=== PATIENT | female | born 1955 | race Caucasian/White ===

== ENCOUNTER 2022-08-22 05:28 | Inpatient (IN) ==
--- NOTE | 2022-08-22 06:35 | Emergency Department Note ---
Impression & Plan Respiratory failure with hypoxia, Fluid overload ED Provider Note CHIEF COMPLAINT: Shortness of breath HISTORY OF PRESENT ILLNESS: This 67-year-old patient with past medical history of bipolar disorder, hypertension, stress incontinence, chronic back pain, morbid obesity with fluid overload presents to the emergency department with complaints of shortness of breath. Patient has been staying in a camper with her . He did have a 3-day period where she was off of her Lasix, which w as just initiated at the beginning of July. Patient did take her Lasix yesterday and her states she had difficulty making it to the bathroom, she was incontinent several times. He also mentions that she has a diagnosis of dementia and multiple medications exacerbate her confusion. Patient is noted to improve tremendously on nasal cannula oxygen. She does not wear oxygen at home. They deny fevers, chills, chest pain, abdominal pain, vomiting. REVIEW OF SYSTEMS: A review of systems was performed with positives and pertinent negatives listed in the history of present illness. 10 systems were reviewed and are otherwise negative. ALLERGIES: see below MEDICATIONS: see below PMH: see below SOCIAL HISTORY: see below DDx: Reactive airway disease, pneumonia, pneumothorax, COPD, CHF, cardiac ischemia, pulmonary embolism, as well as other pathologies. PHYSICAL EXAM: Vital signs reviewed. Noted to be hypertensive General: Chronically ill-appearing 67-year-old female, in no significant distress. HEENT: No scleral icterus, PERRLA, neck supple. Atraumatic. Cardiovascular: Regular rate and rhythm, no extra sounds. Pulmonary: Clear to auscultation bilaterally, normal work of breathing on n/c 02 Abdomen: Soft, obese, nontender, nondistended, positive bowel sounds. Musculoskeletal: Atraumatic, significant peripheral edema. Neurologic: Patient somnolent but arousable, answers questions appropriately, speech is slower but clear Skin: Warm, dry in general, but significant yeast dermatitis under breasts bilaterally. Foul smelling. EMERGENCY DEPARTMENT COURSE/MDM: -This pt was evaluated and appeared to be in no distress, on n/c O2 -CXR ? mild congestion, no focal consolidation or severe CHF -VSS on n/c O2 -IV access obtained and labs drawn. EKG reveals NSR without acute ischemia. -medicated with IV lasix [address] chest ordered to r/o PE. -pt began to diurese and chest CT negative for PE. Lab work is reassuring, biofire resp panel is negative. Trop WNL. -Nystatin and wound care ordered for intertrigo. -Given hypoxia and need for diuresis, further evaluation, pt was d/w the hospitalist service for further management. Pt and aware and agree. MONITORING: An order for cardiac monitoring was placed and the patient is noted to be in a normal sinus rhythm at 80 beats per minute. RADIOLOGY: Chest x-ray to my interpretation reveals poor inspiratory effort, possible mild congestive change without focal lung consolidation. Otherwise defer to radiology. CT angiogram of the chest reveals no evidence of pulmonary embolus, no focal lung consolidation. Otherwise defer to radiology EKG: To my interpretation reveals a normal sinus rhythm at [address] abnormalities. No PVC, no PAC. QTc is 439 DISPOSITION:Admit I have personally spent 32 minutes of critical care time in the direct management of this patient. This was a life/limb threatening event. This 32 minutes is in excess of all separately billable procedures. 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 Beliefs That Will Affect Care: None Current Living Situation: Spouse Feels Safe at Home: Yes Assistive Devices: Cane and Walker Allergies Allergies Allergy/AdvReac Type Severity Reaction Status Date / Time amitriptyline [From Elavil] AdvReac Gastrointestinal Unverified 08/22/22 09:35 Upset amoxicillin [From Augmentin] AdvReac Gastrointestinal Unverified 08/22/22 09:35 Upset clavulanic acid AdvReac Gastrointestinal Unverified 08/22/22 09:35 [From Augmentin] Upset oxycodone AdvReac Gastrointestinal Unverified 08/22/22 09:35 Upset Home Meds Home Medications Medication Instructions Recorded Confirmed albuterol sulfate 90 mcg/actuation 2 puff inhalation QID PRN Wheezing 08/22/22 08/22/22 aerosol inhaler atorvastatin 10 mg tablet 10 mg PO DAILY 08/22/22 08/22/22 celecoxib 200 mg capsule See Rx Instructions .Route .COMPLEX 08/22/22 08/22/22 cephalexin 500 mg capsule 500 mg PO BID 08/22/22 08/22/22 duloxetine 60 mg capsule,delayed 60 mg PO QAM 08/22/22 08/22/22 release hydroxyzine HCl 25 mg tablet 50 mg PO QID PRN Anxiety 08/22/22 08/22/22 nystatin 100,000 unit/gram topical 1 applic topical TID 08/22/22 08/22/22 powder (Nyamyc) olanzapine 20 mg tablet 20 mg PO DAILY 08/22/22 08/22/22 oxybutynin chloride 10 mg 10 mg PO QAM 08/22/22 08/22/22 tablet,extended release 24 hr risperidone 1 mg tablet 0.5 mg PO BID 08/22/22 08/22/22 Previous Rx's Medication Instructions Recorded amlodipine 5 mg tablet (Norvasc) 2.5 mg PO QAM 30 days #15 tabs 08/25/22 furosemide 20 mg tablet 20 mg PO QAM 30 days #30 tabs 08/25/22 gabapentin 400 mg capsule 400 mg PO BID #1 cap 08/25/22 hydrocodone 2.5 mg-acetaminophen 1 tab PO Q6H PRN pain #20 tabs 08/25/22 325 mg tablet lidocaine 5 % topical patch 1 patch transdermal QAM 30 days 08/25/22 #30 ea metoprolol succinate 100 mg 100 mg PO BID #60 tabs 08/25/22 tablet,extended release 24 hr (Toprol XL) Results & Data (ED) Vital Signs Vital Signs - 24 hr 08/22/22 05:34 08/22/22 06:01 08/22/22 06:12 Temperature 36.6 C Temperature Source Temporal Artery Scan Pulse Rate 80 80 Pulse Rate from SpO2 Sensor Respiratory Rate 18 Respiratory Effort / Characteristics Non-Labored Spontaneous Respiratory Depth Normal Respiratory Pattern Regular Blood Pressure 139/80 Blood Pressure Mean 99 Blood Pressure Position Sitting Pulse Oximetry 65 L 60 L Oxygen Delivery Method Room Air Room Air Oxygen Flow Rate Sepsis Recent Fever Within 48 Hours No Sepsis New/Unexplained Change in Mental Status N/A Sepsis Action Taken by Nursing No Action Required 08/22/22 06:02 08/22/22 06:30 08/22/22 06:41 Temperature Temperature Source Pulse Rate 79 78 Pulse Rate from SpO2 Sensor 79 78 Respiratory Rate 26 H 20 Respiratory Effort / Characteristics Respiratory Depth Respiratory Pattern Blood Pressure 167/88 H 154/81 H Blood Pressure Mean 114 105 Blood Pressure Position Pulse Oximetry 94 93 Oxygen Delivery Method Nasal Cannula Nasal Cannula Oxygen Flow Rate 4 4 Sepsis Recent Fever Within 48 Hours Sepsis New/Unexplained Change in Mental Status Sepsis Action Taken by Nursing 08/22/22 06:41 08/22/22 07:00 08/22/22 07:00 Temperature Temperature Source Pulse Rate 77 80 Pulse Rate from SpO2 Sensor 77 80 Respiratory Rate 26 H 22 Respiratory Effort / Characteristics Respiratory Depth Respiratory Pattern Blood Pressure 163/97 H Blood Pressure Mean 119 Blood Pressure Position Pulse Oximetry 95 92 Oxygen Delivery Method Nasal Cannula Nasal Cannula Oxygen Flow Rate 4 4 Sepsis Recent Fever Within 48 Hours Sepsis New/Unexplained Change in Mental Status Sepsis Action Taken by Alf Medications Current Medication List: was personally reviewed by me Laboratory Data Attestation: I reviewed the patient's lab results. 08/22/22 06:05 08/22/22 06:05 Lab Results 08/22/22 08/22/22 08/22/22 Range/Units 06:05 06:05 06:10 WBC 8.48 (4.8-10.8) K/ul RBC 5.31 (4.20-5.40) M/uL Hgb 13.3 (12.0-16.0) g/dl Hct 43.6 (37.0-47.0) % MCV 82.1 (80.0-100.0) fL MCH 25.0 (25.0-34.0) pg MCHC 30.5 L (32.0-36.0) g/dL RDW Std Deviation 45.8 (36.4-46.3) fL RDW Coeff of Zandra 15.3 H (11.5-14.5) % Plt Count 210 (130-400) K/uL MPV 9.9 (9.4-12.4) fL Immature Gran % (Auto) 0.8 % Neut % (Auto) 82.9 % Lymph % (Auto) 9.0 % [place]ferro % (Auto) 4.8 % Eos % (Auto) 2.1 % Baso % (Auto) 0.4 % Neut # (Auto) 7.03 H (1.40-6.50) K/uL Lymph # (Auto) 0.76 L (1.2-3.4) K/uL [place]ferro # (Auto) 0.41 (0.11-0.59) K/uL Eos # (Auto) 0.18 (0-0.50) K/uL Baso # (Auto) 0.03 (0-0.2) K/uL Immature Gran # (Auto) 0.07 (0.01-0.20) K/uL ABG pH (7.35-7.45) ABG pCO2 (35-46) mmHg ABG pO2 (80-95) mmHg ABG HCO3 (19-24) mmol/L ABG O2 Saturation (90-95) % ABG Base Excess (-9-1.8) mEq/L Parvez Test (Pos) Oxygen Given Sodium 132 L (136-145) mmol/L Potassium TNP Chloride 92 L (98-107) mmol/L Carbon Dioxide 35 H (21-32) mmol/L Anion Gap 5 (3-11) BUN 7 (6-23) mg/dl Creatinine 0.78 (0.6-1.2) mg/dl Est Cr Clr Drug Dosing Not Reportable Est GFR ( Amer) 91.8 ml/min Est GFR (Non-Af Amer) 79.2 ml/min BUN/Creatinine Ratio 9.0 L (10-20) Glucose 114 H (70-99(Fasting)) mg/dl Calcium 9.0 (8.6-10.3) mg/dl Magnesium 1.6 L (1.7-2.4) mg/dl Total Bilirubin 0.7 (0.2-1.0) mg/dl AST TNP ALT 5 L (7-52) U/L Alkaline Phosphatase 81 (34-104) U/L Troponin I High Sens 10.5 (0-14) pg/ml Total Protein 6.8 (6.0-8.3) gm/dl Albumin 3.6 (3.4-5.0) gm/dl Globulin 3.2 (2.5-4.0) gm/dl Albumin/Globulin Ratio 1.1 (0.9-2) Urine Color Urine Appearance (Clear) Urine pH (4.5-7.5) Ur Specific [place] (1.000-1.030) Urine Protein (Negative) Urine Glucose (UA) (Negative) Urine Ketones (Negative) Urine Blood (Negative) Urine Nitrite (Negative) Urine Bilirubin (Negative) Urine Urobilinogen (Negative) Ur Leukocyte Esterase (Negative) Adenovirus (PCR) Not Detected (NotDetected) B. pertussis DNA (PCR) Not Detected (NotDetected) B.parapertussis DNA PCR Not Detected (NotDetected) C. pneumoniae DNA (PCR) Not Detected (NotDetected) Coronavirus OC43 (PCR) Not Detected (NotDetected) Coronavirus HKU1 (PCR) Not Detected (NotDetected) Coronavirus 229E (PCR) Not Detected (NotDetected) SARS-CoV-2 (PCR) Not Detected (NotDetected) Coronavirus NL63 (PCR) Not Detected (NotDetected) Human Metapneumovir PCR Not Detected (NotDetected) Influenza Type A (PCR) Not Detected (NotDetected) Influenza Type B (PCR) Not Detected (NotDetected) M. pneumoniae (PCR) Not Detected (NotDetected) Parainfluenza 1 (PCR) Not Detected (NotDetected) Parainfluenza 2 (PCR) Not Detected (NotDetected) Parainfluenza 3 (PCR) Not Detected (NotDetected) Parainfluenza 4 (PCR) Not Detected (NotDetected) RSV (PCR) Not Detected (NotDetected) Entero/Rhino (PCR) Not Detected (NotDetected) 08/22/22 08/22/22 08/22/22 Range/Units 07:03 07:03 07:36 WBC (4.8-10.8) K/ul RBC (4.20-5.40) M/uL Hgb (12.0-16.0) g/dl Hct (37.0-47.0) % MCV (80.0-100.0) fL MCH (25.0-34.0) pg MCHC (32.0-36.0) g/dL RDW Std Deviation (36.4-46.3) fL RDW Coeff of Zandra (11.5-14.5) % Plt Count (130-400) K/uL MPV (9.4-12.4) fL Immature Gran % (Auto) % Neut % (Auto) % Lymph % (Auto) % [place] % (Auto) % Eos % (Auto) % Baso % (Auto) % Neut # (Auto) (1.40-6.50) K/uL Lymph # (Auto) (1.2-3.4) K/uL [place] # (Auto) (0.11-0.59) K/uL Eos # (Auto) (0-0.50) K/uL Baso # (Auto) (0-0.2) K/uL Immature Gran # (Auto) (0.01-0.20) K/uL ABG pH 7.38 (7.35-7.45) ABG pCO2 67 H (35-46) mmHg ABG pO2 80 (80-95) mmHg ABG HCO3 40 H (19-24) mmol/L ABG O2 Saturation 95.6 H (90-95) % ABG Base Excess 11.5 H (-9-1.8) mEq/L Parvez Test Pos (Pos) Oxygen Given 5L Sodium (136-145) mmol/L Potassium 3.9 Chloride (98-107) mmol/L Carbon Dioxide (21-32) mmol/L Anion Gap (3-11) BUN (6-23) mg/dl Creatinine (0.6-1.2) mg/dl Est Cr Clr Drug Dosing Est GFR ( Amer) ml/min Est GFR (Non-Af Amer) ml/min BUN/Creatinine Ratio (10-20) Glucose (70-99(Fasting)) mg/dl Calcium (8.6-10.3) mg/dl Magnesium (1.7-2.4) mg/dl Total Bilirubin (0.2-1.0) mg/dl AST 10 L ALT (7-52) U/L Alkaline Phosphatase (34-104) U/L Troponin I High Sens (0-14) pg/ml Total Protein (6.0-8.3) gm/dl Albumin (3.4-5.0) gm/dl Globulin (2.5-4.0) gm/dl Albumin/Globulin Ratio (0.9-2) Urine Color Yellow Urine Appearance Clear (Clear) Urine pH 7.0 (4.5-7.5) Ur Specific [place] 1.006 (1.000-1.030) Urine Protein Negative (Negative) Urine Glucose (UA) Negative (Negative) Urine Ketones Negative (Negative) Urine Blood Negative (Negative) Urine Nitrite Negative (Negative) Urine Bilirubin Negative (Negative) Urine Urobilinogen Negative (Negative) Ur Leukocyte Esterase Negative (Negative) Adenovirus (PCR) (NotDetected) B. pertussis DNA (PCR) (NotDetected) B.parapertussis DNA PCR (NotDetected) C. pneumoniae DNA (PCR) (NotDetected) Coronavirus OC43 (PCR) (NotDetected) Coronavirus HKU1 (PCR) (NotDetected) Coronavirus 229E (PCR) (NotDetected) SARS-CoV-2 (PCR) (NotDetected) Coronavirus NL63 (PCR) (NotDetected) Human Metapneumovir PCR (NotDetected) Influenza Type A (PCR) (NotDetected) Influenza Type B (PCR) (NotDetected) M. pneumoniae (PCR) (NotDetected) Parainfluenza 1 (PCR) (NotDetected) Parainfluenza 2 (PCR) (NotDetected) Parainfluenza 3 (PCR) (NotDetected) Parainfluenza 4 (PCR) (NotDetected) RSV (PCR) (NotDetected) Entero/Rhino (PCR) (NotDetected) Administered Medications Discontinued Medications Acetaminophen (Acetaminophen 325 Mg Tab) 650 mg PO Q12H PRN PRN Reason: Headache Stop: 09/21/22 19:36 Last Admin: 08/22/22 20:09 Dose: 650 mg Documented By: JASMYN Hydrocodone Bitart/Acetaminophen (Hydrocodone/Acetamophen 5/325mg Tab) 0.5 tab PO Q6H PRN PRN Reason: moderate to severe Stop: 09/05/22 10:02 Last Admin: 08/25/22 09:26 Dose: 0.5 tab Documented By: Admin: 08/24/22 12:23 Dose: 0.5 tab Documented By: Admin: 08/23/22 15:43 Dose: 0.5 tab Documented By: Admin: 08/23/22 08:19 Dose: 0.5 tab Documented By: Admin: 08/22/22 16:03 Dose: 0.5 tab Documented By: EBENEZER Amlodipine Besylate (Amlodipine Besylate 5 Mg Tab) [facility] [place] Stop: 09/22/22 08:59 Last Admin: 08/25/22 07:59 Dose: 2.5 mg Documented By: Admin: 08/24/22 08:55 Dose: 2.5 mg Documented By: Admin: 08/23/22 08:22 Dose: 2.5 mg Documented By: SAMSON Cephalexin HCl (Cephalexin 500 Mg Cap) 500 mg PO Q6 [facility]; Protocol Stop: 08/29/22 13:29 Last Admin: 08/25/22 13:01 Dose: 500 mg Documented By: Admin: 08/25/22 05:41 Dose: 500 mg Documented By: Admin: 08/25/22 00:07 Dose: 500 mg Documented By: Admin: 08/24/22 17:41 Dose: 500 mg Documented By: Admin: 08/24/22 12:22 Dose: 500 mg Documented By: Admin: 08/24/22 05:50 Dose: 500 mg Documented By: Admin: 08/23/22 23:22 Dose: 500 mg Documented By: Admin: 08/23/22 18:12 Dose: 500 mg Documented By: Admin: 08/23/22 12:39 Dose: 500 mg Documented By: Admin: 08/23/22 05:21 Dose: 500 mg Documented By: Admin: 08/22/22 22:39 Dose: 500 mg Documented By: Admin: 08/22/22 19:15 Dose: 500 mg Documented By: Admin: 08/22/22 13:57 Dose: 500 mg Documented By: EBENEZER Duloxetine HCl (Duloxetine Hcl 20 Mg Cap) 40 mg PO DAILY [facility] Stop: 09/22/22 08:59 Last Admin: 08/25/22 08:00 Dose: 40 mg Documented By: Admin: 08/24/22 08:56 Dose: 40 mg Documented By: Admin: 08/23/22 08:23 Dose: 40 mg Documented By: SMASON Furosemide (Furosemide 40 Mg/4 Ml Vial) 40 mg IV ONE ONE Stop: 08/22/22 08:00 Last Admin: 08/22/22 09:02 Dose: 40 mg Documented By: MARY JO Furosemide (Furosemide 20 Mg Tab) 20 mg PO QAM PRISCILLA Stop: 09/22/22 11:14 Last Admin: 08/25/22 08:00 Dose: 20 mg Documented By: Admin: 08/24/22 08:56 Dose: 20 mg Documented By: Admin: 08/23/22 11:25 Dose: 20 mg Documented By: SAMSON Gabapentin (Gabapentin 400 Mg Cap) 400 mg PO BID PRISCILLA Stop: 09/21/22 20:59 Last Admin: 08/25/22 08:02 Dose: 400 mg Documented By: Admin: 08/24/22 22:44 Dose: 400 mg Documented By: Admin: 08/24/22 08:55 Dose: 400 mg Documented By: Admin: 08/23/22 20:19 Dose: 400 mg Documented By: Admin: 08/23/22 08:23 Dose: 400 mg Documented By: Admin: 08/22/22 20:12 Dose: 400 mg Documented By: JASMYN Heparin Sodium (Porcine) (Heparin Sod 5,000 Unit/0.5 Ml Vial) 5,000 units SQ Q8 PRISCILLA Stop: 09/21/22 13:59 Last Admin: 08/25/22 05:42 Dose: 5,000 units Documented By: Admin: 08/24/22 22:44 Dose: 5,000 units Documented By: Admin: 08/24/22 14:10 Dose: 5,000 units Documented By: Admin: 08/24/22 05:50 Dose: 5,000 units Documented By: Admin: 08/23/22 23:22 Dose: 5,000 units Documented By: Admin: 08/23/22 15:38 Dose: 5,000 units Documented By: Admin: 08/23/22 05:22 Dose: 5,000 units Documented By: Admin: 08/22/22 22:37 Dose: 5,000 units Documented By: Admin: 08/22/22 13:58 Dose: 5,000 units Documented By: EBENEZER Hydroxyzine HCl (Hydroxyzine Hcl 25 Mg Tab) 25 mg PO Q8H PRN PRN Reason: Anxiety Stop: 09/21/22 14:07 Last Admin: 08/24/22 08:54 Dose: 25 mg Documented By: Admin: 08/23/22 10:40 Dose: 25 mg Documented By: Admin: 08/22/22 14:21 Dose: 25 mg Documented By: EBENEZER Magnesium Sulfate/Dextrose (Magnesium Sulfate / D5w) 1 gm in 100 mls @ 200 mls/hr IV Q30M [facility] Stop: 08/22/22 08:24 Last Infusion: 08/22/22 09:35 Dose: 0 mls/hr Documented By: MARY JO Admin: 08/22/22 09:03 Dose: 200 mls/hr Documented By: MARY JO Infusion: 08/22/22 09:03 Dose: 200 mls/hr Documented By: MARY JO Admin: 08/22/22 08:37 Dose: 200 mls/hr Documented By: MARY JO Promethazine HCl 12.5 mg/ (Sodium Chloride) 50.5 mls @ 202 mls/hr IV Q6H PRN PRN Reason: Nausea And Vomiting Stop: 09/23/22 20:25 Last Infusion: 08/24/22 22:46 Dose: 0 mls/hr Documented By: Admin: 08/24/22 21:25 Dose: 202 mls/hr Documented By: ASAF Ioversol (Optiray 320 500ml) 120 ml IV ONCE ONE Stop: 08/22/22 07:51 Last Admin: 08/22/22 07:51 Dose: 120 ml Documented By: ERICH Lactobacillus Acidophilus (Advanced Probiotic 1250 Mg Capsule) 2 cap PO DAILY [facility] Stop: 09/21/22 13:29 Last Admin: 08/25/22 08:01 Dose: 2 cap Documented By: Admin: 08/24/22 08:56 Dose: 2 cap Documented By: Admin: 08/23/22 08:22 Dose: 2 cap Documented By: Admin: 08/22/22 13:58 Dose: 2 cap Documented By: EBENEZER Lidocaine (Lidocaine 5% 1 Patch) 1 patch TD QAM [facility] Stop: 09/21/22 10:29 Last Admin: 08/25/22 08:02 Dose: 1 patch Documented By: Admin: 08/24/22 08:56 Dose: 1 patch Documented By: Admin: 08/23/22 08:23 Dose: 1 patch Documented By: Admin: 08/22/22 13:57 Dose: 1 patch Documented By: EBENEZER Metoprolol Succinate (Metoprolol Succ 50mg Ext Rel Tab) 100 mg PO DAILY [facility] Stop: 09/22/22 08:59 Last Admin: 08/24/22 08:56 Dose: 100 mg Documented By: Admin: 08/23/22 08:23 Dose: 100 mg Documented By: SAMSON Metoprolol Succinate (Metoprolol Succ 50mg Ext Rel Tab) 50 mg PO HS [facility] Stop: 09/21/22 20:59 Last Admin: 08/23/22 20:20 Dose: 50 mg Documented By: Admin: 08/22/22 20:12 Dose: 50 mg Documented By: JASMYN Metoprolol Succinate (Metoprolol Succ 50mg Ext Rel Tab) 100 mg PO BID [facility] Stop: 09/23/22 20:59 Last Admin: 08/25/22 08:01 Dose: 100 mg Documented By: Admin: 08/24/22 22:44 Dose: 100 mg Documented By: ASAF Miscellaneous (Remove Lidoderm Patch) 1 each N/A DAILY@2100 [facility] Stop: 09/21/22 20:59 Last Admin: 08/24/22 22:45 Dose: 1 each Documented By: Admin: 08/23/22 20:21 Dose: 1 each Documented By: Admin: 08/22/22 20:12 Dose: 1 each Documented By: JASMYN Nystatin (Nystatin Powder 15gm Btl) 1 appln EXT NOW STA Stop: 08/22/22 07:37 Last Admin: 08/22/22 08:37 Dose: 1 appln Documented By: MARY JO Nystatin (Nystatin Powder 15gm Btl) 1 appln EXT TID [facility] Stop: 09/21/22 13:59 Last Admin: 08/25/22 08:02 Dose: 1 appln Documented By: Admin: 08/24/22 22:45 Dose: 1 appln Documented By: Admin: 08/24/22 14:11 Dose: 1 appln Documented By: Admin: 08/24/22 08:55 Dose: 1 appln Documented By: Admin: 08/23/22 20:21 Dose: 1 appln Documented By: Admin: 08/23/22 15:34 Dose: 1 appln Documented By: Admin: 08/23/22 08:24 Dose: 1 appln Documented By: Admin: 08/22/22 20:12 Dose: 1 appln Documented By: Admin: 08/22/22 13:58 Dose: 1 appln Documented By: EBENEZER Ondansetron HCl (Ondansetron Inj 2 Mg/Ml 2 Ml Vial) 4 mg IV NOW STA Stop: 08/22/22 18:51 Last Admin: 08/22/22 19:15 Dose: 4 mg Documented By: EBENEZER Oxybutynin Chloride (Oxybutynin Chloride Xl 5 Mg Tabcr) 10 mg PO DAILY PRISCILLA Stop: 09/22/22 08:59 Last Admin: 08/25/22 08:00 Dose: 10 mg Documented By: Admin: 08/24/22 08:54 Dose: 10 mg Documented By: Admin: 08/23/22 08:24 Dose: 10 mg Documented By: SAMSON Pneumococcal Polyvalent Vaccine (Pneumococcal Polysaccharides 25 Mcg/0.5 Ml Vial/Syr) 25 mcg IM .ONCE ONE Stop: 08/22/22 10:22 Last Admin: 08/25/22 13:03 Dose: 25 mcg Documented By: HERNESTO Risperidone (Risperidone 0.5 Mg Tablet) 0.5 mg PO BID PRISCILLA Stop: 09/21/22 20:59 Last Admin: 08/25/22 08:00 Dose: 0.5 mg Documented By: Admin: 08/24/22 22:44 Dose: 0.5 mg Documented By: Admin: 08/24/22 09:02 Dose: 0.5 mg Documented By: Admin: 08/23/22 20:20 Dose: 0.5 mg Documented By: Admin: 08/23/22 08:24 Dose: 0.5 mg Documented By: Admin: 08/22/22 20:12 Dose: 0.5 mg Documented By: JASMYN Imaging Data Radiologist's Impression: Chest X-Ray 08/22/22 05:46 XR chest 1V portable CLINICAL HISTORY: Dyspnea TECHNIQUE: Single frontal radiograph of the chest was obtained. Comparison: Comparison is made to chest radiograph 11/09/2010 FINDINGS: Exam is limited by underpenetration. The cardiomediastinal silhouette is normal. Lungs are underinflated but clear. No evidence of pleural effusion or pneumothorax. IMPRESSION: No acute abnormalities and in particular no radiographic evidence of pneumonia. ACT 112: Negative or not required by law. Electronically signed by: Jensen Villalba M.D. 08/22/2022 7:32 AM Chest CTA 08/22/22 06:41 CT angio chest PE protocol CLINICAL HISTORY: PE, O2 sat 60% TECHNIQUE: Multidetector row helical CT of the chest was performed with angiographic protocol. Coronal and sagittal reformations were obtained. Coronal and sagittal MIPS were obtained from the axial data set and were submitted for review. Automated dose lowering techniques and/or adjustment according to patient size were utilized for this exam. CT DOSE: 782.74 mGy.cm Comparison: Comparison is made to chest radiograph 08/22/2022 FINDINGS: Lungs and pleura: Atelectasis versus scarring is seen in the dependent portions of the lungs. Heart and pericardium: Heart size is normal. No pericardial effusion. Vessels: No evidence of pulmonary embolism. Pulmonary trunk measures 37 mm in diameter. Mediastinum and tamiko: Unremarkable. Chest wall and lower neck: Unremarkable. Abdomen: Unremarkable. Bones: Degenerative changes in the thoracic spine. IMPRESSION: 1. No pulmonary embolus is seen. 2. Pulmonary hypertension and atelectasis are seen. ACT 112: Negative or not required by law. Electronically signed by: Jensen Villalba M.D. 08/22/2022 8:10 AM Discharge Plan Visit Data Chief Complaint: Weakness Stated Complaint: CAN'T WALK,SWELLING IN LEGS,RED PATCHES ED Provider: Kathrine Fonseca Discharge Problem: Respiratory failure with hypoxia, Fluid overload Patient Disposition: Admitted As Inpatient Condition: Fair Discharge Instructions Interventions: ED Discharge Assessment Last Done: 08/22/22 09:32
[2022-08-22 06:42] LABS: Basophils # (auto) 0.03 K/uL (0-0.2); Basophils % (auto) 0.4 %; Eosinophils # (auto) 0.18 K/uL (0-0.50); Eosinophils % (auto) 2.1 %; Hematocrit (blood only) 43.6 % (37.0-47.0); Hemoglobin 13.3 g/dl (12.0-16.0); Immature Granulocytes # (auto) 0.07 K/uL (0.01-0.20); Immature Granulocytes % (auto) 0.8 %; Lymphocytes # (auto) 0.76 K/uL (1.2-3.4); Mean Corpuscular Hgb Conc 30.5 g/dL (32.0-36.0); Mean Corpuscular Volume 82.1 fL (80.0-100.0); Mean Platelet Volume 9.9 fL (9.4-12.4); Monocytes # (auto) 0.41 K/uL (0.11-0.59); Monocytes % (auto) 4.8 %; Neutrophils # (auto) 7.03 K/uL (1.40-6.50); Neutrophils % (auto) 82.9 %; Platelet Count 210 K/uL (130-400); RDW Coefficient of Variation 15.3 % (11.5-14.5); RDW Standard Deviation 45.8 fL (36.4-46.3); Red Blood Count 5.31 M/uL (4.20-5.40); White Blood Count 8.48 K/ul (4.8-10.8)
[2022-08-22 07:12] LABS: Base Excess ABG 11.5 mEq/L (-9-1.8); HCO3 ABG 40 mmol/L (19-24); Oxygen Saturation ABG 95.6 % (90-95); PCO2 ABG 67 mmHg (35-46); PO2 ABG 80 mmHg (80-95); pH ABG 7.38 (7.35-7.45)
[2022-08-22 07:13] LABS: Allen Test Pos (Pos)
[2022-08-22 07:13] LABS: Alanine Aminotransferase 5 U/L (7-52); Albumin Globulin Ratio 1.1 (0.9-2); Albumin Level 3.6 gm/dl (3.4-5.0); Alkaline Phosphatase 81 U/L (34-104); Anion Gap 5 (3-11); Bilirubin,Total 0.7 mg/dl (0.2-1.0); Blood Urea Nitrogen 7 mg/dl (6-23); Carbon Dioxide 35 mmol/L (21-32); Chloride 92 mmol/L (98-107); Est GFR (African American) 91.8 ml/min; Est GFR (Non-African American) 79.2 ml/min; Globulin 3.2 gm/dl (2.5-4.0); Glucose 114 mg/dl (70-99(Fasting)); Magnesium 1.6 mg/dl (1.7-2.4); Sodium 132 mmol/L (136-145); Total Protein 6.8 gm/dl (6.0-8.3); Troponin I High Sensitivity 10.5 pg/ml (0-14)
[2022-08-22 07:32] LABS: Potassium 3.9 mmol/L (3.5-5.1)
--- NOTE | 2022-08-22 07:33 | XRay Report ---
XR chest 1V portable CLINICAL HISTORY: Dyspnea TECHNIQUE: Single frontal radiograph of the chest was obtained. Comparison: Comparison is made to chest radiograph 11/09/2010 FINDINGS: Exam is limited by underpenetration. The cardiomediastinal silhouette is normal. Lungs are underinfla marni but clear. No evidence of pleural effusion or pneumothorax. IMPRESSION: No acute abnormalities and in particular no radiographic evidence of pneumonia. ACT 112: Negative or not required by law. Electronically signed by: Jensen Villalba M.D. 08/22/2022 7:32 AM
[2022-08-22] MEDS ORDERED: NYSTATIN POWDER 15GM BTL EXT STA (07:36)
[2022-08-22 07:38] LABS: Adenovirus PCR Not Detected (NotDetected); Bordetella parapertussis PCR Not Detected (NotDetected); Bordetella pertussis PCR Not Detected (NotDetected); Chlamydia pneumoniae PCR Not Detected (NotDetected); Coronavirus 229E PCR Not Detected (NotDetected); Coronavirus CoV-2 (COVID19)PCR Not Detected (NotDetected); Coronavirus HKU1 PCR Not Detected (NotDetected); Coronavirus NL63 PCR Not Detected (NotDetected); Coronavirus OC43PCR Not Detected (NotDetected); Human Metapneumovirus PCR Not Detected (NotDetected); Influenza A PCR Not Detected (NotDetected); Influenza B PCR Not Detected (NotDetected); Mycoplasma pneumoniae PCR Not Detected (NotDetected); Parainfluenza Virus 1 PCR Not Detected (NotDetected); Parainfluenza Virus 2 PCR Not Detected (NotDetected); Parainfluenza Virus 3 PCR Not Detected (NotDetected); Parainfluenza Virus 4 PCR Not Detected (NotDetected); Respiratory Syncytial VirusPCR Not Detected (NotDetected); Rhinovirus/Enterovirus PCR Not Detected (NotDetected)
[2022-08-22 07:49] LABS: Appearance Urine Clear (Clear); Bilirubin Urine Negative (Negative); Blood Urine Negative (Negative); Color Urine Yellow; Glucose Urine UA Negative (Negative); Ketones Urine Negative (Negative); Leukocyte Esterase Urine Negative (Negative); Nitrite Urine Negative (Negative); Protein Urine Negative (Negative); Specific Gravity Urine 1.006 (1.000-1.030); Urobilinogen Urine Negative (Negative)
[2022-08-22] MEDS ORDERED: OPTIRAY 320 500ml IV ONE (07:50)
[2022-08-22] MEDS ORDERED: FUROSEMIDE 40 MG/4 ML VIAL IV ONE (07:59)
--- NOTE | 2022-08-22 08:12 | CT Scan Report ---
CT angio chest PE protocol CLINICAL HISTORY: PE, O2 sat 60% TECHNIQUE: Multidetector row helical CT of the chest was performed with angiographic protocol. Schulz l and sagittal reformations were obtained. Coronal and sagittal MIPS were obtained from the axial liam a set and were submitted for review. Automated dose lowering techniques and/or adjustment according to patient size were utilized for this exam. CT DOSE: 782.74 mGy.cm Comparison: Comparison is made to chest radiograph 08/22/2022 FINDINGS: Lungs and pleura: Atelectasis versus scarring is seen in the dependent portions of the lungs. Heart and pericardium: Heart size is normal. No pericardial effusion. Vessels: No evidence of pulmonary embolism. Pulmonary trunk measures 37 mm in diameter. Mediastinum and tamiko: Unremarkable. Chest wall and lower neck: Unremarkable. Abdomen: Unremarkable. Bones: Degenerative changes in the thoracic spine. IMPRESSION: 1. No pulmonary embolus is seen. 2. Pulmonary hypertension and atelectasis are seen. ACT 112: Negative or not required by law. Electronically signed by: Jensen Villalba M.D. 08/22/2022 8:10 AM
[2022-08-22] MEDS: MAGNESIUM SULFATE / D5W 1 GM/100 ML BAG IV SCH ×2 (08:37→09:03)
--- NOTE | 2022-08-22 09:16 | History & Physical Report ---
Date of Service August 22, 2022 Assessment & Plan (1) Acute respiratory failure with hypoxia and hypercapnia: Plan: Present on admission with worsening SOB Possible related to hypoventilation due to chronic opioid use in the setting of possible fluid overload CXR showed no acute abnormalities and in particular no radiographic evidence of pneumonia. CTA chest showed no pulmonary embolus is seen. Pulmonary hypertension and atelectasis are seen. Biofire negative for Covid 19, parainfluenza and influenza Received IV lasix 40mg in the ER, will continue for now Will check BNP Recent Echo done on 08/11/22 showed normal left ventricular diastolic functtion and EF 55-59% Continue oxygen supplement and incentive spirometry Consider 2 step exercise and nocturnal oximetry prior discharge Chronic B/L LE edema Gabapentin and amlodipine can increase the risk for edema Diuresis well with the 40mg Lasix received in the ER. Continue lasix 40mg IV daily for now Will consider cardiology eval to help with diuretic management Continue monitor electrolytes and renal function while on IV lasix Continue monitor I/O LE cellulitis Continue Keflex that was started on 08/19 outpatient Pharmacy called and mentioned the dose should be QID base on his clearance if treated for celluliti Clinically improved Chronic Low back pain Follow up with pain management As per , pt became very drowsy and lethargy even after cutting the Hydrocodone 10mg to half tab Will reduce the hydrocodone to 2.5 mg q6h prn and will add lidocaine patch Continue Cymbalta and gabapentin Continue monitor closely Stress incontinence Continue Oxybutynin daily Electrolytes imbalance Mg 1.6 and na 132 on admission Mg replaced in the ER Continue monitor electrolytes Diarrhea Possible related to antibiotic Keflex Diarrhea seems to improve today Will add probiotic If diarrhea persists, will need to check stool for Cdiff Weakness Ambulatory dysfunction No focal neuro deficit on exam Will consult PT/OT Involuntary Jerking movement Mostly related to medication such as Opioid, Cymbalta... Hydrocodone reduced to 2.5 mg. Will consider to decrease Cymbalta to 40mg DVT px heparin subq Code status full code History of Present Illness Chief Complaint: SOB and weakness Primary Care Provider: Orlando Nazario MD 67-year-old female with past medical history of bipolar disorder, hypertension, stress incontinence, chronic back pain, morbid obesity presents to the emergency department with complaints of worsening shortness of breath. Pt said that she was starting on Lasix las month for b/l LE edema. She said that she has been staying in a camper with her . She missed 3 doses of her Lasix. She said that she resumed the Lasix yesterday. said that she has been very week in the last few months where she ran out of energy with minimal exertion. Pt said that she got SOB with minimal activity. She followed with pain management and chiropractor for her chronic low back pain. said that she was taking hydrocodone 10mg; but after she takes 1 tab she is became very lethargy and confused. said he cut the tablet to half and she has been taking it every 3 hrs due to the pain. She continues to be drowsy and lethargy with the half of the 10mg hydrocodone. She said the pain management doctor last Monday and she was started on Celebrex that she stopped taking it after 1 dose because it gave her stomach upset. She was started on Keflex on 08/19 for b/l le cellulitis. noted the redness improves. Yesterday she had few episodes of diarrhea; but none today. said that she has been having involuntary jerking movement for a while. Currently she said that her breathing improves. Denies any fever, palpitation, chest pain, dizziness. Allergies Allergy/AdvReac Type Severity Reaction Status Date / Time amitriptyline [From Elavil] AdvReac Gastrointestinal Unverified 08/22/22 09:35 Upset amoxicillin [From Augmentin] AdvReac Gastrointestinal Unverified 08/22/22 09:35 Upset clavulanic acid AdvReac Gastrointestinal Unverified 08/22/22 09:35 [From Augmentin] Upset oxycodone AdvReac Gastrointestinal Unverified 08/22/22 09:35 Upset Home Medications Medication Instructions Recorded Confirmed Type albuterol sulfate 90 mcg/actuation 2 puff inhalation QID PRN Wheezing 08/22/22 08/22/22 History aerosol inhaler amlodipine 5 mg tablet 5 mg PO DAILY 08/22/22 08/22/22 History atorvastatin 10 mg tablet 10 mg PO DAILY 08/22/22 08/22/22 History celecoxib 200 mg capsule See Rx Instructions .Route .COMPLEX 08/22/22 08/22/22 History cephalexin 500 mg capsule 500 mg PO BID 08/22/22 08/22/22 History duloxetine 60 mg capsule,delayed 60 mg PO QAM 08/22/22 08/22/22 History release furosemide 40 mg tablet 40 mg PO QAM 08/22/22 08/22/22 History gabapentin 400 mg capsule 800 mg PO BID 08/22/22 08/22/22 History hydrocodone 10 mg-acetaminophen See Rx Instructions .Route .COMPLEX 08/22/22 08/22/22 History 325 mg tablet hydroxyzine HCl 25 mg tablet 50 mg PO QID PRN Anxiety 08/22/22 08/22/22 History metoprolol succinate 100 mg 50 mg PO HS 08/22/22 08/22/22 History tablet,extended release 24 hr metoprolol succinate 100 mg 100 mg PO DAILY 08/22/22 08/22/22 History tablet,extended release 24 hr nystatin 100,000 unit/gram topical 1 applic topical TID 08/22/22 08/22/22 History powder ([facility]) olanzapine 20 mg tablet 20 mg PO DAILY 08/22/22 08/22/22 History oxybutynin chloride 10 mg 10 mg PO QAM 08/22/22 08/22/22 History tablet,extended release 24 hr risperidone 1 mg tablet 0.5 mg PO BID 08/22/22 08/22/22 History Past Med/Surg History Medical History (Updated 08/22/22 @ 14:09 by LEWIS Guo) Fluid overload Social History Smoking Status: Never smoker Second Hand Exposure: No; Do You Dip or Chew Tobacco: No; Tobacco Cessation Education Requested by Patient: No Hx Alcohol Use: No Hx Substance Use: No Preferred Language: [employer] Required: No Beliefs That Will Affect Care: None Current Living Situation: Spouse Other Information That Helps Us Care for You: No Feels Safe at Home: Yes Safety Concerns: Feels Safe At This Time Assistive Devices: Glasses Review of Systems Review of Systems: All systems reviewed & are unremarkable except as noted in HPI & below Physical Exam Physical Exam: General- No acute distress, obesity Head- atraumatic Eyes- PERRL, EOMI, no nystagmus ENT- oropharynx clear Neck- supple, no JVD Lungs- No wheezing, no crackles Heart- regular rhythm; no murmur Abdomen- normal bowel sounds, soft, nontender Extremities- +edema, mild erythema in LLE Neuro- alert, oriented, PERRL, EOMI; no facial palsy; no dysarthria, mild tremor, no nystagmus Skin- warm & dry Results & Data Results & Data Vital Signs (Past 12 Hours) Vital Signs Temp Pulse Resp BP Pulse Ox O2 Del Method O2 Flow Rate 08/22/22 07:00 80 22 92 Nasal Cannula 4 08/22/22 07:00 163/97 H 08/22/22 06:41 77 26 H 95 Nasal Cannula 4 08/22/22 06:41 154/81 H 08/22/22 06:30 78 20 93 Nasal Cannula 4 08/22/22 06:02 79 26 H 167/88 H 94 Nasal Cannula 4 08/22/22 06:12 60 L Room Air 08/22/22 06:01 80 08/22/22 05:34 36.6 C 80 18 139/80 65 L Room Air Diagnostic Findings Laboratory Results WBC 8.48 K/ul (4.8-10.8) 08/22/22 06:05 RBC 5.31 M/uL (4.20-5.40) 08/22/22 06:05 Hgb 13.3 g/dl (12.0-16.0) 08/22/22 06:05 Hct 43.6 % (37.0-47.0) 08/22/22 06:05 MCV 82.1 fL (80.0-100.0) 08/22/22 06:05 MCH 25.0 pg (25.0-34.0) 08/22/22 06:05 MCHC 30.5 g/dL (32.0-36.0) L 08/22/22 06:05 RDW Std Deviation 45.8 fL (36.4-46.3) 08/22/22 06:05 RDW Coeff of Zandra 15.3 % (11.5-14.5) H 08/22/22 06:05 Plt Count 210 K/uL (130-400) 08/22/22 06:05 MPV 9.9 fL (9.4-12.4) 08/22/22 06:05 Immature Gran % (Auto) 0.8 % 08/22/22 06:05 Neut % (Auto) 82.9 % 06/05/23 06:05 Lymph % (Auto) 9.0 % 08/22/22 06:05 [place] % (Auto) 4.8 % 08/22/22 06:05 Eos % (Auto) 2.1 % 08/22/22 06:05 Baso % (Auto) 0.4 % 08/22/22 06:05 Neut # (Auto) 7.03 K/uL (1.40-6.50) H 08/22/22 06:05 Lymph # (Auto) 0.76 K/uL (1.2-3.4) L 08/22/22 06:05 [place] # (Auto) 0.41 K/uL (0.11-0.59) 08/22/22 06:05 Eos # (Auto) 0.18 K/uL (0-0.50) 08/22/22 06:05 Baso # (Auto) 0.03 K/uL (0-0.2) 08/22/22 06:05 Immature Gran # (Auto) 0.07 K/uL (0.01-0.20) 08/22/22 06:05 ABG pH 7.38 (7.35-7.45) 08/22/22 07:03 ABG pCO2 67 mmHg (35-46) H 08/22/22 07:03 ABG pO2 80 mmHg (80-95) 08/22/22 07:03 ABG HCO3 40 mmol/L (19-24) H 08/22/22 07:03 ABG O2 Saturation 95.6 % (90-95) H 08/22/22 07:03 ABG Base Excess 11.5 mEq/L (-9-1.8) H 08/22/22 07:03 Parvez Test Pos (Pos) 08/22/22 07:03 Oxygen Given 5L 08/22/22 07:03 Sodium 132 mmol/L (136-145) L 08/22/22 06:05 Potassium 3.9 mmol/L (3.5-5.1) 08/22/22 07:03 Chloride 92 mmol/L (98-107) L 08/22/22 06:05 Carbon Dioxide 35 mmol/L (21-32) H 08/22/22 06:05 Anion Gap 5 (3-11) 08/22/22 06:05 BUN 7 mg/dl (6-23) 08/22/22 06:05 Creatinine 0.78 mg/dl (0.6-1.2) 08/22/22 06:05 Est Cr Clr Drug Dosing Not Reportable 08/22/22 06:05 Est GFR ( Amer) 91.8 ml/min 08/22/22 06:05 Est GFR (Non-Af Amer) 79.2 ml/min 08/22/22 06:05 BUN/Creatinine Ratio 9.0 (10-20) L 08/22/22 06:05 Glucose 114 mg/dl (70-99(Fasting)) H 08/22/22 06:05 Calcium 9.0 mg/dl (8.6-10.3) 08/22/22 06:05 Magnesium 1.6 mg/dl (1.7-2.4) L 08/22/22 06:05 Total Bilirubin 0.7 mg/dl (0.2-1.0) 08/22/22 06:05 AST 10 U/L (13-39) L 08/22/22 07:03 ALT 5 U/L (7-52) L 08/22/22 06:05 Alkaline Phosphatase 81 U/L (34-104) 08/22/22 06:05 Troponin I High Sens 10.5 pg/ml (0-14) 08/22/22 06:05 Total Protein 6.8 gm/dl (6.0-8.3) 08/22/22 06:05 Albumin 3.6 gm/dl (3.4-5.0) 08/22/22 06:05 Globulin 3.2 gm/dl (2.5-4.0) 08/22/22 06:05 Albumin/Globulin Ratio 1.1 (0.9-2) 08/22/22 06:05 Urine Color Yellow 08/22/22 07:36 Urine Appearance Clear (Clear) 08/22/22 07:36 Urine pH 7.0 (4.5-7.5) 08/22/22 07:36 Ur Specific [place] 1.006 (1.000-1.030) 08/22/22 07:36 Urine Protein Negative (Negative) 08/22/22 07:36 Urine Glucose (UA) Negative (Negative) 08/22/22 07:36 Urine Ketones Negative (Negative) 08/22/22 07:36 Urine Blood Negative (Negative) 08/22/22 07:36 Urine Nitrite Negative (Negative) 08/22/22 07:36 Urine Bilirubin Negative (Negative) 08/22/22 07:36 Urine Urobilinogen Negative (Negative) 08/22/22 07:36 Ur Leukocyte Esterase Negative (Negative) 08/22/22 07:36 Adenovirus (PCR) Not Detected (NotDetected) 08/22/22 06:10 B. pertussis DNA (PCR) Not Detected (NotDetected) 08/22/22 06:10 B.parapertussis DNA PCR Not Detected (NotDetected) 08/22/22 06:10 C. pneumoniae DNA (PCR) Not Detected (NotDetected) 08/22/22 06:10 Coronavirus OC43 (PCR) Not Detected (NotDetected) 08/22/22 06:10 Coronavirus HKU1 (PCR) Not Detected (NotDetected) 08/22/22 06:10 Coronavirus 229E (PCR) Not Detected (NotDetected) 08/22/22 06:10 SARS-CoV-2 (PCR) Not Detected (NotDetected) 08/22/22 06:10 Coronavirus NL63 (PCR) Not Detected (NotDetected) 08/22/22 06:10 Human Metapneumovir PCR Not Detected (NotDetected) 08/22/22 06:10 Influenza Type A (PCR) Not Detected (NotDetected) 08/22/22 06:10 Influenza Type B (PCR) Not Detected (NotDetected) 08/22/22 06:10 M. pneumoniae (PCR) Not Detected (NotDetected) 08/22/22 06:10 Parainfluenza 1 (PCR) Not Detected (NotDetected) 08/22/22 06:10 Parainfluenza 2 (PCR) Not Detected (NotDetected) 08/22/22 06:10 Parainfluenza 3 (PCR) Not Detected (NotDetected) 08/22/22 06:10 Parainfluenza 4 (PCR) Not Detected (NotDetected) 08/22/22 06:10 RSV (PCR) Not Detected (NotDetected) 08/22/22 06:10 Entero/Rhino (PCR) Not Detected (NotDetected) 08/22/22 06:10 Impressions Chest X-Ray 08/22/22 05:46 XR chest 1V portable CLINICAL HISTORY: Dyspnea TECHNIQUE: Single frontal radiograph of the chest was obtained. Comparison: Comparison is made to chest radiograph 11/09/2010 FINDINGS: Exam is limited by underpenetration. The cardiomediastinal silhouette is normal. Lungs are underinflated but clear. No evidence of pleural effusion or pneumothorax. IMPRESSION: No acute abnormalities and in particular no radiographic evidence of pneumonia. ACT 112: Negative or not required by law. Electronically signed by: Jensen Villalba M.D. 08/22/2022 7:32 AM Chest CTA 08/22/22 06:41 CT angio chest PE protocol CLINICAL HISTORY: PE, O2 sat 60% TECHNIQUE: Multidetector row helical CT of the chest was performed with angiographic protocol. Coronal and sagittal reformations were obtained. Coronal and sagittal MIPS were obtained from the axial data set and were submitted for review. Automated dose lowering techniques and/or adjustment according to patient size were utilized for this exam. CT DOSE: 782.74 mGy.cm Comparison: Comparison is made to chest radiograph 08/22/2022 FINDINGS: Lungs and pleura: Atelectasis versus scarring is seen in the dependent portions of the lungs. Heart and pericardium: Heart size is normal. No pericardial effusion. Vessels: No evidence of pulmonary embolism. Pulmonary trunk measures 37 mm in diameter. Mediastinum and tamiok: Unremarkable. Chest wall and lower neck: Unremarkable. Abdomen: Unremarkable. Bones: Degenerative changes in the thoracic spine. IMPRESSION: 1. No pulmonary embolus is seen. 2. Pulmonary hypertension and atelectasis are seen. ACT 112: Negative or not required by law. Electronically signed by: Jensen Villalba M.D. 08/22/2022 8:10 AM
[2022-08-22] MEDS ORDERED: ALBUTEROL HFA 8 GM INHALER INH PRN (10:07)
[2022-08-22] MEDS ORDERED: PNEUMOCOCCAL POLYSACCHARIDES 25 MCG/0.5 ML VIAL/SYR IM ONE (10:21)
--- NOTE | 2022-08-22 13:14 | Cardiology Consultation ---
Date of Consultation August 22, 2022 Assessment & Plan (1) Acute respiratory failure with hypoxia and hypercapnia: (2) Obesity hypoventilation syndrome: (3) Pulmonary hypertension: (4) Lower extremity edema: (5) Hyponatremia: (6) Hypertension: Plan IMPRESSION: 67 year old female with progressive shortness of breath and lower extremity swelling. Symptoms cause likely multifactorial given hypoventilation syndrome related to obesity and chronic opioid use. Mildly hypervolemic as with lower extremity edema. She is on a number of medications which could be contributing to her symptoms- likely a degree of polypharmacy involved. PLAN: -For now continue Lasix 40 mg IV daily- repeat BMP tomorrow. Monitor renal function and electrolytes, especially sodium level, closely. -Will reduce Norvasc , to see if this helps reduce lower extremity swelling. Gabapentin could also be contributing to her lower extremity edema. -Chronic hyponatremia- gabapentin and duloxetine possibly contributing, will defer to primary team. Consider 50 oz fluid restriction. -Treat underlying pulmonary/asthmatic lung disease. Recommend screening for SILVER/nocturnal o2 therapy prior to discharge. Case discussed with Dr. Salazar. Supervising Physician Co-Signing Physician Notes Patient was seen and examined, chart, medications, telemetry reviewed. Assessment as above observed. Patient presenting with hypercarbic hypoxic respiratory failure with mild volume overload Patient has responded briskly to IV diuretics today. Suspect patient will require oxygen supplementation and notes was recommended to consider prior to hospitalization Multiple medications may be contributing to increased edema Hyponatremia does limit education somewhat especially in the setting of hypertension As above we will reduce amlodipine consider adding EMILY or ARB though this may contribute to hyponatremia and hyperkalemia an issue We will check electrolytes, aldosterone level in a.m. History of Present Illness Reason for Consultation: Shortness of breath Requesting Physician: Raisa Hospitalist Attending Physician: Gera Cedeño MD History of Present Illness 67-year-old female presenting to the [facility] emergency department due to progressive shortness of breath. Was initially seen by her PCP approximately 1 month ago due to worsening lower extremity edema and shortness of breath. Furosemide was started. Outpatient echocardiogram obtained on 08/11 was technically limited. LVEF was normal at 55 to 59% with normal diastolic function. Valvular structures were not well visualized. In the emergency department lab work revealed a stable hemoglobin. Sodium was mildly low at 132 (carries a history of hyponatremia). Mag low and supplemented. BNP was normal. High-sensitivity troponin negative. Chest x-ray: Unremarkable, no evidence of pleural effusion, pneumothorax, or pneumonia CTA of the chest: No pulmonary embolism, pulmonary hypertension and atelectasis noted. Heart normal in size, no pericardial effusion EKG: Normal sinus rhythm, 81 bpm. No evidence of acute ST-segment changes. Patient was given 40 mg of IV Lasix in the emergency department. Antibiotics were given for lower extremity cellulitis. I&O: +187 mL Weight: 113.3 kg TELE: SR 90s Upon entrance patient resting in bed. Sister at bedside. Patient somewhat of a poor historian. Notes progressive shortness of breath over the last month- currently utilizing o2 via oxymask. No chest pain or palpitations. Lower extremity edema noted to the knees- tender to touch. Warm and reddened. Chronic severe back pain limits her functional capacity. Able to ambulate short distances with a walker/cane. Lives a sedentary lifestyle. Takes opioids for the pain. Does have a history of snoring- never formally tested for SILVER, does not normally wear supplemental o2. Denies any history of coronary disease or stroke. Was previously evaluated by nephrology in August 2021 due to chronic hyponatremia and urinary incontinence. Hyponatremia was felt to be multifactorial, she is on 2 medicines that can lower sodium levels including gabapentin and duloxetine. At that time recommendations for a fluid restriction and avoidance of Lasix as it would likely exacerbate her urinary incontinence. Past medical history: Hypertension History of nonsustained VT, ~2015 Dyslipidemia Bipolar disorder Chronic back pain with opioid use Obesity Stress incontinence Asthmatic lung disease Chronic hyponatremia, on gabapentin, duloxetine- eval by nephrology 08/2021 Essential tremor/Involuntary jerking movement, follows with neurology outpatient Allergies Allergy/AdvReac Type Severity Reaction Status Date / Time amitriptyline [From Elavil] AdvReac Gastrointestinal Unverified 08/22/22 09:35 Upset amoxicillin [From Augmentin] AdvReac Gastrointestinal Unverified 08/22/22 09:35 Upset clavulanic acid AdvReac Gastrointestinal Unverified 08/22/22 09:35 [From Augmentin] Upset oxycodone AdvReac Gastrointestinal Unverified 08/22/22 09:35 Upset Home Medications Medication Instructions Recorded Confirmed Type albuterol sulfate 90 mcg/actuation 2 puff inhalation QID PRN Wheezing 08/22/22 08/22/22 History aerosol inhaler amlodipine 5 mg tablet 5 mg PO DAILY 08/22/22 08/22/22 History atorvastatin 10 mg tablet 10 mg PO DAILY 08/22/22 08/22/22 History celecoxib 200 mg capsule See Rx Instructions .Route .COMPLEX 08/22/22 08/22/22 History cephalexin 500 mg capsule 500 mg PO BID 08/22/22 08/22/22 History duloxetine 60 mg capsule,delayed 60 mg PO QAM 08/22/22 08/22/22 History release furosemide 40 mg tablet 40 mg PO QAM 08/22/22 08/22/22 History gabapentin 400 mg capsule 800 mg PO BID 08/22/22 08/22/22 History hydrocodone 10 mg-acetaminophen See Rx Instructions .Route .COMPLEX 08/22/22 History 325 mg tablet hydroxyzine HCl 25 mg tablet 50 mg PO QID PRN Anxiety 08/22/22 08/22/22 History metoprolol succinate 100 mg 50 mg PO HS 08/22/22 08/22/22 History tablet,extended release 24 hr metoprolol succinate 100 mg 100 mg PO DAILY 08/22/22 08/22/22 History tablet,extended release 24 hr nystatin 100,000 unit/gram topical 1 applic topical TID 08/22/22 08/22/22 History powder ([facility]) olanzapine 20 mg tablet 20 mg PO DAILY 08/22/22 08/22/22 History oxybutynin chloride 10 mg 10 mg PO QAM 08/22/22 08/22/22 History tablet,extended release 24 hr risperidone 1 mg tablet 0.5 mg PO BID 08/22/22 08/22/22 History Patient History Medical History (Updated 08/22/22 @ 14:09 by LEWIS Guo) Fluid overload Social History Smoking Status: Never smoker Second Hand Exposure: No; Do You Dip or Chew Tobacco: No; Tobacco Cessation Education Requested by Patient: No Hx Alcohol Use: No Hx Substance Use: No Preferred Language: Sri [place]ankan [employer] D[employer] Machine Operator Required: No Beliefs That Will Affect Care: None Current Living Situation: Spouse Other Information That Helps Us Care for You: No Feels Safe at Home: Yes Safety Concerns: Feels Safe At This Time Assistive Devices: Glasses Review of Systems Review of Systems: All systems reviewed & are unremarkable except as noted in HPI & below Physical Exam Constitutional: WD/WN, vitals as above no acute distress Eyes: PERRL, conjunctivae normal, anicteric sclerae Neck: normal visual inspection Respiratory: normal respiratory effort; no cough Auscultation: + wheezes and + bronchovesicular breath sounds; no rales and no rhonchi Cardiovascular: Rate/Rhythm: regular rate and regular rhythm Heart Sounds: normal S1 and normal S2; no murmur Vessels: no JVD Extremities: + edema (+2 BLLE pitting edema, legs reddened.) Gastrointestinal (Abdomen): normal bowel sounds, soft, nontender, no hepatosplenomegaly Skin: + erythema (BL lower extremities.) Psychiatric: A+Ox3, euthymic affect Results & Data Vital Signs (Past 12 Hours) Vital Signs Temp Pulse Pulse Resp BP BP Pulse Ox 08/22/22 10:44 78 08/22/22 10:36 08/22/22 10:08 36.8 C 78 20 149/87 H 97 08/22/22 09:32 08/22/22 09:00 80 23 95 08/22/22 09:00 152/83 H 08/22/22 08:30 83 17 95 08/22/22 08:30 132/77 08/22/22 08:00 82 22 94 08/22/22 08:00 150/78 H 08/22/22 07:32 71 L 08/22/22 07:00 80 22 92 08/22/22 07:00 163/97 H 08/22/22 06:41 77 26 H 95 08/22/22 06:41 154/81 H 08/22/22 06:30 78 20 93 08/22/22 06:02 79 26 H 167/88 H 94 08/22/22 06:12 60 L 08/22/22 06:01 80 08/22/22 05:34 36.6 C 80 18 139/80 65 L O2 Del Method O2 Flow Rate 08/22/22 10:44 08/22/22 10:36 Oxymask 4 08/22/22 10:08 Oxymask 4 08/22/22 09:32 Oxymask 4 08/22/22 09:00 Oxymask 4 08/22/22 09:00 08/22/22 08:30 Oxymask 4 08/22/22 08:30 08/22/22 08:00 Oxymask 4 08/22/22 08:00 08/22/22 07:32 Room Air 08/22/22 07:00 Nasal Cannula 4 08/22/22 07:00 08/22/22 06:41 Nasal Cannula 4 08/22/22 06:41 08/22/22 06:30 Nasal Cannula 4 08/22/22 06:02 Nasal Cannula 4 08/22/22 06:12 Room Air 08/22/22 06:01 08/22/22 05:34 Room Air Laboratory Results Cardiac Enzymes 08/22/22 08/22/22 08/22/22 Range/Units 06:05 07:03 10:46 AST TNP 10 L Troponin I High Sens 10.5 (0-14) pg/ml B-Natriuretic Peptide 81 (0-100) pg/ml Coagulation 08/22/22 Range/Units 10:46 B-Natriuretic Peptide 81 (0-100) pg/ml CBC 08/22/22 Range/Units 06:05 WBC 8.48 (4.8-10.8) K/ul RBC 5.31 (4.20-5.40) M/uL Hgb 13.3 (12.0-16.0) g/dl Hct 43.6 (37.0-47.0) % Plt Count 210 (130-400) K/uL Neut # (Auto) 7.03 H (1.40-6.50) K/uL Lymph # (Auto) 0.76 L (1.2-3.4) K/uL [place] # (Auto) 0.41 (0.11-0.59) K/uL Eos # (Auto) 0.18 (0-0.50) K/uL Baso # (Auto) 0.03 (0-0.2) K/uL Comprehensive Metabolic Panel 08/22/22 08/22/22 Range/Units 06:05 07:03 Sodium 132 L (136-145) mmol/L Potassium TNP 3.9 Chloride 92 L (98-107) mmol/L Carbon Dioxide 35 H (21-32) mmol/L BUN 7 (6-23) mg/dl Creatinine 0.78 (0.6-1.2) mg/dl Glucose 114 H (70-99(Fasting)) mg/dl Calcium 9.0 (8.6-10.3) mg/dl AST TNP 10 L ALT 5 L (7-52) U/L Alkaline Phosphatase 81 (34-104) U/L Total Protein 6.8 (6.0-8.3) gm/dl Albumin 3.6 (3.4-5.0) gm/dl Intake and Output 08/21/22 08/22/22 08/22/22 22:59 06:59 14:59 Intake Total 186.667 / 186.667 Balance 186.667 / 186.667 Intake: IV 186.667 / 186.667 Magnesium Sulfate / D5w 1 gm In 186.667 / 186.667 100 ml @ 200 mls/hr IV Q30M [facility] Rx#:[id number] Other: # Unmeasured Voids 1 Weight 111.1 kg Weight Measurement Method Built in [facility] Patient Weight 08/23/22 06:59 Weight 111.1 kg
[2022-08-22] MEDS: cephALEXin 500 MG CAP PO SCH ×3 (13:57→22:39)
[2022-08-22] MEDS: LIDOCAINE 5% 1 PATCH TD SCH (13:57)
[2022-08-22] MEDS: NYSTATIN POWDER 15GM BTL EXT SCH ×2 (13:58→20:12)
[2022-08-22] MEDS: ADVANCED PROBIOTIC 1250 MG CAPSULE PO SCH (13:58)
[2022-08-22] MEDS: HEPARIN SOD 5,000 UNIT/0.5 ML VIAL SQ SCH ×2 (13:58→22:37)
[2022-08-22] MEDS: hydrOXYzine HCl 25 MG TAB PO PRN (14:21)
[2022-08-22] MEDS: HYDROCODONE/ACETAMOPHEN 5/325MG TAB PO PRN (16:03)
[2022-08-22] MEDS ORDERED: ONDANSETRON INJ 2 MG/ML 2 ML VIAL IV STA (18:50)
[2022-08-22] MEDS ORDERED: ACETAMINOPHEN 325 MG TAB PO PRN (19:37)
[2022-08-22] MEDS: risperiDONE 0.5 MG TABLET PO SCH (20:12)
[2022-08-22] MEDS: METOPROLOL SUCC 50MG EXT REL TAB PO SCH (20:12)
[2022-08-22] MEDS: GABAPENTIN 400 MG CAP PO SCH (20:12)
[2022-08-23] MEDS: cephALEXin 500 MG CAP PO SCH ×4 (05:21→23:22)
[2022-08-23] MEDS: HEPARIN SOD 5,000 UNIT/0.5 ML VIAL SQ SCH ×3 (05:22→23:22)
[2022-08-23 06:00] LABS: HCO3 ABG 45 mmol/L (19-24); Oxygen Saturation ABG 97.3 % (90-95); PCO2 ABG 72 mmHg (35-46); PO2 ABG 79 mmHg (80-95)
[2022-08-23 06:01] LABS: Allen Test Pos (Pos)
[2022-08-23 06:21] LABS: BUN Creatinine Ratio 7.1 (10-20); Calcium 9.1 mg/dl (8.6-10.3); Est GFR (African American) 104.6 ml/min; Est GFR (Non-African American) 90.3 ml/min; Magnesium 1.9 mg/dl (1.7-2.4); Potassium 3.7 mmol/L (3.5-5.1)
--- NOTE | 2022-08-23 07:44 | Cardiology Progress Note ---
Date of Service August 23, 2022 Assessment & Plan (1) Acute respiratory failure with hypoxia and hypercapnia: (2) Obesity hypoventilation syndrome: (3) Pulmonary hypertension: (4) Lower extremity edema: (5) Hyponatremia: (6) Hypertension: Plan IMPRESSION: 67 year old female with progressive shortness of breath and lower extremity swelling. Symptoms cause likely multifactorial given hypoventilation syndrome related to obesity and chronic opioid use. Mildly hypervolemic as with lower extremity edema. She is on a number of medications which could be contributing to her symptoms- likely a degree of polypharmacy involved. PLAN: -For now continue Lasix 40 mg IV daily- repeat BMP tomorrow. Monitor renal function and electrolytes, especially sodium level, closely. -Will reduce Norvasc , to see if this helps reduce lower extremity swelling. Gabapentin could also be contributing to her lower extremity edema. -Chronic hyponatremia- gabapentin and duloxetine possibly contributing, will defer to primary team. Consider 50 oz fluid restriction. -Treat underlying pulmonary/asthmatic lung disease. Recommend screening for SILVER/nocturnal o2 therapy prior to discharge. Case discussed with Dr. Salazar. Admission and Anticipated Discharge Date Admission Date: August 22, 2022 Subjective 67-year-old female who initially presented to [facility] to progressive shortness of breath. Patient was found to have hypercarbic hypoxic respiratory failure with mild volume overload. Patient responded well to IV diuretics. Lower extremity edema felt to be multifactorial with multiple drugs likely contributing. Norvasc reduced to 2.5 mg daily. Tele: I&O: -1.3L Weight: 113.3 kg >> 110.9 kg Physical Exam Constitutional: WD/WN, vitals as above no acute distress Eyes: PERRL, conjunctivae normal, anicteric sclerae Neck: normal visual inspection Respiratory: normal respiratory effort; no cough Auscultation: + wheezes and + bronchovesicular breath sounds; no rales and no rhonchi Cardiovascular: Rate/Rhythm: regular rate and regular rhythm Heart Sounds: normal S1 and normal S2; no murmur Vessels: no JVD Extremities: + edema (+2 BLLE pitting edema, legs reddened.) Gastrointestinal (Abdomen): normal bowel sounds, soft, nontender, no hepatosplenomegaly Skin: + erythema (BL lower extremities.) Psychiatric: A+Ox3, euthymic affect Results & Data Vital Signs (Past 12 Hours) Vital Signs Temp Pulse Resp BP Pulse Ox O2 Del Method O2 Flow Rate 08/23/22 02:59 36.6 C 84 18 143/90 H 94 Nasal Cannula 3 08/22/22 23:44 36.6 C 79 18 136/80 94 Nasal Cannula 3 08/22/22 20:00 Nasal Cannula 3
[2022-08-23] MEDS: HYDROCODONE/ACETAMOPHEN 5/325MG TAB PO PRN ×2 (08:19→15:43)
[2022-08-23] MEDS: amLODIPine BESYLATE 5 MG TAB PO SCH (08:22)
[2022-08-23] MEDS: ADVANCED PROBIOTIC 1250 MG CAPSULE PO SCH (08:22)
[2022-08-23] MEDS: DULoxetine HCL 20 MG CAP PO SCH (08:23)
[2022-08-23] MEDS: METOPROLOL SUCC 50MG EXT REL TAB PO SCH ×2 (08:23→20:20)
[2022-08-23] MEDS: LIDOCAINE 5% 1 PATCH TD SCH (08:23)
[2022-08-23] MEDS: GABAPENTIN 400 MG CAP PO SCH ×2 (08:23→20:19)
[2022-08-23] MEDS: NYSTATIN POWDER 15GM BTL EXT SCH ×3 (08:24→20:21)
[2022-08-23] MEDS: risperiDONE 0.5 MG TABLET PO SCH ×2 (08:24→20:20)
[2022-08-23] MEDS: OXYBUTYNIN CHLORIDE XL 5 MG TABCR PO SCH (08:24)
[2022-08-23] MEDS ORDERED: amLODIPine BESYLATE 5 MG TAB PO SCH (09:00)
[2022-08-23] MEDS ORDERED: lisinopril 5 MG TAB PO SCH (09:00)
[2022-08-23] MEDS ORDERED: FUROSEMIDE 40 MG/4 ML VIAL IV SCH (09:00)
[2022-08-23] MEDS ORDERED: DULoxetine HCL 60 MG CAP PO SCH (09:00)
--- NOTE | 2022-08-23 09:14 | Pulmonary Consultation ---
Date of Consultation August 23, 2022 Assessment & Plan (1) Chronic hypercapnic respiratory failure: Patient with chronic hypercapnic respiratory failure likely due to morbid obesity and polypharmacy. Her hypercapnia is compensated with metabolic alkalosis. She is on high doses of gabapentin, hydrocodone, hydroxyzine, olanzapine and risperidone which could all lead to respiratory sedation. Strongly recommend reduction of these doses and perhaps elimination of some of these medications. I suspect these are making her susceptible to becoming hypercapnic and predisposing her to acute respiratory failure. Recommend incentive spirometry. Recommend outpatient polysomnography and sleep medicine referral due to the high risk of sleep disordered breathing. Avoid hyperoxia. Maintain sats 88 to 92%. Recommend weight loss. PFTs as an outpatient can be considered. Otherwise, she appears stable. No further recommendations at this time. Please call with questions. Thank you for the consult. (2) Morbid obesity due to excess calories: (3) Chronic dyspnea: History of Present Illness Reason for Consultation: Hypercapnic respiratory failure Attending Physician: Norris Zurita MD History of Present Illness 67-year-old female with a past medical history of morbid obesity, chronic severe pain and hypertension who presented due to increasing shortness of breath and chest tightness. Patient reportedly missed 3 doses of her Lasix and was not taking extra doses of her pain medication due to back pain. She is currently oxygenating in the 90s on 2 L of oxygen. She denies any shortness of breath at rest. She does have shortness of breath with exertion. She denies any recent fevers or chills. Cough is minimal. She denies any history of SILVER. She notes that she was tested "years ago", but does not know the results. Chest CT reviewed from 08/22/2022. Mild lower lobe atelectasis noted. No acute infiltrate. No emphysema. Patient is a lifelong non-smoker. Allergies Allergy/AdvReac Type Severity Reaction Status Date / Time amitriptyline [From Elavil] AdvReac Gastrointestinal Unverified 08/22/22 09:35 Upset amoxicillin [From Augmentin] AdvReac Gastrointestinal Unverified 08/22/22 09:35 Upset clavulanic acid AdvReac Gastrointestinal Unverified 08/22/22 09:35 [From Augmentin] Upset oxycodone AdvReac Gastrointestinal Unverified 08/22/22 09:35 Upset Home Medications Medication Instructions Recorded Confirmed Type albuterol sulfate 90 mcg/actuation 2 puff inhalation QID PRN Wheezing 08/22/22 08/22/22 History aerosol inhaler amlodipine 5 mg tablet 5 mg PO DAILY 08/22/22 08/22/22 History atorvastatin 10 mg tablet 10 mg PO DAILY 08/22/22 08/22/22 History celecoxib 200 mg capsule See Rx Instructions .Route .COMPLEX 08/22/22 08/22/22 History cephalexin 500 mg capsule 500 mg PO BID 08/22/22 08/22/22 History duloxetine 60 mg capsule,delayed 60 mg PO QAM 08/22/22 08/22/22 History release furosemide 40 mg tablet 40 mg PO QAM 08/22/22 08/22/22 History gabapentin 400 mg capsule 800 mg PO BID 08/22/22 08/22/22 History hydrocodone 10 mg-acetaminophen See Rx Instructions .Route .COMPLEX 08/22/22 08/22/22 History 325 mg tablet hydroxyzine HCl 25 mg tablet 50 mg PO QID PRN Anxiety 08/22/22 08/22/22 History metoprolol succinate 100 mg 50 mg PO HS 08/22/22 08/22/22 History tablet,extended release 24 hr metoprolol succinate 100 mg 100 mg PO DAILY 08/22/22 08/22/22 History tablet,extended release 24 hr nystatin 100,000 unit/gram topical 1 applic topical TID 08/22/22 08/22/22 History powder ([facility]) olanzapine 20 mg tablet 20 mg PO DAILY 08/22/22 08/22/22 History oxybutynin chloride 10 mg 10 mg PO QAM 08/22/22 08/22/22 History tablet,extended release 24 hr risperidone 1 mg tablet 0.5 mg PO BID 08/22/22 08/22/22 History Patient History Medical History (Updated 08/23/22 @ 11:35 by Agus Calloway MD) Chronic dyspnea Chronic hypercapnic respiratory failure Fluid overload Morbid obesity due to excess calories Social History Smoking Status: Never smoker Second Hand Exposure: No; Do You Dip or Chew Tobacco: No; Tobacco Cessation Education Requested by Patient: No Hx Alcohol Use: No Hx Substance Use: No Preferred Language: Portuguese Director Compliance Required: No Beliefs That Will Affect Care: None Current Living Situation: Spouse Other Information That Helps Us Care for You: No Feels Safe at Home: Yes Safety Concerns: Feels Safe At This Time Assistive Devices: Glasses Review of Systems Review of Systems: All systems reviewed & are unremarkable except as noted in HPI & below Physical Exam Physical Exam: Constitutional: Patient appears to be of their stated age. Patient is in no apparent distress. Obese appearing. Eyes: Pupils are equal round and reactive to light. Conjunctivae are normal. Anicteric sclera. Ears nose, mouth and throat: Mallampati class 3. Normal posterior oropharynx. Uvula is midline. Neck: Trachea is midline. Visual inspection is normal. Respiratory: Clear to auscultation bilaterally. No use of accessory muscles. No significant clubbing noted. Cardiovascular: Regular rate and rhythm. No murmurs. No edema. Gastrointestinal: Normal bowel sounds, soft, nontender and nondistended. No hepatosplenomegaly noted. Musculoskeletal: No cyanosis. Patient is able to move all extremities. Strength is 5 out of 5 in the upper and lower extremities. Skin: No rashes, warm dry and intact. Neurologic: No obvious focal neurological deficits seen. Psychiatric: Alert and oriented x3 with a euthymic affect. Results & Data Results & Data Vital Signs (Past 12 Hours) Vital Signs Temp Pulse Pulse Resp BP Pulse Ox O2 Del Method 08/23/22 08:00 36.8 C 77 18 138/79 97 Room Air 08/23/22 07:51 80 08/23/22 02:59 36.6 C 84 18 143/90 H 94 Nasal Cannula 08/22/22 23:44 36.6 C 79 18 136/80 94 Nasal Cannula O2 Flow Rate 08/23/22 08:00 08/23/22 07:51 08/23/22 02:59 3 08/22/22 23:44 3 PG Care Time/CCT Total # of Minutes Spent Total Time Spent with Patient: Total time spent is greater than 50% in coordination of care (as documented) at patient's floor/unit and/or counseling patient: Coding Level of Care Code 08817 IN/OBS CONSULT LVL 4,60M Diagnoses Chronic hypercapnic respiratory failure J96.12 Morbid obesity due to excess calories E66.01 Chronic dyspnea R06.09
[2022-08-23] MEDS: hydrOXYzine HCl 25 MG TAB PO PRN (10:40)
--- NOTE | 2022-08-23 10:51 | Cardiology Progress Note ---
Date of Service August 23, 2022 Assessment & Plan (1) Acute respiratory failure with hypoxia and hypercapnia: (2) Obesity hypoventilation syndrome: (3) Pulmonary hypertension: (4) Lower extremity edema: (5) Hyponatremia: (6) Hypertension: Plan Impression: Hypoxic and hypercapnic respiratory failure multifactorial. Hypoventilation contributing. Preserved LV systolic function with diastolic heart failure, peripheral edema Laboratory studies reflect preserved renal function though with mild contraction alkalosis We will restart oral diuretic with furosemide 20 mg daily and consider addition of spironolactone/Jardiance depending on electrolytes and potassium response. Sodium appears to be stable with possibly increasing with diuresis. Admission and Anticipated Discharge Date Admission Date: August 22, 2022 Subjective Patient seen and examined, chart, medications, telemetry reviewed Currently comfortable and saturating on room air Hypercapnic blood gas still present this morning Brisk diuresis yesterday Review of Systems Review of Systems: All systems reviewed & are unremarkable except as noted in Subjective Physical Exam Constitutional: + obese; no acute distress Eyes: PERRL, conjunctivae normal, anicteric sclerae ENMT: external ear and nose normal, oropharynx normal Neck: + thick neck Respiratory: no labored breathing Auscultation: + diminished lung sounds Cardiovascular: Rate/Rhythm: regular rate and regular rhythm Vessels: no JVD Extremities: + edema (1+ distal lower extremity) Gastrointestinal (Abdomen): normal bowel sounds, soft, nontender, no hepatosplenomegaly Skin: Rubor excoriation of the left swift Psychiatric: A+Ox3, euthymic affect Results & Data Vital Signs (Past 12 Hours) Vital Signs Temp Pulse Pulse Resp BP Pulse Ox O2 Del Method 08/23/22 08:00 36.8 C 77 18 138/79 97 Room Air 08/23/22 07:51 80 08/23/22 02:59 36.6 C 84 18 143/90 H 94 Nasal Cannula 08/22/22 23:44 36.6 C 79 18 136/80 94 Nasal Cannula O2 Flow Rate 08/23/22 08:00 08/23/22 07:51 08/23/22 02:59 3 08/22/22 23:44 3 Laboratory Results Laboratory Results - last 24 hr 08/22/22 08/23/22 08/23/22 10:46 05:40 05:40 ABG pH ABG pCO2 ABG pO2 ABG HCO3 ABG O2 Saturation ABG Base Excess Parvez Test Oxygen Given Sodium 133 L Potassium 3.7 Chloride 89 L Carbon Dioxide 39 H Anion Gap 5 BUN 5 L Creatinine 0.70 Est Cr Clr Drug Dosing 98.0 Est GFR ( Amer) 104.6 Est GFR (Non-Af Amer) 90.3 BUN/Creatinine Ratio 7.1 L Glucose 112 H Calcium 9.1 Magnesium 1.9 B-Natriuretic Peptide 81 Aldosterone Pending 08/23/22 05:54 ABG pH 7.40 ABG pCO2 72 H ABG pO2 79 L ABG HCO3 45 H ABG O2 Saturation 97.3 H ABG Base Excess 16.0 H Parvez Test Pos Oxygen Given 3 L Sodium Potassium Chloride Carbon Dioxide Anion Gap BUN Creatinine Est Cr Clr Drug Dosing Est GFR ( Amer) Est GFR (Non-Af Amer) BUN/Creatinine Ratio Glucose Calcium Magnesium B-Natriuretic Peptide Aldosterone
[2022-08-23] MEDS: FUROSEMIDE 20 MG TAB PO SCH (11:25)
--- NOTE | 2022-08-23 15:25 | Hospitalist Progress Note ---
Date of Service August 23, 2022 Assessment & Plan (1) Acute respiratory failure with hypoxia and hypercapnia: Plan: Acute on chronic respiratory failure with hypoxia, hypercapnia Likely multifactorial secondary to obesity hypoventilation syndrome, polypharmacy. Also to rule out sleep apnea --CTA:No pulmonary embolus is seen. Pulmonary hypertension and atelectasis are seen. --[employer] negative for Covid 19, parainfluenza and influenza --Recent Echo done on 08/11/22 showed normal left ventricular diastolic function and EF 55-59% -- Minimize narcotics and adjust medications as needed --Needs outpatient sleep study, pulmonary function test Continue supplemental oxygen as needed Appreciate pulmonology input We will need to step prior to discharge Check nocturnal oximetry study today Will benefit from pulmonology follow-up as outpatient Keep oxygen saturations 88 to 92% as recommended by pulmonology Acute diastolic heart failure Chronic B/L LE edema likely multifactorial Gabapentin, amlodipine likely contributing as well Normal systolic and diastolic function on recent echo Continue diuretics as per cardiology Appreciate cardiology input Monitor I's and O's, volume status LE cellulitis Continue Keflex that was started on 08/19 outpatient Improving Chronic Low back pain Follows with pain management Continue Cymbalta and gabapentin at reduced dose Narcotics adjusted as well Monitor Stress incontinence Continue Oxybutynin Electrolytes imbalance Mg 1.6 and na 132 on admission Replete electrolytes as needed Diarrhea Possible related to antibiotic Keflex added probiotic Check stool studies if recurrence of diarrhea Weakness Ambulatory dysfunction PT/OT Involuntary Jerking movement Likely due to hypoxia, hypercarbia, polypharmacy Improved Monitor DVT Px: Heparin SQ Code status Full code Admission and Anticipated Discharge Date Admission Date: August 22, 2022 Subjective Patient is seen and examined at bedside States having chronic back pain Also reports leg pain associated with some erythema Denies any chest pain, dyspnea at rest, dizziness, nausea, abdominal pain Discussed with patient's family at bedside No other complaints Review of Systems Review of Systems: All systems reviewed & are unremarkable except as noted in Subjective Physical Exam Physical Exam: Physical Exam: Vitals signs as noted above General Appearance:Morbidly Obese, no apparent distress Head: normocephalic, Atraumatic Eyes: normal inspection, EOMI Neck: supple, Trachea midline Respiratory/Chest: Decreased breath sounds, Basal Crackles, No accessory muscle use Cardiovascular: S1, S2, No murmur Abdomen/GI:Soft, Non tender, Bowel sounds present Extremities/Musculoskeletal:normal inspection, 1+ LE edema, +Rash Neurologic/Psych:AAOX3, grossly no focal neurological deficits Skin: normal color, warm Results & Data Results & Data Vital Signs (Past 12 Hours) Vital Signs Temp Pulse Pulse Resp BP Pulse Ox O2 Del Method 08/23/22 08:00 Nasal Cannula 08/23/22 12:00 37.0 C 87 18 148/60 H 97 Room Air 08/23/22 12:57 93 08/23/22 08:00 36.8 C 77 18 138/79 97 Room Air 08/23/22 07:51 80 O2 Flow Rate 08/23/22 08:00 3 08/23/22 12:00 08/23/22 12:57 08/23/22 08:00 08/23/22 07:51 Laboratory Results [facility] 08/23/22 05:40 Sodium 133 L Potassium 3.7 Chloride 89 L Carbon Dioxide 39 H BUN 5 L Creatinine 0.70 Glucose 112 H Calcium 9.1
--- NOTE | 2022-08-24 05:16 | Electrocardiogram Report ---
Test Reason : Blood Pressure : / mmHG Vent. Rate : 081 BPM Atrial Rate : 081 BPM P-R Int : 168 ms QRS Dur : 080 ms QT Int : 378 ms P-R-T Axes : 030 -18 049 degrees QTc Int : 439 ms Normal sinus rhythm Cannot rule out Anterior infarct , age undetermined Abnormal ECG When compared with ECG of 09-NOV-2010 12:37, No significant change was found Confirmed by Cuong Shah ([id number] on 08/24/2022 5:15:40 AM Referred By: REFERRED SELF Confirmed By:Cuong Shah
[2022-08-24] MEDS: cephALEXin 500 MG CAP PO SCH ×3 (05:50→17:41)
[2022-08-24] MEDS: HEPARIN SOD 5,000 UNIT/0.5 ML VIAL SQ SCH ×3 (05:50→22:44)
[2022-08-24 05:56] LABS: HCO3 VBG 46 mmol/L; Oxygen Saturation VBG 85.9 %; PCO2 VBG 74 mmHg (38-50); PO2 VBG 55 mmHg
[2022-08-24 06:00] LABS: Hematocrit (blood only) 45.1 % (37.0-47.0); Hemoglobin 13.7 g/dl (12.0-16.0); Mean Corpuscular Hemoglobin 25.3 pg (25.0-34.0); Mean Corpuscular Hgb Conc 30.4 g/dL (32.0-36.0); Mean Corpuscular Volume 83.4 fL (80.0-100.0); Mean Platelet Volume 9.6 fL (9.4-12.4); Platelet Count 217 K/uL (130-400); RDW Coefficient of Variation 15.4 % (11.5-14.5); RDW Standard Deviation 46.5 fL (36.4-46.3); Red Blood Count 5.41 M/uL (4.20-5.40)
[2022-08-24 06:16] LABS: BUN Creatinine Ratio 9.4 (10-20); Calcium 9.2 mg/dl (8.6-10.3); Creatinine Clr Calc Pharmacy 107.2 ml/min; Est GFR (African American) 107.8 ml/min; Magnesium 1.9 mg/dl (1.7-2.4); Potassium 4.1 mmol/L (3.5-5.1)
[2022-08-24] MEDS: hydrOXYzine HCl 25 MG TAB PO PRN (08:54)
[2022-08-24] MEDS: OXYBUTYNIN CHLORIDE XL 5 MG TABCR PO SCH (08:54)
[2022-08-24] MEDS: amLODIPine BESYLATE 5 MG TAB PO SCH (08:55)
[2022-08-24] MEDS: GABAPENTIN 400 MG CAP PO SCH ×2 (08:55→22:44)
[2022-08-24] MEDS: NYSTATIN POWDER 15GM BTL EXT SCH ×3 (08:55→22:45)
[2022-08-24] MEDS: ADVANCED PROBIOTIC 1250 MG CAPSULE PO SCH (08:56)
[2022-08-24] MEDS: METOPROLOL SUCC 50MG EXT REL TAB PO SCH ×2 (08:56→22:44)
[2022-08-24] MEDS: LIDOCAINE 5% 1 PATCH TD SCH (08:56)
[2022-08-24] MEDS: DULoxetine HCL 20 MG CAP PO SCH (08:56)
[2022-08-24] MEDS: FUROSEMIDE 20 MG TAB PO SCH (08:56)
[2022-08-24] MEDS: risperiDONE 0.5 MG TABLET PO SCH ×2 (09:02→22:44)
--- NOTE | 2022-08-24 11:49 | Cardiology Progress Note ---
Date of Service August 24, 2022 Assessment & Plan (1) Acute respiratory failure with hypoxia and hypercapnia: (2) Obesity hypoventilation syndrome: (3) Pulmonary hypertension: (4) Lower extremity edema: (5) Hyponatremia: (6) Hypertension: Plan Impression: Hypoxic and hypercapnic respiratory failure multifactorial. Hypoventilation contributing. Preserved LV systolic function with diastolic heart failure, peripheral edema Recommendations: Continue furosemide 20 mg daily. Prior hyponatremia and hyperkalemia limits spironolactone use. Patient will need oxygen supplementation versus CPAP by data with chronic hypoxia continuing to edema, diastolic dysfunction. CHF instructions ordered Tremor appears to be increased with reduction in gabapentin dosing. We will trial increase metoprolol succinate to 100 mg twice per day. Heart rate and blood pressure allow Admission and Anticipated Discharge Date Admission Date: August 22, 2022 Subjective Patient was seen and examined, chart, medications, telemetry reviewed. No acute complaints other than irritated by oxygen. Oximetry report demonstrated significant desaturation last evening, hypoxia in room with mild exertion Review of Systems Review of Systems: All systems reviewed & are unremarkable except as noted in Subjective Physical Exam Constitutional: + obese; no acute distress Eyes: PERRL, conjunctivae normal, anicteric sclerae ENMT: external ear and nose normal, oropharynx normal Respiratory: Auscultation: + diminished lung sounds Cardiovascular: Rate/Rhythm: regular rate and regular rhythm Heart Sounds: normal S1 and normal S2 Vessels: no JVD Extremities: + edema (Trace mild erythema over left swift) Musculoskeletal: no cyanosis or clubbing, extremities motor strength 5/5 Results & Data Vital Signs (Past 12 Hours) Vital Signs Temp Pulse Pulse Resp BP Pulse Ox Pulse Ox 08/24/22 08:00 36.6 C 79 18 148/74 H 97 08/24/22 03:39 36.7 C 78 18 135/83 93 08/24/22 01:56 76 90 O2 Del Method O2 Del Method O2 Flow Rate O2 Flow Rate 08/24/22 08:00 Room Air 08/24/22 03:39 Nasal Cannula 3 08/24/22 01:56 Nasal Cannula 3 Laboratory Results Laboratory Results - last 24 hr 08/24/22 08/24/22 08/24/22 05:34 05:34 05:34 WBC 7.70 RBC 5.41 H Hgb 13.7 Hct 45.1 MCV 83.4 MCH 25.3 MCHC 30.4 L RDW Std Deviation 46.5 H RDW Coeff of Zandra 15.4 H Plt Count 217 MPV 9.6 VBG pH 7.40 VBG pCO2 74 H VBG pO2 55 VBG HCO3 46 VBG O2 Saturation 85.9 VBG Base Excess 17.0 Sodium 134 L Potassium 4.1 Chloride 90 L Carbon Dioxide 40 H Anion Gap 4 BUN 6 Creatinine 0.64 Est Cr Clr Drug Dosing 107.2 Est GFR ( Amer) 107.8 Est GFR (Non-Af Amer) 93.0 BUN/Creatinine Ratio 9.4 L Glucose 105 H Calcium 9.2 Magnesium 1.9
[2022-08-24] MEDS: HYDROCODONE/ACETAMOPHEN 5/325MG TAB PO PRN (12:23)
--- NOTE | 2022-08-24 15:23 | Hospitalist Progress Note ---
Date of Service August 24, 2022 Assessment & Plan (1) Acute respiratory failure with hypoxia and hypercapnia: Plan: Acute on chronic respiratory failure with hypoxia, hypercapnia Likely multifactorial secondary to obesity hypoventilation syndrome, polypharmacy. Also to rule out sleep apnea --CTA:No pulmonary embolus is seen. Pulmonary hypertension and atelectasis are seen. --[employer] negative for Covid 19, parainfluenza and influenza --Recent Echo done on 08/11/22 showed normal left ventricular diastolic function and EF 55-59% -- Minimize narcotics and adjust medications as needed --Needs outpatient sleep study, pulmonary function test Continue supplemental oxygen as needed Appreciate pulmonology input and recommendation We will need to step prior to discharge Check nocturnal oximetry study today-overnight pulse oximetry required 3 L of oxygen to maintain saturation Will benefit from pulmonology follow-up as outpatient Keep oxygen saturations 88 to 92% as recommended by pulmonology Remains saturating on room air at rest We will get to a stable O2 saturation prior to discharge likely tomorrow Acute diastolic heart failure Chronic B/L LE edema likely multifactorial Gabapentin, amlodipine likely contributing as well Normal systolic and diastolic function on recent echo Continue diuretics as per cardiology Appreciate cardiology input and recommendation-she has been getting Lasix 20 mg a day and diuresing enough Monitor I's and O's, volume status-does not seems to be volume overloaded We will continue with the current Lasix dose of 20 mg as CO2 level is elevated will not increase the dose Likely discharge tomorrow LE cellulitis Continue Keflex that was started on 08/19 outpatient Improving Chronic Low back pain Follows with pain management Continue Cymbalta and gabapentin at reduced dose Narcotics adjusted as well Monitor Stress incontinence Continue Oxybutynin Electrolytes imbalance Mg 1.6 and na 132 on admission Replete electrolytes as needed Diarrhea Possible related to antibiotic Keflex added probiotic Check stool studies if recurrence of diarrhea Weakness Ambulatory dysfunction PT/OT Involuntary Jerking movement Likely due to hypoxia, hypercarbia, polypharmacy Improved Seems to have benign essential tremor-reassured, no medications now DVT Px: Heparin SQ Code status Full code Admission and Anticipated Discharge Date Admission Date: August 22, 2022 Subjective 08/24/2022 The patient was seen and examined in telemetry unit in presence of the She has been stable and feeling a little better Gets easily short of breath with minimal exertion and desaturation with exertion Saturating normally on room air Review of Systems Review of Systems: All systems reviewed and are unremarkable except as noted below Respiratory: Shortness of breath with minimal exertion Physical Exam Physical Exam: Sitting on a chair without any acute distress Constitutional: well developed, well nourished and + obese; not ill appearing Eyes: PERRL, conjunctivae normal, anicteric sclerae ENMT: external ear and nose normal, oropharynx normal Neck: trachea midline, no thyromegaly Respiratory: no respiratory distress Auscultation: + diminished lung sounds and + crackles (Crackles at the bases) Cardiovascular: Rate/Rhythm: regular rate and regular rhythm; not tachycardic Heart Sounds: normal S1 and normal S2; no murmur Extremities: + edema (Trace to 1+ edema bilaterally) Gastrointestinal (Abdomen): Inspection/Auscultation: normal bowel sounds; abdomen not distended Percussion/Palpation: abdomen soft; abdomen nontender Musculoskeletal: No acute arthritis involving any of the joint Neurologic: normal touch/pain/proprioception and moves all extremities; no focal motor deficits Psychiatric: A+Ox3, euthymic affect Lymphatic: no cervical or axillary lymphadenopathy Results & Data Results & Data Vital Signs (Past 12 Hours) Vital Signs Temp Pulse Resp BP Pulse Ox O2 Del Method O2 Flow Rate 08/24/22 11:00 36.8 C 87 18 133/71 98 Room Air 08/24/22 08:00 36.6 C 79 18 148/74 H 97 Room Air 08/24/22 03:39 36.7 C 78 18 135/83 93 Nasal Cannula 3 Laboratory Results Short CBC 08/24/22 Range/Units 05:34 WBC 7.70 (4.8-10.8) K/ul Hgb 13.7 (12.0-16.0) g/dl Hct 45.1 (37.0-47.0) % Plt Count 217 (130-400) K/uL BMP 08/24/22 05:34 Sodium 134 L Potassium 4.1 Chloride 90 L Carbon Dioxide 40 H BUN 6 Creatinine 0.64 Glucose 105 H Calcium 9.2 Medications Administered Current Inpatient Medications Acetaminophen (Acetaminophen 325 Mg Tab) 650 mg PO Q12H PRN PRN Reason: Headache Stop: 09/21/22 19:36 Last Admin: 08/22/22 20:09 Dose: 650 mg Hydrocodone Bitart/Acetaminophen (Hydrocodone/Acetamophen 5/325mg Tab) 0.5 tab PO Q6H PRN PRN Reason: moderate to severe Stop: 09/05/22 10:02 Last Admin: 08/24/22 12:23 Dose: 0.5 tab Albuterol (Albuterol Hfa 8 Gm Inhaler) 2 puffs INH Q6H PRN PRN Reason: Wheezing Stop: 09/21/22 10:06 Amlodipine Besylate (Amlodipine Besylate 5 Mg Tab) 2.5 mg PO QAM [facility] Stop: 09/22/22 08:59 Last Admin: 08/24/22 08:55 Dose: 2.5 mg Cephalexin HCl (Cephalexin 500 Mg Cap) 500 mg PO Q6 [facility]; Protocol Stop: 08/29/22 13:29 Last Admin: 08/24/22 12:22 Dose: 500 mg Duloxetine HCl (Duloxetine Hcl 20 Mg Cap) 40 mg PO DAILY [facility] Stop: 09/22/22 08:59 Last Admin: 08/24/22 08:56 Dose: 40 mg Furosemide (Furosemide 20 Mg Tab) 20 mg PO QAM [facility] Stop: 09/22/22 11:14 Last Admin: 08/24/22 08:56 Dose: 20 mg Gabapentin (Gabapentin 400 Mg Cap) 400 mg PO BID [facility] Stop: 09/21/22 20:59 Last Admin: 08/24/22 08:55 Dose: 400 mg Heparin Sodium (Porcine) (Heparin Sod 5,000 Unit/0.5 Ml Vial) 5,000 units SQ Q8 [facility] Stop: 09/21/22 13:59 Last Admin: 08/24/22 14:10 Dose: 5,000 units Hydroxyzine HCl (Hydroxyzine Hcl 25 Mg Tab) 25 mg PO Q8H PRN PRN Reason: Anxiety Stop: 09/21/22 14:07 Last Admin: 08/24/22 08:54 Dose: 25 mg Lactobacillus Acidophilus (Advanced Probiotic 1250 Mg Capsule) 2 cap PO DAILY [facility] Stop: 09/21/22 13:29 Last Admin: 08/24/22 08:56 Dose: 2 cap Lidocaine (Lidocaine 5% 1 Patch) 1 patch TD QAM [facility] Stop: 09/21/22 10:29 Last Admin: 08/24/22 08:56 Dose: 1 patch Metoprolol Succinate (Metoprolol Succ 50mg Ext Rel Tab) 100 mg PO BID [facility] Stop: 09/23/22 20:59 Miscellaneous (Remove Lidoderm Patch) 1 each N/A DAILY@2100 [facility] Stop: 09/21/22 20:59 Last Admin: 08/23/22 20:21 Dose: 1 each Nystatin (Nystatin Powder 15gm Btl) 1 appln EXT TID [facility] Stop: 09/21/22 13:59 Last Admin: 08/24/22 14:11 Dose: 1 appln Oxybutynin Chloride (Oxybutynin Chloride Xl 5 Mg Tabcr) 10 mg PO DAILY [facility] Stop: 09/22/22 08:59 Last Admin: 08/24/22 08:54 Dose: 10 mg Risperidone (Risperidone 0.5 Mg Tablet) 0.5 mg PO BID [facility] Stop: 09/21/22 20:59 Last Admin: 08/24/22 09:02 Dose: 0.5 mg
[2022-08-24] MEDS ORDERED: PROMETHAZINE HCL 12.5 MG in SODIUM CHLORIDE 0.9% 50 ML IV PRN (20:26)
[2022-08-24] MEDS ORDERED: NITROGLYCERIN SL 0.4 MG/TAB TAB SL PRN (20:26)
[2022-08-25] MEDS: cephALEXin 500 MG CAP PO SCH ×3 (00:07→13:01)
[2022-08-25] MEDS: HEPARIN SOD 5,000 UNIT/0.5 ML VIAL SQ SCH (05:42)
[2022-08-25 07:34] LABS: Basophils # (auto) 0.04 K/uL (0-0.2); Basophils % (auto) 0.5 %; Eosinophils # (auto) 0.23 K/uL (0-0.50); Eosinophils % (auto) 2.9 %; Hematocrit (blood only) 44.2 % (37.0-47.0); Hemoglobin 13.2 g/dl (12.0-16.0); Immature Granulocytes # (auto) 0.03 K/uL (0.01-0.20); Immature Granulocytes % (auto) 0.4 %; Lymphocytes # (auto) 0.87 K/uL (1.2-3.4); Lymphocytes % (auto) 10.8 %; Mean Corpuscular Hemoglobin 25.1 pg (25.0-34.0); Mean Corpuscular Hgb Conc 29.9 g/dL (32.0-36.0); Mean Corpuscular Volume 84.2 fL (80.0-100.0); Mean Platelet Volume 9.1 fL (9.4-12.4); Monocytes # (auto) 0.55 K/uL (0.11-0.59); Monocytes % (auto) 6.8 %; Neutrophils # (auto) 6.33 K/uL (1.40-6.50); Neutrophils % (auto) 78.6 %; Platelet Count 221 K/uL (130-400); RDW Coefficient of Variation 15.3 % (11.5-14.5); RDW Standard Deviation 46.6 fL (36.4-46.3); Red Blood Count 5.25 M/uL (4.20-5.40); White Blood Count 8.05 K/ul (4.8-10.8)
[2022-08-25] MEDS: amLODIPine BESYLATE 5 MG TAB PO SCH (07:59)
[2022-08-25] MEDS: risperiDONE 0.5 MG TABLET PO SCH (08:00)
[2022-08-25] MEDS: DULoxetine HCL 20 MG CAP PO SCH (08:00)
[2022-08-25] MEDS: OXYBUTYNIN CHLORIDE XL 5 MG TABCR PO SCH (08:00)
[2022-08-25] MEDS: FUROSEMIDE 20 MG TAB PO SCH (08:00)
[2022-08-25] MEDS: METOPROLOL SUCC 50MG EXT REL TAB PO SCH (08:01)
[2022-08-25] MEDS: ADVANCED PROBIOTIC 1250 MG CAPSULE PO SCH (08:01)
[2022-08-25] MEDS: NYSTATIN POWDER 15GM BTL EXT SCH (08:02)
[2022-08-25] MEDS: GABAPENTIN 400 MG CAP PO SCH (08:02)
[2022-08-25] MEDS: LIDOCAINE 5% 1 PATCH TD SCH (08:02)
[2022-08-25 08:42] LABS: Troponin I High Sensitivity 5.5 pg/ml (0-14)
[2022-08-25 08:50] LABS: Calcium 9.2 mg/dl (8.6-10.3); Potassium 4.1 mmol/L (3.5-5.1)
[2022-08-25 08:56] LABS: BUN Creatinine Ratio 12.3 (10-20); Creatinine Clr Calc Pharmacy 104.3 ml/min; Est GFR (African American) 107.2 ml/min; Est GFR (Non-African American) 92.5 ml/min
[2022-08-25] MEDS: HYDROCODONE/ACETAMOPHEN 5/325MG TAB PO PRN (09:26)
--- NOTE | 2022-08-25 12:26 | Hospitalist Progress Note ---
Date of Service August 25, 2022 Assessment & Plan (1) Acute respiratory failure with hypoxia and hypercapnia: Plan: Acute on chronic respiratory failure with hypoxia, hypercapnia Likely multifactorial secondary to obesity hypoventilation syndrome, polypharmacy. Also to rule out sleep apnea --CTA:No pulmonary embolus is seen. Pulmonary hypertension and atelectasis are seen. --[employer] negative for Covid 19, parainfluenza and influenza --Recent Echo done on 08/11/22 showed normal left ventricular diastolic function and EF 55-59% -- Minimize narcotics and adjust medications as needed --Needs outpatient sleep study, pulmonary function test Continue supplemental oxygen as needed Appreciate pulmonology input and recommendation We will need to step prior to discharge Check nocturnal oximetry study today-overnight pulse oximetry required 3 L of oxygen to maintain saturation Will benefit from pulmonology follow-up as outpatient Keep oxygen saturations 88 to 92% as recommended by pulmonology Remains saturating on room air at rest Status post 2 step saturation test and the patient will require 3 L with ambulation Remains stable to be discharged Acute diastolic heart failure Chronic B/L LE edema likely multifactorial Gabapentin, amlodipine likely contributing as well Normal systolic and diastolic function on recent echo Continue diuretics as per cardiology Appreciate cardiology input and recommendation-she has been getting Lasix 20 mg a day and diuresing enough Monitor I's and O's, volume status-does not seems to be volume overloaded We will continue with the current Lasix dose of 20 mg as CO2 level is elevated w ill not increase the dose Has had enough diuresis and will continue Lasix 20 mg on discharge. CO2 level remains stable at 36 LE cellulitis Continue Keflex that was started on 08/19 outpatient Improving -we will continue Keflex to finish the course Chronic Low back pain Follows with pain management Continue Cymbalta and gabapentin at reduced dose Narcotics adjusted as well Narcotics doses have been decreased Stress incontinence Continue Oxybutynin Electrolytes imbalance Mg 1.6 and na 132 on admission Replete electrolytes as needed Diarrhea Possible related to antibiotic Keflex added probiotic Check stool studies if recurrence of diarrhea Weakness Ambulatory dysfunction PT/OT Involuntary Jerking movement Likely due to hypoxia, hypercarbia, polypharmacy Improved Seems to have benign essential tremor-reassured, no medications now DVT Px: Heparin SQ Code status Full code Will be discharged home this afternoon Admission and Anticipated Discharge Date Admission Date: August 22, 2022 Subjective 08/24/2022 The patient was seen and examined in telemetry unit in presence of the She has been stable and feeling a little better Gets easily short of breath with minimal exertion and desaturation with exertion Saturating normally on room air 08/25/2022 The patient was seen and examined in telemetry unit in presence of the She has been feeling much better and wants to go home She has had to a step test and she will require 3 L with ambulation Denies any other significant symptoms Review of Systems Review of Systems: All systems reviewed and are unremarkable except as noted below Respiratory: Shortness of breath with minimal exertion Physical Exam Physical Exam: Sitting on a chair without any acute distress Constitutional: well developed, well nourished and + obese; not ill appearing Eyes: PERRL, conjunctivae normal, anicteric sclerae ENMT: external ear and nose normal, oropharynx normal Neck: trachea midline, no thyromegaly Respiratory: no respiratory distress Auscultation: + diminished lung sounds and + crackles (Crackles at the bases) Cardiovascular: Rate/Rhythm: regular rate and regular rhythm; not tachycardic Heart Sounds: normal S1 and normal S2; no murmur Extremities: + edema (Trace to 1+ edema bilaterally) Gastrointestinal (Abdomen): Inspection/Auscultation: normal bowel sounds; abdomen not distended Percussion/Palpation: abdomen soft; abdomen nontender Neurologic: normal touch/pain/proprioception and moves all extremities; no focal motor deficits Psychiatric: A+Ox3, euthymic affect Lymphatic: no cervical or axillary lymphadenopathy Results & Data Results & Data Vital Signs (Past 12 Hours) Vital Signs Temp Pulse Pulse Pulse Pulse Pulse Pulse 08/25/22 11:41 36.3 C L 74 08/25/22 11:28 95 H 95 H 80 79 08/25/22 08:30 08/25/22 07:45 36.7 C 71 08/25/22 07:00 64 08/25/22 03:00 36.5 C 71 Pulse Resp Resp Resp Resp Resp Resp 08/25/22 11:41 20 08/25/22 11:28 64 22 22 20 20 18 08/25/22 08:30 08/25/22 07:45 19 08/25/22 07:00 08/25/22 03:00 19 BP BP Pulse Ox Pulse Ox Pulse Ox Pulse Ox Pulse Ox 08/25/22 11:41 160/74 H 92 08/25/22 11:28 88 L 92 86 L 90 08/25/22 08:30 08/25/22 07:45 131/85 92 08/25/22 07:00 08/25/22 03:00 141/71 H 95 Pulse Ox O2 Del Method O2 Flow Rate O2 Flow Rate O2 Flow Rate 08/25/22 11:41 Room Air 08/25/22 11:28 91 2 3 08/25/22 08:30 Nasal Cannula 2 08/25/22 07:45 Nasal Cannula 3 08/25/22 07:00 08/25/22 03:00 Nasal Cannula 2 Laboratory Results Short CBC 08/25/22 Range/Units 07:08 WBC 8.05 (4.8-10.8) K/ul Hgb 13.2 (12.0-16.0) g/dl Hct 44.2 (37.0-47.0) % Plt Count 221 (130-400) K/uL BMP 08/25/22 07:08 Sodium 135 L Potassium 4.1 Chloride 93 L Carbon Dioxide 36 H BUN 8 Creatinine 0.65 Glucose 102 H Calcium 9.2 Medications Administered Current Inpatient Medications Acetaminophen (Acetaminophen 325 Mg Tab) 650 mg PO Q12H PRN PRN Reason: Headache Stop: 09/21/22 19:36 Last Admin: 08/22/22 20:09 Dose: 650 mg Hydrocodone Bitart/Acetaminophen (Hydrocodone/Acetamophen 5/325mg Tab) 0.5 tab PO Q6H PRN PRN Reason: moderate to severe Stop: 09/05/22 10:02 Last Admin: 08/25/22 09:26 Dose: 0.5 tab Albuterol (Albuterol Hfa 8 Gm Inhaler) 2 puffs INH Q6H PRN PRN Reason: Wheezing Stop: 09/21/22 10:06 Amlodipine Besylate (Amlodipine Besylate 5 Mg Tab) 2.5 mg PO QAM [facility] Stop: 09/22/22 08:59 Last Admin: 08/25/22 07:59 Dose: 2.5 mg Cephalexin HCl (Cephalexin 500 Mg Cap) 500 mg PO Q6 [facility]; Protocol Stop: 08/29/22 13:29 Last Admin: 08/25/22 05:41 Dose: 500 mg Duloxetine HCl (Duloxetine Hcl 20 Mg Cap) 40 mg PO DAILY [facility] Stop: 09/22/22 08:59 Last Admin: 08/25/22 08:00 Dose: 40 mg Furosemide (Furosemide 20 Mg Tab) 20 mg PO QAM [facility] Stop: 09/22/22 11:14 Last Admin: 08/25/22 08:00 Dose: 20 mg Gabapentin (Gabapentin 400 Mg Cap) 400 mg PO BID [facility] Stop: 09/21/22 20:59 Last Admin: 08/25/22 08:02 Dose: 400 mg Heparin Sodium (Porcine) (Heparin Sod 5,000 Unit/0.5 Ml Vial) 5,000 units SQ Q8 [facility] Stop: 09/21/22 13:59 Last Admin: 08/25/22 05:42 Dose: 5,000 units Hydroxyzine HCl (Hydroxyzine Hcl 25 Mg Tab) 25 mg PO Q8H PRN PRN Reason: Anxiety Stop: 09/21/22 14:07 Last Admin: 08/24/22 08:54 Dose: 25 mg Promethazine HCl 12.5 mg/ (Sodium Chloride) 50.5 mls @ 202 mls/hr IV Q6H PRN PRN Reason: Nausea And Vomiting Stop: 09/23/22 20:25 Last Infusion: 08/24/22 22:46 Dose: Infused Lactobacillus Acidophilus (Advanced Probiotic 1250 Mg Capsule) 2 cap PO DAILY [facility] Stop: 09/21/22 13:29 Last Admin: 08/25/22 08:01 Dose: 2 cap Lidocaine (Lidocaine 5% 1 Patch) 1 patch TD QAM [facility] Stop: 09/21/22 10:29 Last Admin: 08/25/22 08:02 Dose: 1 patch Metoprolol Succinate (Metoprolol Succ 50mg Ext Rel Tab) 100 mg PO BID [facility] Stop: 09/23/22 20:59 Last Admin: 08/25/22 08:01 Dose: 100 mg Miscellaneous (Remove Lidoderm Patch) 1 each N/A DAILY@2100 [facility] Stop: 09/21/22 20:59 Last Admin: 08/24/22 22:45 Dose: 1 each Nitroglycerin (Nitroglycerin Sl 0.4 Mg/Tab Tab) 0.4 mg SL Q5M PRN PRN Reason: Chest Pain Stop: 09/23/22 20:25 Nystatin (Nystatin Powder 15gm Btl) 1 appln EXT TID [facility] Stop: 09/21/22 13:59 Last Admin: 08/25/22 08:02 Dose: 1 appln Oxybutynin Chloride (Oxybutynin Chloride Xl 5 Mg Tabcr) 10 mg PO DAILY [facility] Stop: 09/22/22 08:59 Last Admin: 08/25/22 08:00 Dose: 10 mg Risperidone (Risperidone 0.5 Mg Tablet) 0.5 mg PO BID [facility] Stop: 09/21/22 20:59 Last Admin: 08/25/22 08:00 Dose: 0.5 mg
--- NOTE | 2022-08-25 16:36 | Discharge Summary ---
Date of Service August 25, 2022 Admission HPI Per Admitting Provider 67-year-old female with past medical history of bipolar disorder, hypertension, stress incontinence, chronic back pain, morbid obesity presents to the emergency department with complaints of worsening shortness of breath. Pt said that she was starting on Lasix las month for b/l LE edema. She said that she has been staying in a camper with her . She missed 3 doses of her Lasix. She said that she resumed the Lasix yesterday. said that she has been very week in the last few months where she ran out of energy with minimal exertion. Pt said that she got SOB with minimal activity. She followed with pain management and chiropractor for her chronic low back pain. said that she was taking hydrocodone 10mg; but after she takes 1 tab she is became very lethargy and confused. said he cut the tablet to half and she has been taking it every 3 hrs due to the pain. She continues to be drowsy and lethargy with the half of the 10mg hydrocodone. She said the pain management doctor last Monday and she was started on Celebrex that she stopped taking it after 1 dose because it gave her stomach upset. She was started on Keflex on 08/19 for b/l le cellulitis. noted the redness improves. Yesterday she had few episodes of diarrhea; but none today. said that she has been having involuntary jerking movement for a while. Currently she said that her breathing improves. Denies any fever, palpitation, chest pain, dizziness. Admission Exam Per Admitting Provider Physical Exam: General- No acute distress, obesity Head- atraumatic Eyes- PERRL, EOMI, no nystagmus ENT- oropharynx clear Neck- supple, no JVD Lungs- No wheezing, no crackles Heart- regular rhythm; no murmur Abdomen- normal bowel sounds, soft, nontender Extremities- +edema, mild erythema in LLE Neuro- alert, oriented, PERRL, EOMI; no facial palsy; no dysarthria, mild tremor, no nystagmus Skin- warm & dry Principal Diagnosis Acute respiratory failure with hypoxia and hypercapnia, acute diastolic failure, chronic back pain Discharge Exam Sitting on a chair without any acute distress Constitutional well developed, well nourished and + obese; not ill appearing Eyes PERRL, conjunctivae normal, anicteric sclerae ENMT external ear and nose normal, oropharynx normal Neck trachea midline, no thyromegaly Respiratory no respiratory distress Auscultation: + diminished lung sounds and + crackles (Crackles at the bases) Cardiovascular Rate/Rhythm: regular rate and regular rhythm; not tachycardic Heart Sounds: normal S1 and normal S2; no murmur Extremities: + edema (Trace to 1+ edema bilaterally) Gastrointestinal (Abdomen) Inspection/Auscultation: normal bowel sounds; abdomen not distended Percussion/Palpation: abdomen soft; abdomen nontender Neurologic normal touch/pain/proprioception and moves all extremities; no focal motor deficits Psychiatric A+Ox3, euthymic affect Lymphatic no cervical or axillary lymphadenopathy Discharge Data Allergies Allergy/AdvReac Type Severity Reaction Status Date / Time amitriptyline [From Elavil] AdvReac Gastrointestinal Unverified 08/22/22 09:35 Upset amoxicillin [From Augmentin] AdvReac Gastrointestinal Unverified 08/22/22 09:35 Upset clavulanic acid AdvReac Gastrointestinal Unverified 08/22/22 09:35 [From Augmentin] Upset oxycodone AdvReac Gastrointestinal Unverified 08/22/22 09:35 Upset Consultations 08/22/22 07:45 ED Decision to Admit Stat 08/22/22 12:53 Consult Cardiology Routine 08/23/22 08:28 Consult Pulmonology Routine Ordered Studies 08/22/22 06:41 CT angio chest PE protocol Stat Hospital Course (1) Acute respiratory failure with hypoxia and hypercapnia: Acute on chronic respiratory failure with hypoxia, hypercapnia Likely multifactorial secondary to obesity hypoventilation syndrome, polypharmacy. Also to rule out sleep apnea --CTA:No pulmonary embolus is seen. Pulmonary hypertension and atelectasis are seen. --Biofire negative for Covid 19, parainfluenza and influenza --Recent Echo done on 08/11/22 showed normal left ventricular diastolic function and EF 55-59% -- Minimize narcotics and adjust medications as needed --Needs outpatient sleep study, pulmonary function test Continue supplemental oxygen as needed Appreciate pulmonology input and recommendation We will need to step prior to discharge Check nocturnal oximetry study today-overnight pulse oximetry required 3 L of oxygen to maintain saturation Will benefit from pulmonology follow-up as outpatient Keep oxygen saturations 88 to 92% as recommended by pulmonology Remains saturating on room air at rest Status post 2 step saturation test and the patient will require 3 L with ambulation Remains stable to be discharged Acute diastolic heart failure Chronic B/L LE edema likely multifactorial Gabapentin, amlodipine likely contributing as well Normal systolic and diastolic function on recent echo Continue diuretics as per cardiology Appreciate cardiology input and recommendation-she has been getting Lasix 20 mg a day and diuresing enough Monitor I's and O's, volume status-does not seems to be volume overloaded We will continue with the current Lasix dose of 20 mg as CO2 level is elevated will not increase the dose Has had enough diuresis and will continue Lasix 20 mg on discharge. CO2 level remains stable at 36 LE cellulitis Continue Keflex that was started on 08/19 outpatient Improving -we will continue Keflex to finish the course Chronic Low back pain Follows with pain management Continue Cymbalta and gabapentin at reduced dose Narcotics adjusted as well Narcotics doses have been decreased Stress incontinence Continue Oxybutynin Electrolytes imbalance Mg 1.6 and na 132 on admission Replete electrolytes as needed Diarrhea Possible related to antibiotic Keflex added probiotic Check stool studies if recurrence of diarrhea Weakness Ambulatory dysfunction PT/OT Involuntary Jerking movement Likely due to hypoxia, hypercarbia, polypharmacy Improved Seems to have benign essential tremor-reassured, no medications now DVT Px: Heparin SQ Code status Full code Will be discharged home this afternoon Total Time Total Time Spent Total Time Spent (In Minutes): 40 minutes Discharge Plan Discharge Items Patient Disposition: Home - Self-Care Reason For Visit: SOB Discharge Diagnosis: Acute respiratory failure with hypoxia and hypercapnia, acute diastolic failure, chronic back pain Condition on Discharge: Fair Activity: Resume your previous activity Non-emergency contact: Primary Care Provider Call non-emergency contact if: you have any medication questions and your symptoms worsen Follow-up/Referrals: Orlando Nazario MD [Primary Care Provider] - (Date & Time 08/30/2022 11:00 AM Provider Orlando Nazario MD Department Family Medicine [facility] ) Diet: Heart Healthy Fluids: 1800ml (7 cups) Addtl Attending Provider Instructions: Please take precautions to avoid fall Take your medications as advised Try to limit your fluid intake as advised Please have your nocturnal sleep study done as an outpatient through your PCP to rule out sleep apnea Take oxygen as prescribed with 3 L at night and with ambulation Please keep appointments with your healthcare providers Try to use less of narcotic pain medication to avoid side effects and complication Pending Studies at Discharge: No Stand-Alone Forms: [facility], Smoking Cessation Medications and DC Order Prescriptions: New metoprolol succinate [Toprol XL] 100 mg tablet extended release 24 hr 100 mg PO BID Qty: 60 0RF amlodipine [Norvasc] 5 mg Tablet 2.5 mg PO QAM 30 Days Qty: 15 0RF lidocaine 5 % Adhesive Patch,Medicated 1 patch transdermal QAM 30 Days Qty: 30 0RF furosemide 20 mg Tablet 20 mg PO QAM 30 Days Qty: 30 0RF hydrocodone-acetaminophen 2.5-325 mg tablet 1 tab PO Q6H PRN (Reason: pain) Qty: 20 0RF Continued cephalexin 500 mg capsule 500 mg PO BID nystatin [Nyamyc] 100,000 unit/gram powder 1 applic TOPICAL TID albuterol sulfate 90 mcg/actuation HFA aerosol inhaler 2 puff INHALATION QID PRN (Reason: Wheezing) celecoxib 200 mg capsule See Rx Instructions .ROUTE .COMPLEX Rx Instructions: TAKE 1 CAPSULE BY MOUTH TWICE DAILY NEEDED atorvastatin 10 mg tablet 10 mg PO DAILY oxybutynin chloride 10 mg tablet extended release 24hr 10 mg PO QAM hydroxyzine HCl 25 mg tablet 50 mg PO QID PRN (Reason: Anxiety) risperidone 1 mg tablet 0.5 mg PO BID olanzapine 20 mg Tablet 20 mg PO DAILY duloxetine 60 mg capsule,delayed release(DR/EC) 60 mg PO QAM Changed gabapentin 400 mg capsule 400 mg PO BID Qty: 1 0RF Discontinued metoprolol succinate 100 mg tablet extended release 24 hr 100 mg PO DAILY metoprolol succinate 100 mg tablet extended release 24 hr 50 mg PO HS furosemide 40 mg tablet 40 mg PO QAM amlodipine 5 mg tablet 5 mg PO DAILY hydrocodone-acetaminophen 10-325 mg tablet See Rx Instructions .ROUTE .COMPLEX Rx Instructions: Take 1/2 tablet by mouth four times a day as needed for pain Discharge Orders: Discharge Order (Routine); Ordered 08/25/22 Ordered By: Amol Jha Admission Data Admit Date/Time: 08/22/22 08:54 Attending Provider: Amol Jha Admit Provider: Gera Cedeño Primary Care Provider: Orlando Nazario Other Providers: Norris Zurita ; Rusty Salazar ; Jian Gibbs ; Jose Cruz Mcfadden ; Agus Calloway ; Suresh Hendricks ; Brandi Dubose ; Bhavani Ribera Other Interventions: Discharge Summary Assessment (RN) Last Done: 08/25/22 12:53
--- NOTE | 2022-08-27 06:23 | Electrocardiogram Report ---
Test Reason : Blood Pressure : / mmHG Vent. Rate : 072 BPM Atrial Rate : 072 BPM P-R Int : 166 ms QRS Dur : 080 ms QT Int : 392 ms P-R-T Axes : 032 -28 038 degrees QTc Int : 429 ms Poor data quality, interpretation may be adversely affected Normal sinus rhythm Possible Anterior infarct (cited on or before 22-AUG-2022) Nonspecific T wave abnormality Abnormal ECG When compared with ECG of 22-AUG-2022 05:53, Nonspecific T wave abnormality now evident in Anterior leads Confirmed by Cuong Shah ([id number]) on 08/27/2022 6:23:34 AM Referred By: REFERRED SELF Confirmed By:Cuong Shah
== END 2022-08-25 13:51 | disposition home or self-care (01) | DRG 205 ==
LOC: ED 05:28 → 2S 08:54 → SUATTDRO 08:54 → 2S 09:32

== ENCOUNTER 2023-06-07 13:36 | Inpatient (IN) ==
--- NOTE | 2023-06-07 13:50 | ED Triage Note ---
Date of Service June 07, 2023 Provider in Triage Author: Cristela Guaman History of Present Illness This patient was briefly evaluated while in triage. An abbreviated physical exam was performed. This patient is a 68-year-old Female who presents to the ED for evaluation of hyponatremia. Reportedly had outpatient labs performed yesterday and had Na+ of 126. H/o CHF. On baseline 3L O2. Denies n/v, headache, confusion, chest pain, SOB, abd pain. Physical Exam Constitutional: alert and oriented x3. no acute distress. HEENT: normocephalic, atraumatic. normal conjunctiva.PERRLA. EOM's grossly intact. Respiratory: equal chest rise. normal respiratory effort, no accessory muscle use. 3L NC Cardiovascular: regular rate and rhythm. MSK: moves all 4 extremities spontaneously Psych:appropriate mood and affect. Initial orders for labs and / or imaging were placed and patient was placed in the waiting area until a bed is available. Please see further documentation for the full ED course.
--- NOTE | 2023-06-07 14:28 | Emergency Department Note ---
Impression & Plan Shortness of breath, CHF (congestive heart failure), Fluid overload, Hyponatremia ED Provider Note NAME: YULISA LOZADA AGE: 68 SEX: F : 1955 ARRIVES VIA: Walk-In INFORMANT: Patient ED PROVIDER(S): Robb Cote DO CHIEF COMPLAINT: shortness of breath and increased swelling in the legs HPI: Patient is a 68-year-old female with a past medical history pulmonary hypertension, hyponatremia, morbid obesity, volume overload who presents to the ER for increased shortness of breath, swelling and edema in the bilateral legs tracking up to her hips. Patient admits to chronic headaches. No change or loss of vision. No belly pain, nausea, vomiting or diarrhea. No dysuria, urgency, or frequency. Additional history is obtained by significant other who is present at bedside who notes that the patient is chronically on 3 L nasal cannula. She admits she does take Lasix 60 mg Monday, Monday, and Monday. ADDITIONAL HISTORY OBTAINED: Per HPI Chronic Medical/Social Conditions Affecting Care: Per HPI PAST MEDICAL HISTORY:See Below PAST SURGICAL HISTORY:See Below FAMILY HISTORY:See Below SOCIAL HISTORY:See Below HOME MEDICATIONS:See Below ALLERGIES:See Below VITALS:See Below PHYSICAL EXAMINATION: GENERAL: Sitting up in bed, alert, well appearing, well nourished, no distress, non-toxic EYE EXAM: normal conjunctiva. OROPHARYNX: mucous membranes are moist NECK: supple, no nuchal rigidity, no adenopathy, non-tender LUNGS: Clear to auscultation. Normal chest wall mechanics HEART: no murmurs, S1 normal and S2 normal ABDOMEN: abdomen soft, non-tender, normo-active bowel sounds, no masses, no rebound or guarding. UPPER EXTREMITIES: upper extremities are grossly normal. LOWER EXTREMITIES: No pitting edema. NEURO EXAM: Normal sensorium, cranial nerves II-XII grossly intact, normal speech, no gross weakness of arms, no gross weakness of legs. MEDICAL DECISION MAKING: Patient is a 68-year-old female who presents to the ER for shortness of breath, swelling of the legs up into the hips associated with weight gain and hyponatremia. IV was established blood work was obtained. Labs show no significant leukocytosis. Mild anemia at 10. INR unremarkable. BMP with a sodium of 131. LFTs bilirubin was unremarkable. Troponin was negative. UA was clean. Chest x-ray was fairly unremarkable. Patient extensive pitting edema in the bilateral lower extremities tracking up to the hips. She had a 10 kg weight gain. Clearly has signs of CHF. She was given Lasix discussed with the hospitalist admitted for further workup. Consults/Care Managements Discussions: Per [facility] Triage Nursing notes reviewed. Limited review of prior medical records performed Vital Signs: reviewed and remarkable for chronically on 3 L nasal cannula Differential diagnosis: Differential diagnoses includes but is not limited to pneumonia, bronchitis, COPD/Asthma exacerbation, pneumothorax, pulmonary embolism, congestive heart failure, acute coronary syndrome ER treatment provided: See below Diagnostics interpreted by me include EKG and cardiac monitoring as listed below: -Cardiac Monitoring: An order was placed for continuous cardiac monitoring. The monitor shows a rate of 80 with sinus rhythm. -ECG: Sinus rhythm rate 75 Normal axis No PVCs QTc 451 -Laboratory studies:Interpreted by me as stated above in MDM and shown below. Imaging studies: Xrays: As interpreted by me: Portable AP upright 1 view of the chest shows no focal infiltrate CTs show: none Procedures:none Critical Care: None Past Med/Surg History Medical History (Updated 06/07/23 @ 17:12 by Robb Cote DO) Chronic dyspnea Morbid obesity due to excess calories Chronic hypercapnic respiratory failure Fluid overload Surgical History (Updated 06/07/23 @ 16:37 by Priscilla Mas PA-C) History of right hip replacement Hx of cholecystectomy Family History (Updated 06/07/23 @ 16:38 by Priscilla Mas PA-C) Other Coronary heart disease Social History Smoking Status: Never smoker Second Hand Exposure: No; Do You Dip or Chew Tobacco: No; Hx Alcohol Use: No Hx Substance Use: No Preferred Language: Gibraltarian Communication Ability: Effective 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 Beliefs That Will Affect Care: None Current Living Situation: Spouse Feels Safe at Home: Yes Assistive Devices: Cane and Walker Allergies Allergies Allergy/AdvReac Type Severity Reaction Status Date / Time amitriptyline [From Elavil] AdvReac Intermediate Gastrointestinal Verified 06/07/23 15:49 Upset amoxicillin [From Augmentin] AdvReac Intermediate Gastrointestinal Verified 06/07/23 15:49 Upset clavulanic acid AdvReac Intermediate Gastrointestinal Verified 06/07/23 15:49 [From Augmentin] Upset oxycodone AdvReac Intermediate Gastrointestinal Verified 06/07/23 15:49 Upset Home Meds Home Medications Medication Instructions Recorded Confirmed albuterol sulfate 90 mcg/actuation 2 puff inhalation QID PRN Wheezing 08/22/22 06/07/23 aerosol inhaler atorvastatin 10 mg tablet 10 mg PO QAM 08/22/22 06/07/23 duloxetine 60 mg capsule,delayed 60 mg PO QAM 08/22/22 06/07/23 release hydroxyzine HCl 25 mg tablet 50 mg PO QID PRN Anxiety 08/22/22 06/07/23 nystatin 100,000 unit/gram topical 1 applic topical TID PRN SKIN 08/22/22 06/07/23 powder (Nyamyc) FOLDS NEEDED oxybutynin chloride 10 mg 10 mg PO QAM 08/22/22 06/07/23 tablet,extended release 24 hr risperidone 1 mg tablet See Rx Instructions .Route .COMPLEX 08/22/22 06/07/23 acetaminophen 500 mg tablet 1,000 mg PO TID PRN Pain 06/07/23 06/07/23 (Tylenol Extra Strength) amlodipine 2.5 mg tablet 2.5 mg PO QAM 06/07/23 06/07/23 buspirone 7.5 mg tablet 7.5 mg PO BID 06/07/23 06/07/23 fluticasone 250 mcg-salmeterol 50 1 inh inhalation BID 06/07/23 06/07/23 mcg/dose blistr powdr for inhalation furosemide 40 mg tablet 40 mg PO QAM 06/07/23 06/07/23 hydrocodone 7.5 mg-acetaminophen 1 tab PO QID PRN Pain 06/07/23 06/07/23 325 mg tablet ibuprofen 200 mg tablet 600 mg PO BID 06/07/23 06/07/23 lidocaine 4 % topical patch 1 patch topical DAILY PRN APPLY TO 06/07/23 06/07/23 LOWER BACK melatonin 3 mg tablet 3 mg PO HS 06/07/23 06/07/23 polyethylene glycol 3350 17 17 g PO DAILY PRN Constipation 06/07/23 06/07/23 gram/dose oral powder (Miralax) Previous Rx's Medication Instructions Recorded metoprolol succinate 100 mg 100 mg PO BID #60 tabs 08/25/22 tablet,extended release 24 hr (Toprol XL) Results & Data (ED) Vital Signs Vital Signs - 24 hr 06/07/23 13:49 06/07/23 14:00 06/07/23 14:20 Temperature 36.6 C Temperature Source Temporal Artery Scan Pulse Rate 76 78 Pulse Rate [Apical] 77 Respiratory Rate 20 20 Respiratory Effort / Characteristics Non-Labored SOB on Exertion Respiratory Depth Normal Normal Respiratory Pattern Blood Pressure 107/68 Blood Pressure [Right Arm] 120/66 Blood Pressure Mean 81 Blood Pressure Mean [Right Arm] 84 Blood Pressure Position [Right Arm] Lying Pulse Oximetry 97 99 Oxygen Delivery Method Nasal Cannula Nasal Cannula Oxygen Flow Rate 3 4 Sepsis Recent Fever Within 48 Hours No Sepsis New/Unexplained Change in Mental Status No Sepsis Action Taken by Nursing No Action Required 06/07/23 15:18 Temperature Temperature Source Pulse Rate Pulse Rate [Apical] 75 Respiratory Rate 18 Respiratory Effort / Characteristics Non-Labored Spontaneous Respiratory Depth Normal Respiratory Pattern Regular Blood Pressure Blood Pressure [Right Arm] 121/64 Blood Pressure Mean Blood Pressure Mean [Right Arm] 83 Blood Pressure Position [Right Arm] Lying Pulse Oximetry 99 Oxygen Delivery Method Nasal Cannula Oxygen Flow Rate 4 Sepsis Recent Fever Within 48 Hours Sepsis New/Unexplained Change in Mental Status Sepsis Action Taken by Nursing Laboratory Data 06/07/23 14:04 06/07/23 14:04 Lab Results 06/07/23 Range/Units 14:04 WBC 8.75 (4.8-10.8) K/ul RBC 3.76 L (4.20-5.40) M/uL Hgb 10.1 L (12.0-16.0) g/dl Hct 31.3 L (37.0-47.0) % MCV 83.2 (80.0-100.0) fL MCH 26.9 (25.0-34.0) pg MCHC 32.3 (32.0-36.0) g/dL RDW Std Deviation 37.4 (36.4-46.3) fL RDW Coeff of Zandra 12.3 (11.5-14.5) % Plt Count 305 (130-400) K/uL MPV 9.5 (9.4-12.4) fL Immature Gran % (Auto) 0.7 % Neut % (Auto) 76.2 % Lymph % (Auto) 14.5 % Cameron % (Auto) 4.3 % Eos % (Auto) 4.0 % Baso % (Auto) 0.3 % Neut # (Auto) 6.66 H (1.40-6.50) K/uL Lymph # (Auto) 1.27 (1.20-3.40) K/uL Cameron # (Auto) 0.38 (0.11-0.59) K/uL Eos # (Auto) 0.35 (0.00-0.50) K/uL Baso # (Auto) 0.03 (0.00-0.20) K/uL Immature Gran # (Auto) 0.06 (0.01-0.20) K/uL PT 10.7 (9.0-12.0) Seconds INR 1.0 (0.9-1.1) APTT 27 (21-31) Seconds PTT Ratio 1.0 Sodium 131 L (136-145) mmol/L Potassium 3.5 (3.5-5.1) mmol/L Chloride 89 L (98-107) mmol/L Carbon Dioxide 36 H (21-32) mmol/L Anion Gap 6 (3-11) BUN 10 (6-23) mg/dl Creatinine 1.15 (0.6-1.2) mg/dl Est Cr Clr Drug Dosing 62.1 ml/min Est GFR ( Amer) 57.0 ml/min Est GFR (Non-Af Amer) 49.2 ml/min BUN/Creatinine Ratio 8.7 L (10-20) Glucose 83 (70-99(Fasting)) mg/dl Osmolality 272 L (280-300) mOsm/kg Calcium 9.0 (8.6-10.3) mg/dl Total Bilirubin 0.3 (0.2-1.0) mg/dl AST 14 (13-39) U/L ALT 8 (7-52) U/L Alkaline Phosphatase 83 (34-104) U/L Troponin I High Sens 5.0 (0-14) pg/ml Total Protein 6.9 (6.0-8.3) gm/dl Albumin 3.9 (3.4-5.0) gm/dl Globulin 3.0 (2.5-4.0) gm/dl Albumin/Globulin Ratio 1.3 (0.9-2) Administered Medications Discontinued Medications Furosemide (Furosemide 40 Mg/4 Ml Vial) 40 mg IV NOW STA Stop: 06/07/23 15:14 Last Admin: 06/07/23 15:20 Dose: 40 mg Documented By: TNK Imaging Data Radiologist's Impression: Chest X-Ray 06/07/23 13:52 XR chest 1V portable HISTORY: Hypoxia. COMPARISON: Chest 08/22/2022. FINDINGS: There are low lung volumes. No pneumothorax. No pleural effusions. The heart remains mildly enlarged. A few bibasilar linear densities favor subsegmental atelectasis are scarring. This is similar to the prior studies. No new focal lung consolidations to suggest a pneumonia. Mild interstitial thickening is likely technical. No acute fractures. IMPRESSION: No significant change compared to the prior study. No acute process. ACT 112: Negative or not required by law. Electronically signed by: Rod Bazan M.D. 06/07/2023 2:28 PM Discharge Plan Visit Data Chief Complaint: Referred by Doctor Stated Complaint: LOW SODIUM ED Provider: Robb Cote Discharge Problem: Shortness of breath, CHF (congestive heart failure), Fluid overload, Hyponatremia Patient Disposition: Admitted As Inpatient Discharge Instructions Interventions: ED Discharge Assessment Last Done: 06/07/23 16:30 Discharge Problem: CHF (congestive heart failure) Qualifiers: Heart failure type: unspecified Heart failure chronicity: unspecified Qualified Code(s): I50.9 - Heart failure, unspecified Fluid overload Qualifiers: Hypervolemia type: unspecified Qualified Code(s): E87.70 - Fluid overload, unspecified
[2023-06-07 14:30] LABS: Basophils # (auto) 0.03 K/uL (0.00-0.20); Basophils % (auto) 0.3 %; Eosinophils # (auto) 0.35 K/uL (0.00-0.50); Hematocrit (blood only) 31.3 % (37.0-47.0); Hemoglobin 10.1 g/dl (12.0-16.0); Immature Granulocytes # (auto) 0.06 K/uL (0.01-0.20); Immature Granulocytes % (auto) 0.7 %; Lymphocytes # (auto) 1.27 K/uL (1.20-3.40); Lymphocytes % (auto) 14.5 %; Mean Corpuscular Hemoglobin 26.9 pg (25.0-34.0); Mean Corpuscular Hgb Conc 32.3 g/dL (32.0-36.0); Mean Corpuscular Volume 83.2 fL (80.0-100.0); Mean Platelet Volume 9.5 fL (9.4-12.4); Monocytes # (auto) 0.38 K/uL (0.11-0.59); Monocytes % (auto) 4.3 %; Neutrophils # (auto) 6.66 K/uL (1.40-6.50); Neutrophils % (auto) 76.2 %; Platelet Count 305 K/uL (130-400); RDW Coefficient of Variation 12.3 % (11.5-14.5); RDW Standard Deviation 37.4 fL (36.4-46.3); Red Blood Count 3.76 M/uL (4.20-5.40); White Blood Count 8.75 K/ul (4.8-10.8)
[2023-06-07 14:52] LABS: Albumin Globulin Ratio 1.3 (0.9-2); Albumin Level 3.9 gm/dl (3.4-5.0); BUN Creatinine Ratio 8.7 (10-20); Bilirubin,Total 0.3 mg/dl (0.2-1.0); Creatinine Clr Calc Pharmacy 62.1 ml/min; Est GFR (Non-African American) 49.2 ml/min; Potassium 3.5 mmol/L (3.5-5.1); Total Protein 6.9 gm/dl (6.0-8.3)
[2023-06-07 14:58] LABS: Partial Thromboplastin Time 27 Seconds (21-31); Prothrombin Time 10.7 Seconds (9.0-12.0)
[2023-06-07] MEDS: FUROSEMIDE 40 MG/4 ML VIAL IV STA (15:20)
--- NOTE | 2023-06-07 15:54 | History & Physical Report ---
Date of Service June 07, 2023 Assessment & Plan (1) Acute on chronic respiratory failure with hypercapnia: (2) Acute on chronic heart failure with preserved ejection fraction (HFpEF): (3) Obesity hypoventilation syndrome: (4) Hyponatremia: (5) Hypertension: (6) Morbid obesity due to excess calories: Plan This is a 68-year-old female who has a significant past medical history of chronic HFpEF, hypertensive heart disease, chronic hyponatremia, pulmonary hypertension/right heart failure secondary to obesity hypoventilation syndrome, morbid obesity, chronic hypoxic respiratory failure on 3 L via nasal cannula, bipolar and generalized anxiety disorder who presents to ED secondary to shortness of breath and weight gain. Acute on chronic respiratory failure with hypercapnia Acute on chronic heart failure with preserved EF admit to tele continue with diuresis, IV lasix 60mg BID strict I and O, daily weight FR 1800ml/day pt declined giron cath, willl use purwic for now, hx of previous UTI last echo 10/2022 EF 60 to 64%, grade 1 diastolic dysfunction, no significant valvular disease, no pulm hypertension consult cardiology for assistance with diuresis Chronic Hyponatremia in setting of hypervolemia obtain urine na, serum na, serum osm FR, IV lasix follow bmps HTN chronic, stable continue amlodipine, metoprolol, lasix HLD chronic, stable continue statin Anemia hgb 10.1; previous hgb 13 no s/sx of bleeding, possibly dilutional component will obtain anemia studies in a.m Bipolar, Anxiety chronic, stable continue buspar, duloxetine, risperdal, hydroxyzine Morbid Obesity, BMI 44.6 encourage diet/lifestyle modifications DVT ppx: SQ lovenox Dispo: med tele PCP: Dr. Nazario FULL CODE Pt was seen and examined in collaboration with Dr. Pham, please see addendum A total of 62 minutes was spent coordinating, documenting, and providing care fo r this patient excluding time spent in the performance of separately billed services. This included personally viewing all current laboratories and imaging studies, medication reconciliation, outpatient chart review, and discussion with specialists. History of Present Illness Chief Complaint: Worsened SOB, weight gain. Primary Care Provider: Orlando Nazario MD This is a 68-year-old female who has a significant past medical history of chronic HFpEF, hypertensive heart disease, chronic hyponatremia, pulmonary hypertension/right heart failure secondary to obesity hypoventilation syndrome, morbid obesity, chronic hypoxic respiratory failure on 3 L via nasal cannula, bipolar and generalized anxiety disorder who presents to ED secondary to shortness of breath and weight gain. She follows with [facility] cardiology she recently establish care on May 04 secondary to edema and excessive fluid intake. She takes lasix every daily 40mg, except MWF she takes 60mg. She continues to have increased lower extremity swelling and her PCP told her that her sodium is really low and she was referred to the ED. She states that is is on a fluid restriction, 60oz per day. She may drink 1 bottle over that. She used to drink 4 cans of soda a day and several bottles of water. She has really been trying to reduce her intake. She has been following her weights. When she was discharged during her last hospital stay she was 248lb. She has gone up to 255- 258lbs. is at bedside who helps elicit history. In the outpatient setting she has been referred for a sleep study, but has not gotten this done yet. She denies any recent illness, f/c/s, chest pain, cough, hemoptysis,n/v/d, abd pain, change in bowel or urinary habits. Allergies Allergy/AdvReac Type Severity Reaction Status Date / Time amitriptyline [From Elavil] AdvReac Intermediate Gastrointestinal Verified 06/07/23 15:49 Upset amoxicillin [From Augmentin] AdvReac Intermediate Gastrointestinal Verified 06/07/23 15:49 Upset clavulanic acid AdvReac Intermediate Gastrointestinal Verified 06/07/23 15:49 [From Augmentin] Upset oxycodone AdvReac Intermediate Gastrointestinal Verified 06/07/23 15:49 Upset Home Medications Medication Instructions Recorded Confirmed Type albuterol sulfate 90 mcg/actuation 2 puff inhalation QID PRN Wheezing 08/22/22 06/07/23 History aerosol inhaler atorvastatin 10 mg tablet 10 mg PO QAM 08/22/22 06/07/23 History duloxetine 60 mg capsule,delayed 60 mg PO QAM 08/22/22 06/07/23 History release hydroxyzine HCl 25 mg tablet 50 mg PO QID PRN Anxiety 08/22/22 06/07/23 History nystatin 100,000 unit/gram topical 1 applic topical BID UNDER 08/22/22 06/07/23 History powder (Nyamyc) BREASTS/GROIN oxybutynin chloride 10 mg 10 mg PO QAM 08/22/22 06/07/23 History tablet,extended release 24 hr risperidone 1 mg tablet See Rx Instructions .Route .COMPLEX 08/22/22 06/07/23 History metoprolol succinate 100 mg 100 mg PO BID #60 tabs 08/25/22 06/07/23 Rx tablet,extended release 24 hr (Toprol XL) acetaminophen 500 mg tablet 1,000 mg PO TID PRN Pain 06/07/23 06/07/23 History (Tylenol Extra Strength) amlodipine 2.5 mg tablet 2.5 mg PO QAM 06/07/23 06/07/23 History buspirone 15 mg tablet 7.5 mg PO BID 06/07/23 06/07/23 History furosemide 40 mg tablet 40 mg PO SUTUTHSA 06/07/23 06/07/23 History furosemide 40 mg tablet 60 mg PO MOWEFR 06/07/23 06/07/23 History hydrocodone 7.5 mg-acetaminophen 1 tab PO QID Pain 06/07/23 06/07/23 History 325 mg tablet ibuprofen 200 mg tablet 600 mg PO BID 06/07/23 06/07/23 History lidocaine 4 % topical patch 1 patch topical DAILY PRN APPLY TO 06/07/23 06/07/23 History LOWER BACK melatonin 3 mg tablet 3 mg PO HS 06/07/23 06/07/23 History polyethylene glycol 3350 17 17 g PO DAILY Constipation 06/07/23 06/07/23 History gram/dose oral powder (Miralax) Past Med/Surg History Medical History (Updated 06/07/23 @ 17:12 by Robb Cote DO) Chronic dyspnea Morbid obesity due to excess calories Chronic hypercapnic respiratory failure Fluid overload Surgical History (Updated 06/07/23 @ 16:37 by Priscilla Mas PA-C) History of right hip replacement Hx of cholecystectomy Family History (Updated 06/07/23 @ 16:38 by Priscilla Mas PA-C) Other Coronary heart disease Social History Smoking Status: Never smoker Second Hand Exposure: No; Do You Dip or Chew Tobacco: No; Hx Alcohol Use: No Hx Substance Use: No Preferred Language: Yoruba Communication Ability: Effective Lead Security Officer Required: No Beliefs That Will Affect Care: None Current Living Situation: Spouse Feels Safe at Home: Yes Assistive Devices: Cane and Walker Review of Systems Review of Systems: All systems reviewed & are unremarkable except as noted in HPI & below Physical Exam Physical Exam: please refer to Dr. Pham addendum for physical exam findings. Results & Data Results & Data Vital Signs (Past 12 Hours) Vital Signs Temp Pulse Pulse Resp BP BP Pulse Ox 06/07/23 15:18 75 18 121/64 99 06/07/23 14:20 78 06/07/23 14:00 77 20 120/66 99 06/07/23 13:49 36.6 C 76 20 107/68 97 O2 Del Method O2 Flow Rate 06/07/23 15:18 Nasal Cannula 4 06/07/23 14:20 06/07/23 14:00 Nasal Cannula 4 06/07/23 13:49 Nasal Cannula 3 Laboratory Results I have independently reviewed and interpreted patient's admitting labs including CBC, CMP, PTT, PT/INR,troponin. Diagnostic Findings Chest X-Ray 06/07/23 13:52 XR chest 1V portable HISTORY: Hypoxia. COMPARISON: Chest 08/22/2022. FINDINGS: There are low lung volumes. No pneumothorax. No pleural effusions. The heart remains mildly enlarged. A few bibasilar linear densities favor subsegmental atelectasis are scarring. This is similar to the prior studies. No new focal lung consolidations to suggest a pneumonia. Mild interstitial thickening is likely technical. No acute fractures. IMPRESSION: No significant change compared to the prior study. No acute process. ACT 112: Negative or not required by law. Electronically signed by: Rod Bazan M.D. 06/07/2023 2:28 PM Medications Administered Medication List Discontinued Medications Furosemide (Furosemide 40 Mg/4 Ml Vial) 40 mg IV NOW STA Stop: 06/07/23 15:14 Last Admin: 06/07/23 15:20 Dose: 40 mg Documented By: TNK ECG Additional Comments: I have independently reviewed and interpreted patient's admitting EKG which revealed: 75bpm, NSR, PAC, QTC 451ms COVID-19 Results Results COVID-19 Adm Lab Results: RBC 3.76 M/uL (4.20-5.40) L 06/07/23 WBC 8.75 K/ul (4.8-10.8) 06/07/23 Hgb 10.1 g/dl (12.0-16.0) L 06/07/23 Hct 31.3 % (37.0-47.0) L 06/07/23 Plt Count 305 K/uL (130-400) 06/07/23 Neutrophils (%) (Auto) 76.2 % 06/07/23 Lymphocytes (%) (Auto) 14.5 % 06/07/23 Monocytes # (Auto) 0.38 K/uL (0.11-0.59) 06/07/23 Eosinophils # (Auto) 0.35 K/uL (0.00-0.50) 06/07/23 Immature Granulocyte % (Auto) 0.7 % 06/07/23 Neutrophils # (Auto) 6.66 K/uL (1.40-6.50) H 06/07/23 Lymphocytes # (Auto) 1.27 K/uL (1.20-3.40) 06/07/23 Monocytes # (Auto) 0.38 K/uL (0.11-0.59) 06/07/23 Eosinophils # (Auto) 0.35 K/uL (0.00-0.50) 06/07/23 Basophils # (Auto) 0.03 K/uL (0.00-0.20) 06/07/23 Immature Granulocyte # (Auto) 0.06 K/uL (0.01-0.20) 4 Na 131 mmol/L (136-145) L 06/07/23 K 3.5 mmol/L (3.5-5.1) 06/07/23 Cl 89 mmol/L (98-107) L 06/07/23 CO2 36 mmol/L (21-32) H 06/07/23 Anion Gap 6 (3-11) 06/07/23 BUN 10 mg/dl (6-23) 06/07/23 Creatinine 1.15 mg/dl (0.6-1.2) 06/07/23 BUN/Creatinine Ratio 8.7 (10-20) L 06/07/23 Glucose Level 83 mg/dl (70-99(Fasting)) 06/07/23 Ca 9.0 mg/dl (8.6-10.3) 06/07/23 Total Bilirubin 0.3 mg/dl (0.2-1.0) 06/07/23 AST/SGOT 14 U/L (13-39) 06/07/23 ALT/SGPT 8 U/L (7-52) 06/07/23 Alkaline Phosphatase 83 U/L (34-104) 06/07/23 Total Protein 6.9 gm/dl (6.0-8.3) 06/07/23 Albumin 3.9 gm/dl (3.4-5.0) 06/07/23 Globulin 3.0 gm/dl (2.5-4.0) 06/07/23 Albumin/Globulin Ratio 1.3 (0.9-2) 06/07/23 PTT 27 Seconds (21-31) 06/07/23 INR 1.0 (0.9-1.1) 06/07/23 Chest X-Ray 06/07/23 Code Status & VTE Plan Code Status FULL CODE VTE Prophylaxis Plan VTE Prophylaxis will be ordered: Yes Supervising Physician Co-Signing Physician Notes I have seen and discussed the case with the collaborating advanced practitioner. I agree with the above H&P. I have reviewed and confirmed the patients medical history, the findings on physical examination, and the patients diagnosis and treatment plan with Chace GONSALEZ and agree with the information documented. In short, Ms. Wallace is a 68 year old woman who has a significant past medical history of chronic HFpEF, hypertensive heart disease, chronic hyponatremia, pulmonary hypertension/right heart failure secondary to obesity hypoventilation syndrome, morbid obesity, chronic hypoxic respiratory failure on 3 L via nasal cannula, bipolar and generalized anxiety disorder who is being admitted for management of acute on chronic heart failure with preserved EF iso OHS/morbid obesity. Patient is still on chronic O2 of 3L continuous and saturating well, but reports slow increase of edema in BLE despite recent increase of lasix from 40mg daily, to 60mg MWF and 40 all other days. She reports trying to be consistent with FR and diet, but has noted decrease in UOP despite recent increase in lasix. GENERAL APPEARANCE: AxOx4 obese woman no acute distress. HEENT: NC, AT. MMM. EOMI, clear conjunctiva, oropharynx clear. NECK: JVD difficult to appreciate 2/2 habitus HEART: Normal rate and regular rhythm, normal S1/S1, no m/r/g LUNGS: difficult to appreciate 2/2 habitus ABDOMEN: Soft, nontender, nondistended with good bowel sounds heard. BACK: No CVAT, no obvious deformity. EXTREMITIES: firm edema of bilateral extremities, pitting around ankles 2+, NEUROLOGICAL: Grossly nonfocal. Alert and oriented, moving all 4 extremities. CN not formally tested but appear grossly intact Skin: Warm and dry without any rash. : Acute on chronic respiratory failure with hypercapnia Acute on chronic heart failure with preserved EF Reports chronic worsening of baseline edema/resp failure over course of weeks /months did not complete sleep study and states she will not wear mask Chronic 3L O2 s/p IV lasix -Start 60mg IV lasix BID -Cards consult Declined giron Rest of plan as above spent a total of 35 minutes coordinating, documenting, and providing care for this patient excluding time spent in the performance of separately billed services. All of the aforementioned completed outside of collaborating with the assigned advanced practitioner for a full treatment plan. I have reviewed the advanced practitioner's documentation, and I agree with, and take responsibility for the plan of care
[2023-06-07] MEDS ORDERED: ONDANSETRON INJ 2 MG/ML 2 ML VIAL IV PRN (16:30)
[2023-06-07] MEDS ORDERED: POLYETHYLENE (MIRALAX) 17 GM PACK PO PRN (16:30)
[2023-06-07] MEDS: HYDROCODONE/ACETAMINOPHEN 7.5/325MG TAB PO STA (16:34)
[2023-06-07 16:39] LABS: Thyroid Stimulating Hormone 1.926 uIu/ml (0.300-4.500)
--- NOTE | 2023-06-07 16:50 | Electrocardiogram Report ---
Test Reason : Blood Pressure : / mmHG Vent. Rate : 075 BPM Atrial Rate : 075 BPM P-R Int : 160 ms QRS Dur : 084 ms QT Int : 404 ms P-R-T Axes : 017 -10 050 degrees QTc Int : 451 ms Sinus rhythm with Premature atrial complexes Otherwise normal ECG When compared with ECG of 24-AUG-2022 20:13, Premature atrial complexes are now Present Borderline criteria for Anterior infarct are no longer Present Nonspecific T wave abnormality no longer evident in Anterior leads QT has lengthened Confirmed by Jun Fritz ([id number]) on 06/07/2023 4:50:11 PM Referred By: Confirmed By:Jensen Fritz
[2023-06-07 16:59] LABS: Appearance Urine Clear (Clear); Bilirubin Urine Negative (Negative); Blood Urine Negative (Negative); Color Urine Yellow; Glucose Urine UA Negative (Negative); Ketones Urine Negative (Negative); Leukocyte Esterase Urine Negative (Negative); Nitrite Urine Negative (Negative); Protein Urine Negative (Negative); Specific Gravity Urine 1.007 (1.000-1.030); Urobilinogen Urine Negative (Negative); pH Urine 6.5 (4.5-7.5)
[2023-06-07] MEDS: HYDROCODONE/ACETAMINOPHEN 7.5/325MG TAB PO SCH (18:00)
[2023-06-07] MEDS: risperiDONE 1 MG TABLET PO SCH (21:13)
[2023-06-07] MEDS: MELATONIN 3 MG TAB PO SCH (21:13)
[2023-06-07] MEDS: busPIRone 7.5 MG TAB PO SCH (21:14)
[2023-06-07] MEDS: ENOXAPARIN INJ 40 MG/0.4 ML SYR SQ SCH (21:14)
[2023-06-07] MEDS: METOPROLOL SUCC 50MG EXT REL TAB PO SCH (21:14)
[2023-06-07] MEDS: FUROSEMIDE 40 MG/4 ML VIAL IV SCH (21:16)
[2023-06-07] MEDS: MICONAZOLE NITRATE POWDER 85 GM EXT SCH (21:20)
[2023-06-08 02:40] LABS: Basophils # (auto) 0.02 K/uL (0.00-0.20); Basophils % (auto) 0.3 %; Eosinophils # (auto) 0.23 K/uL (0.00-0.50); Eosinophils % (auto) 3.4 %; Hematocrit (blood only) 32.2 % (37.0-47.0); Hemoglobin 10.2 g/dl (12.0-16.0); Immature Granulocytes # (auto) 0.04 K/uL (0.01-0.20); Immature Granulocytes % (auto) 0.6 %; Lymphocytes # (auto) 1.39 K/uL (1.20-3.40); Lymphocytes % (auto) 20.3 %; Mean Corpuscular Hemoglobin 26.8 pg (25.0-34.0); Mean Corpuscular Hgb Conc 31.7 g/dL (32.0-36.0); Mean Corpuscular Volume 84.7 fL (80.0-100.0); Mean Platelet Volume 9.4 fL (9.4-12.4); Monocytes # (auto) 0.46 K/uL (0.11-0.59); Monocytes % (auto) 6.7 %; Neutrophils % (auto) 68.7 %; Platelet Count 247 K/uL (130-400); RDW Coefficient of Variation 12.3 % (11.5-14.5); RDW Standard Deviation 37.5 fL (36.4-46.3); White Blood Count 6.84 K/ul (4.8-10.8)
[2023-06-08 02:55] LABS: BUN Creatinine Ratio 9.5 (10-20); Calcium 9.2 mg/dl (8.6-10.3); Est GFR (African American) 63.6 ml/min; Est GFR (Non-African American) 54.9 ml/min; Magnesium 1.6 mg/dl (1.7-2.4); Potassium 3.6 mmol/L (3.5-5.1)
[2023-06-08 03:15] LABS: Ferritin 100.9 ng/ml (8-388)
[2023-06-08] MEDS: ACETAMINOPHEN 325 MG TAB PO PRN (03:57)
--- OUTSIDE RECORDS SUMMARY | 2023-06-08 06:05 | External Medical Summary | Summary of Care ---
Author Name Unknown Organization [facility] Address [address] [facility] [place] [address] Phone [phone] Care Team Providers Care Parts Room Clerk Name Role Phone Orlando Nazario MD Primary Care Provide r Reason for Visit * Reason Onset Date Comments Advice 03/06/2023 Encounter Details Date Type Department Care Team (Late st Contact Info) Description 03/06/2023 Telephone Family Medicine [address] [place] [address] Orlando Nazario MD [address] [place], [place] [address] [address] Advice Allergies Active Allergy Reactions Criticality Noted Date Comments Amoxicillin-Pot Clavulanate Nausea/vomiting 07/2012 Amitriptyline Hcl Nausea/vomiting 12/10/2013 Oxycodone 06/02/2014 nausea documented as of this encounter (statuses as of 06/05/2023) Medications Medication Sig Dispensed Refills Start Date End Date Status risperiDONE (RISPERDAL) 1 MG Tablet Take 0.5 Tablets by mouth in the morning and 0.5 Tablets before bedtime. 30 Tab 5 05/26/2015 Active DULoxetine HCl 60 MG Oral Capsule Delayed Release Particles (CYMBALTA) Take 1 Capsule by mouth in the morning. Every morning.. 0 01/20/2020 Active hydrOXYzine HCl 25 MG Oral Tablet Take 2 Tablets by mouth 4 times a day as needed for Anxiety. 0 05/28/2021 Active Oxybutynin Chloride ER 10 MG Oral Tablet Extended Release 24 Hour (Ditropan XL)Indications:Mixed stress and urge urinary incontinence Take 1 Tablet by mouth in the morning. 90 Tablet 3 07/19/2022 Active Nystatin PowderIndications:In tertrigo Apply to affected area three times daily x 14 day 1 Each 5 07/19/2022 Active Lidocaine 5 % External Patch Place 1 Patch topically on the skin daily. 0 08/25/2022 Active Acetaminophen 500 MG Oral Tablet Take 2 Tablets by mouth 3 times a day as needed for Pain, Moderate. 0 Active Polyethylene Glycol 3350 17 GM/SCOOP Oral Powder Take 17 g by mouth daily as needed for Constipation. 0 Active amLODIPine Besylate 2.5 MG Oral Tablet (Norvasc)Indications :HTN, goal below 140/90 Take 1 Tablet by mouth in the morning. 90 Tablet 1 08/30/2022 Active Atorvastatin Calcium 10 MG Oral Tablet (Lipitor)Indications :Dyslipidemia, goal LDL below 130 TAKE ONE TABLET BY MOUTH IN THE MORNING 90 Tablet 3 09/23/2022 Active Albuterol Sulfate HFA 108 (90 Base) MCG/ACT Inhalation Aerosol SolutionIndications: Mild intermittent asthma without complication INHALE 2 PUFFS BY MOUTH 4 TIMES A DAY. as needed for wheezing 18 g 5 12/29/2022 Active busPIRone HCl 5 MG Oral Tablet (Buspar) Take 3 Tablets by mouth in the morning and 3 Tablets before bedtime. 0 Active Melatonin 3 MG Oral Tablet Take 1 Tablet by mouth at bedtime. 0 01/13/2023 Active Fluticasone-Salmeter ol 250-50 MCG/ACT Inhalation Aerosol Powder Breath Activated (Advair Diskus)Indications:M ild intermittent asthma without complication Inhale 1 Puff by mouth in the morning and 1 Puff before bedtime. 60 Each 5 01/20/2023 Active Additional Information Patient not taking.Reported on 04/26/2023 HYDROcodone-Acetamin ophen 7.5-325 MG Oral Tablet Take 1 Tablet by mouth every 6 hours as needed for Pain, Moderate or Pain, Severe. 0 Active Hospital, Clinic, or Other Facility Administered Medication Ordered Dose Route Frequency Start Date End Date Status Albuterol Sulfate (Proventil) (2.5 MG/3ML) 0.083% inhalation solution 2.5 mgIndications:Chronic cough 2.5 mg NEBULIZER ONCE PRN 01/20/2023 01/20/2024 Active documented as of this encounter (statuses as of 06/05/2023) Active Problems Problem Noted Date Diagnosed Date Supplemental oxygen dependent 06/01/2023 Hypoxia 06/01/2023 Body mass index (BMI) of 45.0 to 49.9 in adult 0 03/27/2023 Overview: Per Obesity protocol - Per Obesity protocol - Per Obesity protocol - - Hypertensive heart disease w ith chronic diastolic congestive heart failure 10/05/2022 Chronic diastolic CHF (congestive heart failure) 08/30/2022 Pulmonary hypertension 08/30/2022 Generalized anxiety disorder 07/19/2022 Morbid obesity due to excess calories 07/19/2022 Chronic bilateral low back pain without sciatica 09/02/2021 Status post right hip replacement 02/11/2020 Mixed stress and urge urinary incontinence 10/15 Non-sustained ventricular tachycardia 04/30/2018 Controlled substance agreement signed 04/30/2018 DDD (degenerative disc disease), lumbar 12/12/19 15 HTN, goal below 140/90 09/05/2012 Vitamin D deficiency 11/03/2011 Dyslipidemia, goal LDL below 130 02/24/2009 Overview: Per Lipid Taxonomy. Tension headache 05/20/2008 ADVANCE DIRECTIVE INFORMATION 06/16/2005 Overview: Yes, Patient instructed to provide copy of advance directive for provider to review and to be scanned into Electronic Medical Record OTHER FORMS OF MIGRAINE WITH OUT MENTION OF INTRACTABLE MIGRAINE BIPOLAR AFF, DEPR-UNSPEC Mild intermittent asthma without complication Hyponatremia documented as of this encounter (statuses as of 06/05/2023) Resolved Problems Problem Noted Date Diagnosed Date Resolved Date Body mass index (BMI) of 40. 0 to 44.9 in adult 10/31/2022 03/30/2023 Overview: Per Obesity protocol - Per Obesity protocol - - Acute diastolic heart failure 08/30/2022 08/30/2022 Body mass index (BMI) of 45. 0 to 49.9 in adult 09/27/2021 11/03/2022 Overview: Per Obesity protocol - - Prediabetes 03/01/2021 07/01/2021 Body mass index (BMI) of 40. 0 to 44.9 in adult 10/31/2017 09/30/2021 Overview: Per Obesity protocol #1 - Aortic sclerosis 11/21/2014 11/28/2016 Mitral valve annular calcification 11/21/2014 11/28/2016 Obesity, Class II, BMI 35-39 .9, isolated (see actual BMI) 08/31/2009 06/05/2017 Overview: Per Obesity Protocol, #19 Mixed dyslipidemia 11/13/2007 9 Overview: Per Lipid Taxonomy. Mitral valve disorder 2014 documented as of this encounter (statuses as of 06/05/2023) Immunizations Name Administration Dates Next Due COVID-19 mRNA, LNP-s, No Pre serve, 2-Dose Series (Moderna) 02/22/2021,08/04/2020,07/03/2020 COVID-19, MRNA-LNP, 23-24, P F, 30 MCG/0.3 mL, 12 YRS AND ABOVE, IM (PFIZER-Comirnaty) 01/20/2023 Covid-19, Mrna, Lnp-s, Pf, B ivalent, 50 Mcg, IM, 12 yrs and above (Moderna) 01/11/2022 Pneumococcal Polysaccharide PPV23 (Pneumovax) 05/20/2008 Seasonal Influenza, PF, 6 M & above, IM , (FluLaval or Fluzone) 12/09/2019,12/26/2018,01/15/2018,12/19 Seasonal Influenza, Quadriva lent Hd (Fluzone Hd) 01/20/2023 Seasonal Influenza, Quadriva lent, No Preserve, IM 01/16/2016,12/11/2014 01/15/2017 Seasonal Influenza, Split, I IV3, With Preserve, Inj 12/10/2013,12/20/2012,03/05/2012,11/19,02/08/2010,12/18/2008 Seasonal Influenza, Trivalen t, Adjuvanted, 65+ yrs 01/11/2022,02/22/2021 TDAP (age 10 and older)(Boostrix) 10/15/2018 TDAP (age 11 and older)(Adacel) 11/13/2007 Zoster Vaccine Recombinant (Shingrix) 12/09/2019 ,05/13/2019 documented as of this encounter Social History Tobacco Use Types Packs/Day Years Used Date Smoking Tobacco: Never Smokeless Tobacco: Never Alcohol Use Standard Drinks/Week Comments No 0 (1 standard drink = 0.6 oz pur e alcohol) PHQ-2 Answer Date Recorded PHQ-2 Score 0 01/28/2020 Hunger Vital Sign Answer Date Recorded Within the past 12 months, y ou worried that your food would run out before you got the money to buy more. Never true 08/27/19 23 Within the past 12 months, t he food you bought just didn't last and you didn't have money to get more. Never true 08/26/2022 Sex and Gender Information Value Date Recorded Sex Assigned at Not on file Gender Identity Not on file Sexual Orientation Not on file Job Start Date Occupation Industry Not on file Not on file Not on file documented as of this encounter Miscellaneous Notes * Telephone Encounter - Liliya Ferrari LPN - 03/06/2023 11:33 AM EST calling to make an appt. For a week and a half pt has had earache and cough. No fever She has not taken a covid test. She take mucinex but no improvement. I offered appt at and , they declined not wanting to travel, they requested an appt for Monday. Scheduled appt with Emma on Thursday 03/08 at 9:20 am. documented in this encounter Plan of Treatment Upcoming Encounters Date Type Department Care Team (Latest Contact Info) Description 06/07/2023 10:00 AM EDT [facility] [address] [facility]ley Jensen [facility] [address] [facility] [place] [address] 07/05/2023 8:25 AM EDT Hospital Encounter [facility], Operating Room [facility] [address] [place] [phone] Seth Cuellar, DO [address] [place] [phone] 07/05/2023 8:25 AM EDT - 07/05/2023 8:50 AM EDT Surgery OR [facility], Operating Room [facility] [address] [place] [phone] Seth Cuellar, DO [address] [place] [phone] L-/S-SPINE PARAVERTEBRAL FACET INJ, 1 LEVEL 07/21/2023 8:40 AM EDT Office Visit [address] [place] [phone] Orlando Nazario MD [address] [place] [address] [place] [address] 08/01/2023 9:30 AM EDT Office Visit Cardiology, [facility] [address] [place] [address] Jelly Tejada PA-C [address] [place] [address] Scheduled Procedures Name Priority Associated Diagnoses Date/Ti me L-/S-SPINE PARAVERTEBRAL FACET INJ, 1 LEVEL Spondylosis of lumbosacral region without myelopathy or radiculopathy 07/05/2023 8:25 AM EDT L-/S-SPINE PARAVERTEBRAL FACET INJ, 2 LEVELS Spondylosis of lumbosacral region without myelopathy or radiculopathy 07/05/2023 8:25 AM EDT Health Maintenance Due Date Last Done Comments DXA Scan 1956 Cologuard 01/02/2001 Colonoscopy 01/02/2001 Colorectal Cancer Screening 01/02/2001 Fecal Occult Blood Test 01/02/2001 Sigmoidoscopy 01/02/2001 Mammogram 11/22/2013 11/22/2012, 09/05/2012 Depression Screening 01/27/2021 01/28/2020 *SPIROMETRY ONCE FOR ASTHMA-ADULT 02/10/2022 Pneumococcal Vaccine: 65+ Years (2 of 2 - PCV) 08/26/2023 08/25/2022, 05/20/2008 GFR 05/08/2024 05/08/2023, 04/20, 01/20/2023, Additional history exists Albumin/Creatinine Ratio 09/02/2024 09/02/2021 Diabetes Screening 05/08/2026 05/08/2023, 0 05/03/2023, 01/20/2023, Additional history exists Lipid Panel 01/21/2028 01/20/2023, 05/0 04/2022, 06/18/2021, Additional history exists DTaP,Tdap,and Td Vaccines (3 - Td or Tdap) 10/15/2028 10/15/2018, 11/13/2007 Pap Smear Discontinued 06/17/2008, 05/10/2000 COVID-19 Vaccine Completed 01/20/2023, , 02/22/2021, Additional history exists Influenza Vaccine (FLU shot) Completed 01/20/2023, 01/11/2022, 02/22/2021, Additional history exists GARDASIL-HPV IMMUNIZATION SERIES Aged Out No longer eligible based on patient's age to complete this topic Hepatitis B Aged Out No longer eligi ble based on patient's age to complete this topic MENINGOCOCCAL (MENACTRA/MENVEO) Aged Out No longer eligible based on patient's age to complete this topic documented as of this encounter Medical Devices Not on filedocumented as of this encounter Advance Directives Healthcare Agents on File Name Relationship Healthcare Agent Relationshi p Communication Allan Verbeck Spouse Health Care Repr esentative (appointed verbally by patient or by statute hierarchy) Care Teams Parts Room Clerk Relationship Specialty Start Date End Date Orlando Nazario MD [address] [place] [address] [place] [address] PCP - General Family Medicine 10/22/21 documented as of this encounter
--- OUTSIDE RECORDS SUMMARY | 2023-06-08 06:05 | External Medical Summary | Summary of Care ---
Author Name Unknown Organization [facility] Address [address] [facility] [place] [address] Phone [phone] Care Team Providers Care Ticket Taker Name Role Phone Orlando Nazario MD Primary Care Provide r Reason for Visit * Reason Onset Date Comments Order Request 06/01/2023 Encounter Details Date Type Department Care Team (Late st Contact Info) Description 06/01/2023 Telephone Family Medicine [address] [phone] Orlando Nazario MD [address] [place], [place] [address] [address] Order Request Allergies Active Allergy Reactions Criticality Noted Date Comments Amoxicillin-Pot Clavulanate Nausea/vomiting 07/2012 Amitriptyline Hcl Nausea/vomiting 12/10/2013 Oxycodone 06/02/2014 nausea documented as of this encounter (statuses as of 06/02/2023) Medications Medication Sig Dispensed Refills Start Date [...] Oral Tablet Extended Release 24 Hour (Ditropan XL)Indications:Mixe d stress and urge urinary incontinence Take 1 Tablet by mouth in the morning. 90 Tablet 3 07/19/2022 Active Nystatin PowderIndications:I ntertrigo Apply to affected area three times daily [...] Active amLODIPine Besylate 2.5 MG Oral Tablet (Norvasc)Indication s:HTN, goal below 140/90 Take 1 Tablet by mouth in the morning. 90 Tablet 1 08/30/2022 Active Atorvastatin Calcium 10 MG Oral Tablet (Lipitor)Indication s:Dyslipidemia, goal LDL below 130 TAKE ONE TABLET BY MOUTH IN THE MORNING 90 Tablet 3 09/23/2022 Active Albuterol Sulfate HFA 108 (90 Base) MCG/ACT Inhalation Aerosol SolutionIndications :Mild intermittent asthma without complication INHALE 2 PUFFS BY MOUTH 4 TIMES A DAY. as needed for wheezing 18 g 5 12/29/2022 Active busPIRone HCl 5 MG Oral Tablet (Buspar) Take 3 Tablets by mouth in the morning and 3 Tablets before bedtime. 0 Active Melatonin 3 MG Oral Tablet Take 1 Tablet by mouth at bedtime. 0 01/13/2023 Active Fluticasone-Salmete rol 250-50 MCG/ACT Inhalation Aerosol Powder Breath Activated (Advair Diskus)Indications: Mild intermittent asthma without complication Inhale 1 Puff by mouth in the morning and 1 Puff before bedtime. 60 Each 5 01/20/2023 Active Additional Information Patient not taking.Reported on 04/26/2023 HYDROcodone-Acetami nophen 7.5-325 MG Oral Tablet Take 1 Tablet by mouth every 6 hours as needed for Pain, Moderate or Pain, Severe. 0 Active Ibuprofen 200 MG Oral Tablet (Motrin) Take 3 Tablets by mouth in the morning and 3 Tablets before bedtime. 0 Active Furosemide 40 MG Oral Tablet (Lasix)Indications: Bilateral lower extremity edema Take 1 Tablet by mouth in the morning. Take an additional 1/2 tab (20 mg) on Monday, Monday, Monday afternoon. May also take an additional 1/2 tablet on other days if needed for weight gain or increased swelling.. 150 Tablet 3 05/10/2023 Active Metoprolol Succinate ER 100 MG Oral Tablet Extended Release 24 Hour (toPROL XL)Indications:Mitr al valve annular calcification,Atypi araceli chest pain,Non-sustained ventricular tachycardia (HCC),Essential hypertension with goal blood pressure less than 140/90 Take 1 Tablet by mouth in the morning and 1 Tablet before bedtime. 180 Tablet 1 05/27/2023 Active Hospital, Clinic, or Other Facility Administered Medication Ordered Dose Route Frequency Start Date End Date Status Albuterol Sulfate (Proventil) (2.5 MG/3ML) 0.083% inhalation solution 2.5 mgIndications:Chronic cough 2.5 mg NEBULIZER ONCE PRN 01/20/2023 01/20/2024 Active documented as of this encounter (statuses as of 06/02/2023) Active Problems Problem Noted Date Diagnosed Date [...] as of this encounter (statuses as of 06/02/2023) Resolved Problems Problem Noted Date Diagnosed Date [...] as of this encounter (statuses as of 06/02/2023) Immunizations Name Administration Dates Next Due COVID-19 [...] encounter Miscellaneous Notes * Telephone Encounter - Caleb Quinn LPN - 06/02/2023 9:47 AM EDT PT Ref signed on 04/03/23 faxed to [facility] and Insurance Info * Telephone Encounter - Ailyn Jc OSA - 06/01/2023 3:45 PM EDT An order was requested for this patient. Name of Requesting Provider: [facility] [employer] [facility] Order Requested: physical therapy orders Diagnosis/Reason for Request: gate transfer,balance,home safety,pain management, lower extremity strengthening, activity tolerance If order request is for Mammogram: Is the patient having any breast symptoms? No Is there a chance of ? No Has the patient had any breast problems in the past? No What location AND department does the patient wish to have their order completed at? [facility] Fax Number, if applicable: [phone] If the caller is not a current patient, please advise the patient to call their current PCP to havethe order's prior to being seen in our office. The patient was informed that our providers would not order anything (medication, labs, etc.) prior to being seen. documented in this encounter Plan of Treatment Upcoming Encounters Date Type Department Care Team (Latest Contact Info) Description 06/07/2023 10:00 AM EDT Telemedicine Care Coordination and Integration [address] [place] [address] Sherley Jensen RN [address] [place] [address] 07/05/2023 8:25 AM EDT Hospital Encounter OR [facility], Operating Room [facility] [address] [place] [phone] Seth Cuellar, [address] [place] [phone] 07/05/2023 8:25 AM EDT - 07/05/2023 8:50 AM EDT Surgery OR [facility], Operating Room [facility] [address] [place] [phone] Seth Cuellar, DO [address] [place] [phone] L-/S-SPINE PARAVERTEBRAL FACET INJ, 1 LEVEL 07/21/2023 8:40 AM EDT Office Visit Family Medicine [address] [place] [phone] Orlando Nazario MD [address] [place] [address] [place] [address] 08/01/2023 9:30 AM EDT Office Visit Cardiology, [facility] [address] [place] [address] Jelly Tejada PA-C [address] [place] [phone] Scheduled Procedures Name Priority Associated Diagnoses Date/Ti [...] Name Relationship Healthcare Agent Relationshi p Communication [facility] Spouse Health Care Repr esentative (appointed verbally by patient or by statute hierarchy) Care Teams Ticket Taker Relationship Specialty Start Date End Date Orlando Nazario MD [address] [place] [address] [place] [address] PCP - General Family Medicine 10/22/21 documented as of this encounter
--- OUTSIDE RECORDS SUMMARY | 2023-06-08 06:05 | External Medical Summary | Summary of Care ---
Author Name Unknown Organization [facility] Address [address] [facility] [place] [address] Phone [phone] Care Team Providers Care Rotary Planer Set Up Operator Name Role Phone Orlando Nazario MD Primary Care Provide r Reason for Visit * Reason Comments Outpatient Testing Encounter Details Date Type Department Care Team (Late st Contact Info) Description 06/06/2023 11:00 AM EDT Laboratory Laboratory [address] [place] [phone] [facility] [address] [place] [address] Bilateral lower extremity edema Allergies Active Allergy Reactions Criticality Noted Date Comments Amoxicillin-Pot Clavulanate Nausea/vomiting 07/2012 Amitriptyline Hcl Nausea/vomiting 12/10/2013 Oxycodone 06/02/2014 nausea documented as of this encounter (statuses as of 06/06/2023) Medications Medication Sig Dispensed Refills Start Date [...] as of this encounter (statuses as of 06/06/2023) Active Problems Problem Noted Date Diagnosed Date [...] as of this encounter (statuses as of 06/06/2023) Resolved Problems Problem Noted Date Diagnosed Date [...] as of this encounter (statuses as of 06/06/2023) Immunizations Name Administration Dates Next Due COVID-19 [...] on file documented as of this encounter Plan of Treatment Upcoming Encounters Date Type Department Care Team (Latest Contact Info) Description 06/07/2023 10:00 AM EDT Telemedicine Care Coordination and Integration [address] [place] [address] Sherley Jensen RN [address] [place] [address] 07/05/2023 8:25 AM EDT Hospital Encounter OR [facility], Operating Room [facility] [address] [place] [phone] Seth Cuellar, DO [address] [place] [phone] 07/05/2023 8:25 AM EDT - 07/05/2023 8:50 AM EDT Surgery OR [facility], Operating Room [facility] [address] [place] [phone] Seth Cuellar, DO [address] [place] [phone] L-/S-SPINE PARAVERTEBRAL FACET INJ, 1 LEVEL 07/21/2023 8:40 AM EDT Office Visit Family Medicine [address] [place] [phone] Orlando Nazario MD [address] [place] [address] [place] [address] 08/01/2023 9:30 AM EDT Office Visit Cardiology, [facility] [address] [place] [address] Jelly Tejada PA-C [address] [place] [address] Pending Results Name Type Priority Associated Diagnoses Date /Time BASIC METABOLIC PANEL Lab Routine Bilateral lower extremity edema 06/06/2023 10:58 AM EDT Scheduled Procedures Name Priority Associated Diagnoses Date/Ti [...] Not on filedocumented as of this encounter Visit Diagnoses Diagnosis Bilateral lower extremity edema Edema Spondylosis of lumbosacral region without myelopathy or radiculopathy Lumbosacral spondylosis without myelopathy documented in this encounter Advance Directives Healthcare Agents on File Name Relationship Healthcare Agent Relationshi p Communication Allan Verbeck Spouse Health Care Repr esentative (appointed verbally by patient or by statute hierarchy) Care Teams Rotary Planer Set Up Operator Relationship Specialty Start Date End Date Orlando Nazario MD [address] [place] [address] [place] [address] PCP - General Family Medicine 10/22/21 documented as of this encounter
--- OUTSIDE RECORDS SUMMARY | 2023-06-08 06:05 | External Medical Summary ---
Author Name Unknown Address Unknown Organization K01:[facility] [place] [address] [facility] [address] [facility] [address] Laboratory Report Ordering Provider Test Date Status EFRANI COTTO 06/06/2023 10:58:13 Final Observation Date Value Abnormality Reference (Units ) Status BUN 06/06/2023 10:58:13 9 6-20 (mg/dL) Final Creatinine 06/06/2023 10:58:13 1.1 Above high normal 0.5-1.0 (mg/dL) Final Glomerular filtration rate/1.73 sq M.predicted [Volume Rate/Area] in Serum, Plasma or Blood by Creatinine-based formula (CKD-EPI) 06/06/2023 10:58:13 58 Below low normal >=60 (mL/min) Final eGFR is calculated based on the CKD-EPI 2020 equation SODIUM 06/06/2023 10:58:13 126 Below low normal 135 -146 (mmol/L) Final Potassium 06/06/2023 10:58:13 4.4 3.5-5.1 (m mol/L) Final Cl 06/06/2023 10:58:13 83 Below low normal 98- 107 (mmol/L) Final CO2 06/06/2023 10:58:13 32 22-32 (mmo l/L) Final Anion gap 06/06/2023 10:58:13 11 7-15 (mmol /L) Final Glucose 06/06/2023 10:58:13 97 70-120 (mg /dL) Final Calcium 06/06/2023 10:58:13 9.0 8.4-10.2 ( mg/dL) Final Performing Location [facility] [place] [address] [place] [address]
--- OUTSIDE RECORDS SUMMARY | 2023-06-08 06:06 | External Medical Summary | Summary of Care ---
Author Name Unknown Organization [facility] Address [address] [facility] [place] [address] Phone [phone] Care Team Providers Care Solution Consultant Name Role Phone [place] Nazario MD Primary Care Provide r Reason for Visit * Reason Onset Date Comments Medical Records Request 05/16/2023 [facility] Encounter Details Date Type Department Care Team (Late st Contact Info) Description 05/16/2023 Telephone Family Medicine [address] [place] [phone] [place] Nazario MD [address] [place] [address] [place] [address] Medical Records Request ([facility]... Allergies Active Allergy Reactions Criticality Noted Date Comments Amoxicillin-Pot Clavulanate Nausea/vomiting 07/2012 Amitriptyline Hcl Nausea/vomiting 12/10/2013 Oxycodone 06/02/2014 nausea documented as of this encounter (statuses as of 05/16/2023) Medications Medication Sig Dispensed Refills Start Date [...] THE MORNING 90 Tablet 3 09/23/2022 Active Metoprolol Succinate ER 100 MG Oral Tablet Extended Release 24 Hour (toPROL XL)Indications:Mitr al valve annular calcification,Atypi araceli chest pain,Non-sustained ventricular tachycardia (HCC),Essential hypertension with goal blood pressure less than 140/90 Take 1 Tablet by mouth in the morning and 1 Tablet before bedtime. 180 Tablet 1 12/05/2022 Active Albuterol Sulfate HFA 108 (90 Base) [...] increased swelling.. 150 Tablet 3 05/10/2023 Active Hospital, Clinic, or Other Facility Administered Medication Ordered Dose Route Frequency Start Date End Date Status Albuterol Sulfate (Proventil) (2.5 MG/3ML) 0.083% inhalation solution 2.5 mgIndications:Chronic cough 2.5 mg NEBULIZER ONCE PRN 01/20/2023 01/20/2024 Active documented as of this encounter (statuses as of 05/16/2023) Active Problems Problem Noted Date Diagnosed Date Body mass index (BMI) of 45.0 to [...] as of this encounter (statuses as of 05/16/2023) Resolved Problems Problem Noted Date Diagnosed Date [...] Per Obesity Protocol, #19 Mixed dyslipidemia 11/13/2007 12/ 9 Overview: Per Lipid Taxonomy. Mitral valve disorder 2014 documented as of this encounter (statuses as of 05/16/2023) Immunizations Name Administration Dates Next Due COVID-19 [...] encounter Miscellaneous Notes * Telephone Encounter - Emily Parks, SILVER - 05/16/2023 9:27 AM EST Rec'd request for records 05/12/23 from [facility]. I sent auth to HIM [id number] on 05/16/23. To check status of records, please call HIM directly at [phone]. documented in this encounter Plan of Treatment Upcoming Encounters Date Type Department Care Team (Latest Contact Info) Description 07/05/2023 8:25 AM EDT Hospital Encounter OR [facility], Operating Room [facility] [address] [place] [phone] Seth Cuellar, DO [address] [place] [phone] 07/05/2023 8:25 AM EDT - 07/05/2023 8:50 AM EDT Surgery OR [facility], Operating Room [facility] [address] [place] [phone] Seth Cuellar, DO [address] [place] [phone] L-/S-SPINE PARAVERTEBRAL FACET INJ, 1 LEVEL 07/21/2023 8:40 AM EDT Office Visit Family [address] [place] [phone] [place] Nazario MD [address] [place] [address] [place] [address] 08/01/2023 9:30 AM EDT Office Visit Cardiology, [facility] [address] [place] [address] Jelly Tejada PA-C [address] [place] [address] Scheduled Procedures Name Priority Associated Diagnoses Date/Ti tx L-/S-SPINE PARAVERTEBRAL FACET INJ, 1 LEVEL Spondylosis [...] Name Relationship Healthcare Agent Relationshi p Communication [place] Spouse Health Care Repr esentative (appointed verbally by patient or by statute hierarchy) Care Teams Solution Consultant Relationship Specialty Start Date End Date [place] Nazario MD [address] [place] [address] [place] [address] PCP - General Family Medicine 10/22/21 documented as of this encounter
--- OUTSIDE RECORDS SUMMARY | 2023-06-08 06:06 | External Medical Summary | Summary of Care ---
Author Name Unknown Organization [facility] Address [address] [facility] [place] [address] Phone [phone] Care Team Providers Care Skewer Up Name Role Phone [place] Nazario MD Primary Care Provide r Reason for Visit * Reason Onset Date Comments NEW PATIENT Last saw cardiol [facility] 10/10/17. Once in awhile will have a heaviness in chest at night and will last about 5 minutes. Edema in feet once in while. SOB walking and weakness especially now doing PT. Denies chest pain, palpitations and dizziness. Encounter Created in Error 05/22/2023 Encounter Details Date Type Department Care Team (Late st Contact Info) Description 05/03/2023 10:30 AM EST Office Visit [facility], [facility] [place] [address] Jelly Tejada PA-C [address] [facility] [place] [address] Encounter created in error Allergies Active Allergy Reactions Criticality Noted Date Comments Amoxicillin-Pot Clavulanate Nausea/vomiting 07/2012 Amitriptyline Hcl Nausea/vomiting 12/10/2013 Oxycodone 06/02/2014 nausea documented as of this encounter (statuses as of 05/22/2023) Medications Medication Sig Dispensed Refills Start Date End Date Status risperiDONE (RISPERDAL) 1 MG Tablet Take 0.5 Tablets by mouth in the morning and 0.5 Tablets before bedtime. 30 Tab 5 6 Active DULoxetine HCl 60 MG Oral Capsule Delayed Release Particles (CYMBALTA) Take 1 Capsule by mouth in the morning. Every morning.. 0 0 Active hydrOXYzine HCl 25 MG Oral Tablet Take 2 Tablets by mouth 4 times a day as needed for Anxiety. 0 2 Active Oxybutynin Chloride ER 10 MG Oral Tablet Extended Release 24 Hour (Ditropan XL)Indications:M ixed stress and urge urinary incontinence Take 1 Tablet by mouth in the morning. 90 Tablet 3 3 Active Nystatin PowderIndication s:Intertrigo Apply to affected area three times daily x 14 day 1 Each 5 3 Active Lidocaine 5 % External Patch Place 1 Patch topically on the skin daily. 0 3 Active Acetaminophen 500 MG Oral Tablet Take 2 Tablets by mouth 3 times a day as needed for Pain, Moderate. 0 Active Polyethylene Glycol 3350 17 GM/SCOOP Oral Powder Take 17 g by mouth daily as needed for Constipation. 0 Active amLODIPine Besylate 2.5 MG Oral Tablet (Norvasc)Indicat ions:HTN, goal below 140/90 Take 1 Tablet by mouth in the morning. 90 Tablet 1 3 Active Atorvastatin Calcium 10 MG Oral Tablet (Lipitor)Indicat ions:Dyslipidemi a, goal LDL below 130 TAKE ONE TABLET BY MOUTH IN THE MORNING 90 Tablet 3 3 Active Metoprolol Succinate ER 100 MG Oral Tablet Extended Release 24 Hour (toPROL XL)Indications:M itral valve annular calcification,At ypical chest pain,Non-sustain ed ventricular tachycardia (HCC),Essential hypertension with goal blood pressure less than 140/90 Take 1 Tablet by mouth in the morning and 1 Tablet before bedtime. 180 Tablet 1 3 Active Albuterol Sulfate HFA 108 (90 Base) MCG/ACT Inhalation Aerosol SolutionIndicati ons:Mild intermittent asthma without complication INHALE 2 PUFFS BY MOUTH 4 TIMES A DAY. as needed for wheezing 18 g 5 3 Active busPIRone HCl 5 MG Oral Tablet (Buspar) Take 3 Tablets by mouth in the morning and 3 Tablets before bedtime. 0 Active Melatonin 3 MG Oral Tablet Take 1 Tablet by mouth at bedtime. 0 3 Active Fluticasone-Salm eterol 250-50 MCG/ACT Inhalation Aerosol Powder Breath Activated (Advair Diskus)Indicatio ns:Mild intermittent asthma without complication Inhale 1 Puff by mouth in the morning and 1 Puff before bedtime. 60 Each 5 3 Active Additional Information Patient not taking.Reported on 04/26/2023 HYDROcodone-Acet aminophen 7.5-325 MG Oral Tablet Take 1 Tablet by mouth every 6 hours as needed for Pain, Moderate or Pain, Severe. 0 Active Ibuprofen 200 MG Oral Tablet (Motrin) Take 3 Tablets by mouth in the morning and 3 Tablets before bedtime. 0 Active Gabapentin 400 MG Oral Capsule (Neurontin) Take 1 Capsule by mouth in the morning and 1 Capsule in the evening. 2 twice a day. 60 Capsule 0 3 05/03/19 24 Discontinued(Med [facility] List Clean Up) Furosemide 40 MG Oral Tablet (Lasix)Indicatio ns:Bilateral lower extremity edema Take 1 Tablet by mouth in the morning. For swelling of legs. 90 Tablet 1 3 05/10/19 24 Discontinued Hospital, Clinic, or Other Facility Administered Medication Ordered Dose Route Frequency Start Date End Date Status Albuterol Sulfate (Proventil) (2.5 MG/3ML) 0.083% inhalation solution 2.5 mgIndications:Chronic cough 2.5 mg NEBULIZER ONCE PRN 01/20/2023 01/20/2024 Active documented as of this encounter (statuses as of 05/22/2023) Active Problems Problem Noted Date Diagnosed Date [...] as of this encounter (statuses as of 05/22/2023) Resolved Problems Problem Noted Date Diagnosed Date [...] as of this encounter (statuses as of 05/22/2023) Immunizations Name Administration Dates Next Due COVID-19 [...] on file documented as of this encounter Last Filed Vital Signs Vital Sign Reading Time Taken Comments Blood Pressure 132/80 05/03/2023 10:26 AM EST Pulse 72 05/03/2023 10:26 AM EST Temperature - - Respiratory Rate 18 05/03/2023 10:26 AM EST Oxygen Saturation - - Inhaled Oxygen Concentration - - Weight 116.7 kg (257 lb 4 oz) 05/03/2023 10:26 A M EST Height - - Body Mass Index 47.05 03/08/2023 8:58 AM EST documented in this encounter Progress Notes * Jelly Tejada PA-C - 05/22/2023 4:19 PM EST This encounter was created in error. 05/22/2023, 4:19 PM, Jelly Tejada PA-C documented in this encounter Procedure Notes * Jarrett Rojas DO - 05/03/2023 10:28 AM ESTAssociated Order(s): EKG REASON FOR STUDY: HTN CONCLUSIONS: Normal sinus rhythm Normal ECG When compared with ECG of 25-MAR-2016 13:25, Vent. rate has decreased BY 34 BPM Ventricular Rate: 67 Atrial Rate: 67 [place] Interval: 172 QRS Duration: 80 QT/QTc: 428/452 ms P-R-T [place]: 40 : -1 : 40 degrees documented in this encounter Nursing Notes * Jeancarlos Burgos LPN - 05/03/2023 10:25 AM EST Patient identified by full name and date of Chief Complaint Patient presents with NEW PATIENT Last saw cardiology 10/10/17. Once in awhile will have a heaviness in chest at night and will last about 5 minutes. Edema in feet once in while. SOB walking and weakness especially now doing PT. Denies chest pain, palpitations and dizziness. Examination Room: 6 Name: Francy [place] Date of : (1955). Reason for Visit: New Patient Interim Hospitalization(s): [facility] 08/22-08/25/22 Problems/Concerns: See chief complaint Chest Pain/SOB: See chief complaint [facility] Discussed: Yes [facility] is a way you can talk to your provider online through e-mail. Would you like to sign up? I can activate it for you? DECLINES Patient was instructed to not get up on the exam table until directed and assisted by their provider; patient is to remain seated in the chair/ wheelchair/ exam table for fall prevention and safety reasons. Patient is aware to have assistance to step down off exam table with personnel. Patient voiced full comprehension of instructions. documented in this encounter Plan of Treatment Upcoming Encounters Date Type Department Care Team (Latest Contact Info) Description 07/05/2023 8:25 AM EDT Hospital Encounter OR [facility], Operating Room [facility] [address] [place] [phone] Seth Cuellar, [address] [place] [phone] 07/05/2023 8:25 AM EDT - 07/05/2023 8:50 AM EDT Surgery OR [facility], Operating Room [facility] [address] [place] [phone] Seth Cuellar DO [address] [place] [phone] L-/S-SPINE PARAVERTEBRAL FACET INJ, 1 LEVEL 07/21/2023 8:40 AM EDT Office Visit Family Medicine [address] [place] [phone] [place] Nazario MD [address] [place] [address] [place] [address] 08/01/2023 9:30 AM EDT Office Visit Cardiology, [facility] [address] [place] [address] Jelly Tejada PA-C [address] [place] [phone] Scheduled Procedures Name Priority Associated Diagnoses Date/Ti [...] Not on filedocumented as of this encounter Procedures Procedure Name Priority Date/Time Associated Diagnosis Comments [place] ECG ROUTINE ECG W/LEAST 12 LDS W/I&R Routine 05/03/2023 10:28 AM EST Essential hypertension with goal blood pressure less than 140/90 documented in this encounter Results * BNP, NT-PRO (05/03/2023 11:18 AM EST) BNP, NT-Pro 91 <300 pg/mL 05/03/2023 6:40 PM EST [facility] Blood Venous blood specimen / Unknown Venipuncture / Unknown 05/03/2023 11:18 AM EST 05/03/2023 11:18 AM EST Narrative [facility] - 05/03/2023 6:40 PM EST Exclude Heart Failure: <300 pg/mL Diagnose Heart Failure: Age <50 yr: >450 pg/mL 50-75 yr: >900 pg/mL >75 yr: >1800 pg/mL GFR is 30-59 mL/min: >1200 pg/mL or Age-adjusted values GFR <30 mL/min: do not use, not reliable Prognostic threshold: 1000 pg/mL Jelly Tejada PA-C LAB BLOOD [facility] [address] [place] [address] * EKG (05/03/2023 10:28 AM EST) 05/03/2023 10:2 8 AM EST Narrative Procedure Note Jarrett Rojas DO - 05/03/2023 10:28 AM EST REASON FOR STUDY: HTN CONCLUSIONS: Normal sinus rhythm Normal ECG When compared with ECG of 25-MAR-2016 13:25, Vent. rate has decreased BY 34 BPM Ventricular Rate: 67 Atrial Rate: 67 W[place] Interval: 172 QRS Duration: 80 QT/QTc: 428/452 ms P-R-T [place]: 40 : -1 : 40 degrees Jelly Tejada PA-C [facility] documented in this encounter Visit Diagnoses Diagnosis Chronic heart failure with preserved ejection fraction (HCC)- Primary Essential hypertension with goal blood pressure less than 140/90 Hyponatremia Hyposmolality and/or hyponatremia HTN, goal below 140/90 Unspecified essential hypertension Encounter Created In Error Spondylosis of lumbosacral region without myelopathy or radiculopathy Lumbosacral spondylosis without myelopathy documented in this encounter Advance Directives Healthcare Agents on File Name Relationship Healthcare Agent Relationshi p Communication [facility] Spouse Health Care Repr esentative (appointed verbally by patient or by statute hierarchy) Care Teams Skewer Up Relationship Specialty Start Date End Date [place] Nazario MD [address] [place] [address] [place] [address] PCP - General Family Medicine 10/22/21 documented as of this encounter
--- OUTSIDE RECORDS SUMMARY | 2023-06-08 06:06 | External Medical Summary | Summary of Care ---
Author Name Unknown Organization [facility] Address [address] [facility] [place] [address] Phone [phone] Care Team Providers Care Pump Servicer Supervisor Name Role Phone [place] Nazario MD Primary Care Provide r Reason for Visit * Reason Onset Date Comments Test Results 05/04/2023 Encounter Details Date Type Department Care Team (Late st Contact Info) Description 05/04/2023 Telephone Cardiology, [facility] [address] [place] [address] Jelly Tejada PA-C [address] [place] [phone] Test Results Allergies Active Allergy Reactions Criticality Noted Date Comments Amoxicillin-Pot Clavulanate Nausea/vomiting 07/2012 Amitriptyline Hcl Nausea/vomiting 12/10/2013 Oxycodone 06/02/2014 nausea documented as of this encounter (statuses as of 05/04/2023) Medications Medication Sig Dispensed Refills Start Date [...] THE MORNING 90 Tablet 3 09/23/2022 Active Furosemide 40 MG Oral Tablet (Lasix)Indications: Bilateral lower extremity edema Take 1 Tablet by mouth in the morning. For swelling of legs. 90 Tablet 1 10/05/2022 Active Metoprolol Succinate ER 100 MG Oral [...] and 3 Tablets before bedtime. 0 Active Hospital, Clinic, or Other Facility Administered Medication Ordered Dose Route Frequency Start Date End Date Status Albuterol Sulfate (Proventil) (2.5 MG/3ML) 0.083% inhalation solution 2.5 mgIndications:Chronic cough 2.5 mg NEBULIZER ONCE PRN 01/20/2023 01/20/2024 Active documented as of this encounter (statuses as of 05/04/2023) Active Problems Problem Noted Date Diagnosed Date [...] as of this encounter (statuses as of 05/04/2023) Resolved Problems Problem Noted Date Diagnosed Date [...] as of this encounter (statuses as of 05/04/2023) Immunizations Name Administration Dates Next Due COVID-19 [...] encounter Miscellaneous Notes * Telephone Encounter - Jeancarlos Burgos LPN - 05/04/2023 11:41 AM EST Called patient and spoke to patient's spouse who verbalized understanding and will let patient know. BMP ordered. ----- Message from Jelly Tejada PA-C sent at 05/04/2023 11:23 AM EST ----- BNP is normal, meaning no excessive fluid retention from CHF. Renal function is stable but her sodium is trending lower. She admitted to excessive fluid intake - multiple bottles of wells/sodas per day yesterday. She REALLY needs to reduce this intake. 60 ounce fluid restriction per day. Will not increase diuretic therapy at this time. If sodium trends lower, she will likely need hospitalized. Repeat BMP next week FYI to PCP documented in this encounter Plan of Treatment Upcoming Encounters Date Type Department Care Team (Latest Contact Info) Description 07/05/2023 8:25 AM EDT Hospital Encounter OR [facility], Operating Room [facility] [address] [place] [phone] Seth Cuellar, [address] [place] [phone] 07/05/2023 8:25 AM EDT - 07/05/2023 8:50 AM EDT Surgery OR [facility], Operating Room [facility] [address] [place] [phone] Seth Cuellar, [address] [place] [phone] L-/S-SPINE PARAVERTEBRAL FACET INJ, 1 LEVEL 07/21/2023 8:40 AM EDT Office Visit Family Medicine [address] [place] [phone] [place] Nazario MD [address] [place] [address] [place] [address] 08/01/2023 9:30 AM EDT Office Visit Cardiology, [facility] [address] [place] [address] Jelly Tejada PA-C [address] [place] [address] Scheduled Orders Name Type Priority Associated Diagnoses Orde r Schedule BASIC METABOLIC PANEL Lab Routine Hypertensive heart disease with chronic diastolic congestive heart failure (HCC) HTN, goal below 140/90 Expected: 05/11/2023 (Approximate), Expires: 05/04/2024 Scheduled Procedures Name Priority Associated Diagnoses Date/Ti [...] ASTHMA-ADULT 02/10/2022 Pneumococcal Vaccine: 65+ Years (2 - PCV) 08/26/2023 08/25/2022, 05/20/2008 GFR 05/03/2024 05/03/2023, 1105/2022, 10/19/2022, Additional history exists Albumin/Creatinine Ratio 09/02/2024 09/02/2021 Diabetes Screening 05/03/2026 05/03/2023, 1 03/22/2022, 10/19/2022, Additional history exists Lipid Panel 01/21/2028 01/20/2023, [...] as of this encounter Visit Diagnoses Diagnosis Hypertensive heart disease with chronic diastolic congestive heart failure (HCC)- Primary HTN, goal below 140/90 Unspecified essential hypertension Spondylosis of lumbosacral region without myelopathy or radiculopathy Lumbosacral spondylosis without myelopathy documented in this encounter Advance Directives Healthcare Agents on File Name Relationship Healthcare Agent Relationshi p Communication [place] [facility] Spouse Health Care Repr esentative (appointed verbally by patient or by statute hierarchy) Care Teams Pump Servicer Supervisor Relationship Specialty Start Date End Date [place] Nazario MD [address] [place] [address] [place] [address] PCP - General Family Medicine 10/22/21 documented as of this encounter
--- OUTSIDE RECORDS SUMMARY | 2023-06-08 06:06 | External Medical Summary | Summary of Care ---
Author Name Unknown Organization [facility] Address [address] [facility] [place] [address] Phone [phone] Care Team Providers Care Laborer Vineyard Name Role Phone [place] Nazario MD Primary Care Provide r Encounter Details Date Type Department Care Team (Late st Contact Info) Description 05/22/2023 Population Health External Data Unspecified Department Allergies Active Allergy Reactions Criticality Noted Date [...] Per Obesity Protocol, #19 Mixed dyslipidemia 11/13/2007 Overview: Per Lipid Taxonomy. Mitral valve disorder [...] Operating Room [facility] [address] [place] [phone] Seth Cuellar, [address] [place] [phone] 07/05/2023 8:25 AM EDT - 07/05/2023 8:50 AM EDT Surgery OR [facility], Operating Room [facility] [address] [place] [phone] Seth Cuellar, [address] [place] [phone] L-/S-SPINE PARAVERTEBRAL FACET INJ, 1 LEVEL 07/21/2023 8:40 AM EDT Office Visit Family Medicine [address] [place] [phone] [place] Nazario MD [address] [place] [address] [place] [address] 08/01/2023 9:30 AM EDT Office Visit Cardiology, [facility] [address] [place] [address] Jelly Tejada PA-C [address] [place] [address] Scheduled Procedures Name Priority Associated Diagnoses Date/Ti [...] patient or by statute hierarchy) Care Teams Laborer Vineyard Relationship Specialty Start Date End Date [place] Nazario MD [address] [place] [address] [place] [address] PCP - General Family Medicine 10/22/21 documented as of this encounter
--- OUTSIDE RECORDS SUMMARY | 2023-06-08 06:06 | External Medical Summary ---
Author Name Unknown Address Unknown Organization K01:[facility] - [address] [place] [address] Laboratory Report Ordering Provider Test Date Status EFRAIN COTTO 05/08/2023 10:48:04 Final Observation Date Value Abnormality Reference (Units ) Status BUN 05/08/2023 10:48:04 11 6-20 (mg/dL) Final Creatinine 05/08/2023 10:48:04 1.0 0.5-1.0 (mg/dL) Final Glomerular filtration rate/1.73 sq M.predicted [Volume Rate/Area] in Serum, Plasma or Blood by Creatinine-based formula (CKD-EPI) 05/08/2023 10:48:04 62 >=60 (mL/min) Final eGFR is calculated based on the CKD-EPI 2020 equation SODIUM 05/08/2023 10:48:04 131 Below low normal 135 -146 (mmol/L) Final Potassium 05/08/2023 10:48:04 4.1 3.5-5.1 (m mol/L) Final Cl 05/08/2023 10:48:04 86 Below low normal 98- 107 (mmol/L) Final CO2 05/08/2023 10:48:04 30 22-32 (mmo l/L) Final Anion gap 05/08/2023 10:48:04 15 7-15 (mmol /L) Final Glucose 05/08/2023 10:48:04 77 70-120 (mg /dL) Final Calcium 05/08/2023 10:48:04 9.2 8.4-10.2 ( mg/dL) Final Performing Location [facility] [place] - [address] [place] [address]
--- OUTSIDE RECORDS SUMMARY | 2023-06-08 06:06 | External Medical Summary | Summary of Care ---
Author Name Unknown Organization [facility] Address [address] [facility] [place] [address] Phone [phone] Care Team Providers Care Hand Launderer Name Role Phone Orlando Nazario MD Primary Care Provide r Reason for Visit * Reason Comments NEW PATIENT Last saw cardiology 10/10/17. Once in awhile will have a heaviness in chest at night and will last about 5 minutes. Edema in feet once in while. SOB walking and weakness especially now doing PT. Denies chest pain, palpitations and dizziness. * Evaluate & Treat - Unlimited Visits (Within 10 days (routine)) - Authorized Specialty Diagnoses / Procedures Referred By Contac t Referred To Contact Cardiovascular Medicine / Cardiology Diagnoses Chronic diastolic CHF (congestive heart failure) (HCC) Pulmonary hypertension (HCC) Orlando Nazario MD [address] [place] [address] [place] [address] Referral ID Status Reason Start Date Expiration Date Visits Requested Visits Authorized [id number] Authorized Specialty Services Required 10/03/[id number] Encounter Details Date Type Department Care Team (Late st Contact Info) Description 05/03/2023 10:30 AM EST Office Visit Cardiology, [facility] [address] [place] [phone] Jelly Tejada PA-C [address] [place] [phone] Hypertensive heart disease with chronic diastolic congestive heart failure (HCC)*; Chronic heart failure with preserved ejection fraction (HCC); HTN, goal below 140/90; Morbid obesity due to excess calories (HCC); Hyponatremia Allergies Active Allergy Reactions Criticality Noted Date [...] Oral Tablet Extended Release 24 Hour (Ditropan XL)Indications:Mix ed stress and urge urinary incontinence Take 1 Tablet by mouth in the morning. 90 Tablet 3 07/19/2022 Active Nystatin PowderIndications: Intertrigo Apply to affected area three times daily [...] Active amLODIPine Besylate 2.5 MG Oral Tablet (Norvasc)Indicatio ns:HTN, goal below 140/90 Take 1 Tablet by mouth in the morning. 90 Tablet 1 08/30/2022 Active Atorvastatin Calcium 10 MG Oral Tablet (Lipitor)Indicatio ns:Dyslipidemia, goal LDL below 130 TAKE ONE TABLET BY MOUTH IN THE MORNING 90 Tablet 3 09/23/2022 Active Furosemide 40 MG Oral Tablet (Lasix)Indications :Bilateral lower extremity edema Take 1 Tablet by mouth in the morning. For swelling of legs. 90 Tablet 1 10/05/2022 Active Metoprolol Succinate ER 100 MG Oral Tablet Extended Release 24 Hour (toPROL XL)Indications:Abel ral valve annular calcification,Atyp ical chest pain,Non-sustained ventricular tachycardia (HCC),Essential hypertension with goal blood pressure less than 140/90 Take 1 Tablet by mouth in the morning and 1 Tablet before bedtime. 180 Tablet 1 12/05/2022 Active Albuterol Sulfate HFA 108 (90 Base) MCG/ACT Inhalation Aerosol SolutionIndication s:Mild intermittent asthma without complication INHALE 2 PUFFS BY MOUTH 4 TIMES A DAY. as needed for wheezing 18 g 5 12/29/2022 Active busPIRone HCl 5 MG Oral Tablet (Buspar) Take 3 Tablets by mouth in the morning and 3 Tablets before bedtime. 0 Active Melatonin 3 MG Oral Tablet Take 1 Tablet by mouth at bedtime. 0 01/13/2023 Active Fluticasone-Salmet tae 250-50 MCG/ACT Inhalation Aerosol Powder Breath Activated (Advair Diskus)Indications :Mild intermittent asthma without complication Inhale 1 Puff by mouth in the morning and 1 Puff before bedtime. 60 Each 5 01/20/2023 Active Additional Information Patient not taking.Reported on 04/26/2023 HYDROcodone-Acetam inophen 7.5-325 MG Oral Tablet Take 1 Tablet [...] 2 twice a day. 60 Capsule 0 08/30/2022 4 Discontinue d(Medicatio n List Clean Up) Hospital, Clinic, or Other Facility Administered Medication [...] MCG/0.3 mL, 12 YRS AND ABOVE, IM ([employer]-Comirnaty) 01/20/2023 Covid-19, Mrna, Lnp-s, Pf, B ivalent, [...] Time Taken Comments Blood Pressure 132/80 05/03/2023 10:50 AM EST Pulse 72 05/03/2023 10:50 AM EST Temperature - - Respiratory Rate 18 05/03/2023 10:50 AM EST Oxygen Saturation - - Inhaled Oxygen Concentration - - Weight 116.7 kg (257 lb 4 oz) 05/03/2023 10:50 A M EST Height - - Body Mass Index 47.05 03/08/2023 8:58 AM EST documented in this encounter Progress Notes * Jelly Tejada PA-C - 05/04/2023 10:26 AM EST 05/04/2023 Cardiology Consultation: HPI: Patient is a 68 year old who presents today for cardiology consultation at the request of her PCP. Last cardiology visit in 2018. History includes: 1. Hypertension. 2. Morbid obesity 3. 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 Hypertensive heart disease with chronic HFpEF 5. Hyponatremia due to excessive fluid intake 6. Nocturnal hypoxia. Patient was admitted to [facility] in August 2021 for CHF. Diuretics titrated. Echo with preserved LVEF at that time. Patient reports chronic dyspnea with minimal exertion. No chest pain. She admits to excessive fluid intake, drinking about 8 bottles of water per day and 4 sodas. She weighs herself daily. She takes additional diuretic as needed. No dizziness or lightheadedness. Ongoing edema noted B/L. She sleeps in a recliner due to her back. Wears O2 at night. Review of Systems: See HPI for pertinent positives. All others negative, other than those noted in HPI. Patient Active Problem List Diagnosis Code OTHER FORMS OF MIGRAINE WITHOUT MENTION OF INTRACTABLE MIGRAINE G43.809 BIPOLAR AFF, DEPR-UNSPEC F31.30 Mild intermittent asthma without complication J45.20 ADVANCE DIRECTIVE INFORMATION Tension headache G44.209 Dyslipidemia, goal LDL below 130 E78.5 Vitamin D deficiency E55.9 HTN, goal below 140/90 I10 Hyponatremia E87.1 DDD (degenerative disc disease), lumbar M51.36 Non-sustained ventricular tachycardia (HCC) I47.29 Controlled substance agreement signed Z79.899 Mixed stress and urge urinary incontinence N39.46 Status post right hip replacement Z96.641 Chronic bilateral low back pain without sciatica M54.50, G89.29 Generalized anxiety disorder F41.1 Morbid obesity due to excess calories ([facility]) E66.01 Chronic diastolic CHF (congestive heart failure) ([facility]) I50.32 Pulmonary hypertension ([facility]) I27.20 Hypertensive heart disease with chronic diastolic congestive heart failure ([facility]) I11.0, I50.32 Body mass index (BMI) of 45.0 to 49.9 in adult ([facility]) Z68.42 Past Surgical History: Procedure Laterality Date L-/S-SPINE PARAVERTEBRAL FACET INJ,1 LEVEL Bilateral 04/26/2023 L-/S-SPINE PARAVERTEBRAL FACET INJ, 1 LEVEL performed by Seth Cuellar DO at OR [facility] L-/S-SPINE PARAVERTEBRL FACET INJ,2 LEVELS Bilateral 04/26/2023 L-/S-SPINE PARAVERTEBRAL FACET INJ, 2 LEVELS performed by Seth Cuellar DO at OR [facility] LAPAROSCOPY; CHOLECYSTECTOMY REMOVAL OF TONSILS, AGE 12+ TOTAL HIP REPLACEMENT & PROSTHESIS Right 02/05/2020 Dr. Garcia Social History Tobacco Use Smoking status: Never Smokeless tobacco: Never Vaping Use Vaping Use: Never used Substance Use Topics Alcohol use: No Drug use: No Family History Problem Relation Age of Onset Coronary Artery disease Mother 94 Heart Disorder Father s/p mitral and aortic valve replacement,d at 80 Review of patient's allergies indicates: Allergen Reactions Amoxicillin-Pot Clavulanate Nausea/vomiting Elavil [Amitriptyline Hcl] Nausea/vomiting Oxycodone nausea No outpatient medications have been marked as taking for the 05/03/23 encounter (Office Visit) with TerrellJelly hayes PA-C. Current Facility-Administered Medications for the 05/03/23 encounter (Office Visit) with Jelly Tejada PA-C Medication Albuterol Sulfate (Proventil) (2.5 MG/3ML) 0.083% inhalation solution 2.5 mg PHYSICAL EXAMINATION: BP 132/80 | Pulse 72 | Resp 18 | Wt 116.7 kg (257 lb 4 oz) | LMP 01/12/2004 | BMI 47.05 kg/m | BSA 2.26 m Wt Readings from Last 3 Encounters: 05/03/23 116.7 kg (257 lb 4 oz) 05/03/23 116.7 kg (257 lb 4 oz) 04/24/23 117.6 kg (259 lb 4.8 oz) General: NAD. A+Ox3. HEENT: Normocephalic. Atraumatic. PERRL. EOMI. Conjunctiva and sclera clear. NECK: No carotid bruits. No JVD. Carotid upstrokes are brisk. Heart: RRR. S1 and S2 noted without murmur, rubs, gallops. PMI non displaced. Lungs: Diminished air movement with scattered wheeze. Abdomen: Normal bowel sounds. Soft. Nontender. No masses or organomegaly. No abdominal bruits. Extremities:1+ LE edema. No clubbing or cyanosis. Pulses: radial=2/4, posterior tibial=2/4, dorsalis pedis = 2/4. NEURO: No focal deficits. PSYCH: Normal. DATA: EKG performed today and reviewed personally: Normal sinus rhythm Normal ECG When compared with ECG of 25-MAR-2016 13:25, Vent. rate has decreased BY 34 BPM Echo report reviewed from October 2022: Interpretation Summary The examination is adequate to evaluate the referral indication. The left ventricular cavity size is normal. The LV wall thickness is moderately increased (concentric). The left ventricular wall motion is normal. The qualitative LV ejection fraction is 60-64% (normal). The left ventricular diastolic function is mildly abnormal (grade I). There is no significant valvular disease There is no evidence of pulmonary hypertension. Compared to prior study of August 11, 2022, there is no significant change. Nuclear stress test report reviewed dated March 2016: Interpretation Summary Myocardial perfusion imaging is normal. Overall left ventricular systolic function was normal without regional wall motion abnormalities. The left ventricular ejection fraction was >70%. There are no prior studies available for comparison. 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 We discussed her long standing issues with fluid retention, hyponatremia, excessive fluid intake. Still drinking excessive liquids. Recommend updating labs including BMP and BNP. She has ongoing edema. Possibly needs additional diuretic therapy. Await labs. BP controlled. Recent echo reviewed with preserved LVEF. For now, continue current medications. CHF tools discussed including daily weights, salt/sodium/fluid restriction, and use of diuretic protocol. I spent a total of 45 minutes on the date of service in preparation, delivery, and documentation ofthe care provided to Francy [place] excluding any time spent in the performance of separately billed services. The patient agrees to the above plan and will call with additional questions or concerns. ER with all emergencies advised. Follow Up: Return in about 3 months (around 08/01/2023). Jelly Tejada PA-C Department of Cardiology This chart was completed in part utilizing [employer] Speech Voice Recognition Software. Grammatical errors, random word insertions, prounoun errors, and incomplete sentences are an occasional consequence of this system due to software limitations, ambient noise, and hardware issues. Any formal questions or concerns about the content, text, or information contained within the body of this dictation should be directly addressed to the provider for clarification. documented in this encounter Nursing Notes * Jeancarlos Burgos LPN - 05/03/2023 10:51 AM EST Patient identified by full name and date of Chief Complaint Patient presents with NEW PATIENT Last saw cardiology 10/10/17. Once in awhile will have a heaviness in chest at night and will last about 5 minutes. Edema in feet once in while. SOB walking and weakness especially now doing PT. Denies chest pain, palpitations and dizziness. Examination Room: 1 Name: Francy [place] Date of : (1955). Reason for Visit: New Patient Interim Hospitalization(s): [facility] 08/22-08/25/22 Problems/Concerns: See chief complaint Chest Pain/SOB: [...] 07/05/2023 8:25 AM EDT Hospital Encounter OR [facility], Operating Room [facility] [address] [place] [phone] Seth Cuellar, [address] [place] [phone] 07/05/2023 8:25 AM EDT - 07/05/2023 8:50 AM EDT Surgery OR [facility], Operating Room [facility] [address] [place] [phone] Seth Cuellar, [address] [place] [phone] L-/S-SPINE PARAVERTEBRAL FACET INJ, 1 LEVEL 07/21/2023 8:40 AM EDT Office Visit Family Medicine [address] [place] [phone] Orlando Nazario MD [address] [place] [address] [place] [address] 08/01/2023 9:30 AM EDT Office Visit Cardiology, [facility] [address] [place] [phone] Jelly Tejada PA-C [address] [place] [address] Scheduled Procedures Name Priority Associated Diagnoses Date/Ti [...] Additional history exists Lipid Panel 01/21/2028 01/20/2023, 050 04/2022, 06/18/2021, Additional history exists DTaP,Tdap,and Td [...] chronic diastolic congestive heart failure (HCC)- Primary Chronic heart failure with preserved ejection fraction (HCC) HTN, goal below 140/90 Unspecified essential hypertension Morbid obesity due to excess calories (HCC) Hyponatremia Hyposmolality and/or hyponatremia Spondylosis of lumbosacral region without myelopathy or radiculopathy Lumbosacral spondylosis without myelopathy documented in this encounter Advance Directives Healthcare Agents on File Name Relationship Healthcare Agent Relationshi p Communication Allan Rodrigo Spouse Health Care Repr esentative (appointed verbally by patient or by statute hierarchy) Care Teams Hand Launderer Relationship Specialty Start Date End Date Orlando Nazario MD [address] [place] [address] [place] [id number] PCP - General Family Medicine 10/22/21 documented as of this encounter"
--- OUTSIDE RECORDS SUMMARY | 2023-06-08 06:06 | External Medical Summary | Summary of Care ---
Author Name Unknown Organization [facility] Address [address] [facility] [place] [address] Phone [phone] Care Team Providers Care Web Assistant Name Role Phone Orlando Nazario MD Primary Care Provide r Reason for Visit * Reason Comments Outpatient Testing Encounter Details Date Type Department Care Team (Late st Contact Info) Description 05/08/2023 10:50 AM EST Laboratory Laboratory [address] [place] [phone] [place] [address] Hypertensive heart disease with chronic diastolic congestive heart failure (HCC); HTN, goal below 140/90 Allergies Active Allergy Reactions Criticality Noted Date Comments Amoxicillin-Pot Clavulanate Nausea/vomiting 07/2012 Amitriptyline Hcl Nausea/vomiting 12/10/2013 Oxycodone 06/02/2014 nausea documented as of this encounter (statuses as of 05/08/2023) Medications Medication Sig Dispensed Refills Start Date [...] as of this encounter (statuses as of 05/08/2023) Active Problems Problem Noted Date Diagnosed Date [...] as of this encounter (statuses as of 05/08/2023) Resolved Problems Problem Noted Date Diagnosed Date [...] as of this encounter (statuses as of 05/08/2023) Immunizations Name Administration Dates Next Due COVID-19 [...] Operating Room [facility] [address] [place] [phone] Seth Cuellar, [address] [place] [phone] 07/05/2023 8:25 AM EDT - 07/05/2023 8:50 AM EDT Surgery OR [facility], Operating Room [facility] [address] [place] [phone] Seth Cuellar DO [address] [place] [phone] L-/S-SPINE PARAVERTEBRAL FACET INJ, 1 LEVEL 07/21/2023 8:40 AM EDT Office Visit Family [address] [place] [phone] Orlando Nazario MD [address] [place] [address] [place] [address] 08/01/2023 9:30 AM EDT Office Visit Cardiology, [facility] [address] [place] [address] Jelly Tejada PA-C [address] [place] [address] Pending Results Name Type Priority Associated Diagnoses Date /Time BASIC METABOLIC PANEL Lab Routine Hypertensive heart disease with chronic diastolic congestive heart failure (HCC) HTN, goal below 140/90 05/08/2023 10:48 AM EST Scheduled Procedures Name Priority Associated Diagnoses Date/Ti [...] 2 - PCV) 08/26/2023 08/25/2022, 05/20/2008 GFR 05/03/2024 05/03/2023, 05/2022, 10/19/2022, Additional history exists Albumin/Creatinine Ratio 09/02/2024 [...] heart failure (HCC) HTN, goal below 140/90 Unspecified essential hypertension Spondylosis of lumbosacral region without myelopathy or radiculopathy Lumbosacral spondylosis without myelopathy documented in this encounter Advance Directives Healthcare Agents on File Name Relationship Healthcare Agent Relationshi p Communication Allan [place] Spouse Health Care Repr esentative (appointed verbally by patient or by statute hierarchy) Care Teams Web Assistant Relationship Specialty Start Date End Date Orlando Nazario MD [address] [place] [address] [place] [address] PCP - General Family Medicine 10/22/21 documented as of this encounter
--- OUTSIDE RECORDS SUMMARY | 2023-06-08 06:06 | External Medical Summary | Summary of Care ---
Author Name Unknown Organization [facility] Address [address] [facility] [place] [address] Phone [phone] Care Team Providers Care Website Designer Name Role Phone Orlando Nazario MD Primary Care Provide r Reason for Visit * Reason Onset Date Comments Medical Records Request 05/10/2023 Encounter Details Date Type Department Care Team (Late st Contact Info) Description 05/10/2023 Telephone Family Medicine [address] [phone] Orlando Nazario MD [address] [place], [place] [id number] [address] Medical Records Request Allergies Active Allergy Reactions Criticality Noted Date Comments Amoxicillin-Pot Clavulanate Nausea/vomiting 07/2012 Amitriptyline Hcl Nausea/vomiting 12/10/2013 Oxycodone 06/02/2014 nausea documented as of this encounter (statuses as of 05/10/2023) Medications Medication Sig Dispensed Refills Start Date [...] as of this encounter (statuses as of 05/10/2023) Active Problems Problem Noted Date Diagnosed Date [...] as of this encounter (statuses as of 05/10/2023) Resolved Problems Problem Noted Date Diagnosed Date [...] as of this encounter (statuses as of 05/10/2023) Immunizations Name Administration Dates Next Due COVID-19 [...] encounter Miscellaneous Notes * Telephone Encounter - Cherrie Umanzor OSA - 05/10/2023 9:35 AM EST The [facility] is requesting the records of Francy for the purpose of coordination ofcare. Forwarded to [facility]. documented in this encounter Plan of Treatment Upcoming Encounters Date Type Department Care Team (Latest Contact Info) Description 07/05/2023 8:25 AM EDT Hospital Encounter OR [facility], Operating Room [facility] [address] [place] [phone] Seth Cuellar, DO [address] [place] [phone] 07/05/2023 8:25 AM EDT - 07/05/2023 8:50 AM EDT Surgery OR [facility], Operating Room [facility] [address] [place] [phone] Seth Cuellar, DO [address] [place] [phone] L-/S-SPINE PARAVERTEBRAL FACET INJ, 1 LEVEL 07/21/2023 8:40 AM EDT Office Visit [address] [place] [phone] Orlando Nazario MD [address] [place] [address] [place] [address] 08/01/2023 9:30 AM EDT Office Visit Cardiology, [facility] [address] [place] [phone] Jelly Tejada PA-C [address] [place] [address] Scheduled Procedures Name Priority Associated Diagnoses Date/Ti [...] patient or by statute hierarchy) Care Teams Website Designer Relationship Specialty Start Date End Date Orlando Nazario MD [address] [place] [address] [place] [address] PCP - General Family Medicine 10/22/21 documented as of this encounter
--- OUTSIDE RECORDS SUMMARY | 2023-06-08 06:06 | External Medical Summary | Summary of Care ---
Author Name Unknown Organization [facility] Address [address] [facility] [place] [address] Phone [phone] Care Team Providers Care Colors Custodian Name Role Phone Lakeshia Nazario MD Primary Care Provide r Reason for Visit * Reason Comments eRx-Medication Refill Encounter Details Date Type Department Care Team (Late st Contact Info) Description 05/27/2023 Refill Family Medicine [address] [place] [phone] Lakeshia Nazario MD [address] [place] [address] [place] [address] Mitral valve annular calcification; Atypical chest pain; Non-sustained ventricular tachycardia (HCC); Essential hypertension with goal blood pressure less than 140/90 Allergies Active Allergy Reactions Criticality Noted Date Comments Amoxicillin-Pot Clavulanate Nausea/vomiting 07/2012 Amitriptyline Hcl Nausea/vomiting 12/10/2013 Oxycodone 06/02/2014 nausea documented as of this encounter (statuses as of 05/27/2023) Medications Medication Sig Dispensed Refills Start Date [...] Oral Tablet Extended Release 24 Hour (Ditropan XL)Indications:Mi xed stress and urge urinary incontinence Take 1 Tablet by mouth in the morning. 90 Tablet 3 07/19/2022 Active Nystatin PowderIndications :Intertrigo Apply to affected area three times daily [...] Active amLODIPine Besylate 2.5 MG Oral Tablet (Norvasc)Indicati ons:HTN, goal below 140/90 Take 1 Tablet by mouth in the morning. 90 Tablet 1 08/30/2022 Active Atorvastatin Calcium 10 MG Oral Tablet (Lipitor)Indicati ons:Dyslipidemia, goal LDL below 130 TAKE ONE TABLET BY MOUTH IN THE MORNING 90 Tablet 3 09/23/2022 Active Albuterol Sulfate HFA 108 (90 Base) MCG/ACT Inhalation Aerosol SolutionIndicatio ns:Mild intermittent asthma without complication INHALE 2 PUFFS BY MOUTH 4 TIMES A DAY. as needed for wheezing 18 g 5 12/29/2022 Active busPIRone HCl 5 MG Oral Tablet (Buspar) Take 3 Tablets by mouth in the morning and 3 Tablets before bedtime. 0 Active Melatonin 3 MG Oral Tablet Take 1 Tablet by mouth at bedtime. 0 01/13/2023 Active Fluticasone-Salme terol 250-50 MCG/ACT Inhalation Aerosol Powder Breath Activated (Advair Diskus)Indication s:Mild intermittent asthma without complication Inhale 1 Puff by mouth in the morning and 1 Puff before bedtime. 60 Each 5 01/20/2023 Active Additional Information Patient not taking.Reported on 04/26/2023 HYDROcodone-Aceta minophen 7.5-325 MG Oral Tablet Take 1 Tablet by mouth every 6 hours as needed for Pain, Moderate or Pain, Severe. 0 Active Ibuprofen 200 MG Oral Tablet (Motrin) Take 3 Tablets by mouth in the morning and 3 Tablets before bedtime. 0 Active Furosemide 40 MG Oral Tablet (Lasix)Indication s:Bilateral lower extremity edema Take 1 Tablet by mouth in the morning. Take an additional 1/2 tab (20 mg) on Monday, Monday, Monday afternoon. May also take an additional 1/2 tablet on other days if needed for weight gain or increased swelling.. 150 Tablet 3 05/10/2023 Active Metoprolol Succinate ER 100 MG Oral Tablet Extended Release 24 Hour (toPROL XL)Indications:Mi tral valve annular calcification,Aty pical chest pain,Non-sustaine d ventricular tachycardia (HCC),Essential hypertension with goal blood pressure less than 140/90 Take 1 Tablet by mouth in the morning and 1 Tablet before bedtime. 180 Tablet 1 05/27/2023 Active Metoprolol Succinate ER 100 MG Oral Tablet Extended Release 24 Hour (toPROL XL)Indications:Mi tral valve annular calcification,Aty pical chest pain,Non-sustaine d ventricular tachycardia (HCC),Essential hypertension with goal blood pressure less than 140/90 Take 1 Tablet by mouth in the morning and 1 Tablet before bedtime. 180 Tablet 1 12/05/2022 05/27/19 24 Discontinued Hospital, Clinic, or Other Facility Administered Medication Ordered Dose Route Frequency Start Date End Date Status Albuterol Sulfate (Proventil) (2.5 MG/3ML) 0.083% inhalation solution 2.5 mgIndications:Chronic cough 2.5 mg NEBULIZER ONCE PRN 01/20/2023 01/20/2024 Active documented as of this encounter (statuses as of 05/27/2023) Active Problems Problem Noted Date Diagnosed Date [...] as of this encounter (statuses as of 05/27/2023) Resolved Problems Problem Noted Date Diagnosed Date [...] as of this encounter (statuses as of 05/27/2023) Immunizations Name Administration Dates Next Due COVID-19 [...] encounter Miscellaneous Notes * Telephone Encounter - Carmen Cantrell [facility] - 05/27/2023 2:29 PM ESTSigned Prescriptions: Disp Refills Metoprolol Succinate ER 100 MG Oral Tablet*180 Ta*1 Sig: Take 1 Tablet by mouth in the morning and 1 Tablet before bedtime.Authorizing Provider: LAKESHIA NAZARIO User: CARMEN CANTRELL ------ documented in this encounter Plan of Treatment Upcoming Encounters Date Type Department Care Team (Latest Contact Info) Description 06/07/2023 10:00 AM EDT Telemedicine Care Coordination and Integration [address] [place] [address] Sherley Jensen RN [address] [place] [address] 07/05/2023 8:25 AM EDT Hospital Encounter OR [facility], Operating Room [facility] [address] [place] [phone] Seth Cuellar, [address] [place] [phone] 07/05/2023 8:25 AM EDT - 07/05/2023 8:50 AM EDT Surgery OR [facility], Operating Room [facility] [address] [place] [phone] Seth Cuellar, [address] [place] [phone] L-/S-SPINE PARAVERTEBRAL FACET INJ, 1 LEVEL 07/21/2023 8:40 AM EDT Office Visit Family Medicine [address] [place] [phone] Lakeshia Nazario MD [address] [place] [address] [place] [address] 08/01/2023 9:30 AM EDT Office Visit Cardiology, [facility] [address] [place] [address] Jelly Tejada PA-C [address] [place] [address] Scheduled Procedures Name Priority Associated Diagnoses Date/Ti [...] as of this encounter Visit Diagnoses Diagnosis Mitral valve annular calcification Mitral valve disorders Atypical chest pain Other chest pain Non-sustained ventricular tachycardia (HCC) Paroxysmal ventricular tachycardia Essential hypertension with goal blood pressure less than 140/90 Spondylosis of lumbosacral region without myelopathy or radiculopathy Lumbosacral spondylosis without myelopathy documented in this encounter Advance Directives Healthcare Agents on File Name Relationship Healthcare Agent Relationshi p Communication Allan [place] Spouse Health Care Repr esentative (appointed verbally by patient or by statute hierarchy) Care Teams Colors Custodian Relationship Specialty Start Date End Date Lakeshia Nazario MD [address] [place] [address] [place] [address] PCP - General Family Medicine 10/22/21 documented as of this encounter
--- OUTSIDE RECORDS SUMMARY | 2023-06-08 06:07 | External Medical Summary ---
Author Name Unknown Address Unknown Organization [id number]:[facility] [address] [place] [address] Laboratory Report Ordering Provider Test Date Status EUGENIA CHRISTENSEN 05/03/2023 11:18:05 Final Observation Date Value Abnormality Reference (Units ) Status BUN 05/03/2023 11:18:05 8 6-20 (mg/dL) Final Creatinine 05/03/2023 11:18:05 1.0 0.5-1.0 (mg/dL) Final Glomerular filtration rate/1.73 sq M.predicted [Volume Rate/Area] in Serum, Plasma or Blood by Creatinine-based formula (CKD-EPI) 05/03/2023 11:18:05 66 >=60 (mL/min) Final eGFR is calculated based on the CKD-EPI 2020 equation SODIUM 05/03/2023 11:18:05 127 Below low normal 135 -146 (mmol/L) Final Potassium 05/03/2023 11:18:05 4.2 3.5-5.1 (m mol/L) Final Cl 05/03/2023 11:18:05 84 Below low normal 98- 107 (mmol/L) Final CO2 05/03/2023 11:18:05 30 22-32 (mmo l/L) Final Anion gap 05/03/2023 11:18:05 13 7-15 (mmol /L) Final Glucose 05/03/2023 11:18:05 91 70-120 (mg /dL) Final Calcium 05/03/2023 11:18:05 9.0 8.4-10.2 ( mg/dL) Final Performing Location [facility] [address] [place] [address]
--- OUTSIDE RECORDS SUMMARY | 2023-06-08 06:07 | External Medical Summary | Summary of Care ---
Author Name Unknown Organization [facility] Address [address] [facility] [place] [address] Phone [phone] Care Team Providers Care Tapper Helper Name Role Phone Orlando Nazario MD Primary Care Provide r Reason for Visit * Reason Comments Outpatient Testing Encounter Details Date Type Department Care Team (Late st Contact Info) Description 05/03/2023 11:30 AM EST Laboratory Laboratory, [facility] [address] [facility] [place] [phone] [facility] [address] HTN, goal below 140/90; Essential hypertension with goal blood pressure less than 140/90; Hyponatremia; Chronic heart failure with preserved ejection fraction (HCC) Allergies Active Allergy Reactions Criticality Noted Date Comments Amoxicillin-Pot Clavulanate Nausea/vomiting 07/2012 Amitriptyline Hcl Nausea/vomiting 12/10/2013 Oxycodone 06/02/2014 nausea documented as of this encounter (statuses as of 05/03/2023) Medications Medication Sig Dispensed Refills Start Date [...] as of this encounter (statuses as of 05/03/2023) Active Problems Problem Noted Date Diagnosed Date [...] as of this encounter (statuses as of 05/03/2023) Resolved Problems Problem Noted Date Diagnosed Date [...] as of this encounter (statuses as of 05/03/2023) Immunizations Name Administration Dates Next Due COVID-19 [...] Encounter OR [facility], Operating Room [facility] [address] [place] [phone] Seth Cuellar, [address] [place] [phone] 07/05/2023 8:25 AM EDT - 07/05/2023 8:50 AM EDT Surgery OR [facility], Operating Room [facility] [address] [place] [phone] Seth Cuellar DO [address] [place] [phone] L-/S-SPINE PARAVERTEBRAL FACET INJ, 1 LEVEL 07/21/2023 8:40 AM EDT Office Visit Family Medicine [address] [place] [phone] Orlando Nazario MD [address] [place] [address] [place] [address] 08/01/2023 9:30 AM EDT Office Visit Cardiology, [facility] [address] [place] [address] Jelly Tejada PA-C [address] [place] [address] Pending Results Name Type Priority Associated Diagnoses Date /Time BASIC METABOLIC PANEL Lab Routine HTN, goal below 140/90 05/03/2023 11:18 AM EST BNP, NT-PRO Lab Routine Essential hypertension with goal blood pressure less than 140/90 Hyponatremia HTN, goal below 140/90 Chronic heart failure with preserved ejection fraction (HCC) 05/03/2023 11:18 AM EST Scheduled Procedures Name Priority Associated [...] (2 - PCV) 08/26/2023 08/25/2022, 05/20/2008 GFR 01/21/2024 01/20/2023, 08/0 04/2022, 07/19/2022, Additional history exists Albumin/Creatinine Ratio 09/02/2024 09/02/2021 Diabetes Screening 01/20/2026 01/20/2023, 0 10/19/2022, 07/19/2022, Additional history exists Lipid Panel 01/21/2028 01/20/2023, [...] as of this encounter Visit Diagnoses Diagnosis HTN, goal below 140/90 Unspecified essential hypertension Essential hypertension with goal blood pressure less than 140/90 Hyponatremia Hyposmolality and/or hyponatremia Chronic heart failure with preserved ejection fraction (HCC) Spondylosis of lumbosacral region without myelopathy or radiculopathy Lumbosacral spondylosis without myelopathy documented in this encounter Advance Directives Healthcare Agents on File Name Relationship Healthcare Agent Relationshi p Communication Allan Verbeck Spouse Health Care Repr esentative (appointed verbally by patient or by statute hierarchy) Care Teams Tapper Helper Relationship Specialty Start Date End Date Orlando Nazario MD [address] [place] [address] [place] [address] PCP - General Family Medicine 10/22/21 documented as of this encounter
--- OUTSIDE RECORDS SUMMARY | 2023-06-08 06:07 | External Medical Summary | Summary of Care ---
Author Name Unknown Organization [facility] Address [address] [facility] [place] [address] Phone [phone] Care Team Providers Care Manager College Name Role Phone Orlando Nazario MD Primary Care Provide r Reason for Visit * Reason Onset Date Comments Follow Up 04/27/2023 Encounter Details Date Type Department Care Team (Late st Contact Info) Description 04/27/2023 11:00 AM EST Scheduled Telephone Interventional Pain Center, [facility] [address] [place] [address] Dominic Nurse Phone Call Interventional Pain [facility] [address] [place] [address] Spondylosis of lumbosacral region without myelopathy or radiculopathy*; Chronic bilateral low back pain without sciatica Allergies Active Allergy Reactions Criticality Noted Date Comments Amoxicillin-Pot Clavulanate Nausea/vomiting 07/2012 Amitriptyline Hcl Nausea/vomiting 12/10/2013 Oxycodone 06/02/2014 nausea documented as of this encounter (statuses as of 04/27/2023) Medications Medication Sig Dispensed Refills Start Date [...] the morning. 90 Tablet 1 08/30/2022 Active Gabapentin 400 MG Oral Capsule (Neurontin) Take 1 Capsule by mouth in the morning and 1 Capsule in the evening. 2 twice a day. 60 Capsule 0 08/30/2022 Active Atorvastatin Calcium 10 MG Oral [...] HCl 5 MG Oral Tablet (Buspar) Take 2 Tablets by mouth in the morning and 2 Tablets before bedtime. 0 Active Melatonin 3 [...] as of this encounter (statuses as of 04/27/2023) Active Problems Problem Noted Date Diagnosed Date [...] as of this encounter (statuses as of 04/27/2023) Resolved Problems Problem Noted Date Diagnosed Date [...] as of this encounter (statuses as of 04/27/2023) Immunizations Name Administration Dates Next Due COVID-19 [...] encounter Miscellaneous Notes * Telephone Encounter - Daksha Jacques LPN - 04/27/2023 10:38 AM EST Patient reports 100% improvement from yesterday to present time. No difficulty with any activity. Imaging planned: Yes, Fluoroscopy First or second MBB/Facet: FIRST Intend to assess for RFA?: Yes Levels planned (max 2 levels, indicate laterality): B/L L3, L4/5 Anesthesia or Conscious Sedation Planned? (if yes, ABN must be complete as this will not be covered): No Multiple procedures planned for same day?: Yes Axial moderate/severe neck or low back pain, causing a functional deficit measured on a pain or disability scale?: Yes Baseline Pain score: 8 out of 10 Pain score s/p 1st diagnostic: 0 = none Has the pain been present for > 3 months?: Yes Has the pain failed to respond to conservative care?: Yes Is there untreated radiculopathy or neurogenic claudication in the same body region?: No Is there evidence of non-facet pathology that could explain the source of the pain which has not been addressed?: No Is there the intention to perform a second diagnostic block if the first is positive?: Yes documented in this encounter Plan of Treatment Upcoming Encounters Date Type Department Care Team (Late st Contact Info) Description 05/03/2023 10:30 AM EST Office Visit Cardiology, [facility] [address] [place] [address] Jelly Tejada PA-C [address] [place] [address] 07/21/2023 8:40 AM EDT Office Visit Family Medicine [address] [place] [phone] Orlando Nazario MD [address] [place] [address] [place] [address] Scheduled Orders Name Type Priority Associated Diagnoses Orde r Schedule L-/S-SPINE PARAVERTEBRAL FACET INJ,1 LEVEL Procedures Routine Chronic bilateral low back pain without sciatica Spondylosis of lumbosacral region without myelopathy or radiculopathy Expected: 04/28/2023, Expires: 07/26/2023 L-/S-SPINE PARAVERTEBRL FACET INJ,2 LEVELS Procedures Routine Chronic bilateral low back pain without sciatica Spondylosis of lumbosacral region without myelopathy or radiculopathy Expected: 04/28/2023, Expires: 07/26/2023 Scheduled Procedures Name Priority Associated Diagnoses Date/Ti me L-/S-SPINE PARAVERTEBRAL FAC ET INJ, 1 LEVEL Spondylosis of lumbosacral region without myelopathy or radiculopathy L-/S-SPINE PARAVERTEBRAL FAC ET INJ, 2 LEVELS Spondylosis of lumbosacral region without myelopathy or radiculopathy Health Maintenance Due Date Last Done Comments [...] as of this encounter Visit Diagnoses Diagnosis Spondylosis of lumbosacral region without myelopathy or radiculopathy- Primary Lumbosacral spondylosis without myelopathy Chronic bilateral low back pain without sciatica documented in this encounter Advance Directives Healthcare Agents on File Name Relationship Healthcare Agent Relationshi p Communication [place] Verbeck Spouse Health Care Repr esentative (appointed verbally by patient or by statute hierarchy) Care Teams Manager College Relationship Specialty Start Date End Date Orlando Nazario MD [address] [place] [address] [place] [address] PCP - General Family Medicine 10/22/21 documented as of this encounter
--- OUTSIDE RECORDS SUMMARY | 2023-06-08 06:07 | External Medical Summary ---
Author Name Unknown Address Unknown Organization [facility] [place] [address] [place] [address] Laboratory Report Ordering Provider Test Date Status EFRAIN COTTO 05/03/2023 11:18:05 Final Exclude Heart Failure: <300 pg/mL
Diagnose Heart Failure:
Age <50 yr: >450 pg/mL
50-75 yr: >900 pg/mL
>75 yr: >1800 pg/mL
GFR is 30-59 mL/min: >1200 pg/mL or Age- adjusted values
GFR <30 mL/min: do not use, not reliable

Prognostic threshold: 1000 pg/mL Observation Date Value Abnormality Reference (Units ) Status BNP, Pro-hormone 05/03/2023 11:18:05 91 <30 0 (pg/mL) Final Performing Location [facility] [place] [address] [place] [address]
--- OUTSIDE RECORDS SUMMARY | 2023-06-08 06:07 | External Medical Summary | Summary of Care ---
Author Name Unknown Organization [facility] Address [address] [facility] [place] [address] Phone [phone] Care Team Providers Care Battery Engineer Name Role Phone Orlando Nazario MD Primary Care Provide r Encounter Details Date Type Department Care Team (Late st Contact Info) Description 04/25/2023 Orders Only PATIENT PORTAL DO NOT DELETE THIS DEPT USED BY [place] [id number] Allergies Active Allergy Reactions Criticality Noted Date Comments Amoxicillin-Pot Clavulanate Nausea/vomiting 07/2012 Amitriptyline Hcl Nausea/vomiting 12/10/2013 Oxycodone 06/02/2014 nausea documented as of this encounter (statuses as of 04/25/2023) Medications Medication Sig Dispensed Refills Start Date [...] 09/23/2022 Active Furosemide 40 MG Oral Tablet (Lasix)Indications:B ilateral lower extremity edema Take 1 Tablet by mouth in the morning. For swelling of legs. 90 Tablet 1 10/05/2022 Active Metoprolol Succinate ER 100 MG Oral Tablet Extended Release 24 Hour (toPROL XL)Indications:Shana l valve annular calcification,Atypic al chest pain,Non-sustained ventricular tachycardia (HCC),Essential hypertension with [...] before bedtime. 60 Each 5 01/20/2023 Active HYDROcodone-Acetamin ophen 7.5-325 MG Oral Tablet Take [...] as of this encounter (statuses as of 04/25/2023) Active Problems Problem Noted Date Diagnosed Date [...] as of this encounter (statuses as of 04/25/2023) Resolved Problems Problem Noted Date Diagnosed Date [...] as of this encounter (statuses as of 04/25/2023) Immunizations Name Administration Dates Next Due COVID-19 mRNA, LNP-s, No Pre serve, 2-Dose Series (Moderna) 02/22/2021,08/04/2020,07/03/2020 COVID-19, MRNA-LNP, 23-24, P F, 30 MCG/0.3 mL, 12 YRS AND ABOVE, IM ([employer]) 01/20/2023 Covid-19, Mrna, Lnp-s, Pf, B ivalent, [...] Department Care Team (Latest Contact Info) Description 04/26/2023 12:55 PM EST Hospital Encounter OR [facility], Operating Room [facility] [address] [place] [phone] Seth Cuellar, [address] [place] [phone] 04/26/2023 12:55 PM EST - 04/26/2023 1:20 PM EST Surgery OR [facility], Operating Room [facility] [address] [place] [phone] Seth Cuellar DO [address] [place] [phone] L-/S-SPINE PARAVERTEBRAL FACET INJ, 1 LEVEL 04/28/2023 10:00 AM EST PulmDiagnostic Ancillary [address] [place] [address] [place] [address] [place] [address] 05/03/2023 10:30 AM EST Office Visit Cardiology, [facility] [address] [place] [address] Jelly Tejada PA-C [address] [place] [address] 07/21/2023 8:40 AM EDT Office Visit Family Medicine [address] [place] [phone] Orlando Nazario MD [address] [place] [address] [place] [address] Scheduled Procedures Name Priority Associated Diagnoses Date/Ti me L-/S-SPINE PARAVERTEBRAL FACET INJ, 1 LEVEL Spondylosis of lumbosacral region without myelopathy or radiculopathy 04/26/2023 12:55 PM EST L-/S-SPINE PARAVERTEBRAL FACET INJ, 2 LEVELS Spondylosis of lumbosacral region without myelopathy or radiculopathy 04/26/2023 12:55 PM EST Health Maintenance Due Date Last Done Comments DXA Scan 1956 Cologuard 01/02/2001 Colonoscopy 01/02/2001 Colorectal Cancer Screening 01/02/2001 Fecal Occult Blood Test 01/02/2001 Sigmoidoscopy 01/02/2001 Mammogram 11/22/2013 11/22/2012, 09/05/2012 Depression Screening 01/27/2021 01/28/2020 *SPIROMETRY ONCE FOR ASTHMA-ADULT 02/10/2022 Pneumococcal Vaccine: 65+ Years (2 - PCV) 08/26/2023 08/25/2022, 05/20/2008 GFR 01/21/2024 01/20/2023, 08/04/2022, 07/19/2022, Additional history exists Albumin/Creatinine Ratio 09/02/2024 [...] Relationship Healthcare Agent Relationshi p Communication Allan Verbmarcos Spouse Health Care Repr esentative (appointed verbally by patient or by statute hierarchy) Care Teams Battery Engineer Relationship Specialty Start Date End Date Orlando Nazario MD [address] [place] [address] [place] [address] PCP - General Family Medicine 10/22/21 documented as of this encounter
--- OUTSIDE RECORDS SUMMARY | 2023-06-08 06:07 | External Medical Summary | Summary of Care ---
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 region without myelopathy or radiculopathy [M47.817] Procedures L-/S-SPINE PARAVERTEBRAL FACET INJ,1 LEVEL L-/S-SPINE PARAVERTEBRL FACET INJ,2 LEVELS L-/S-SPINE PARAVERTEBRAL FACET INJ, 1 LEVEL L-/S-SPINE PARAVERTEBRAL FACET INJ, 2 LEVELS Referral ID Status Reason Start Date Expiration Date Visits Re quested Visits Authorized [id number] Encounter Details Date Type Department Care Team (Latest Contact Info) Description 04/26/2023 12:08 PM EST - 04/26/2023 2:09 PM EST Hospital Encounter OR [facility], Operating Room [facility] [address] [place] [id number] Seth Cuellar DO [address] [place] [id number] Discharge Disposition: Home - Self Care Allergies Active Allergy Reactions Criticality Noted Date [...] Pain, Moderate or Pain, Severe. 0 Active documented as of this encounter (statuses [...] MCG/0.3 mL, 12 YRS AND ABOVE, IM (PFIZER-Comirnat) 01/20/2023 Covid-19, Mrna, Lnp-s, Pf, B ivalent, [...] Sign Reading Time Taken Comments Blood Pressure 148/65 04/26/2023 1:55 PM EST Pulse 74 04/26/2023 1:55 PM EST Temperature 36.1 C (96.9 F) 04/26/2023 1:55 PM ES T Respiratory Rate 17 04/26/2023 1:55 PM EST Oxygen Saturation 97% 04/26/2023 1:55 PM EST Inhaled Oxygen Concentration - - Weight - - Height - - Body Mass Index - - documented in this encounter Discharge Instructions * Discharge Instr - AVS* Seth Cuellar, - 04/26/2023 1:51 PM EST [facility] [address] [place] [address] Discharge Date: 04/26/2023 You may call [facility] at [phone] during business hours. For after-hours emergencies call [phone]. Your attending physician at the time of your discharge was: Seth Cuellar DO [address] [facility] [address] The information below provides you with the instructions and the list of medications you need to betaking following discharge from the hospital. If you have any questions, please ask before leaving.Please carry this letter with you when you see your doctor in the clinic. Diet: Resume your normal diet If you are diabetic, follow your blood sugars closely for next 2-3 days as they are likely to be elevated. If you are having difficulty controlling your blood sugars call your family doctor or the physician that treats your diabetes. Activity: Do not engage in strenuous activity today Resume your normal activities tomorrow Do not soak in water for 24 hours. No swimming, hot tub or bath but showering is allowed. Do not use heat on the injection site for 24 hours. If uncomfortable ice may be helpful. Some injections may make your arms or legs weak for a few hours. Be extremely careful when walking or changing positions that you do not fall. Have someone assist you for the next 6 hours. If weakness or numbness becomes progressive CALL IMMEDIATELY or GO TO THE NEAREST EMERGENCY ROOM Keep a diary of your pain until seen in the office to help us determine how effective the injectionwas Do not restart physical therapy or chiropractic manipulation until 48 hours after your injection Call : If weakness or numbness suddenly becomes worse or become progressive If the injection site becomes red, swollen, warm to the touch, begins to bleed or drain fluid, or is excessively painful. If you have any questions Medications: Resume all the medications you were taking prior to your injection. Resume your anticoagulants tomorrow unless otherwise instructed by your family physician, clerk to justice or the anticoagulation clinic. Additional Instructions: It is recommended that you complete the provided hourly pain/activity log to track your pain relief to help you determine the level of relief you received from this injection. Driving: You may resume driving in 12-24 hours if no weakness is noted . Date you may return to work or school: N/A Follow Up: Please ensure that you have [facility] office at [phone] in 1-2 business days to review the results of the injection you received. documented in this encounter Progress Notes * Seth Cuellar DO - 04/26/2023 1:51 PM EST [facility] [place] [address] [facility] [phone] OUTPATIENT SURGERY DISCHARGE SUMMARY NOTE Name: Francy Wallace Location: OR [facility]/[place] Date: 04/26/2023 Time: 1:51 PM Surgery Date: 04/26/2023 Procedure: Procedure(s): L-/S-SPINE PARAVERTEBRAL FACET INJ, 1 LEVEL L-/S-SPINE PARAVERTEBRAL FACET INJ, 2 LEVELS Bilateral Bilateral Surgeon: Surgeon(s): Seth Cuellar DO Discharge Diagnosis: lumbosacral spondylosis After examination of this patient, I have determined she is ready for discharge to home when the patient meets criteria. Discharge instructions were given to the patient. Seth Cuellar DO OR [facility], Operating Room [facility] [address] [facility] [phone] documented in this encounter H&P Notes * Seth Cuellar DO - 04/26/2023 1:16 PM EST Interventional Pain H&P Subjective: History of Present Illness: Francy Wallace is a 68 year old year-old female with a past medical history significant for chronic lower back pain related to lumbar spondylosis who is presenting for bilateral L3,4,5 medial branchblocks to improve her pain and function. RFA planned. her pain is essentially unchanged since our last office visit with her. ASA 3 AW nml Review of Systems: A focused 12-pt ROS were of reviewed with the patient including difficulty with sleep, snoring, aspiration history, dysphagia, stomach pain, nausea and vomiting, severe headaches, confusion, open skin lesions or wounds, chest pain, shortness of breath, excessive thirst, somnolence, dysuria, incomplete bladder emptying, easy bruising, recent clotting problems or bleeding, depression or rushed thoughts unless noted previously. Review of patient's allergies indicates: Allergen Reactions Amoxicillin-Pot Clavulanate Nausea/vomiting Elavil [Amitriptyline Hcl] Nausea/vomiting Oxycodone nausea Medications, Past Medical History, Past Surgical History reviewed and documented in Epic. See detailed report if needed. Pertinent Labs/Test Results: No results found for: "INR" No results found for: "CREATININE" Hemoglobin A1C (%) Date Value 03/01/2021 5.9 (H) 12/18/2008 6.0 Lab Results Component Value Date/Time AMPHETAMINES - [facility] NEGATIVE 04/30/2018 03:31 PM BARBITURATES - [facility] NEGATIVE 04/30/2018 03:31 PM BENZODIAZEPINES - [facility] REFER TO CONFIRMATION RESULT (A) 04/30/2018 03:31 PM METHADONE METABOLITE NEGATIVE 04/30/2018 03:31 PM OXYCODONE NEGATIVE 04/30/2018 03:31 PM CANNABINOIDS - [facility] NEGATIVE 04/30/2018 03:31 PM URINE DRUG SCREEN RESULT 04/30/2018 03:31 PM URINE VALID INTERP NORMAL 04/30/2018 03:31 PM Imaging: I personally reviewed the imaging and my findings were . XR CHEST 2 VIEWS Narrative: EXAM XR CHEST 2 VIEWS - 01/20/2023 10:39 am HISTORY ongoing cough - dry TECHNIQUE PA and lateral views of the chest COMPARISON none FINDINGS Lines/Tubes: None Cardiomediastinal/Hilum: The superior mediastinum, tamiko, heart size are unremarkable. Lungs/Pleura: There is no focal opacity, pulmonary edema, pleural effusion or pneumothorax. Bones/Soft Tissues/Upper Abdomen: There is no acute osseous abnormality. Impression: IMPRESSION No acute pulmonary process. Objective Physical Exam: Vital Signs: BP 159/86 | Pulse 79 | Temp 36.1 C (96.9 F) (Tympanic) | Resp 18 | LMP 01/12/2004 | SpO2 95% There is no height or weight on file to calculate BMI. General: No apparent distress. Eyes: pupils equal and round, sclera white, pupils midsize. ENT: mucous membranes moist Resp: Non-labored breathing CV: Extremities warm and well-perfused. Psych: Oriented; affect warm, insight good. Skin: No rashes or lesions appreciated on exposed skin Neuromuscular Exam: Facet loading pos, SLR neg, TTT over lumbosacral spine Assessment: Francy is a 68 year old year-old female with: Lumbar spondylosis Plan: The patient is undergoing bilateral L3,4,5 medial branch blocks to improve her pain and function. RFA planned. The risks, benefits and alternatives to the procedure were reviewed at length and the patient was provided the opportunity to ask questions which were answered to their voiced understanding. Following this comprehensive discussion, the patient opted to proceed. The patient was consented to the procedure following this comprehensive conversation. Seth Cuellar DO OR [facility], Operating Room [address] [address] documented in this encounter Nursing Notes * Spring Nails RN - 04/26/2023 2:08 PM EST Pt tolerated procedure well. Pt has been visited by Dr. Cuellar. Discharge instructions reviewed with pt and pt has verbalized understanding of these teachings. Pt ready for discharge. * Allie Toure RN - 04/26/2023 1:50 PM EST Band aid applied to area. Patient transferred to PACU 11 via wheelchair * Allie Toure RN - 04/26/2023 1:43 PM EST Patient tolerating pain management injection well. documented in this encounter OR Notes * OR Surgeon - Seth Cuellar DO - 04/26/2023 1:49 PM EST Diagnostic Medial Branch Nerve Blocks DATE: 04/26/2023 PHYSICIAN: Seth Cuellar DO PREOPERATIVE DIAGNOSIS: Lumbar spondylosis POSTOPERATIVE DIAGNOSIS: Lumbar spondylosis PROCEDURES PERFORMED: 1. L3 diagnostic medial branch nerve blocks, bilateral 2. Additional levels: L4 and L5 (dorsal ramus) medial branch blocks, bilateral side. 3. Fluoroscopy for precise needle localization MONITORS: Automatic blood pressure cuff and pulse oximetry readily available There was no phlebotomy lab assistant, EBL or drains placed during this procedure. INDICATIONS: We had the pleasure of seeing Francy Wallace ([id number]) in the pain management clinic at [facility] today. The patient has a history of lumbar spondylosis. The patient is here today for diagnostic lumbar medial branch nerve blocks. MEDICATIONS: No current facility-administered medications for this encounter. ALLERGIES: Review of patient's allergies indicates: Allergen Reactions Amoxicillin-Pot Clavulanate Nausea/vomiting Elavil [Amitriptyline Hcl] Nausea/vomiting Oxycodone nausea REVIEW OF SYSTEMS: Negative for fever, chills, chest pain, SOB, bleeding abnormalities, nausea, vomiting, diarrhea, worsening edema, or new rashes. FOCUSED PHYSICAL EXAMINATION: The patient is awake, alert and oriented, and is in no acute distress. Vital signs are stable. The patient is afebrile. The rest of the PE is essentially unchanged from the patient's recent visit to our office. I explained the procedure to the patient including the risks, benefits and alternatives to the procedure. The risks discussed with the patient included but were not limited to: bleeding, infection, and damage to surrounding nerves, tissues, and organs, paralysis, increased pain, allergic reaction, blood pressure instability, seizures, heart block, headaches, and . Alternatives to the procedure were also explained and include: do nothing, surgery, medications, and physical therapy. The patient verbalized understanding and was willing to proceed. PROCEDURE IN DETAIL: An informed consent was obtained. The patient was taken to the procedure room and was positively identified by the staff and the attending physician. The patient was positioned prone on the procedure bed. Vital signs were monitored as above and remained stable throughout the procedure. The skin was prepped and draped in the standard sterile fashion with ChloraPrep. A surgicalpause (time-out) was performed and was agreed upon by the members of the team. A fluoroscopic view of the lumbar spine was obtained, and the area of interest was identified. Following localization with less than 0.5mL of 0.5% lidocaine with a 0.5 inch needle, and nder fluoroscopic guidance, a 22-gauge 5-inch spinal needle was advanced towards the junction between the transverse process and the superior articular process of the L4 and L5 vertebral bodies for the L3 and L4 medial branch nerves on the right side. Additional needles were placed at the junction of superior articular process and sacral ala at the level of the L5 medial branch nerve on the right side. Full contact with the osseous structures was obtained. Proper needle position was verified in AP and declined views. After this, 0.5 ml of bupivacaine 0.5% was injected at each point. All needles were withdrawn. The procedure was repeated in the same fashion on the contralateral side. The patient tolerated the procedure well. COMPLICATIONS: None. DISPOSITION: It was recommended that the patient create an hourly pain/activity log to track her pain relief to help her determine the level of relief she received from this injection over the next 12 hours or until the block subsides. 2. The patient was requested to call the pain medicine clinic within the next 1- 2 business days to review these results and was provided the phone number for this. Seth Cuellar DO OR [facility], Operating Room [facility] [address] [place] [address] documented in this encounter Plan of Treatment Upcoming Encounters Date Type Department Care Team (Late st Contact Info) Description 04/27/2023 11:00 AM EST Scheduled Telephone Interventional Pain Center, [facility] [place] [address] [place] [address] [facility], Nurse Phone Call Interventional Josy Witt [address] [place] [phone] 05/03/2023 10:30 AM EST Office Visit Cardiology, [facility] [address] [place] [address] Jelly Tejada PA-C [address] [place] [address] 07/21/2023 8:40 AM EDT Office Visit Family [address] [place] [phone] Orlando Nazario MD [address] [place] [address] [place] [id number] Health Maintenance Due Date Last Done Comments DXA Scan 1956 Cologuard 01/02/2001 Colonoscopy 01/02/2001 Colorectal Cancer Screening 01/02/2001 Fecal Occult Blood Test 01/02/2001 Sigmoidoscopy 01/02/2001 Mammogram 11/22/2013 11/22/2012, 09/05/2012 Depression Screening 01/27/2021 01/28/2020 *SPIROMETRY ONCE FOR ASTHMA-ADULT 02/10/2022 Pneumococcal Vaccine: 65+ Years (2 - PCV) 08/26/2023 08/25/2022, 05/20/2008 GFR 01/21/2024 01/20/2023, 0804/2022, 07/19/2022, Additional history exists Albumin/Creatinine Ratio 09/02/2024 [...] Procedure Name Priority Date/Time Associated Diagnosis Comments FLUORO INTERVENTIONAL PAIN PROCEDURE NONBILLABLE Routine 04/26/2023 1:55 PM EST documented in this encounter Results * FLUORO INTERVENTIONAL PAIN PROCEDURE NONBILLABLE (04/26/2023 1:55 PM EST) Narrative Scheduling, Silent - 04/26/2023 1:55 PM EST This procedure will not be read by a Radiologist. Please see operative note. Seth LAN FLUOROSCOPY documented in this encounter Administered Medications Inactive Administered Medications - up to 3 most recent administrations Medication Order MAR Action Action Date Dose Rate Site bupivacaine HCl (Sensorcaine) 0.5 % (PF) inj 7.5 mg 7.5 mg (1.5 mL), Injection, ONCE, On Mon04/26/23 at 1330, For 1 dose, Bilateral Given 04/26/2023 1:43 PM EST 3 mL lidocaine 1 % inj 15 mg 15 mg (1.5 mL), Subcutaneous, ONCE, On Mon04/26/23 at 1330, For 1 dose, Bilateral Given 04/26/2023 1:39 PM EST 1 mL Other -Specify documented in this encounter Active and Recently Administered Medications Times are shown in EST. Scheduled Medication Order 04/24/2023 04/25/2023 04/26/2023 bupivacaine HCl (Sensorcaine) 0.5 % (PF) inj 7.5 mg (COMPLETED) 7.5 mg (1.5 mL), Injection, ONCE, On Mon04/26/23 at 1330, For 1 dose, Bilateral 1343 (Given - Provid er: Allie Toure RN - Comment: bilateral lumbar L3L4L5 mbbdivided doses) lidocaine 1 % inj 15 mg (COMPLETED) 15 mg (1.5 mL), Subcutaneous, ONCE, On 04/26/23 at 1330, For 1 dose, Bilateral 1339 (Given - Provid er: Allie Toure RN - Comment: bilateral lumbar L3L4L5 mbbdivided doses) documented in this encounter Advance Directives Healthcare Agents on File Name Relationship Healthcare Agent Relationshi p Communication [facility] Spouse Health Care Repr esentative (appointed verbally by patient or by statute hierarchy) Care Teams Production Stage Manager Relationship Specialty Start Date End Date Orlando Nazario MD [address] [place] [address] [place] [id number] PCP - General Family Medicine 10/22/21 documented as of this encounter
--- OUTSIDE RECORDS SUMMARY | 2023-06-08 06:07 | External Medical Summary | Summary of Care ---
Author Name Unknown Organization [facility] Address [address] [facility] [place] [address] Phone [phone] Care Team Providers Care Financial Service Representative Name Role Phone Orlando Nazario MD Primary Care Provide r Reason for Visit * Reason Comments Re-Check Pt scheduled for teto k injections on Monday with Dr. Cuellar. Encounter Details Date Type Department Care Team (Late st Contact Info) Description 04/24/2023 10:00 AM EST Office Visit Family Medicine [address] [place] [address] Emma Mendoza PA-C [address] [place] [address] [place] [address] HTN, goal below 140/90*; Body mass index (BMI) of 45.0 to 49.9 in adult (HCC); Chronic diastolic CHF (congestive heart failure) ([facility]); Hypertensive heart disease with chronic diastolic congestive heart failure (HCC); Pulmonary hypertension ([facility]); BIPOLAR AFF, DEPR-UNSPEC; Chronic bilateral low back pain without sciatica; Dyslipidemia, goal LDL below 130; DDD (degenerative disc disease), lumbar; Generalized anxiety disorder; Mild intermittent asthma without complication; Morbid obesity due to excess calories ([facility]) Allergies Active Allergy Reactions Criticality Noted Date Comments Amoxicillin-Pot Clavulanate Nausea/vomiting 07/2012 Amitriptyline Hcl Nausea/vomiting 12/10/2013 Oxycodone 06/02/2014 nausea documented as of this encounter (statuses as of 04/24/2023) Medications Medication Sig Dispensed Refills Start Date [...] as of this encounter (statuses as of 04/24/2023) Active Problems Problem Noted Date Diagnosed Date [...] as of this encounter (statuses as of 04/24/2023) Resolved Problems Problem Noted Date Diagnosed Date [...] as of this encounter (statuses as of 04/24/2023) Immunizations Name Administration Dates Next Due COVID-19 [...] Sign Reading Time Taken Comments Blood Pressure 140/86 04/24/2023 9:53 AM EST Pulse 94 04/24/2023 9:53 AM EST Temperature 36.1 C (96.9 F) 04/24/2023 9:53 AM ES T Respiratory Rate - - Oxygen Saturation 94% 04/24/2023 9:53 AM EST Inhaled Oxygen Concentration - - Weight 117.6 kg (259 lb 4.8 oz) 04/24/2023 9:53 AM EST Height - - Body Mass Index 47.43 03/08/2023 8:58 AM EST documented in this encounter Progress Notes * Emma Mendoza PA-C - 04/24/2023 9:55 AM EST Chief Complaint Patient presents with Re-Check Pt scheduled for back injections on Monday with Dr. Cuellar. Pt here today for recheck. Pt with PMH of depression/anxiety, obesity, bipolar, CHF, chronic low back pain, dyslipidemia, HTN, asthma, pulm HTN. Pt refuses all other BPAs. Review of patient's allergies indicates: Allergen Reactions Amoxicillin-Pot Clavulanate Nausea/vomiting Elavil [Amitriptyline Hcl] Nausea/vomiting Oxycodone nausea Current Outpatient Medications Medication Sig Dispense Refill risperiDONE (RISPERDAL) 1 MG Tablet Take 0.5 Tablets by mouth in the morning and 0.5 Tablets beforebedtime. 30 Tab 5 DULoxetine HCl 60 MG Oral Capsule Delayed Release Particles (CYMBALTA) Take 1 Capsule by mouth in the morning. Every morning.. hydrOXYzine HCl 25 MG Oral Tablet Take 2 Tablets by mouth 4 times a day as needed for Anxiety. Oxybutynin Chloride ER 10 MG Oral Tablet Extended Release 24 Hour (Ditropan XL) Take 1 Tablet by mouth in the morning. 90 Tablet 3 Nystatin Powder Apply to affected area three times daily x 14 day 1 Each 5 Lidocaine 5 % External Patch Place 1 Patch topically on the skin daily. Acetaminophen 500 MG Oral Tablet Take 2 Tablets by mouth 3 times a day as needed for Pain, Moderate. Polyethylene Glycol 3350 17 GM/SCOOP Oral Powder Take 17 g by mouth daily as needed for Constipation. amLODIPine Besylate 2.5 MG Oral Tablet (Norvasc) Take 1 Tablet by mouth in the morning. 90 Tablet 1 Gabapentin 400 MG Oral Capsule (Neurontin) Take 1 Capsule by mouth in the morning and 1 Capsule in the evening. 2 twice a day. 60 Capsule 0 Atorvastatin Calcium 10 MG Oral Tablet (Lipitor) TAKE ONE TABLET BY MOUTH IN THE MORNING 90 Tablet 3 Furosemide 40 MG Oral Tablet (Lasix) Take 1 Tablet by mouth in the morning. For swelling of legs. 90 Tablet 1 Metoprolol Succinate ER 100 MG Oral Tablet Extended Release 24 Hour (toPROL XL) Take 1 Tablet by mouth in the morning and 1 Tablet before bedtime. 180 Tablet 1 Albuterol Sulfate HFA 108 (90 Base) MCG/ACT Inhalation Aerosol Solution INHALE 2 PUFFS BY MOUTH 4 TIMES A DAY. as needed for wheezing 18 g 5 busPIRone HCl 5 MG Oral Tablet (Buspar) Take 2 Tablets by mouth in the morning and 2 Tablets beforebedtime. Melatonin 3 MG Oral Tablet Take 1 Tablet by mouth at bedtime. Fluticasone-Salmeterol 250-50 MCG/ACT Inhalation Aerosol Powder Breath Activated (Advair Diskus) Inhale 1 Puff by mouth in the morning and 1 Puff before bedtime. 60 Each 5 HYDROcodone-Acetaminophen 7.5-325 MG Oral Tablet Take 1 Tablet by mouth every 6 hours as needed forPain, Moderate or Pain, Severe. Current Facility-Administered Medications Medication Dose Route Frequency Provider Last Rate Last Admin Albuterol Sulfate (Proventil) (2.5 MG/3ML) 0.083% inhalation solution 2.5 mg 2.5 mg Nebulizer Once PRN Emma Mendoza PA-C Past Medical History: Diagnosis Date Asthma, severity to be determined Back disorder herniated disc? Bipolar I disorder, most recent episode depressed (HCC) Hyponatremia Infectious mononucleosis positive IGG Mitral valve disorder needs SBE prophylaxis Other forms of migraine, without mention of intractable migraine without mention of status migrainosus yrs Social History Socioeconomic History Marital status: Spouse name: Not on file Number of children: Not on file Years of education: Not on file Highest education level: Not on file Occupational History Occupation: nurse Tobacco Use Smoking status: Never Smokeless tobacco: Never Vaping Use Vaping Use: Never used Substance and Sexual Activity Alcohol use: No Drug use: No Sexual activity: Yes Partners: Male control/protection: Condom Other Topics Concern Service Not Asked Blood Transfusions Not Asked Caffeine Concern Not Asked Occupational Exposure Not Asked Hobby Hazards Not Asked Sleep Concern Not Asked Stress Concern Not Asked Weight Concern Not Asked Special Diet Not Asked Back Care Not Asked Exercise Not Asked Bike Helmet Not Asked Seat Belt Not Asked Self-Exams Yes Social History Narrative Not on file Social Determinants of Health Financial Resource Strain: Not on file Food Insecurity: No Food Insecurity (08/26/2022) Hunger Vital Sign Worried About Running Out of Food in the Last Year: Never true Ran Out of Food in the Last Year: Never true Transportation Needs: Not on file Physical Activity: Not on file Stress: Not on file Social Connections: Not on file Intimate Partner Violence: Not on file Housing Stability: Not on file O:Blood pressure 140/86, pulse 94, temperature 36.1 C (96.9 F), weight 117.6 kg (259 lb 4.8 oz), last menstrual period 01/12/2004, SpO2 94%. GENERAL: alert, healthy, and no distress NECK: supple, no adenopathy, no bruits, thyroid normal size, non-tender, without nodularity EYES: PERRLA, conjunctiva are pink and non-injected, sclera clear EARS: External ears normal, Canals clear, TM's Normal NOSE: no mucosal erythema, no mucosal edema, no purulent discharge OROPHARYNX: no exudate, no erythema, lips, buccal mucosa, and tongue normal, and mucous membranes are moist HEART: regular rate & rhythm, no murmur, and no gallops LUNGS: chest symmetric with normal AP diameter, no chest deformities noted, no chest wall tenderness, lungs clear to auscultation ABDOMEN: abdomen soft, non-tender, normal bowel sounds, and no masses or organomegaly A:HTN, goal below 140/90 (Primary) - BASIC METABOLIC PANEL; Future; Expected date: 04/24/2023 Body mass index (BMI) of 45.0 to 49.9 in adult (HCC) Chronic diastolic CHF (congestive heart failure) (HCC) Hypertensive heart disease with chronic diastolic congestive heart failure (HCC) Pulmonary hypertension (HCC) BIPOLAR AFF, DEPR-UNSPEC Chronic bilateral low back pain without sciatica Dyslipidemia, goal LDL below 130 DDD (degenerative disc disease), lumbar Generalized anxiety disorder Mild intermittent asthma without complication Morbid obesity due to excess calories (HCC) Continue current meds. Will recheck BMP since sodium was low last time it was checked. Any questions/problems, please call. If anything changes, worsens, develops new sx, please call [facility]. Follow Up: Return if symptoms worsen or fail to improve. Emma Mendoza PA-C documented in this encounter Plan of Treatment Upcoming Encounters Date Type Department Care Team (Latest Contact Info) Description 04/26/2023 12:55 PM EST Hospital Encounter OR [facility], Operating Room [facility] [address] [place] [phone] Seth Cuellar, [address] [place] [phone] 04/26/2023 12:55 PM EST - 04/26/2023 1:20 PM EST Surgery OR [facility], Operating Room [facility] [address] [place] [phone] Seth Cuellar, [address] [place] [phone] L-/S-SPINE PARAVERTEBRAL FACET INJ, 1 LEVEL 04/28/2023 10:00 AM EST PulmDiagnostic Ancillary [address] [place] [address] [address], [address] [place] [address] 05/03/2023 10:30 AM EST Office Visit Cardiology, [facility] [address] [place] [address] Jelly Tejada PA-C [address] [place] [address] 07/21/2023 8:40 AM EDT Office Visit Family Medicine [address] [place] [phone] Orlando Nazario MD [address] [place] [address] [place] [address] Scheduled Orders Name Type Priority Associated Diagnoses Orde r Schedule BASIC METABOLIC PANEL Lab Routine HTN, goal below 140/90 Expected: 04/24/2023 (Approximate), Expires: 04/23/2024 Scheduled Procedures Name Priority Associated Diagnoses Date/Ti [...] encounter Visit Diagnoses Diagnosis HTN, goal below 140/90- Primary Unspecified essential hypertension Body mass index (BMI) of 45.0 to 49.9 in adult (HCC) Chronic diastolic CHF (congestive heart failure) (HCC) Chronic diastolic heart failure Hypertensive heart disease with chronic diastolic congestive heart failure (HCC) Pulmonary hypertension (HCC) Other chronic pulmonary heart diseases BIPOLAR AFF, DEPR-UNSPEC Bipolar I disorder, most recent episode (or current) depressed, unspecified Chronic bilateral low back pain without sciatica Dyslipidemia, goal LDL below 130 Other and unspecified hyperlipidemia DDD (degenerative disc disease), lumbar Degeneration of lumbar or lumbosacral intervertebral disc Generalized anxiety disorder Mild intermittent asthma without complication Unspecified asthma Morbid obesity due to excess calories (HCC) Spondylosis of lumbosacral region without myelopathy or radiculopathy Lumbosacral spondylosis without myelopathy documented in this encounter Advance Directives Healthcare Agents on File Name Relationship Healthcare Agent Relationshi p Communication [place] Spouse Health Care Repr esentative (appointed verbally by patient or by statute hierarchy) Care Teams Financial Service Representative Relationship Specialty Start Date End Date Orlando Nazario MD [address] [place] [address] [place] [address] PCP - General Family Medicine 10/22/21 documented as of this encounter
--- OUTSIDE RECORDS SUMMARY | 2023-06-08 06:08 | External Medical Summary | Summary of Care ---
Author Name Unknown Organization [facility] Address [address] [place] [address] Phone [phone] Care Team Providers Care Rcp Name Role Phone Orlando Nazario MD Primary Care Provide r Reason for Visit * Reason Onset Date Comments Weight Increase 03/27/2023 Encounter Details Date Type Department Care Team (Late st Contact Info) Description 03/27/2023 Operation Shift Supervisor Telephone Care Coordination and Integration [address] [place] [address] Mary Palmer LPN [address], [place] [id number] Weight Increase Allergies Active Allergy Reactions Criticality Noted Date Comments Amoxicillin-Pot Clavulanate Nausea/vomiting 07/2012 Amitriptyline Hcl Nausea/vomiting 12/10/2013 Oxycodone 06/02/2014 nausea documented as of this encounter (statuses as of 03/28/2023) Medications Medication Sig Dispensed Refills Start Date [...] as of this encounter (statuses as of 03/28/2023) Active Problems Problem Noted Date Diagnosed Date Body mass index (BMI) of 40.0 to 44.9 in adult 0 10/31/2022 Overview: Per Obesity protocol - Per Obesity [...] as of this encounter (statuses as of 03/28/2023) Resolved Problems Problem Noted Date Diagnosed Date Resolved Date Acute diastolic heart failure 08/30/2022 08/30/2022 Body [...] as of this encounter (statuses as of 03/28/2023) Immunizations Name Administration Dates Next Due COVID-19 mRNA, LNP-s, No Pre serve, 2-Dose Series (Moderna) 02/22/2021,08/04/2020,07/03/2020 COVID-19, MRNA-LNP, 23-24, P F, 30 MCG/0.3 mL, 12 YRS AND ABOVE, IM [facility] 01/20/2023 Covid-19, Mrna, Lnp-s, Pf, B ivalent, [...] encounter Miscellaneous Notes * Telephone Encounter - Mary Palmer LPN - 03/28/2023 9:00 AM EST Phone call to patient Discussed PCP recommendation to implement DTP (see tele enc dated 03/27) Will take Lasix 40 mg BID x 3 days and then resume regular daily dose of 40 mg daily Discussed with patient that if no response to DTP will follow up with cardiology Patient verbalizes understanding of plan Will follow up with patient in 3 days Provided my direct contact information for any needs in interim * Telephone Encounter - Orlando Nazario MD - 03/28/2023 8:43 AM EST Increase to 40 mg twice a day for 3 days then resume 40 mg daily. She also follows with cardiology so recommend contacting them if weight does not go down * Telephone Encounter - Mary Palmer LPN - 03/28/2023 7:50 AM EST Update today, 03/28- transmitted weight 253.0 * Telephone Encounter - Mary Palmer LPN - 03/27/2023 9:58 AM EST Covering for Sherley Jensen RN CM Patient had weight gain via [facility] scale over weekend 03/23- 247.5 03/24- 248.5 03/25- 249.5 03/26- 248.5 03/27- 251.5 Feels weight gain related to consumption of broccoli cheese soup and saltine crackers yesterday Also has not moved bowels in past two days Using Miralax daily and expects to have BM today No abdominal pain or cramping Denies lower extremity edema or abdominal bloating Denies chest pain Mild dyspnea with exertion which is baseline for her Mild intermittent dry cough for past few months Urinating well; denies UTI s/s Wearing home O2 during evening at 3 L and during day prn Pulse ox running 90-96 % Taking Lasix 40 mg daily Please advise if any need to increase her Lasix dose temporarily ? Patient states with weight gain will take extra half tab Thank you documented in this encounter Plan of Treatment Upcoming Encounters Date Type Department Care Team (Latest Contact Info) Description 04/24/2023 10:00 AM EST Office Visit Family Medicine [address] [place] [phone] Emma Mendoza PA-C [address] [place] [address] [place] [address] 04/26/2023 12:55 PM EST Hospital Encounter OR [facility], Operating Room [facility] [address] [place] [phone] Seth Cuellar, DO [address] [place] [phone] 04/26/2023 12:55 PM EST - 04/26/2023 1:20 PM EST Surgery OR [facility], Operating Room [facility] [address] [place] [phone] Seth Cuellar, DO [address] [place] [phone] L-/S-SPINE PARAVERTEBRAL FACET INJ, 1 LEVEL 04/28/2023 10:00 AM EST PulmDiagnostic Ancillary [address] [place] [address] [place], [facility] [address] [place] [address] 05/03/2023 10:30 AM EST Office Visit Cardiology, [facility] [address] [place] [address] Jelly Tejada PA-C [address] [place] [address] 07/21/2023 8:40 AM EDT Office Visit Family Medicine [address] [place] [phone] Orlando Nazario MD [address] [place] [address] [place] [address] Scheduled Procedures Name Priority Associated Diagnoses Date/Ti [...] PCV) 08/26/2023 08/25/2022, 05/20/2008 GFR 01/21/2024 01/20/2023, 080 04/2022, 07/19/2022, Additional history exists Albumin/Creatinine Ratio [...] patient or by statute hierarchy) Care Teams Rcp Relationship Specialty Start Date End Date Orlando Nazario MD [address] [place] [address] [place] [address] PCP - General Family Medicine 10/22/21 documented as of this encounter
--- OUTSIDE RECORDS SUMMARY | 2023-06-08 06:08 | External Medical Summary | Summary of Care ---
Author Name Unknown Organization [facility] Address [address] [facility] [place] [address] Phone [phone] Care Team Providers Care Ski Maker Wood Name Role Phone Orlando Nazario MD Primary Care Provide r Reason for Visit * Reason Onset Date Comments Health Maintenance 02/20/2023 Encounter Details Date Type Department Care Team (Late st Contact Info) Description 02/20/2023 Telephone Family Medicine [address] [phone] Orlando Nazario MD [address] [place] [address] [place] [address] Health Maintenance Allergies Active Allergy Reactions Criticality Noted Date Comments Amoxicillin-Pot Clavulanate Nausea/vomiting 07/2012 Amitriptyline Hcl Nausea/vomiting 12/10/2013 Oxycodone 06/02/2014 nausea documented as of this encounter (statuses as of 02/20/2023) Medications Medication Sig Dispensed Refills Start Date [...] the morning. 90 Tablet 1 08/30/2022 Active HYDROcodone-Acetamin ophen 5-325 MG Oral Tablet Take 0.5 Tablets by mouth every 6 hours as needed for Pain, Mild. 30 Tablet 0 08/30/2022 Active Gabapentin 400 MG Oral Capsule [...] HCl 5 MG Oral Tablet (Buspar) Take 1 Tablet by mouth in the morning and 1 Tablet at noon and 1 Tablet before bedtime. 0 01/13/2023 Active Melatonin 3 MG Oral Tablet Take 1 Tablet by mouth at bedtime. 0 01/13/2023 Active Fluticasone-Salmeter ol 250-50 MCG/ACT Inhalation Aerosol Powder Breath Activated (Advair Diskus)Indications:M ild intermittent asthma without complication Inhale 1 Puff by mouth in the morning and 1 Puff before bedtime. 60 Each 5 01/20/2023 Active Hospital, Clinic, or Other Facility Administered Medication Ordered Dose Route Frequency Start Date End Date Status Albuterol Sulfate (Proventil) (2.5 MG/3ML) 0.083% inhalation solution 2.5 mgIndications:Chronic cough 2.5 mg NEBULIZER ONCE PRN 01/20/2023 01/20/2024 Active documented as of this encounter (statuses as of 02/20/2023) Active Problems Problem Noted Date Diagnosed Date [...] as of this encounter (statuses as of 02/20/2023) Resolved Problems Problem Noted Date Diagnosed Date [...] as of this encounter (statuses as of 02/20/2023) Immunizations Name Administration Dates Next Due COVID-19 mRNA, LNP-s, No Pre serve, 2-Dose Series (Moderna) 02/22/2021,08/04/2020,07/03/2020 COVID-19, MRNA-LNP, 23-24, P F, 30 MCG/0.3 mL, 12 YRS AND ABOVE, IM [facility]) 01/20/2023 Covid-19, Mrna, Lnp-s, Pf, B ivalent, 50 Mcg, IM, 12 yrs and above (Moderna) 01/11/2022 Pneumococcal Polysaccharide PPV23 (Pneumovax) 05/20/2008 SEASONAL INFLUENZA, PF, 6 M & Above, IM , (FLULAVAL or FLUZONE) 12/09/2019,12/26/2018,01/15/2018,12/19 Seasonal Influenza, Quadriva lent Hd (Fluzone [...] encounter Miscellaneous Notes * Telephone Encounter - Beronica Alonso LPN - 02/20/2023 9:52 AM EST Care Gaps Comprehensive Care Outreach Last Office/Telemedicine Visit: 01/20/2023 (in office), Visit date not found (telemedicine) Next Office Visit: 04/24/2023 Hemoglobin AIC Results: Lab Results Component Value Date/Time HEMOGLOBIN A1C - [facility] 5.9 (H) 03/01/2021 11:28 AM HEMOGLOBIN A1C - [facility] 6.0 12/18/2008 11:31 AM Reviewed Health Maintenance below: Health Maintenance Topic Date Due DXA Scan Never done Colorectal Cancer Screening Never done Mammogram 11/22/2013 Depression Screening 01/27/2021 *SPIROMETRY ONCE FOR ASTHMA-ADULT Never done Pneumococcal Vaccine: 65+ Years (2 - PCV) 08/26/2023 Dexa Colon Mamm Pft already scheduled Care Gap Outreach Action Taken: Left message documented in this encounter Plan of Treatment Upcoming Encounters Date Type Department Care Team (Latest Contact Info) Description 03/31/2023 10:00 AM EST PulmDiagnostic Ancillary [address] [place] [address] [place], [address] [place] [address] 04/24/2023 10:00 AM EST Office Visit Family Medicine [address] [place] [phone] Emma Mendoza PA-C [address] [place] [address] [place] [address] 04/26/2023 12:55 PM EST Hospital Encounter OR [facility], Operating Room [facility] [address] [place] [phone] Seth Cuellar, [address] [place] [phone] 04/26/2023 12:55 PM EST - 04/26/2023 1:20 PM EST Surgery OR [facility], Operating Room [facility] [address] [place] [phone] Seth Cuellar, [address] [place] [phone] L-/S-SPINE PARAVERTEBRAL FACET INJ, 1 LEVEL 05/03/2023 10:30 AM EST Office Visit Cardiology, [facility] [address] [place] [address] Jelly [place], [place] [address] [place] [address] 07/21/2023 8:40 AM EDT Office Visit Family Medicine [address] [place] [phone] Orlando Nazario MD [address] [place] [address] [place] [address] Scheduled Procedures Name Priority Associated Diagnoses Date/Ti [...] Name Relationship Healthcare Agent Relationshi p Communication [place] Spouse Health Care Repr esentative (appointed verbally by patient or by statute hierarchy) Care Teams Ski Maker Wood Relationship Specialty Start Date End Date Orlando Nazario MD [address] [place] [address] [place] [address] PCP - General Family Medicine 10/22/21 documented as of this encounter
--- OUTSIDE RECORDS SUMMARY | 2023-06-08 06:08 | External Medical Summary | Summary of Care ---
Author Name Unknown Organization [facility] Address [address] [facility] [place] [address] Phone [phone] Care Team Providers Care Clinical Informatics Specialist Name Role Phone Orlando Nazario MD Primary Care Provide r Reason for Visit * Reason Onset Date Comments Order Request 03/31/2023 Advice 03/31/2023 Encounter Details Date Type Department Care Team (Late st Contact Info) Description 03/31/2023 Telephone Family Medicine [address] [place] [phone] Orlando Nazario MD [address] [place], [place] [address] [address] Order Request; Advice Allergies Active Allergy Reactions Criticality Noted Date Comments Amoxicillin-Pot Clavulanate Nausea/vomiting 07/2012 Amitriptyline Hcl Nausea/vomiting 12/10/2013 Oxycodone 06/02/2014 nausea documented as of this encounter (statuses as of 03/31/2023) Medications Medication Sig Dispensed Refills Start Date [...] as of this encounter (statuses as of 03/31/2023) Active Problems Problem Noted Date Diagnosed Date [...] as of this encounter (statuses as of 03/31/2023) Resolved Problems Problem Noted Date Diagnosed Date [...] as of this encounter (statuses as of 03/31/2023) Immunizations Name Administration Dates Next Due COVID-19 [...] Telephone Encounter - Caleb Quinn LPN - 03/31/2023 3:20 PM EST Contacted Francy about PT ref Pain management Dr. Cuellar placed Ref on 01/31/2023 Pt states she would prefer in home PT Request Maegan JANG if they can not accept her then [facility] Faxed order and Insurance info to Maegan JANG * Telephone Encounter - Nikolai Soria OSA - 03/31/2023 11:42 AM EST An order was requested for this patient. Francy Wallace Name of Requesting Provider: Orlando Hughes MD Order Requested: Physical Therapy Diagnosis/Reason for Request: NA If order request is for Mammogram: Is the patient having any breast symptoms? No Is there a chance of ? No Has the patient had any breast problems in the past? No What location AND department does the patient wish to have their order completed at? NA Fax Number, if applicable: NA Call Back Number: [phone] If the caller is not a current [...] 10:00 AM EST Office Visit Family Medicine [address] [place] [phone] Emam Mendoza PA-C [address] [place] [address] [place] [address] 04/26/2023 12:55 PM EST Hospital Encounter OR OSS, Operating Room [facility] [address] [place] [phone] Seth Cuellar, [address] [place] [phone] 04/26/2023 12:55 PM EST - 04/26/2023 1:20 PM EST Surgery OR OSS, Operating Room [facility] [address] [place] [phone] Seth Cuellar, [address] [place] [phone] L-/S-SPINE PARAVERTEBRAL FACET INJ, 1 LEVEL 04/28/2023 10:00 AM EST PulmDiagnostic Ancillary [address] [place] [address] West, Pft [address] [place] [address] 05/03/2023 10:30 AM EST Office Visit Cardiology, [facility] [address] [place] [address] Jelly Tejada PA-C [address] [place] [address] 07/21/2023 8:40 AM EDT Office Visit Family Medicine [address] [place] [phone] Orlando Nazario MD [address] [place] [address] [place] [address] Scheduled Procedures Name Priority Associated Diagnoses Date/Ti [...] Name Relationship Healthcare Agent Relationshi p Communication Inverness Verbmarcos Spouse Health Care Repr esentative (appointed verbally by patient or by statute hierarchy) Care Teams Clinical Informatics Specialist Relationship Specialty Start Date End Date Orlando Nazario MD [address] [place] [address] [place] [address] PCP - General Family Medicine 10/22/21 documented as of this encounter
--- OUTSIDE RECORDS SUMMARY | 2023-06-08 06:08 | External Medical Summary | Summary of Care ---
Author Name Unknown Organization [facility] Address [address] [facility] [place] [address] Phone [phone] Care Team Providers Care Purse Seiner Name Role Phone Orlando Nazario MD Primary Care Provide r Reason for Referral * Evaluate & Treat - Unlimited Visits (Within 10 days (routine)) - Authorized Specialty Diagnoses / Procedures Referred By Contac t Referred To Contact Physical Therapy / Physical Medicine And Rehab Diagnoses Lumbosacral spondylosis Lumbago Other chronic pain Debility Orlando Nazario MD [address] [place] [address] [place] [address] Referral ID Status Reason Start Date Expiration Date Visits Requested Visits Authorized [id number] Authorized Specialty Services Required 04/03/2023 999 999 Question Answer Referral Priority Within 10 days (routine) Where should this appointment be scheduled? [facility] Reason for Visit * Reason Onset Date Comments Order Request 04/03/2023 Home Health 04/03/2023 Encounter Details Date Type Department Care Team (Late st Contact Info) Description 04/03/2023 Telephone [facility] [place] [phone] Orlando Nazario MD [address] [place] [address] [place] [address] Order Request; Home Health Allergies Active Allergy Reactions Criticality Noted Date Comments Amoxicillin-Pot Clavulanate Nausea/vomiting 07/2012 Amitriptyline Hcl Nausea/vomiting 12/10/2013 Oxycodone 06/02/2014 nausea documented as of this encounter (statuses as of 04/03/2023) Medications Medication Sig Dispensed Refills Start Date [...] as of this encounter (statuses as of 04/03/2023) Active Problems Problem Noted Date Diagnosed Date [...] as of this encounter (statuses as of 04/03/2023) Resolved Problems Problem Noted Date Diagnosed Date [...] as of this encounter (statuses as of 04/03/2023) Immunizations Name Administration Dates Next Due COVID-19 mRNA, LNP-s, No Pre serve, 2-Dose Series (Moderna) 02/22/2021,08/04/2020,07/03/2020 COVID-19, MRNA-LNP, 23-24, P F, 30 MCG/0.3 mL, 12 YRS AND ABOVE, IM (ZeeWhere-Comirnaty) 01/20/2023 Covid-19, Mrna, Lnp-s, Pf, B ivalent, [...] encounter Miscellaneous Notes * Telephone Encounter - Debby Harrington OSA - 04/03/2023 3:59 PM EST Referral faxed to [phone] * Telephone Encounter - Orlando Nazario MD - 04/03/2023 1:00 PM EST She saw Emma 03/08/23. Signed order * Telephone Encounter - Samantha Cohn LPN - 04/03/2023 11:30 AM EST Yolie calling from [facility]. They received a referral for PT. They can open her. She will have to have an appt. To discuss reason and have a signed office visit note. Has to be within 30 days of opening the patient. The PT referral in the computer is from January. They just noticed. They will also need an updated referral, along with office note and history and physical faxed to [phone] documented in this encounter Plan of Treatment Upcoming Encounters Date Type Department Care Team (Latest Contact Info) Description 04/24/2023 10:00 AM EST Office Visit Family Medicine [address] [place] [phone] Emma Mendoza PA-C [address] [place] [address] [place] [address] 04/26/2023 12:55 PM EST Hospital Encounter OR [facility], Operating Room [facility] [address] [place] [phone] Seth Cuellar DO [address] [place] [phone] 04/26/2023 12:55 PM EST - 04/26/2023 1:20 PM EST Surgery OR [facility], Operating Room [facility] [address] [place] [phone] Seth Cuellar, DO [address] [place] [phone] L-/S-SPINE PARAVERTEBRAL FACET INJ, 1 LEVEL 04/28/2023 10:00 AM EST PulmDiagnostic Ancillary [address] [place] [address] [place], t [address] [place] [address] 05/03/2023 10:30 AM EST Office Visit Cardiology, [facility] [address] [place] [address] Jelly Tejada PA-C [address] [place] [address] 07/21/2023 8:40 AM EDT Office Visit Family Medicine [address] [place] [phone] Orlando Nazario MD [address] [place] [address] [place] [address] Scheduled Procedures Name Priority Associated Diagnoses Date/Ti me L-/S-SPINE PARAVERTEBRAL FACET INJ, 1 LEVEL Spondylosis of lumbosacral region without myelopathy or radiculopathy 04/26/2023 12:55 PM EST L-/S-SPINE PARAVERTEBRAL FACET INJ, 2 LEVELS Spondylosis of lumbosacral region without myelopathy or radiculopathy 04/26/2023 12:55 PM EST Scheduled Referrals Name Type Priority Associated Diagnoses Orde r Schedule PHYSICAL THERAPY REFERRAL OP Referral Within 10 days (routine) Lumbosacral spondylosis Lumbago Other chronic pain Debility Ordered: 04/03/2023 Health Maintenance Due Date Last Done Comments [...] as of this encounter Visit Diagnoses Diagnosis Lumbosacral spondylosis- Primary Lumbosacral spondylosis without myelopathy Lumbago Other chronic pain Debility Debility, unspecified Spondylosis of lumbosacral region without myelopathy or radiculopathy Lumbosacral spondylosis without myelopathy documented in this encounter Advance Directives Healthcare Agents on File Name Relationship Healthcare Agent Relationshi p Communication Allan [place] Spouse Health Care Repr esentative (appointed verbally by patient or by statute hierarchy) Care Teams Purse Seiner Relationship Specialty Start Date End Date Orlando Nazario MD [address] [place] [address] [place] [address] PCP - General Family Medicine 10/22/21 documented as of this encounter
--- OUTSIDE RECORDS SUMMARY | 2023-06-08 06:08 | External Medical Summary | Summary of Care ---
Author Name Unknown Organization [facility] Address [address] [place] [address] Phone [phone] Care Team Providers Care Director Global Development Name Role Phone Orlando Nazario MD Primary Care Provide r Reason for Visit * Reason Onset Date Comments MyCode Nonconsent - Not interested at this time 03/08/2023 Encounter Details Date Type Department Care Team (Late st Contact Info) Description 03/08/2023 Orders Only Outcomes Research Department [address], [place] [id number] Aiyana Tabraes CHRA MyCode Nonconsent Documentation Allergies Active Allergy Reactions Criticality Noted Date Comments Amoxicillin-Pot Clavulanate Nausea/vomiting 07/2012 Amitriptyline Hcl Nausea/vomiting 12/10/2013 Oxycodone 06/02/2014 nausea documented as of this encounter (statuses as of 03/08/2023) Medications Medication Sig Dispensed Refills Start Date [...] before bedtime. 60 Each 5 01/20/2023 Active HYDROcodone-Acetami nophen 7.5-325 MG Oral Tablet Take 1 Tablet by mouth every 6 hours as needed for Pain, Moderate or Pain, Severe. 0 Active Sulfamethoxazole-Tr imethoprim 800-160 MG Oral Tablet (Bactrim DS)Indications:Acut e maxillary sinusitis, recurrence not specified Take 1 Tablet by mouth in the morning and 1 Tablet before bedtime. Do all this for 10 days. Until gone.. 20 Tablet 0 03/08/2023 03/18/2023 Active Hospital, Clinic, or Other Facility Administered Medication Ordered Dose Route Frequency Start Date End Date Status Albuterol Sulfate (Proventil) (2.5 MG/3ML) 0.083% inhalation solution 2.5 mgIndications:Chronic cough 2.5 mg NEBULIZER ONCE PRN 01/20/2023 01/20/2024 Active documented as of this encounter (statuses as of 03/08/2023) Active Problems Problem Noted Date Diagnosed Date [...] as of this encounter (statuses as of 03/08/2023) Resolved Problems Problem Noted Date Diagnosed Date [...] as of this encounter (statuses as of 03/08/2023) Immunizations Name Administration Dates Next Due COVID-19 [...] on file documented as of this encounter Progress Notes * Aiyana Tabares CHRA - 03/08/2023 11:13 AM EST MyCode Nonconsent Documentation Francy Wallace was approached in the clinic regarding participation in the [employer] and did not consent. documented in this encounter Plan of Treatment Upcoming Encounters Date Type Department Care Team (Latest Contact Info) Description 03/31/2023 10:00 AM EST PulmDiagnostic Ancillary [address] [place] [address] West, Pft [address] [place] [address] 04/24/2023 10:00 AM EST Office Visit [address] [place] [phone] Emma Mendoza PA-C [address] [place] [address] [place] [address] 04/26/2023 12:55 PM EST Hospital Encounter OR [facility], Operating Room [facility] [address] [place] [phone] Seth Cuellar, [address] [place] [phone] 04/26/2023 12:55 PM EST - 04/26/2023 1:20 PM EST Surgery OR [facility], Operating Room [facility] [address] [place] [phone] Seth Cuellar, [address] [place] [phone] L-/S-SPINE PARAVERTEBRAL FACET INJ, 1 LEVEL 05/03/2023 10:30 AM EST Office Visit Cardiology, [facility] [address] [place] [address] Jelly Tejada PA-C [address] [place] [address] 07/21/2023 8:40 AM EDT Office Visit Family [address] [place] [phone] Orlando Nazario MD [address] [place] [address] [place] [address] Scheduled Procedures Name Priority Associated Diagnoses Date/Ti [...] patient or by statute hierarchy) Care Teams Director Global Development Relationship Specialty Start Date End Date Orlando Nazario MD [address] [place] [address] [place] [address] PCP - General Family Medicine 10/22/21 documented as of this encounter
--- OUTSIDE RECORDS SUMMARY | 2023-06-08 06:08 | External Medical Summary | Summary of Care ---
Author Name Unknown Organization [facility] Address [address] [facility] [place] [address] Phone [phone] Care Team Providers Care Automatic Glove Turner And Former Name Role Phone Orlando Nazario MD Primary Care Provide r Reason for Visit * Reason Comments Acute Encounter Details Date Type Department Care Team (Late st Contact Info) Description 03/08/2023 9:20 AM EST Office Visit Family Medicine [address] [place] [phone] Emma Mendoza PA-C [address] [place] [address] [place] [address] Acute maxillary sinusitis, recurrence not specified* Allergies Active Allergy Reactions Criticality Noted Date [...] MCG/0.3 mL, 12 YRS AND ABOVE, IM (Sqord-Comirnat) 01/20/2023 Covid-19, Mrna, Lnp-s, Pf, B ivalent, [...] Sign Reading Time Taken Comments Blood Pressure 134/82 03/08/2023 8:58 AM EST Pulse 68 03/08/2023 8:58 AM EST Temperature 36.2 C (97.2 F) 03/08/2023 8:58 AM ES T Respiratory Rate 20 03/08/2023 8:58 AM EST Oxygen Saturation - - Inhaled Oxygen Concentration - - Weight 115.2 kg (254 lb) 03/08/2023 8:58 AM EST Height 157.5 cm (5' 2") 03/08/2023 8:58 AM EST Body Mass Index 46.46 03/08/2023 8:58 AM EST documented in this encounter Progress Notes * Emma Mendoza PA-C - 03/08/2023 9:03 AM EST Nursing Notes: Andra Medel, PARVEEN 03/08/23 0903 Sign at exiting of workspace Acute visit for andie ear pain , sinus pressure in face, headache x several weeks Pt here today with sinus pain/pressure, nasal/head congestion, post nasal drip, colored nasal drainage, slight cough, headache, ear pain for the past 2 weeks. Pt denies fever, chills, nausea, vomiting, diarrhea, chest pain, SOB. Pt hasn't been around anyone who has been sick. Review of patient's allergies indicates: Allergen Reactions [...] on file Housing Stability: Not on file O;Blood pressure 134/82, pulse 68, temperature 36.2 C (97.2 F), resp. rate 20, height 1.575 m (5' 2"), weight 115.2 kg (254 lb), last menstrual period 01/12/2004. GENERAL: alert and no distress NECK: supple, no adenopathy EYES: PERRLA, conjunctiva are pink and non-injected, [...] chest wall tenderness, lungs clear to auscultation A:Acute maxillary sinusitis, recurrence not specified (Primary) - Sulfamethoxazole-Trimethoprim 800-160 MG Oral Tablet (Bactrim DS); Take 1 Tablet by mouth in the morning and 1 Tablet before bedtime. Do all this for 10 days. Until gone.. Start above med. Rest, fluids. Any questions/problems, please call. If anything changes, worsens, develops new sx, please call [facility]. Follow Up: Return if symptoms worsen or fail to improve. Emma Mendoza PA-C documented in this encounter Nursing Notes * Andra Medel RN - 03/08/2023 8:58 AM EST Acute visit for andie ear pain , sinus pressure in face, headache x several weeks documented in this encounter Plan of Treatment Upcoming Encounters Date Type Department Care Team (Latest Contact Info) Description 03/31/2023 10:00 AM EST PulmDiagnostic Ancillary [address] [place] [address] West, Pft [address] [place] [address] 04/24/2023 10:00 AM EST Office Visit Family Medicine [address] [place] [phone] Emma Mendoza PA-C [address] [place] [address] [place] [address] 04/26/2023 12:55 PM EST Hospital Encounter OR [facility], Operating Room [facility] [address] [place] [phone] Seth Cuellar, DO [address] [place] [phone] 04/26/2023 12:55 PM EST - 04/26/2023 1:20 PM EST Surgery OR [facility], Operating Room [facility] [address] [place] [phone] Seth Cuellar, [address] [place] [phone] L-/S-SPINE PARAVERTEBRAL FACET INJ, 1 LEVEL 05/03/2023 10:30 AM EST Office Visit Cardiology, [facility] [address] [place] [address] Jelly Tejada PA-C [address] [place] [address] 07/21/2023 8:40 AM EDT Office Visit Family [address] [place] [phone] Orlando Nazario MD [address] [place] [address] [place] [address] Scheduled Procedures Name Priority Associated Diagnoses Date/Ti [...] as of this encounter Visit Diagnoses Diagnosis Acute maxillary sinusitis, recurrence not specified- Primary Spondylosis of lumbosacral region without myelopathy or radiculopathy Lumbosacral spondylosis without myelopathy documented in this encounter Advance Directives Healthcare Agents on File Name Relationship Healthcare Agent Relationshi p Communication Shawmut Verbmarcos Spouse Health Care Repr esentative (appointed verbally by patient or by statute hierarchy) Care Teams Automatic Glove Turner And Former Relationship Specialty Start Date End Date Orlando Nazario MD [address] [place] [address] [place] [address] PCP - General Family Medicine 10/22/21 documented as of this encounter
[2023-06-08 06:09] LABS: Folate (Folic Acid),Ser orPlas 6.53 ng/ml (>5.38)
--- OUTSIDE RECORDS SUMMARY | 2023-06-08 06:09 | External Medical Summary ---
Author Name Unknown Address Unknown Organization K01:[facility] [place] [place] [address] [facility] [place] [address] Laboratory Report Ordering Provider Test Date Status EUGENIA CHRISTENSEN 01/20/2023 10:31:27 Final Observation Date Value Abnormality Reference (Units ) Status Triglyceride 01/20/2023 10:31:27 175 Above high normal <=174 (mg/dL) Final Triglyceride Reference Range s (mg/dL):
<150 Acceptable
150-174 Borderline high
175-499 High
>=500 Very high Cholesterol 01/20/2023 10:31:27 188 <200 (mg /dL) Final Total Cholesterol Reference Ranges (mg/dL):
<200 Desirable
200-239 Borderline high
>=240 High HDL 01/20/2023 10:31:27 66 >49 (mg/dL ) Final HDL Cholesterol Reference Ra nges (mg/dL):
>=60 High (Desirable)
<50 Low (Undesirable) For Females
<40 Low (Undesirable) For Males NON-HDL CHOLESTEROL 01/20/2023 10:31:27 122 <=159 (mg/dL) Final Non-HDL Cholesterol Referenc e Range (mg/dL):
<100 Target level for high risk ASCVD patient
<130 Optimal for general population
130-159 Near optimal for general population
160-189 Borderline High
190-219 High
>=220 Very High LDL, (calculated) 01/20/2023 10:31:27 87 <= 129 (mg/dL) Final LDL Cholesterol Reference Ra nges (mg/dL):
<70 Target level for high risk ASCVD patient
<100 Optimal for general population
100-129 Near optimal for general population
130-159 Borderline high
160-189 High
>=190 Very high Performing Location [facility] [place] [place] - [address] [facility] [address]
--- OUTSIDE RECORDS SUMMARY | 2023-06-08 06:09 | External Medical Summary | Summary of Care ---
Author Name Unknown Organization [facility] Address [address] [place] [address] Phone [phone] Care Team Providers Care Potato Chip Packaging Machine Operator Name Role Phone Orlando Nazario MD Primary Care Provide r Reason for Visit * Reason Onset Date Comments case management 01/06/2023 Encounter Details Date Type Department Care Team Description 01/06/2023 Lead Infrastructure Architect Telephone [address] [phone] Sherley Jensen, RN [address] [place], [place] [phone] case management Allergies Active Allergy Reactions Severity Noted Date Comments Amoxicillin-Pot Clavulanate Nausea/vomiting 07/2012 Amitriptyline Hcl Nausea/vomiting 12/10/2013 Oxycodone 06/02/2014 nausea documented as of this encounter (statuses as of 01/06/2023) Medications Medication Sig Dispensed Refills Start Date [...] for wheezing 18 g 5 12/29/2022 Active documented as of this encounter (statuses as of 01/06/2023) Active Problems Problem Noted Date Body mass index (BMI) of 40.0 to 44.9 in adult 10/31/2022 Overview: Per Obesity protocol - Per Obesity protocol - - Hypertensive heart disease with chronic diastolic congestive heart failure 10/05/2022 Chronic diastolic CHF (congestive heart failure) 08/30/2022 Pulmonary hypertension 08/30/2022 Generalized anxiety disorder 07/19/2022 Morbid obesity due to excess calories Chronic bilateral low back pain without sciatica 09/02/2021 Status post right hip replacement 2019 Mixed stress and urge urinary incontinen ce 10/15/2018 Non-sustained ventricular tachycardia Controlled substance agreement signed DDD (degenerative disc disease), lumbar 12/11/2014 HTN, goal below 140/90 09/05/2012 Vitamin D deficiency 11/03/2011 Dyslipidemia, goal LDL below 130 009 Overview: Per Lipid Taxonomy. Tension headache 05/20/2008 ADVANCE DIRECTIVE INFORMATION 06/16/2005 Overview: Yes, Patient instructed to provide copy of advance directive for provider to review and to be scanned into Electronic Medical Record OTHER FORMS OF MIGRAINE WITHOUT MENTION OF INTRACTABLE MIGRAINE BIPOLAR AFF, DEPR-UNSPEC Mild intermittent asthma without complic ation Hyponatremia documented as of this encounter (statuses as of 01/06/2023) Resolved Problems Problem Noted Date Resolved Date Acute diastolic heart failure 08/30/2022 Body mass index (BMI) of 45.0 to 49.9 in adult 0 09/27/2021 11/03/2022 Overview: Per Obesity protocol - - Prediabetes 03/01/2021 07/01/2021 Body mass index (BMI) of 40.0 to 44.9 in adult 0 10/31/2017 09/30/2021 Overview: Per Obesity protocol #1 - Aortic sclerosis 11/21/2014 11/28/2016 Mitral valve annular calcification 11/21/2014 11/28/2016 Obesity, Class II, BMI 35-39.9, isolated (see ac tual BMI) 08/31/2009 06/05/2017 Overview: Per Obesity Protocol, #19 Mixed dyslipidemia 11/13/2007 02/24/2009 Overview: Per Lipid Taxonomy. Mitral valve disorder 11/21/2014 documented as of this encounter (statuses as of 01/06/2023) Immunizations Name Administration Dates Next Due COVID-19 mRNA, LNP-s, No Pre serve, 2-Dose Series (Moderna) 02/22/2021,08/04/2020,07/03/2020 Covid-19, Mrna, Lnp-s, Pf, B ivalent, 50 Mcg, IM, 12 yrs and above (Moderna) 01/11/2022 Pneumococcal Polysaccharide PPV23 (Pneumovax) 05/20/2008 SEASONAL INFLUENZA, PF, 6 M & Above, IM , (FLULAVAL or FLUZONE) 12/09/2019,12/26/2018,01/15/2018,12/19 Seasonal Influenza, Quadriva lent, No Preserve, IM [...] drink = 0.6 oz pur e alcohol) Food Insecurity Answer Date Recorded Within the past 12 months, y ou worried that your food would run out before you got money to buy more. Never true 01/28/2020 Within the past 12 months, t he food you bought just didn't last and you didn't have money to get more. Never true 01/28/2020 Sex Assigned at Date Recorded Not on file Job Start Date Occupation Industry Not on file Not on file Not on file documented as of this encounter Miscellaneous Notes * Telephone Encounter - Sherley Jensen RN - 01/06/2023 10:02 AM EDT Received voicemail from patient. Had message on her phone from CM - wasn't aware if it was old or new. Reports her weight today was 245.0 lbs. Requesting call back. CM called and spoke with patient. Alert, oriented, pleasant. Discussed weight range over past week or so: -241.5 lbs to 245 lbs Denies increased shortness of breath. Denies increased swelling/edema. Reports decreased cough. Attempting compliance with low sodium diet. Performing daily dry weights using [facility] telephonic scales. Next planned contact is mid January, and as needed before. documented in this encounter Plan of Treatment Upcoming Encounters Date Type Specialty Care Team Description 01/20/2023 Office Visit Family Medicine Emma Mendoza PA-C [address] [place] [address] [place] [address] 01/31/2023 Office Visit Pain Medicine Seth Cuellar DO [address] [place] [phone] 05/03/2023 Office Visit Cardiology Jelly Tejada PA-C [address] [place] [address] 07/21/2023 Office Visit Family Medicine Orlando Nazario MD [address] [place] [address] [place] [address] Health Maintenance Due Date Last Done Comments DXA Scan 1956 Cologuard 01/02/2001 Colonoscopy 01/02/2001 Colorectal Cancer Screening 01/02/2001 Fecal Occult Blood Test 01/02/2001 Sigmoidoscopy 01/02/2001 Pneumococcal Vaccine: 65+ Years (2 - PCV) 05/20/2009 05/20/2008 Mammogram 11/22/2013 11/22/2012, 09/05/2012 Depression Screening 01/27/2021 01/28/2020 *SPIROMETRY ONCE FOR ASTHMA-ADULT 02/10/2022 COVID-19 Vaccine ( season) 2022 01/11/2022, 02/22/2021, 08/04/2020, Additional history exists Influenza Vaccine (FLU shot) (#1) 2022 01/11/2022, 02/22/2021, 12/09/2019, Additional history exists GFR 10/20/2023 10/19/2022, 05/0 04/2022, 10/22/2021, Additional history exists Albumin/Creatinine Ratio 09/02/2024 09/02/2021 Diabetes Screening 10/19/2025 10/19/2022, 0 07/19/2022, 10/22/2021, Additional history exists Lipid Panel 07/20/2027 07/19/2022, 04/0 03/2021, 03/01/2021, Additional history exists DTaP,Tdap,and Td Vaccines (3 - Td or Tdap) 10/15/2028 10/15/2018, 11/13/2007 Pap Smear Discontinued 06/17/2008, 05/10/2000 GARDASIL-HPV IMMUNIZATION SERIES Aged Out No longer [...] Name Relationship Healthcare Agent Relationshi p Communication [place] Verbeck Spouse Health Care Repr esentative (appointed verbally by patient or by statute hierarchy) Care Teams Potato Chip Packaging Machine Operator Relationship Specialty Start Date End Date Orlando Nazario MD [address] [place] [address] [place] [address] PCP - General Family Medicine 10/22/21 documented as of this encounter
--- OUTSIDE RECORDS SUMMARY | 2023-06-08 06:09 | External Medical Summary | Summary of Care ---
Author Name Unknown Organization [facility] Address [address] [place] [address] Phone [phone] Care Team Providers Care Winch Runner Name Role Phone Orlando Nazario MD Primary Care Provide r Reason for Visit * Reason Onset Date Comments case management 2023 Encounter Details Date Type Department Care Team Description 2023 Air Conditioning Installer Supervisor Telephone [address] [phone] Sherley Jensen, RN [address] [place], [place] [phone] case management Allergies Active Allergy Reactions Severity Noted Date Comments Amoxicillin-Pot Clavulanate Nausea/vomiting 07/2012 Amitriptyline Hcl Nausea/vomiting 12/10/2013 Oxycodone 06/02/2014 nausea documented as of this encounter (statuses as of 2023) Medications Medication Sig Dispensed Refills Start Date [...] as of this encounter (statuses as of 2023) Active Problems Problem Noted Date Body mass [...] as of this encounter (statuses as of 2023) Resolved Problems Problem Noted Date Resolved Date [...] as of this encounter (statuses as of 2023) Immunizations Name Administration Dates Next Due COVID-19 [...] Telephone Encounter - Sherley Jensen RN - 2023 4:26 PM EDT Received voicemail from patient. Reports her weight this morning was back up to 244.5 lbs. Concerned/anxious. CM called and spoke with patient. Alert, oriented, pleasant. Recent weights: 12/29/22 243.0 lbs 12/30/22 241.0 lbs 12/31/22 242.0 lbs 01/01/23 241.5 lbs 01/02/23 243.5 lbs 01/03/23 244.5 lbs Patient voices concern that her weight has increased everyday for the past 3 days. Reminded patient - -Report the following: ->3 lb weight gain in one day or 5 lbs in a week to PCP -increased edema in feet, abdomen or hands -increased SOB and cough, especially if at night Weight has not increased that much at a time. Reviewed intake for the past 24 hours: 5 AM cinnamon donut and tea 9 AM 2 small rice krispie treats 11:30 AM meatballs Supper spaghetti and meatballs Instructed patient on label reading. >300 mg of sodium per serving is too high in salt for you Check you jar of spaghetti sauce, it is high in sodium Be careful with frozen meatballs, they may also be high Reports legs might have a little bit of swelling - nothing really noticeable Socks to leave small indentations along tops. Discussed use of diabetic/circulation socks - no band on the tops. Denies increased shortness of breath/cough. Repeats directives re 3 lbs overnight or 5 lbs in a week, and <300 mg/serving of sodium, and diabetic/circulation socks. Will attempt/comply. Feels reassured about weights. Next planned contact in about a month, and as needed before. documented in this encounter Plan of Treatment Upcoming Encounters Date Type Specialty Care Team Description 01/20/2023 Office Visit Family Medicine Emma Mendoza PA-Carolann [address] [place] [address] [place] [address] 01/31/2023 Office Visit Pain Medicine Seth Cuellar DO [address] [place] [phone] 05/03/2023 Office Visit Cardiology Jelly Tejada PA-C [address] [place] [address] 07/21/2023 Office Visit Family Medicine Orlando Nazario MD [address] [place] [address] [place] [address] Health Maintenance Due Date Last Done Comments [...] Name Relationship Healthcare Agent Relationshi p Communication [place] Verbeck Spouse Health Care Repr esentative (appointed verbally by patient or by statute hierarchy) Care Teams Winch Runner Relationship Specialty Start Date End Date Orlando Nazario MD [address] [place] [address] [place] [phone] PCP - General Family Medicine 10/22/21 documented as of this encounter
--- OUTSIDE RECORDS SUMMARY | 2023-06-08 06:09 | External Medical Summary | Summary of Care ---
Author Name Unknown Organization [facility] Address [address] [facility] [place] [address] Phone [phone] Care Team Providers Care Associate Dean Of Students Name Role Phone Orlando Nazario MD Primary Care Provide r Reason for Visit * Reason Comments Outpatient Testing Encounter Details Date Type Department Care Team (Late st Contact Info) Description 01/20/2023 10:20 AM EDT Laboratory Laboratory [address] [place] [phone] [place] [address] HTN, goal below 140/90; Dyslipidemia, goal LDL below 130 Allergies Active Allergy Reactions Criticality Noted Date Comments Amoxicillin-Pot Clavulanate Nausea/vomiting 07/2012 Amitriptyline Hcl Nausea/vomiting 12/10/2013 Oxycodone 06/02/2014 nausea documented as of this encounter (statuses as of 01/20/2023) Medications Medication Sig Dispensed Refills Start Date [...] as of this encounter (statuses as of 01/20/2023) Active Problems Problem Noted Date Diagnosed Date [...] as of this encounter (statuses as of 01/20/2023) Resolved Problems Problem Noted Date Diagnosed Date [...] as of this encounter (statuses as of 01/20/2023) Immunizations Name Administration Dates Next Due COVID-19 mRNA, LNP-s, No Pre serve, 2-Dose Series (Moderna) 02/22/2021,08/04/2020,07/03/2020 COVID-19, MRNA-LNP, 23-24, P F, 30 MCG/0.3 mL, 12 YRS AND ABOVE, IM (Bioscale-Comirnat) 01/20/2023 Covid-19, Mrna, Lnp-s, Pf, B ivalent, [...] 01/28/2020 Hunger Vital Sign Answer Date Recorded Worried About Running Out of Food in the Last Ye ar Never true 11/05/2018 Ran Out of Food in the Last Year Never true 11/05/2018 Sex and Gender Information Value Date Recorded Sex Assigned at Not on file Gender Identity Not on file Sexual Orientation Not on file Job Start Date Occupation Industry Not on file Not on file Not on file documented as of this encounter Plan of Treatment Upcoming Encounters Date Type Department Care Team (Late st Contact Info) Description 01/31/2023 10:15 AM EST Office Visit Interventional Pain Center, [facility] [address] [place] [address] Seth Cuellar DO [address] [place] [phone] 05/03/2023 10:30 AM EST Office Visit Cardiology, [facility] [address] [place] [address] Jelly Tejada, [place] [address] [place] [address] 07/21/2023 8:40 AM EDT Office Visit Family Medicine [address] [phone] Orlando Nazario MD [address] [place] [address] [place] [address] Pending Results Name Type Priority Associated Diagnoses Date /Time BASIC METABOLIC PANEL Lab Routine HTN, goal below 140/90 01/20/2023 10:31 AM EDT LIPID PANEL WITH DIRECT LDL IF TG IS HIGH Lab Routine Dyslipidemia, goal LDL below 130 01/20/2023 10:31 AM EDT Health Maintenance Due Date Last Done Comments DXA Scan 1956 Cologuard 01/02/2001 Colonoscopy 01/02/2001 Colorectal Cancer Screening 01/02/2001 Fecal Occult Blood Test 01/02/2001 Sigmoidoscopy 01/02/2001 Pneumococcal Vaccine: 65+ Years (2 - PCV) 05/20/2009 05/20/2008 Mammogram 11/22/2013 11/22/2012, 09/05/2012 Depression Screening 01/27/2021 01/28/2020 *SPIROMETRY ONCE FOR ASTHMA-ADULT 02/10/2022 GFR 10/20/2023 10/19/2022, 05/0 04/2022, 10/22/2021, Additional [...] HTN, goal below 140/90 Unspecified essential hypertension Dyslipidemia, goal LDL below 130 Other and unspecified hyperlipidemia documented in this encounter Advance Directives Healthcare Agents on File Name Relationship Healthcare Agent Relationshi p Communication Allan Verbmarcos Spouse Health Care Repr esentative (appointed verbally by patient or by statute hierarchy) Care Teams Associate Dean Of Students Relationship Specialty Start Date End Date Orlando Nazario MD [address] [place] [address] [place] [address] PCP - General Family Medicine 10/22/21 documented as of this encounter
--- OUTSIDE RECORDS SUMMARY | 2023-06-08 06:09 | External Medical Summary | Summary of Care ---
Author Name Unknown Organization [facility] Address [address] [place] [facility] [place] [address] Phone [phone] Care Team Providers Care Enzyme Chemist Name Role Phone Lakeshia Nazario MD Primary Care Provide r Reason for Visit * Reason Comments eRx-Medication Refill Encounter Details Date Type Department Care Team Description 12/28/2022 Refill Family Medicine [address] [place] [phone] Lakeshia Nazario MD [address] [place] [address] [place] [address] Mild intermittent asthma without complication Allergies Active Allergy Reactions Severity Noted Date Comments Amoxicillin-Pot Clavulanate Nausea/vomiting 07/2012 Amitriptyline Hcl Nausea/vomiting 12/10/2013 Oxycodone 06/02/2014 nausea documented as of this encounter (statuses as of 12/29/2022) Medications Medication Sig Dispensed Refills Start Date [...] the morning. 90 Tablet 1 08/30/2022 Active HYDROcodone-Acetam inophen 5-325 MG Oral Tablet Take 0.5 Tablets [...] for wheezing 18 g 5 12/29/2022 Active Albuterol Sulfate HFA 108 (90 Base) MCG/ACT Inhalation Aerosol SolutionIndication s:Mild intermittent asthma without complication INHALE 2 PUFFS BY MOUTH 4 TIMES A DAY. 18 g 5 08/04/2021 3 Discontinued documented as of this encounter (statuses as of 12/29/2022) Active Problems Problem Noted Date Body mass [...] as of this encounter (statuses as of 12/29/2022) Resolved Problems Problem Noted Date Resolved Date [...] as of this encounter (statuses as of 12/29/2022) Immunizations Name Administration Dates Next Due COVID-19 [...] encounter Miscellaneous Notes * Telephone Encounter - Nay Palomares RPh - 12/29/2022 1:51 PM EDTSigned Prescriptions: Disp Refills Albuterol Sulfate HFA 108 (90 Base) MCG/AC*18 g 5 Sig: INHALE 2 PUFFS BY MOUTH 4 TIMES A DAY. as needed for wheezingAuthorizing Provider: LAKESHIA NAZARIO User: NAY PALOMARES documented in this encounter Plan of Treatment Upcoming Encounters Date Type Specialty Care Team Description 01/20/2023 Office Visit Family Medicine Emma Mendoza PA-C [address] [place] [address] [place] [address] 01/31/2023 Office Visit Pain Medicine Seth Cuellar DO [address] [place] [phone] 05/03/2023 Office Visit Cardiology Jelly Tejada PA-C [address] [place] [address] 07/21/2023 Office Visit Family Medicine Lakeshia Nazario MD [address] [place] [address] [place] [address] Health Maintenance Due Date Last Done Comments [...] as of this encounter Visit Diagnoses Diagnosis Mild intermittent asthma without complication Unspecified asthma documented in this encounter Advance Directives Healthcare Agents on File Name Relationship Healthcare Agent Relationshi p Communication Allan Rodrigo Spouse Health Care Repr esentative (appointed verbally by patient or by statute hierarchy) Care Teams Enzyme Chemist Relationship Specialty Start Date End Date Lakeshia Nazario MD [address] [place] [address] [place] [address] PCP - General Family Medicine 10/22/21 documented as of this encounter
--- OUTSIDE RECORDS SUMMARY | 2023-06-08 06:09 | External Medical Summary | Summary of Care ---
Author Name Unknown Organization [facility] Address [address] [facility] [place] [address] Phone [phone] Care Team Providers Care Microbiology Teacher Name Role Phone Orlando Nazario MD Primary Care Provide r Encounter Details Date Type Department Care Team (Late st Contact Info) Description 08/26/2022 Population Health External Data Unspecified Department Allergies Active Allergy Reactions Criticality Noted Date Comments Amoxicillin-Pot Clavulanate Nausea/vomiting 07/2012 Amitriptyline Hcl Nausea/vomiting 12/10/2013 Oxycodone 06/02/2014 nausea documented as of this encounter (statuses as of 01/30/2023) Medications Medication Sig Dispensed Refills Start Date [...] morning. 90 Tablet 3 07/19/2022 Active Nystatin PowderIndications:Int ertrigo Apply to affected area three times daily [...] daily as needed for Constipation. 0 Active documented as of this encounter (statuses as of 01/30/2023) Active Problems Problem Noted Date Diagnosed Date [...] as of this encounter (statuses as of 01/30/2023) Resolved Problems Problem Noted Date Diagnosed Date [...] as of this encounter (statuses as of 01/30/2023) Immunizations Name Administration Dates Next Due COVID-19 [...] AM EST Office Visit Inter[facility] Center, [facility] [address] [place] [address] Seth Cuellar DO [address] [place] [phone] 03/31/2023 10:00 AM EST PulmDiagnostic Ancillary [address] [place] [address] [facility] [address] [place] [address] 04/24/2023 10:00 AM EST Office Visit Family Medicine [address] [phone] Emma Mendoza PA-C [address] [place] [address] [place] [address] 05/03/2023 10:30 AM EST Office Visit Cardiology, [facility] [address] [place] [address] Jelly Tejada PA-C [address] [place] [address] 07/21/2023 8:40 AM EDT Office Visit Family [address] [phone] Orlando Nazario MD [address] [place] [address] [place] [address] Health Maintenance Due Date Last Done Comments DXA Scan 1956 Cologuard 01/02/2001 Colonoscopy 01/02/2001 Colorectal Cancer Screening 01/02/2001 Fecal Occult Blood Test 01/02/2001 Sigmoidoscopy 01/02/2001 Pneumococcal Vaccine: 65+ Years (2 - PCV) 05/20/2009 05/20/2008 Mammogram 11/22/2013 11/22/2012, 09/05/2012 Depression Screening 01/27/2021 01/28/2020 *SPIROMETRY ONCE FOR ASTHMA-ADULT 02/10/2022 GFR 01/21/2024 01/20/2023, 0804/2022, 07/19/2022, Additional history [...] Name Relationship Healthcare Agent Relationshi p Communication [place] Verbeck Spouse Health Care Repr esentative (appointed verbally by patient or by statute hierarchy) Care Teams Microbiology Teacher Relationship Specialty Start Date End Date Orlando Nazario MD [address] [place] [address] [place] [address] PCP - General Family Medicine 10/22/21 documented as of this encounter
--- OUTSIDE RECORDS SUMMARY | 2023-06-08 06:09 | External Medical Summary | Summary of Care ---
Author Name Unknown Organization [facility] Address [address] [place] [address] Phone [phone] Care Team Providers Care Gas Distribution Supervisor Name Role Phone Orlando Nazario MD Primary Care Provide r Reason for Referral * Evaluate & Treat - Unlimited Visits (Within 10 days (routine)) - Authorized Specialty Diagnoses / Procedures Referred By Contac t Referred To Contact Physical Therapy / Physical Medicine And Rehab Diagnoses Spondylosis of lumbosacral region without myelopathy or radiculopathy Chronic bilateral low back pain without sciatica Debilitated patient Seth Cuellar DO [address] [place] [address] Referral ID Status Reason Start Date Expiration Date Visits Requested Visits Authorized [id number] Authorized Specialty Services Required 3 [id number] Question Answer Referral Priority Within 10 days (routine) Where should this appointment be scheduled? [facility] Comments Evaluate and treat for chronic lower back pain related to lumbar spondylosis, worsened by chronic debility. Consider core strengthening/flexibility treatments, postural retraining, TENS unit trial, therapeutic massage or as otherwise indicated. Reason for Visit * Reason Comments Back Pain * Evaluate & Treat - Unlimited Visits (Within 10 days (routine)) - Authorized Specialty Diagnoses / Procedures Referred By Contac t Referred To Contact Pain Management / Pain Medicine Diagnoses Chronic bilateral low back pain without sciatica Lumbar back pain Mark Abrams MD [address] [place] [address] [place] [address] Referral ID Status Reason Start Date Expiration Date Visits Requested Visits Authorized [id number] Authorized Specialty Services Required 12/02/2022 [id number] Encounter Details Date Type Department Care Team (Late st Contact Info) Description 01/31/2023 10:15 AM EST Office Visit [facility] Center, [facility] [address] [place] [address] Seth Cuellar Hardeep, [address] [place] [phone] Spondylosis of lumbosacral region without myelopathy or radiculopathy*; Chronic bilateral low back pain without sciatica; Debilitated patient Allergies Active Allergy Reactions Criticality Noted Date Comments Amoxicillin-Pot Clavulanate Nausea/vomiting 07/2012 Amitriptyline Hcl Nausea/vomiting 12/10/2013 Oxycodone 06/02/2014 nausea documented as of this encounter (statuses as of 01/31/2023) Medications Medication Sig Dispensed Refills Start Date [...] as of this encounter (statuses as of 01/31/2023) Active Problems Problem Noted Date Diagnosed Date [...] as of this encounter (statuses as of 01/31/2023) Resolved Problems Problem Noted Date Diagnosed Date [...] as of this encounter (statuses as of 01/31/2023) Immunizations Name Administration Dates Next Due COVID-19 mRNA, LNP-s, No Pre serve, 2-Dose Series (Moderna) 02/22/2021,08/04/2020,07/03/2020 COVID-19, MRNA-LNP, 23-24, P F, 30 MCG/0.3 mL, 12 YRS AND ABOVE, IM (Nexthink-Comirnaty) 01/20/2023 Covid-19, Mrna, Lnp-s, Pf, B ivalent, [...] as of this encounter Progress Notes * Seth Cuellar, - 01/31/2023 10:34 AM EST Interventional Pain Consult Dear Mark Abrams MD, thank you for your kind referral of Francy Wallace. Chief Complaint: Chief Complaint Patient presents with Back Pain History of Present Illness: As you know, Francy Wallace is a very pleasant 68 year old female with a past medical history significant for HLD, mild intermittent asthma, chronic diastolic heart failure, hypertensive CM, HTN, history of nonsustaind VT, elevated BMI, vit D deficiency, bipolar disorder, history of right hip LEIF,EARL and chronic LBP and who was referred to the pain clinic for evaluation for chronic lower back pa in. The pain is located in the bilateral lower back, and it does not radiate to the legs. She describesit as a dull, achy, at times sharp painful sensation. Denies numbness/tingling. The pain started about 6 months ago, after no noticeable injury. Aggravating factors include: staying in sitting position for too long, bending over, laying flat. Alleviating factors include: sitting up makes it better.The pain is present 100 % of time. Her current pain score is 7/10. Her pain at its least is 3 / 10.Her worst pain is 10+ / 10. Denies weakness. Denies numbness. Denies bowel or bladder incontinence. Denies symptoms of saddle anesthesia. Denies fevers/chills/night sweats. Denies unintentional weight loss. Current Pertinent Medications: Acetaminophen Duloxetine Gabapentin (recently stopped) Hydrocodone/APAP q6h prn from pain clinic in [place] Medications Trialed for this Issue Previously: Acetaminophen: Yes, explain: helps Steroids: No, explain: NSAIDS: Yes, helps. Anticonvulsants: Yes, explain: did not help Muscle Relaxants: No, explain: denies Topical Agents: Yes, helps a little. Sleep Aids: No, explain: Anti-Depressants: No, explain: duloxetine Opioids: Yes, explain: hydrocodone/apap Other: Pertinent Medications Poorly Tolerated Previously: Oxycodone -- nausea Interventional Pain Procedures: denies Pertinent Surgeries: H/o right LEIF, 2019 Physical Therapy: Has done cardiac PT Other Therapies: chiropractic Psychosocial Factors: She denies feeling depressed. She reports feeling anxiety. She denies} any suicidal or homicidal ideation.She admits to consulting with a behavorial health specialist before, follows with a psychiatrist in [place], Dr. Rancho Perea. She denies tobacco use. She denies} alcohol use. She denies personal history of substance abuse. She denies family history of substance abuse. She denies pending litigation, worker's compensation, ordisability claims related to reported issue. Review of Systems: A comprehensive 14-pt ROS were of reviewed with the patient including difficulty with sleep, snoring, aspiration history, dysphagia, stomach pain, nausea and vomiting, severe headaches, confusion, open skin lesions or wounds, chest pain, shortness of breath, excessive thirst, somnolence, dysuria, incomplete bladder emptying, easy bruising, recent clotting problems or bleeding, depression or rushed thoughts unless noted previously. Past Medical History: Diagnosis Date Asthma, severity to be determined Back disorder herniated disc? Bipolar I disorder, most recent episode depressed (HCC) Hyponatremia Infectious mononucleosis positive IGG Mitral valve disorder needs SBE prophylaxis Other forms of migraine, without mention of intractable migraine without mention of status migrainosus yrs Past Surgical History: Procedure Laterality Date LAPAROSCOPY; CHOLECYSTECTOMY REMOVAL OF TONSILS, AGE 13+ TOTAL HIP REPLACEMENT & PROSTHESIS Right 02/05/2020 Dr. Garcia Social History Socioeconomic History Marital status: Spouse [...] on file Housing Stability: Not on file Amoxicillin-pot clavulanate, Elavil [amitriptyline hcl], and Oxycodone Current Outpatient Medications Medication Sig Dispense Refill risperiDONE (RISPERDAL) 1 MG Tablet Take 0.5 Tablets by mouth in the morning and 0.5 Tablets beforebedtime. 30 Tab 5 DULoxetine HCl 60 MG Oral Capsule Delayed Release Particles (CYMBALTA) Take 1 Capsule by mouth in the morning. Every morning.. Oxybutynin Chloride ER 10 MG Oral Tablet Extended Release 24 Hour (Ditropan XL) Take 1 Tablet by mouth in the morning. 90 Tablet 3 Lidocaine 5 % External Patch Place 1 [...] mouth in the morning. 90 Tablet 1 HYDROcodone-Acetaminophen 5-325 MG Oral Tablet Take 0.5 Tablets by mouth every 6 hours as needed for Pain, Mild. 30 Tablet 0 Atorvastatin Calcium 10 MG Oral Tablet [...] at noon and 1 Tablet before bedtime. Melatonin 3 MG Oral Tablet Take 1 Tablet by mouth at bedtime. Fluticasone-Salmeterol 250-50 MCG/ACT Inhalation Aerosol Powder Breath Activated (Advair Diskus) Inhale 1 Puff by mouth in the morning and 1 Puff before bedtime. 60 Each 5 hydrOXYzine HCl 25 MG Oral Tablet Take 2 Tablets by mouth 4 times a day as needed for Anxiety. (Patient not taking: Reported on 01/20/2023) Nystatin Powder Apply to affected area three times daily x 14 day 1 Each 5 Gabapentin 400 MG Oral Capsule (Neurontin) Take 1 Capsule by mouth in the morning and 1 Capsule in the evening. 2 twice a day. (Patient not taking: Reported on 01/31/2023) 60 Capsule 0 Current Facility-Administered Medications Medication Dose Route Frequency Provider Last Rate Last Admin Albuterol Sulfate (Proventil) (2.5 MG/3ML) 0.083% inhalation solution 2.5 mg 2.5 mg Nebulizer Once PRN Emma Mendoza PA-C Family History Problem Relation Age of Onset Coronary Artery disease Mother 94 Heart Disorder Father s/p mitral and aortic valve replacement,d at 80 Pertinent Labs/Test Results: No results found for: [...] VALID INTERP NORMAL 04/30/2018 03:31 PM Imaging: Objective Physical Exam: Vital Signs: LMP 01/12/2004 There is no height or weight on file to calculate BMI. General: No apparent distress. Eyes: pupils equal and round, sclera white, pupils midsize. ENT: mucous membranes moist Resp: Non-labored breathing CV: Extremities warm and well-perfused. Psych: Oriented; affect warm, insight good. Skin: No rashes or lesions appreciated on exposed skin Neuromuscular Exam: Upon initial assessment, the patient is seated in a comfortable position. Rises from a seated position without difficulty. Upon inspection there is not evidence of scoliosis. Exam for symmetry and allignment reveals no abnormalities. Muscle bulk appears adequate. There evidence of erythema, edema in the extremities. Inspection: Rises from a seated position with significant difficulty, ambulates with walker in forward-bent positioning. There is not evidence of erythema, edema in the extremities. Gait: Ambulates unassisted; gait is antalgic. Palpation: Palpation does reveal midline lumbar tenderness; There is lumbar paraspinal tenderness bilaterally regions. Trigger points were not identified. PSIS tenderness: none GTB tenderness: none Spine range of motion: There is pain with lumbar extension There is pain with lumbar oblique extension to the right There is pain with lumbar oblique extension to the left There is not pain with lumbar flexion Range of motion is grossly intact at the hips, knees and ankles bilaterally. Motor: Motor strength exam reveals: Lower extremities: Right Left Hip flexion: L1,L2,L3 5/5 5/5 Add hips: L2L3 5/5 5/5 Knee flexion: S1 5/5 5/5 Knee extension: L3,L4 5/5 5/5 Dorsiflexion: L4,L5 5/5 5/5 Plantarflexion: S1 5/5 5/5 EHL: L5 5/5 5/5 Sensory: Sensory exam to light touch is intact in the L2-S1 dermatomes in the bilateral lower extremities. Reflexes: Deep tendon reflexes, Right 2+ patellar, 2+ Achilles, Left 2+ patellar, 2+ Achilles, No ankle clonus. Sitting straight leg test Negative on the right Negative on the left. Assessment: Francy Wallace is a 68 year old year-old female with: Spondylosis of lumbosacral region without myelopathy or radiculopathy (Primary) - L-/S-SPINE PARAVERTEBRAL FACET INJ,1 LEVEL; Future; Expected date: 02/01/2023 - L-/S-SPINE PARAVERTEBRL FACET INJ,2 LEVELS; Future; Expected date: 02/01/2023 - PHYSICAL THERAPY REFERRAL OP Chronic bilateral low back pain without sciatica - L-/S-SPINE PARAVERTEBRAL FACET INJ,1 LEVEL; Future; Expected date: 02/01/2023 - L-/S-SPINE PARAVERTEBRL FACET INJ,2 LEVELS; Future; Expected date: 02/01/2023 - PHYSICAL THERAPY REFERRAL OP Debilitated patient - PHYSICAL THERAPY REFERRAL OP Plan: Physical therapy referral placed. Evaluate and treat for chronic lower back pain related to lumbar spondylosis, worsened by chronic debility. Consider core strengthening/flexibility treatments, postural retraining, TENS unit trial, therapeutic massage or as otherwise indicated. Counseled on weight loss briefly. Counseled on gradual reduction of hydrocodone from q6h to TID dosing over next 1-2 months. Emphasized importance to long-term pain control. Goal is BID prn dosing. Will schedule for bilateral L3-5 MBB under XR guidance with a plan to perform RFA if two are successful. The risks, benefits and alternatives to the procedure were reviewed at length and the patient was provided the opportunity to ask questions which were answered to their voiced understanding. Following this comprehensive discussion, the patient opted to proceed. The patient was advised that they will require a ems driver. I spent 45 minutes during this patient's consultation. This time was spent completing multiple critical tasks including review of the patient's medical history via review of the medical record, past images, office visits, and procedures notes. I additionally utilized this time to perform a focused p hysical examination which I used to create a targeted assessment of the patient's pain. Additional time was utilized to create a patient-oriented holistic care plan, for procedure planning (as applicable), in the consideration of medication management, issuing orders, and to explain the plans to the patient and address questions and concerns. This also included the appropriate time to document our care plan. Seth Cuellar DO [facility], [address] [place] [address] documented in this encounter Nursing Notes * Tarmalissay, Daksha C, BOOM OPERATOR - 01/31/2023 10:09 AM EST Patient presents with low back pain for many years but worse recently PT for cardiac rehab-still does exercises No MRI No relief with Gabapentin Xrays in chart Worse with bending forward for 5min documented in this encounter Plan of Treatment Upcoming Encounters Date Type Department Care Team (Latest Contact Info) Description 03/31/2023 10:00 AM EST PulmDiagnostic Ancillary [address] [place] [address] Uday sharif [address] [place] [phone] 04/24/2023 10:00 AM EST Office Visit Family Medicine [address] [place] [phone] Emma Mendoza PA-C [address] [place] [address] [place] [address] 04/26/2023 12:55 PM EST Hospital Encounter OR [facility], Operating Room [facility] [address] [place] [phone] Seth Cuellar, [address] [place] [phone] 04/26/2023 12:55 PM EST - 04/26/2023 1:20 PM EST Surgery OR [facility], Operating Room [facility] [address] [place] [phone] Seth Cuellar, [address] [place] [phone] L-/S-SPINE PARAVERTEBRAL FACET INJ, 1 LEVEL 05/03/2023 10:30 AM EST Office Visit Cardiology, [facility] [address] [place] [address] Jelly Tejada PA-C [address] [place] [address] 07/21/2023 8:40 AM EDT Office Visit Family [address] [place] [phone] Orlando Nazario MD [address] [place] [address] [place] [address] Scheduled Orders Name Type Priority Associated Diagnoses Orde r Schedule L-/S-SPINE PARAVERTEBRAL FACET INJ,1 LEVEL Procedures Routine Spondylosis of lumbosacral region without myelopathy or radiculopathy Chronic bilateral low back pain without sciatica Expected: 02/01/2023, Expires: 05/03/2023 L-/S-SPINE PARAVERTEBRL FACET INJ,2 LEVELS Procedures Routine Spondylosis of lumbosacral region without myelopathy or radiculopathy Chronic bilateral low back pain without sciatica Expected: 02/01/2023, Expires: 05/03/2023 Scheduled Procedures Name Priority Associated Diagnoses Date/Ti me L-/S-SPINE PARAVERTEBRAL FACET INJ, 1 LEVEL Spondylosis of lumbosacral region without myelopathy or radiculopathy 04/26/2023 12:55 PM EST L-/S-SPINE PARAVERTEBRAL FACET INJ, 2 LEVELS Spondylosis of lumbosacral region without myelopathy or radiculopathy 04/26/2023 12:55 PM EST Scheduled Referrals Name Type Priority Associated Diagnoses Orde r Schedule PHYSICAL THERAPY REFERRAL OP Referral Within 10 days (routine) Spondylosis of lumbosacral region without myelopathy or radiculopathy Chronic bilateral low back pain without sciatica Debilitated patient Ordered: 01/31/2023 Health Maintenance Due Date Last Done Comments [...] Chronic bilateral low back pain without sciatica Debilitated patient Debility, unspecified Spondylosis of lumbosacral region without myelopathy or radiculopathy Lumbosacral spondylosis without myelopathy documented in this encounter Advance Directives Healthcare Agents on File Name Relationship Healthcare Agent Relationshi p Communication [place] Spouse Health Care Repr esentative (appointed verbally by patient or by statute hierarchy) Care Teams Gas Distribution Supervisor Relationship Specialty Start Date End Date Orlando Nazario MD [address] [place] [address] [place] [id number] PCP - General Family Medicine 10/22/21 documented as of this encounter
--- OUTSIDE RECORDS SUMMARY | 2023-06-08 06:09 | External Medical Summary | Summary of Care ---
Author Name Unknown Organization [facility] Address [address] [facility] [place] [address] Phone [phone] Care Team Providers Care Heavy Duty Custodian Name Role Phone Orlando Nazario MD Primary Care Provide r Encounter Details Date Type Department Care Team (Late st Contact Info) Description 01/20/2023 10:00 AM EDT Immunization Ancillary [address] [place] [address] [facility] Covid19 Vaccine [address] [place] [address] Arrived Allergies Active Allergy Reactions Criticality Noted Date [...] by mouth at bedtime. 0 01/13/2023 Active documented as of this encounter (statuses [...] MCG/0.3 mL, 12 YRS AND ABOVE, IM ([facility]) 01/20/2023 Covid-19, Mrna, Lnp-s, Pf, B ivalent, [...] AM EST Office Visit Interventional Pain Center, [facility] [address] [place] [address] Seth Cuellar DO [address] [place] [phone] 05/03/2023 10:30 AM EST Office Visit Cardiology, [facility] [address] [place] [address] Jlely Tejada, [place] [address] [place] [address] 07/21/2023 8:40 AM EDT Office Visit Family Medicine [address] [place] [phone] Orlando Nazario MD [address] [place] [address] [place] [address] Health Maintenance Due Date Last Done Comments [...] Relationship Healthcare Agent Relationshi p Communication [facility] Spouse Health Care Repr esentative (appointed verbally by patient or by statute hierarchy) Care Teams Heavy Duty Custodian Relationship Specialty Start Date End Date Orlando Nazario MD [address] [place] [address] [place] [address] PCP - General Family Medicine 10/22/21 documented as of this encounter
--- OUTSIDE RECORDS SUMMARY | 2023-06-08 06:09 | External Medical Summary | Summary of Care ---
Author Name Unknown Organization [facility] Address [address] [facility] [place] [address] Phone [phone] Care Team Providers Care Education Analyst Name Role Phone Orlando Nazario MD Primary Care Provide r Reason for Visit * Reason Onset Date Comments Re-Check Medication Administration 01/20/2023 Flu an d/or Pneumo Inj Encounter Details Date Type Department Care Team (Late st Contact Info) Description 01/20/2023 10:00 AM EDT Office Visit Family Medicine [address] [place] [phone] Emma Mendoza PA-C [address] [place] [address] [place] [address] Chronic diastolic CHF (congestive heart failure) (HCC)*; Need for prophylactic vaccination and inoculation against influenza; Chronic cough; Body mass index (BMI) of 40.0 to 44.9 in adult (HCC); Hypertensive heart disease with chronic diastolic congestive heart failure (HCC); Pulmonary hypertension (HCC); BIPOLAR AFF, DEPR-UNSPEC; DDD (degenerative disc disease), lumbar; Dyslipidemia, goal LDL below 130; Generalized anxiety disorder; HTN, goal below 140/90; Mild intermittent asthma without complication Allergies Active Allergy Reactions Criticality Noted Date [...] Sign Reading Time Taken Comments Blood Pressure 126/80 01/20/2023 9:55 AM EDT Pulse 85 01/20/2023 9:55 AM EDT Temperature 36 C (96.8 F) 01/20/2023 9:55 AM EDT Respiratory Rate - - Oxygen Saturation 90% 01/20/2023 9:55 AM EDT Inhaled Oxygen Concentration - - Weight 114.2 kg (251 lb 11.2 oz) 01/20/2023 9:55 AM EDT Height - - Body Mass Index 46.04 08/31/2022 8:59 AM EDT documented in this encounter Progress Notes * Emma Mendoza PA-C - 01/20/2023 10:08 AM EDT Nursing Notes: Laury Ferreira, [facility] 01/20/23 0957 Sign at exiting of workspace She is here today for a regular recheck. She also has a persistent cough that won't go away. Her right nostril is plugge up too. Pt here today for a regular check up. Pt with PMH of asthma, HF, dyslipidemia, HTN, bipolar, obesity, chronic back pain, anxiety, pulm HTN. Pt does have a chronic cough, dry. It doesn't seem worse than normal. Pt worried about fluid in her lungs. Pt denies fever, chills, chest pain. She does have SOB. She does have O2 that she wears, at home. She has never had a PFT, per our records. Pt denies fever, chills, swelling in legs. Just had echo - was stable. Follow with cardiology. Pt also with blocked right nostril. Pt denies URI Sx, allergy/sinus sx. Pt has no other issues at this time. She does need some labs. Review of patient's allergies indicates: Allergen Reactions [...] Take 1 Tablet by mouth at bedtime. hydrOXYzine HCl 25 MG Oral Tablet Take 2 Tablets by mouth 4 times a day as needed for Anxiety. (Patient not taking: Reported on 01/20/2023) Gabapentin 400 MG Oral Capsule (Neurontin) Take 1 Capsule by mouth in the morning and 1 Capsule in the evening. 2 twice a day. (Patient not taking: Reported on 01/20/2023) 60 Capsule 0 No current facility-administered medications for this visit. Past Medical History: Diagnosis Date Asthma, severity [...] on file Food Insecurity: No Food Insecurity (11/05/2018) Hunger Vital Sign Worried About Running Out of Food in the Last Year: Never true Ran Out of Food in the Last Year: Never true Transportation Needs: Not on file Physical Activity: Not on file Stress: Not on file Social Connections: Not on file Intimate Partner Violence: Not on file Housing Stability: Not on file O:Blood pressure 126/80, pulse 85, temperature 36 C (96.8 F), weight 114.2 kg (251 lb 11.2 oz),last menstrual period 01/12/2004, SpO2 90%. GENERAL: alert, healthy, and no distress NECK: [...] chest wall tenderness, lungs clear to auscultation EXTREMITIES: no edema A:Chronic diastolic CHF (congestive heart failure) (HCC) (Primary) Need for prophylactic vaccination and inoculation against influenza - INFLUENZA VACC, QUAD, HIGH DOSE (FLUZONE HD) Chronic cough - XR CHEST 2 VIEWS - SPIROMETRY B/A BRONCHODILATOR; Future; Expected date: 01/27/2023 - Albuterol Sulfate (Proventil) (2.5 MG/3ML) 0.083% inhalation solution 2.5 mg Body mass index (BMI) of 40.0 to 44.9 in adult (HCC) Hypertensive heart disease with chronic diastolic congestive heart failure (HCC) Pulmonary hypertension (HCC) BIPOLAR AFF, DEPR-UNSPEC DDD (degenerative disc disease), lumbar Dyslipidemia, goal LDL below 130 - LIPID PANEL WITH DIRECT LDL IF TG IS HIGH; Future; Expected date: 01/20/2023 Generalized anxiety disorder HTN, goal below 140/90 - BASIC METABOLIC PANEL; Future; Expected date: 01/20/2023 Mild intermittent asthma without complication - Fluticasone-Salmeterol 250-50 MCG/ACT Inhalation Aerosol Powder Breath Activated (Advair Diskus);Inhale 1 Puff by mouth in the morning and 1 Puff before bedtime. Will get PFT. Try advair. Will check some labs. Recheck with PCP in 3 months. Any questions/problems, please call. If anything changes, worsens, develops new sx, please call [facility]. Follow Up: Return if symptoms worsen or fail to improve. Emma Mendoza PA-C * Laury Ferreira CMA - 01/20/2023 10:00 AM EDT PRE - ADMINISTRATION DOCUMENTATION Are you experiencing any cold symptoms or fever? No Have you had Guillain-Trenton Syndrome (an illness that causes paralysis) within the last 6 weeks? No Have you had the flu shot in the past? YES Have you ever had a reaction to the flu shot? No Laury Ferreira CMA, 01/20/2023 10:00 AM Immunization Administration Documentation Time Out Procedure Performed: Yes Patient Identified (Ask Name/Date of ): Yes Does the patient have a fever greater than 101 degrees today? No Patient allergic to latex? No VFC Stock: No Immunization(s) verified: Yes, Immunization Name: Flu, VIS Sheet(s) given: Yes Verified Side and Site: Yes Verified Shot(s) with Parent(s)/Patient: Yes documented in this encounter Nursing Notes * Laury Ferreira CMA - 01/20/2023 9:53 AM EDT She is here today for a regular recheck. She also has a persistent cough that won't go away. Her right nostril is plugge up too. documented in this encounter Plan of Treatment Upcoming Encounters Date Type Department Care Team (Late st Contact Info) Description 01/31/2023 10:15 AM EST Office Visit Interventional Pain Center, [facility] [address] [place] [address] Seth Cuellar DO [address] [place] [phone] 04/24/2023 10:00 AM EST Office Visit Family [address] [phone] Emma Mendoza PA-C [address] [place] [address] [place] [address] 05/03/2023 10:30 AM EST Office Visit Cardiology, [facility] [address] [place] [address] Jelly Tejada PA-C [address] [place] [address] 07/21/2023 8:40 AM EDT Office Visit [address] [phone] Orlando Nazario MD [address] [place] [address] [place] [address] Pending Results Name Type Priority Associated Diagnoses Date /Time XR CHEST 2 VIEWS Medical Imaging Routine Chronic cough 01/20/2023 10:39 AM EDT BASIC METABOLIC PANEL Lab Routine HTN, goal below 140/90 01/20/2023 10:31 AM EDT LIPID PANEL WITH DIRECT LDL IF TG IS HIGH Lab Routine Dyslipidemia, goal LDL below 130 01/20/2023 10:31 AM EDT Scheduled Orders Name Type Priority Associated Diagnoses Orde r Schedule SPIROMETRY B/A BRONCHODILATOR Procedures Routine Chronic cough Expected: 01/27/2023, Expires: 02/20/2024 BASIC METABOLIC PANEL Lab Routine HTN, goal below 140/90 Expected: 01/20/2023 (Approximate), Expires: 01/20/2024 LIPID PANEL WITH DIRECT LDL IF TG IS HIGH Lab Routine Dyslipidemia, goal LDL below 130 Expected: 01/20/2023, Expires: 01/21/2024 Health Maintenance Due Date Last Done Comments [...] as of this encounter Visit Diagnoses Diagnosis Chronic diastolic CHF (congestive heart failure) (HCC)- Primary Chronic diastolic heart failure Need for prophylactic vaccination and inoculation against influenza Chronic cough Cough Body mass index (BMI) of 40.0 to 44.9 in adult (HCC) Hypertensive heart disease with chronic diastolic congestive heart failure (HCC) Pulmonary hypertension (HCC) Other chronic pulmonary heart diseases BIPOLAR AFF, DEPR-UNSPEC Bipolar I disorder, most recent episode (or current) depressed, unspecified DDD (degenerative disc disease), lumbar Degeneration of lumbar or lumbosacral intervertebral disc Dyslipidemia, goal LDL below 130 Other and unspecified hyperlipidemia Generalized anxiety disorder HTN, goal below 140/90 Unspecified essential hypertension Mild intermittent asthma without complication Unspecified asthma documented in this encounter Advance Directives Healthcare Agents on File Name Relationship Healthcare Agent Relationshi p Communication [facility] Spouse Health Care Repr esentative (appointed verbally by patient or by statute hierarchy) Care Teams Education Analyst Relationship Specialty Start Date End Date Orlando Nazario MD [address] [place] [address] [place] [address] PCP - General Family Medicine 10/22/21 documented as of this encounter
--- OUTSIDE RECORDS SUMMARY | 2023-06-08 06:09 | External Medical Summary ---
Author Name Unknown Address Unknown Organization K01:[facility] [place] [address] [place] [address] Laboratory Report Ordering Provider Test Date Status EUGENIA CHRISTENSEN 01/20/2023 10:31:27 Final Observation Date Value Abnormality Reference (Units ) Status BUN 01/20/2023 10:31:27 10 6-20 (mg/dL) Final Creatinine 01/20/2023 10:31:27 0.9 0.5-1.0 (mg/dL) Final Glomerular filtration rate/1.73 sq M.predicted [Volume Rate/Area] in Serum, Plasma or Blood by Creatinine-based formula (CKD-EPI) 01/20/2023 10:31:27 67 >=60 (mL/min) Final eGFR is calculated based on the CKD-EPI 2020 equation SODIUM 01/20/2023 10:31:27 129 Below low normal 135 -146 (mmol/L) Final Potassium 01/20/2023 10:31:27 4.6 3.5-5.1 (m mol/L) Final Cl 01/20/2023 10:31:27 87 Below low normal 98- 107 (mmol/L) Final CO2 01/20/2023 10:31:27 30 22-32 (mmo l/L) Final Anion gap 01/20/2023 10:31:27 12 7-15 (mmol /L) Final Glucose 01/20/2023 10:31:27 94 70-120 (mg /dL) Final Calcium 01/20/2023 10:31:27 9.2 8.4-10.2 ( mg/dL) Final Performing Location [facility] [place] [address] [place] [address]
--- OUTSIDE RECORDS SUMMARY | 2023-06-08 06:10 | External Medical Summary | Summary of Care ---
Author Name Unknown Organization [facility] Address [address] [place] [address] Phone [phone] Care Team Providers Care Caramel Cutter Hand Name Role Phone Orlando Nazario MD Primary Care Provide r Reason for Visit * Reason Onset Date Comments case management 12/29/2022 Order Request 12/29/2022 Encounter Details Date Type Department Care Team Description 12/29/2022 Tube Test Technician Telephone [address] [phone] Sherley Jensen, RN [address] [place] [address] case management; Order Request Allergies Active Allergy Reactions Severity Noted Date [...] as needed for Anxiety. 0 05/28/2021 Active Albuterol Sulfate HFA 108 (90 Base) MCG/ACT Inhalation Aerosol SolutionIndications :Mild intermittent asthma without complication INHALE 2 PUFFS BY MOUTH 4 TIMES A DAY. 18 g 5 08/04/2021 Active Additional Information Patient taking differently: QID PRN, Other, wheezing, INHALE 2 PUFFS BY MOUTH 4 TIMES A DAY, as needed for wheezing, Informant: At Discharge, Reported on 08/26/2022 Oxybutynin Chloride ER 10 MG Oral Tablet [...] the morning. 90 Tablet 1 08/30/2022 Active HYDROcodone-Acetami nophen 5-325 MG Oral Tablet Take 0.5 Tablets [...] before bedtime. 180 Tablet 1 12/05/2022 Active documented as of this encounter (statuses [...] Telephone Encounter - Sherley Jensen RN - 12/29/2022 12:44 PM EDT Called and spoke with patient. Gave patient message from cardiology. She will take one whole pill in the mornings, and 1/2 tablet in the afternoons (after lunch but before 3 PM) to prevent having to get up a lot at night to void. Besides watching patient's scales, she will call Monday and leave message, or on Monday - to let usknow if that improved the shortness of breath/edema. Patient has to go back to the dentist (oral surgeon) on Monday - as she has a lot of bone/tooth fragments sticking out in her gums. Was to return in one month to have that addressed. Monday is one month. * Telephone Encounter - Jelly Tejada PA-C - 12/29/2022 12:18 PM EDT Increase furosemide to 40 mg - 1 tablet in AM and 1/2 tab (20 mg) in afternoon for next 3 days. Monitor weight/status * Telephone Encounter - Sherley Jensen RN - 12/29/2022 11:22 AM EDT [facility] trigger yesterday for weight gain of 6 lbs in the past 5 days. Was unable to reach patient. Patient called me back this morning. Reporting "little bit" short of breath, "little bit" edema - sock leaving indent, but "not much". Ongoing non productive cough - not new. Had all her teeth pulled out - so, is on a liquid diet. She is drinking way more than 2 pts per day, as she cannot eat. Patient sleeps in a recliner, cannot lay down to sleep. Not new - ongoing. Recent weights, via [facility]: 12/23/22 238.5 lbs 12/24/22 240.0 lbs 12/26/22 242.5 lbs 12/27/22 243.0 lbs 12/28/22 244.5 lbs 12/29/22 243.0 lbs Patient is taking 40 mg of lasix once daily. Could we have a DTP of an extra 20 mg or 40 mg for weight increase of 3 lbs overnight or 5 lbs in aweek? Please. Please advise........... Thank you. documented in this encounter Plan of Treatment Upcoming Encounters Date Type Specialty Care Team Description 01/20/2023 Office Visit Family Medicine Emma Mendoza PA-C [address] [place] [address] [place] [address] 01/31/2023 Office Visit Pain Medicine Seth Cuellar DO [address] [place] [phone] 05/03/2023 Office Visit Cardiology Jelly Tejada PA-C [address] [place] [address] 07/21/2023 Office Visit Family Medicine Orlando Nazario MD [address] [place] [address] [place] [address] Health Maintenance Due Date Last Done Comments [...] Name Relationship Healthcare Agent Relationshi p Communication [place] [facility] Spouse Health Care Repr esentative (appointed verbally by patient or by statute hierarchy) Care Teams Caramel Cutter Hand Relationship Specialty Start Date End Date Orlando Nazario MD [address] [place] [address] [place] [address] PCP - General Family Medicine 10/22/21 documented as of this encounter
--- OUTSIDE RECORDS SUMMARY | 2023-06-08 06:10 | External Medical Summary | Summary of Care ---
Author Name Unknown Organization [facility] Address [address] [place] [address] Phone [phone] Care Team Providers Care Can Maker Name Role Phone Orlando Nazario MD Primary Care Provide r Reason for Visit * Reason Onset Date Comments case management 12/28/2022 [facility] Encounter Details Date Type Department Care Team Description 12/28/2022 [place]pet [place] Telephone [address] [phone] Sherley Jensen, RN [address] [place] [address] case management ([facility]) Allergies Active Allergy Reactions Severity Noted Date Comments Amoxicillin-Pot Clavulanate Nausea/vomiting 07/2012 Amitriptyline Hcl Nausea/vomiting 12/10/2013 Oxycodone 06/02/2014 nausea documented as of this encounter (statuses as of 12/28/2022) Medications Medication Sig Dispensed Refills Start Date [...] as of this encounter (statuses as of 12/28/2022) Active Problems Problem Noted Date Body mass [...] as of this encounter (statuses as of 12/28/2022) Resolved Problems Problem Noted Date Resolved Date [...] as of this encounter (statuses as of 12/28/2022) Immunizations Name Administration Dates Next Due COVID-19 [...] Telephone Encounter - Sherley Jensen RN - 12/28/2022 4:21 PM EDT [facility] trigger for weight gain of 6 lbs in the past 5 days. Current weight is 244.5 lbs. Attempted to contact patient. No answer. Left message requesting call back. [facility] Follow-up Routine Attempted Phone Call First Attempt Call Outcome Left Voicemail/Message Plan To attempt another outreach Or will await call back from patient documented in this encounter Plan of Treatment Upcoming Encounters Date Type Specialty Care Team Description 01/20/2023 Office Visit Family Medicine Emma Mendoza PA-C [address] [place] [address] [place] [address] 01/31/2023 Office Visit Pain Medicine Seth Cuellar DO [address] [place] [phone] 05/03/2023 Office Visit Cardiology Jelly Tejada PA-C [address] [place] [address] 07/21/2023 Office Visit Family Medicine Orlando Nazario MD [address] [place] [address] [place] [address] Health Maintenance Due Date Last Done Comments [...] patient or by statute hierarchy) Care Teams Can Maker Relationship Specialty Start Date End Date Orlando Nazario MD [address] [place] [address] [place] [address] PCP - General Family Medicine 10/22/21 documented as of this encounter
--- OUTSIDE RECORDS SUMMARY | 2023-06-08 06:10 | External Medical Summary | Summary of Care ---
Author Name Unknown Organization [facility] Address [address] [facility] [address] Phone [phone] Care Team Providers Care Video Clerk Name Role Phone Orlando Nazario MD Primary Care Provide r Reason for Visit * Reason Onset Date Comments Follow Up 12/05/2022 Encounter Details Date Type Department Care Team Description 12/05/2022 Telephone Cardiology, [facility] [address] [place] [address] Moreno Campos, [address] [place] [address] Follow Up Allergies Active Allergy Reactions Severity Noted Date Comments Amoxicillin-Pot Clavulanate Nausea/vomiting 07/2012 Amitriptyline Hcl Nausea/vomiting 12/10/2013 Oxycodone 06/02/2014 nausea documented as of this encounter (statuses as of 12/09/2022) Medications Medication Sig Dispensed Refills Start Date [...] as of this encounter (statuses as of 12/09/2022) Active Problems Problem Noted Date Body mass [...] as of this encounter (statuses as of 12/09/2022) Resolved Problems Problem Noted Date Resolved Date [...] as of this encounter (statuses as of 12/09/2022) Immunizations Name Administration Dates Next Due COVID-19 mRNA, LNP-s, No Pre serve, 2-Dose Series (Moderna) 02/22/2021,08/04/2020,07/03/2020 Covid-19, Mrna, Lnp-s, Pf, B ivalent, 50 Mcg, IM, 12 yrs and above (Moderna) 01/11/2022 Pneumococcal Polysaccharide PPV23 (Pneumovax) 05/20/2008 Seasonal Influenza, PF, 6 mo ns & Above, IM , (Flulaval) 12/09/2019,12/26/2018,01/15/2018,12/19 Seasonal Influenza, Quadriva lent, No Preserve, [...] encounter Miscellaneous Notes * Telephone Encounter - SILVER [place] - 12/09/2022 3:22 PM EDT Waiting for December to open. * Telephone Encounter - Karen Munoz LPN - 12/09/2022 2:02 PM EDT Pt notified via phone and states understanding. Please reschedule appt * Telephone Encounter - Moreno Campos DO - 12/05/2022 3:57 PM EDT Nursing: An echocardiogram was performed on this patient on 10/18/2022, which he had been ordered as part of a pre cardiology consult telephone encounter to expedite evaluation with referral having been primary care due to concerns of worsening diastolic heart failure. Please notify patient that echocardiogram findings were stable. Summary: The left ventricular cavity size is normal. [...] 11, 2022, there is no significant change. Her visit which was scheduled for 11/04/22 was cancelled due to coverage issues and needs to be rescheduled. Moreno Campos DO documented in this encounter Plan of Treatment Upcoming Encounters Date Type Specialty Care Team Description 01/20/2023 Office Visit Family Medicine Emma Mendoza PA-C [address] [place] [address] [place] [id number] 01/31/2023 Office Visit Pain Medicine Seth Cuellar, [address] [place] [phone] 07/21/2023 Office Visit Family Medicine Orlando Nazario MD [address] [place] [address] [place] [address] Health Maintenance Due Date Last Done Comments DXA Scan 1956 Cologuard 01/02/2001 Colonoscopy 01/02/2001 Colorectal Cancer Screening 01/02/2001 Fecal Occult Blood Test 01/02/2001 Sigmoidoscopy 01/02/2001 Pneumococcal Vaccine: 65+ Years (2 - PCV) 05/20/2009 05/20/2008 Mammogram 11/22/2013 11/22/2012, 09/05/2012 Depression Screening 01/27/2021 01/28/2020 *SPIROMETRY ONCE FOR ASTHMA-ADULT 02/10/2022 Influenza Vaccine (FLU shot) (#1) 2022 01/11/2022, [...] Smear Discontinued 06/17/2008, 05/10/2000 COVID-19 Vaccine Completed 01/11/2022, 08/2020, 08/04/2020, Additional history exists GARDASIL-HPV IMMUNIZATION SERIES Aged [...] patient or by statute hierarchy) Care Teams Video Clerk Relationship Specialty Start Date End Date Orlando Nazario MD [address] [place] [address] [place] [address] PCP - General Family Medicine 10/22/21 documented as of this encounter
--- OUTSIDE RECORDS SUMMARY | 2023-06-08 06:10 | External Medical Summary | Summary of Care ---
Author Name Unknown Organization [facility] Address [address] [facility] [address] Phone [phone] Care Team Providers Care Mosaic Technician Name Role Phone Orlando Nazario MD Primary Care Provide r Reason for Visit * Reason Onset Date Comments Follow Up 12/05/2022 Encounter Details Date Type Department Care Team Description 12/05/2022 Telephone Cardiology, [facility] [address] [place] [address] Moreno Campos, [address] [place] [address] Follow Up Allergies Active Allergy Reactions Severity Noted Date Comments Amoxicillin-Pot Clavulanate Nausea/vomiting 07/2012 Amitriptyline Hcl Nausea/vomiting 12/10/2013 Oxycodone 06/02/2014 nausea documented as of this encounter (statuses as of 12/12/2022) Medications Medication Sig Dispensed Refills Start Date [...] as of this encounter (statuses as of 12/12/2022) Active Problems Problem Noted Date Body mass [...] as of this encounter (statuses as of 12/12/2022) Resolved Problems Problem Noted Date Resolved Date [...] as of this encounter (statuses as of 12/12/2022) Immunizations Name Administration Dates Next Due COVID-19 [...] Influenza, Trivalen t, Adjuvanted, 65+ yrs 01/11/2022,02/22/2021 TB [place] Test 01/28/1991 TDAP (age 10 and older)(Boostrix) 10/15/2018 TDAP [...] * Telephone Encounter - SILVER [place] - 12/12/2022 11:16 AM EDT Spoke with Pt, appt scheduled for 05/03 with Jelly Tejada. * Telephone Encounter - S[place]VER [place] - [...] Office Visit Family Medicine Emma Mendoza PA-C [address] [place] [address] [place] [address] 01/31/2023 Office Visit Pain Medicine Seth Cuellar DO [address] [place] [phone] 05/03/2023 Office Visit Cardiology Jelly Tejada PA-C [address] [place] [address] 07/21/2023 Office Visit Family Medicine Orlando Nazario MD [address] [place] [address] [place] [address] Health Maintenance Due Date Last Done Comments DXA Scan 1956 Cologuard 01/02/2001 Colonoscopy 01/02/2001 Colorectal Cancer Screening 01/02/2001 Fecal Occult Blood Test 01/02/2001 Sigmoidoscopy 01/02/2001 Pneumococcal Vaccine: 65+ Years (2 - PCV) 05/20/2009 05/20/2008 Mammogram 11/22/2013 11/22/2012, 09/05/2012 Depression Screening 01/27/2021 01/28/2020 *SPIROMETRY ONCE FOR ASTHMA-ADULT 02/10/2022 Influenza Vaccine (FLU shot) (#1) 2022 01/11/2022, 02/22/2021, 12/09/2019, Additional history exists GFR 10/20/2023 10/19/2022, 0504/2022, 10/22/2021, Additional history exists Albumin/Creatinine Ratio 09/02/2024 [...] patient or by statute hierarchy) Care Teams Mosaic Technician Relationship Specialty Start Date End Date Orlando Nazario MD [address] [place] [address] [place] [address] PCP - General Family Medicine 10/22/21 documented as of this encounter
--- NOTE | 2023-06-08 07:48 | Cardiology Consultation ---
Date of Consultation June 08, 2023 Assessment & Plan (1) Acute on chronic heart failure with preserved ejection fraction (HFpEF): (2) Right heart failure: (3) Hyponatremia: (4) Obesity hypoventilation syndrome: Plan IMPRESSION: Medically complex 68 year old female with acute on chronic diastolic CHF with RHF symptoms. Patient with chronic respiratory failure and Obesity hypoventilation syndrome. Hyponatremia likely due to volume overload and excessive intake or oral fluids. PLAN: HFpEF: -Patient remains hypervolemic on exam. Continue diuresis with IV Lasix 60 mg BID. Patient will likely benefit from Torsemide when transitioned. -Closely monitor renal function and electrolytes/sodium level- replace k to a goal of 4.0 and mag of 2.0. Will write for 40 meq of KCL daily and Mag ox 400 mg daily. -STRICT fluid restriction, 1800mL. May need to reduce to 1500 mL/day. 2g sodium diet. Daily weights. [facility]. -Echo pending -Holding home dose Norvasc due to volume overload and borderline low BP to allow for more aggressive diuresis. Chronic respiratory failure: On chronic supplemental o2 at baseline. Consider screening for SILVER given OHS as this is likely driving her ongoing fluid retention. Case discussed with Dr. Rojas. Further recommendations pending his assessment/review of echo. I spent a total of 40 minutes on the date of service in preparation, delivery, and documentation of the care provided to the patient excluding any time spent in the performance of separately billed services. LEWIS Maldonado Department of Cardiology, [facility] This chart was completed in part utilizing Speech Voice Recognition Software. Grammatical errors, random word insertions, pronoun errors, and incomplete sentences are an occasional consequence of this system due to software limitations, ambient noise, and hardware issues. Any formal questions or concerns about the content, text, or information contained within the body of this dictation should be directly addressed to the provider for clarification. Supervising Physician Co-Signing Physician Notes I have reviewed the advance practitioner's documentation, and I agree with, and take responsibility for the plan of care. 68-year-old female presents to the emergency department with weight gain, edema, and shortness of breath. History of chronic heart failure with preserved ejection fraction morbid obesity with hypoventilation syndrome and chronic hyponatremia due to excessive fluid intake. Resting comfortably. Fluid balance negative more than 2 L with IV diuretics. present at bedside. PE: VSS. Gen: Morbid obesity. Heart: Regular rhythm, distant heart sounds, normal S1-S2. No murmur. Lungs: Crackles at the bases bilaterally. No rhonchi or wheeze. Extremities: 2+ bilateral pretibial edema to the knees. A/P: 68-year-old female admitted with acute on chronic heart failure with preserved ejection, right heart failure, in the setting of obesity hypoventilation syndrome, acute on chronic hypoxic and hypercapnic respiratory failure. Compensated with pH of 7.40 and pCO2 of 74 on admission. Recommend continue IV diuresis. Monitor fluid balance, daily weight, GFR, and electrolytes. Discussed importance of fluid restriction. Patient voiced understanding. Continue supplemental oxygen as needed (wearing 3 L at home). Consider pulmonary/sleep medicine evaluation of suspected obstructive sleep apnea and need for CPAP. I spent a total of 25 minutes on the date of service in preparation, delivery, and documentation of the care provided to this patient, excluding any time spent in the performance of separately billed services. History of Present Illness Reason for Consultation: Acute decompensated diastolic CHF Requesting Physician: Mook hospitalist Attending Physician: Tommie Zamora MD History of Present Illness 68-year-old female who presented to [facility] emergency department secondary to progressive shortness of breath, weight gain, and ongoing hyponatremia. Recently established with Jelly Tejada PA-C in our outpatient clinic, 05/03/2023. Patient carries a history of hyponatremia due to excessive fluid intake (>90 oz/day)--noncompliant with cardiology fluid retention of less than 50 ounces daily. She takes Lasix 60 mg on Monday and 40 mg on all other days On admission sodium was 131>>133. K 3.5-3.6. Mag 1.6 serum creatinine was stable. High-sensitivity troponin negative x 1. Checks x-ray was unremarkable without evidence of pleural effusions pulmonary vascular congestion. Patient is currently being diuresed with IV Lasix 60 mg twice daily. Echo pending. Tele: SR 60-80s I&O: -2.3L Weight: 121.7kg >> 116.4 kg Upon entrance into the room patient resting in bed. , Bull, at bedside. No acute distress. Notes mild improvement in breathing since admission. No chest pain, palpitations, dizziness, syncope or near syncope. Chronically sleeps with her HOB elevated/recliner due to back pain. + increased lower extremity edema. +On chronic supplemental o2 (3-4L). No fever, chills, cough, hematochezia, melena, or hemoptysis. Notes constant dry mouth due to her psyc meds-- drinks large amounts of liquids at home. Patient on a fluid restrictions and has 2 bottles of soda, a water pitcher, and cup of water on her bedside table. Outpatient cardiology medications include: -Metoprolol succinate 100 mg twice daily -Furosemide 40 mg daily with an additional 20 mg every Monday -Amlodipine 2.5 mg daily -Atorvastatin 10 mg daily Past medical history: Hypertension with hypertensive heart disease Chronic diastolic CHF Right heart failure/pulmonary hypertension secondary to obesity hypoventilatory syndrome Chronic hypoxic respiratory failure with chronic supplemental oxygen needs. Morbid obesity Chronic hyponatremia due to excessive fluid intake Nocturnal hypoxia Allergies Allergy/AdvReac Type Severity Reaction Status Date / Time amitriptyline [From Elavil] AdvReac Intermediate Gastrointestinal Verified 06/07/23 15:49 Upset amoxicillin [From Augmentin] AdvReac Intermediate Gastrointestinal Verified 06/07/23 15:49 Upset clavulanic acid AdvReac Intermediate Gastrointestinal Verified 06/07/23 15:49 [From Augmentin] Upset oxycodone AdvReac Intermediate Gastrointestinal Verified 06/07/23 15:49 Upset Home Medications Medication Instructions Recorded Confirmed Type albuterol sulfate 90 mcg/actuation 2 puff inhalation QID PRN Wheezing 08/22/22 06/07/23 History aerosol inhaler atorvastatin 10 mg tablet 10 mg PO QAM 08/22/22 06/07/23 History duloxetine 60 mg capsule,delayed 60 mg PO QAM 08/22/22 06/07/23 History release hydroxyzine HCl 25 mg tablet 50 mg PO QID PRN Anxiety 08/22/22 06/07/23 History nystatin 100,000 unit/gram topical 1 applic topical BID UNDER 08/22/22 06/07/23 History powder ([facility]) BREASTS/GROIN oxybutynin chloride 10 mg 10 mg PO QAM 08/22/22 06/07/23 History tablet,extended release 24 hr risperidone 1 mg tablet See Rx Instructions .Route .COMPLEX 08/22/22 06/07/23 History metoprolol succinate 100 mg 100 mg PO BID #60 tabs 08/25/22 06/07/23 Rx tablet,extended release 24 hr (Toprol XL) acetaminophen 500 mg tablet 1,000 mg PO TID PRN Pain 06/07/23 06/07/23 History (Tylenol Extra Strength) amlodipine 2.5 mg tablet 2.5 mg PO QAM 06/07/23 06/07/23 History buspirone 15 mg tablet 7.5 mg PO BID 06/07/23 06/07/23 History furosemide 40 mg tablet 40 mg PO SUTUTHSA 06/07/23 06/07/23 History furosemide 40 mg tablet 60 mg PO MOWEFR 06/07/23 06/07/23 History hydrocodone 7.5 mg-acetaminophen 1 tab PO QID Pain 06/07/23 06/07/23 History 325 mg tablet ibuprofen 200 mg tablet 600 mg PO BID 06/07/23 06/07/23 History lidocaine 4 % topical patch 1 patch topical DAILY PRN APPLY TO 06/07/23 06/07/23 History LOWER BACK melatonin 3 mg tablet 3 mg PO HS 06/07/23 06/07/23 History polyethylene glycol 3350 17 17 g PO DAILY Constipation 06/07/23 06/07/23 History gram/dose oral powder (Miralax) Patient History Medical History (Updated 06/08/23 @ 07:48 by LEWIS Guo) Chronic dyspnea Morbid obesity due to excess calories Chronic hypercapnic respiratory failure Fluid overload Surgical History (Updated 06/07/23 @ 16:37 by Priscilla Mas PA-C) History of right hip replacement Hx of cholecystectomy Family History (Updated 06/07/23 @ 16:38 by Priscilla Mas PA-C) Other Coronary heart disease Social History Smoking Status: Never smoker Second Hand Exposure: No; Do You Dip or Chew Tobacco: No; Tobacco Cessation Education Requested by Patient: No Hx Alcohol Use: No Hx Substance Use: No Preferred Language: Yakut Communication Ability: Effective Flight Paramedic Required: No Beliefs That Will Affect Care: None Current Living Situation: Spouse Other Information That Helps Us Care for You: No Feels Safe at Home: Yes Safety Concerns: Feels Safe At This Time Assistive Devices: Oxygen - Continuous and Walker Review of Systems Review of Systems: All systems reviewed & are unremarkable except as noted in HPI & below Physical Exam Constitutional: + ill appearing and + morbidly obese; no acute distress Eyes: PERRL, conjunctivae normal, anicteric sclerae Neck: normal visual inspection and trachea midline Respiratory: + tachypneic; no labored breathing and n o cough Auscultation: + rales; no rhonchi and no wheezes Cardiovascular: Rate/Rhythm: regular rate and regular rhythm Heart Sounds: normal S1 and normal S2 Vessels: + JVD Extremities: + edema (+3 BLLE pitting edema) Psychiatric: Orientation: alert and oriented x 3 Results & Data Vital Signs (Past 12 Hours) Vital Signs Temp Pulse Pulse Resp BP BP Pulse Ox 06/08/23 05:46 68 06/08/23 05:14 06/08/23 05:14 36.4 C L 65 18 107/69 97 06/08/23 03:59 74 21 119/60 98 06/08/23 00:31 117/64 06/08/23 00:31 64 18 98 06/08/23 00:30 66 17 97 06/08/23 00:00 99/75 L 06/08/23 00:00 72 19 96 06/07/23 23:30 99/59 L 06/07/23 23:30 64 16 96 06/07/23 23:19 115/68 06/07/23 23:19 63 21 97 06/07/23 23:15 64 06/07/23 23:01 91/48 L 06/07/23 23:01 80 15 96 06/07/23 23:00 71 17 97 06/07/23 22:30 94/67 L 06/07/23 22:30 74 16 97 06/07/23 22:00 75 19 97 06/07/23 21:31 134/83 06/07/23 21:31 15 97 06/07/23 21:30 106 H 21 98 06/07/23 21:00 72 21 99 06/07/23 21:00 125/67 06/07/23 20:30 70 21 100 06/07/23 20:30 115/69 06/07/23 20:02 114/81 06/07/23 20:02 73 20 100 06/07/23 20:00 97 H 20 06/07/23 19:56 73 20 140/72 98 O2 Del Method O2 Flow Rate 06/08/23 05:46 06/08/23 05:14 Nasal Cannula 4 06/08/23 05:14 Nasal Cannula 4 06/08/23 03:59 Nasal Cannula 4 06/08/23 00:31 06/08/23 00:31 Nasal Cannula 4 06/08/23 00:30 Nasal Cannula 4 06/08/23 00:00 06/08/23 00:00 06/07/23 23:30 06/07/23 23:30 Nasal Cannula 4 06/07/23 23:19 06/07/23 23:19 Nasal Cannula 4 06/07/23 23:15 06/07/23 23:01 06/07/23 23:01 Nasal Cannula 4 06/07/23 23:00 Nasal Cannula 4 06/07/23 22:30 06/07/23 22:30 Nasal Cannula 4 06/07/23 22:00 Nasal Cannula 4 06/07/23 21:31 06/07/23 21:31 Nasal Cannula 4 06/07/23 21:30 Nasal Cannula 4 06/07/23 21:00 Nasal Cannula 4 06/07/23 21:00 06/07/23 20:30 Nasal Cannula 4 06/07/23 20:30 06/07/23 20:02 06/07/23 20:02 Nasal Cannula 4 06/07/23 20:00 06/07/23 19:56 Nasal Cannula 4 Laboratory Results Cardiac Enzymes 06/07/23 Range/Units 14:04 AST 14 (13-39) U/L Troponin I High Sens 5.0 (0-14) pg/ml Coagulation 06/07/23 Range/Units 14:04 PT 10.7 (9.0-12.0) Seconds APTT 27 (21-31) Seconds CBC 06/07/23 06/08/23 Range/Units 14:04 02:18 WBC 8.75 6.84 (4.8-10.8) K/ul RBC 3.76 L 3.80 L (4.20-5.40) M/uL Hgb 10.1 L 10.2 L (12.0-16.0) g/dl Hct 31.3 L 32.2 L (37.0-47.0) % Plt Count 305 247 (130-400) K/uL Neut # (Auto) 6.66 H 4.70 (1.40-6.50) K/uL Lymph # (Auto) 1.27 1.39 (1.20-3.40) K/uL Haines # (Auto) 0.38 0.46 (0.11-0.59) K/uL Eos # (Auto) 0.35 0.23 (0.00-0.50) K/uL Baso # (Auto) 0.03 0.02 (0.00-0.20) K/uL Comprehensive Metabolic Panel 06/07/23 06/08/23 Range/Units 14:04 02:18 Sodium 131 L 133 L (136-145) mmol/L Potassium 3.5 3.6 (3.5-5.1) mmol/L Chloride 89 L 89 L (98-107) mmol/L Carbon Dioxide 36 H 39 H (21-32) mmol/L BUN 10 10 (6-23) mg/dl Creatinine 1.15 1.05 (0.6-1.2) mg/dl Glucose 83 105 H (70-99(Fasting)) mg/dl Calcium 9.0 9.2 (8.6-10.3) mg/dl AST 14 (13-39) U/L ALT 8 (7-52) U/L Alkaline Phosphatase 83 (34-104) U/L Total Protein 6.9 (6.0-8.3) gm/dl Albumin 3.9 (3.4-5.0) gm/dl Intake and Output 06/07/23 06/08/23 06/08/23 22:59 06:59 14:59 Intake Total 235 / 335 100 / 335 Output Total 1400 / 2650 1250 / 2650 Balance -1165 / -2315 -1150 / -2315 Intake: Oral 235 / 335 100 / 335 Output: Urine 1400 / 2600 1200 / 2600 Urine Amount (Catheter) 50 / 50 External 50 / 50 Other: Weight 116.4 kg Weight Measurement Method Built in [facility] Diagnostic Findings Outpatient echo report reviewed from October 2022: Interpretation Summary The examination is adequate to evaluate the referral indication. The left ventricular cavity size is normal. The LV wall thickness is moderately increased (concentric). The left ventricular wall motion is normal. The qualitative LV ejection fraction is 60-64% (normal). The left ventricular diastolic function is mildly abnormal (grade I). There is no significant valvular disease There is no evidence of pulmonary hypertension. Compared to prior study of August 11, 2022, there is no significant change. Nuclear stress test report reviewed dated March 2016: Interpretation Summary Myocardial perfusion imaging is normal. Overall left ventricular systolic function was normal without regional wall motion abnormalities. The left ventricular ejection fraction was >70%. There are no prior studies available for comparison.
[2023-06-08] MEDS ORDERED: amLODIPine BESYLATE 5 MG TAB PO SCH (09:00)
[2023-06-08] MEDS: DULoxetine HCL 60 MG CAP PO SCH (09:13)
[2023-06-08] MEDS: OXYBUTYNIN CHLORIDE XL 5 MG TABCR PO SCH (09:13)
[2023-06-08] MEDS: risperiDONE 0.5 MG TABLET PO SCH (09:13)
[2023-06-08] MEDS: ATORVASTATIN 10 MG TAB PO SCH (09:13)
[2023-06-08] MEDS: POLYETHYLENE (MIRALAX) 17 GM PACK PO SCH (09:14)
[2023-06-08] MEDS: MAGNESIUM OXIDE 400 MG TAB PO SCH (11:11)
--- NOTE | 2023-06-08 16:26 | Hospitalist Progress Note ---
Date of Service June 08, 2023 Assessment & Plan (1) Acute on chronic respiratory failure with hypercapnia: (2) Acute on chronic heart failure with preserved ejection fraction (HFpEF): (3) Obesity hypoventilation syndrome: (4) Hyponatremia: (5) Hypertension: (6) Morbid obesity due to excess calories: Plan per previous hospitalist notes with addendum: This is a 68-year-old female who has a significant past medical history of chronic HFpEF, hypertensive heart disease, chronic hyponatremia, pulmonary hypertension/right heart failure secondary to obesity hypoventilation syndrome, morbid obesity, chronic hypoxic respiratory failure on 3 L via nasal cannula, bipolar and generalized anxiety disorder who presents to ED secondary to shortness of breath and weight gain. Acute on chronic respiratory failure with hypercapnia Acute on chronic heart failure with preserved EF admit to tele continue with diuresis, IV lasix 60mg BID strict I and O, daily weight FR 1800ml/day pt declined giron cath, willl use purwic for now, hx of previous UTI last echo 10/2022 EF 60 to 64%, grade 1 diastolic dysfunction, no significant valvular disease, no pulm hypertension consult cardiology for assistance with diuresis 06/07 Continue Lasix IV twice daily [employer] Salesperson consulted Chronic Hyponatremia in setting of hypervolemia obtain urine na, serum na, serum osm FR, IV lasix follow bmps 06/07 Sodium today 133 HTN chronic, stable continue amlodipine, metoprolol, lasix HLD chronic, stable continue statin Anemia hgb 10.1; previous hgb 13 no s/sx of bleeding, possibly dilutional component will obtain anemia studies in a.m 05/10 Anemia panel showing anemia of chronic disease Bipolar, Anxiety chronic, stable continue buspar, duloxetine, risperdal, hydroxyzine Morbid Obesity, BMI 44.6 encourage diet/lifestyle modifications DVT ppx: SQ lovenox Dispo: Lives at home with her , Elvis PCP: Dr. Nazario FULL CODE Admission and Anticipated Discharge Date Admission Date: June 07, 2023 Subjective Follow-up for acute CHF exacerbation, etc. Seen resting bed comfortable, not in distress On 4 L of O2 States she feels improved compared to yesterday Still has some dyspnea but improving Has dry cough No chest pain, palpitations, dizziness No other new symptoms Review of Systems Review of Systems: all noted and negative except for above Physical Exam Physical Exam: General- oriented x 3, not in distress, speaks in sentences with no effort or accessory muscle use Eyes- anicteric Neck- no JVD Lungs-mild rales at the bases, no wheezing, good air entry bilaterally Heart- normal rate, regular rhythm; no murmurs Abdomen- normal bowel sounds, nondistended, soft, no tenderness Extremities-mild pretibial edema, no calf tenderness Neuro- alert, oriented x 3; no gross focal neurologic deficits Skin- warm & dry Results & Data Results & Data Vital Signs (Past 12 Hours) Vital Signs Temp Pulse Pulse Pulse Resp BP Pulse Ox 06/08/23 16:04 37.1 C 73 16 107/65 96 06/08/23 11:35 37.2 C 76 16 107/66 95 06/08/23 10:34 06/08/23 07:48 36.9 C 81 16 134/79 95 06/08/23 07:42 71 06/08/23 05:46 68 06/08/23 05:14 06/08/23 05:14 36.4 C L 65 18 107/69 97 O2 Del Method O2 Flow Rate 06/08/23 16:04 Nasal Cannula 4 06/08/23 11:35 Nasal Cannula 4 06/08/23 10:34 Nasal Cannula 4 06/08/23 07:48 Nasal Cannula 4 06/08/23 07:42 06/08/23 05:46 06/08/23 05:14 Nasal Cannula 4 06/08/23 05:14 Nasal Cannula 4 all noted and reviewed including below
[2023-06-08] MEDS: ACETAMINOPHEN 500 MG TAB PO PRN (22:18)
--- NOTE | 2023-06-09 06:58 | Cardiology Progress Note ---
Date of Service June 09, 2023 Assessment & Plan (1) Acute on chronic heart failure with preserved ejection fraction (HFpEF): (2) Right heart failure: (3) Hyponatremia: (4) Obesity hypoventilation syndrome: Plan IMPRESSION: Medically complex 68 year old female with acute on chronic diastolic CHF with RHF symptoms. Patient with chronic respiratory failure and Obesity hypoventilation syndrome. Hyponatremia likely due to volume overload and excessive intake or oral fluids. PLAN: HFpEF: -Patient remains hypervolemic on exam- responding to IV diuresis. Continue diuresis with IV Lasix 60 mg BID. Patient will likely benefit from Torsemide when transitioned. -Closely monitor renal function and electrolytes/sodium level- replace k to a goal of 4.0 and mag of 2.0. -STRICT fluid restriction, 1500mL. 2g sodium diet. Daily weights. [facility]. -Echo pending -Holding home dose Norvasc due to volume overload and borderline low BP to allow for more aggressive diuresis. Chronic respiratory failure: On chronic supplemental o2 at baseline. Consider screening for SILVER given OHS as this is likely driving her ongoing fluid retention. Case discussed with Dr. Rojas. Further recommendations pending his assessme nt/review of echo. I spent a total of 30 minutes on the date of service in preparation, delivery, and documentation of the care provided to the patient excluding any time spent in the performance of separately billed services. LEWIS Maldoando Department of Cardiology, [facility] This chart was completed in part utilizing Speech Voice Recognition Software. Grammatical errors, random word insertions, pronoun errors, and incomplete sentences are an occasional consequence of this system due to software limitations, ambient noise, and hardware issues. Any formal questions or concerns about the content, text, or information contained within the body of this dictation should be directly addressed to the provider for clarification. Admission and Anticipated Discharge Date Admission Date: June 07, 2023 Supervising Physician Co-Signing Physician Notes I have reviewed the advance practitioner's documentation, and I agree with, and take responsibility for the plan of care. 68-year-old female with acute on chronic heart failure with preserved ejection fraction, morbid obesity with hypoventilation syndrome and chronic hyponatremia. Resting comfortably. Fluid balance negative 950cc. Feeling better today. Edema improved. PE: VSS. Gen: Morbid obesity. Heart: Regular rhythm, distant heart sounds, normal S1-S2. No murmur. Lungs: Crackles at the bases bilaterally. No rhonchi or wheeze. Extremities: 1+ bilateral pretibial edema to the knees. A/P: 68-year-old female admitted with acute on chronic heart failure with preserved ejection, right heart failure, in the setting of obesity hypoventilation syndrome, acute on chronic hypoxic and hypercapnic respiratory failure. Compensated with pH of 7.40 and pCO2 of 74 on admission. Continue IV diuresis. Monitor fluid balance, daily weight, GFR, and electrolytes. Continue supplemental oxygen as needed (wearing 3 L at home). Sleep medicine evaluation as outpatient. I spent a total of 20 minutes on the date of service in preparation, delivery, and documentation of the care provided to this patient, excluding any time spent in the performance of separately billed services. Subjective 68-year-old female admitted with acute on chronic heart failure with preserved ejection, right heart failure, in the setting of obesity hypoventilation syndrome, acute on chronic hypoxic and hypercapnic respiratory failure. Known chronic hyponatremia in the setting of excessive oral fluid intake. 06/08/2023: Patient hypervolemic on exam, diuresed with IV Lasix 60 mg twice daily. Strict fluid restriction. Amlodipine held. Echo 10/2022: EF 60 to 64%, grade 1 diastolic dysfunction, no significant valvular disease, no pulm hypertension. 06/09/2023: Tele: SR 80-90s I&O: -3.3 L Weight: 121.7 >> 114.9 kg Upon entrance into the room patient resting in bed. , Bull, at bedside. No acute distress. Notes mild improvement in breathing since admission. No chest pain, palpitations, dizziness, syncope or near syncope. Chronically sleeps with her HOB elevated/recliner due to back pain. + increased lower extremity edema. +On chronic supplemental o2 (3-4L). No fever, chills, cough, hematochezia, melena, or hemoptysis. Review of Systems Review of Systems: All systems reviewed & are unremarkable except as noted in HPI & below Physical Exam Constitutional: + ill appearing and + morbidly obese; no acute distress Eyes: PERRL, conjunctivae normal, anicteric sclerae Neck: normal visual inspection and trachea midline Respiratory: + tachypneic; no labored breathing and n o cough Auscultation: + rales; no rhonchi and no wheezes Cardiovascular: Rate/Rhythm: regular rate and regular rhythm Heart Sounds: normal S1 and normal S2 Vessels: + JVD Extremities: + edema (+3 BLLE pitting edema) Psychiatric: Orientation: alert and oriented x 3 Results & Data Vital Signs (Past 12 Hours) Vital Signs Temp Pulse Pulse Resp BP Pulse Ox O2 Del Method 06/09/23 03:59 36.8 C 77 20 144/74 H 93 Nasal Cannula 06/09/23 02:53 80 06/09/23 00:00 16 Nasal Cannula 06/08/23 23:59 37.2 C 77 20 114/76 93 Nasal Cannula 06/08/23 19:46 37.2 C 88 20 120/71 92 Nasal Cannula 06/08/23 19:46 Nasal Cannula O2 Flow Rate 06/09/23 03:59 4 06/09/23 02:53 06/09/23 00:00 4 06/08/23 23:59 4 06/08/23 19:46 4 06/08/23 19:46 4 Laboratory Results Comprehensive Metabolic Panel 06/09/23 Range/Units 05:54 Sodium 132 L (136-145) mmol/L Potassium 3.7 (3.5-5.1) mmol/L Chloride 87 L (98-107) mmol/L Carbon Dioxide 39 H (21-32) mmol/L BUN 16 (6-23) mg/dl Creatinine 1.18 (0.6-1.2) mg/dl Glucose 116 H (70-99(Fasting)) mg/dl Calcium 9.4 (8.6-10.3) mg/dl Intake and Output 06/08/23 06/09/23 06/09/23 22:59 06:59 14:59 Intake Total 240 / 480 120 / 120 Output Total 200 / 1450 150 / 1450 1200 / 1200 Balance 40 / -970 -150 / -970 -1080 / -1080 Intake: Oral 240 / 480 120 / 120 Output: Urine 150 / 150 650 / 650 Urine Amount (Catheter) 200 / 1300 550 / 550 External 200 / 1300 Straight 550 / 550 Other: Weight 114.9 kg Weight Measurement Method Built in [facility]
[2023-06-09 07:04] LABS: BUN Creatinine Ratio 13.6 (10-20); Calcium 9.4 mg/dl (8.6-10.3); Creatinine Clr Calc Pharmacy 58.5 ml/min; Est GFR (African American) 55.3 ml/min; Est GFR (Non-African American) 47.7 ml/min; Potassium 3.7 mmol/L (3.5-5.1)
[2023-06-09] MEDS: POTASSIUM CHLORIDE CRTAB 20 MEQ TABCR PO SCH (08:39)
[2023-06-09 10:38] LABS: Appearance Urine Clear (Clear); Bacteria Urine Automated Negative (Negative); Bilirubin Urine Negative (Negative); Blood Urine 2+ (Negative); Cast Urine Automated 0 /lpf (0-5); Color Urine Yellow; Epithelial Cell Urine Auto 20-30 /lpf (0-5); Glucose Urine UA Negative (Negative); Ketones Urine Negative (Negative); Leukocyte Esterase Urine Trace (Negative); Nitrite Urine Negative (Negative); Protein Urine Negative (Negative); Specific Gravity Urine 1.007 (1.000-1.030); Urobilinogen Urine Negative (Negative)
--- NOTE | 2023-06-09 16:01 | Hospitalist Progress Note ---
Date of Service June 09, 2023 Assessment & Plan (1) Acute on chronic respiratory failure with hypercapnia: (2) Acute on chronic heart failure with preserved ejection fraction (HFpEF): (3) Obesity hypoventilation syndrome: (4) Hyponatremia: (5) Hypertension: (6) Morbid obesity due to excess calories: Plan per previous hospitalist notes with addendum: This is a 68-year-old female who has a significant past medical history of chronic HFpEF, hypertensive heart disease, chronic hyponatremia, pulmonary hypertension/right heart failure secondary to obesity hypoventilation syndrome, morbid obesity, chronic hypoxic respiratory failure on 3 L via nasal cannula, bipolar and generalized anxiety disorder who presents to ED secondary to shortness of breath and weight gain. Acute on chronic respiratory failure with hypercapnia Acute on chronic heart failure with preserved EF admit to tele continue with diuresis, IV lasix 60mg BID strict I and O, daily weight FR 1800ml/day pt declined giron cath, willl use purwic for now, hx of previous UTI last echo 10/2022 EF 60 to 64%, grade 1 diastolic dysfunction, no significant valvular disease, no pulm hypertension consult cardiology for assistance with diuresis 06/07 Continue Lasix IV twice daily Flight Teacher consulted 06/08 improving gradually Continue furosemide 60 mg IV twice daily Reports left calf discomfort Will order Doppler ultrasound to rule out DVT Chronic Hyponatremia in setting of hypervolemia obtain urine na, serum na, serum osm FR, IV lasix follow bmps 06/08 Sodium today 132 HTN chronic, stable continue amlodipine, metoprolol, lasix HLD chronic, stable continue statin Anemia hgb 10.1; previous hgb 13 no s/sx of bleeding, possibly dilutional component will obtain anemia studies in a.m 06/08 Anemia panel showing anemia of chronic disease Bipolar, Anxiety chronic, stable continue buspar, duloxetine, risperdal, hydroxyzine Morbid Obesity, BMI 44.6 encourage diet/lifestyle modifications DVT ppx: SQ lovenox Dispo: Lives at home with her Elvis PCP: Dr. Nazario FULL CODE Admission and Anticipated Discharge Date Admission Date: June 07, 2023 Subjective Follow-up for acute CHF exacerbation, etc. Seen resting bedside chair, comfortable, not in distress On 3 L of oxygen via nasal cannula States breathing continues to improve Had an episode of right-sided chest discomfort today, has since resolved Reports discomfort over the left calf region No other new symptom Review of Systems Review of Systems: all noted and negative except for above Physical Exam Physical Exam: General- oriented x 3, not in distress, speaks in sentences with no effort or accessory muscle use Eyes- anicteric Neck- no JVD Lungs-mild crackles at the bases, no wheezing Heart- normal rate, regular rhythm; no murmurs Abdomen- normal bowel sounds, nondistended, soft, nontender Extremities- Mild edema bilateral lower extremity, no erythema or tenderness Neuro- alert, oriented x 3; no gross focal neurologic deficits Skin- warm & dry Results & Data Results & Data Vital Signs (Past 12 Hours) Vital Signs Temp Pulse Pulse Resp BP Pulse Ox O2 Del Method 06/09/23 15:24 37.6 C 90 16 99/63 L 94 Nasal Cannula 06/09/23 12:30 37.2 C 75 16 118/71 96 Nasal Cannula 06/09/23 10:35 Nasal Cannula 06/09/23 07:53 37.0 C 83 16 116/72 95 Room Air 06/09/23 07:23 83 06/09/23 03:59 36.8 C 77 20 144/74 H 93 Nasal Cannula O2 Flow Rate 06/09/23 15:24 3 06/09/23 12:30 3 06/09/23 10:35 4 06/09/23 07:53 06/09/23 07:23 06/09/23 03:59 4 all noted and reviewed including below
--- NOTE | 2023-06-09 17:07 | Ultrasound Report ---
ULTRASOUND LEFT LOWER EXTREMITY VENOUS CLINICAL HISTORY: Left leg pain and swelling. COMPARISON STUDY: No priors. TECHNIQUE: Real-time, grayscale, and color Doppler sonography of the deep veins of the left lower ext remity was performed from the inguinal crease to the calf. Compression and augmentation were utilized . FINDINGS: There is no sonographic evidence of deep venous thrombosis identified in the left lower ext remity. The common femoral, superficial femoral, and popliteal veins are patent and normally compress ible. The greater saphenous vein and the profunda femoris vein at the junction with the common femora l vein are clear. The visualized calf veins are patent. IMPRESSION: There is no sonographic evidence of deep venous thrombosis identified in the left lower e xtremity. ACT 112: Negative or not required by law. Electronically signed by: Jian Batista M.D. 06/09/2023 5:06 PM
[2023-06-09] MEDS: hydrOXYzine HCl 25 MG TAB PO STA (21:01)
[2023-06-10 07:24] LABS: BUN Creatinine Ratio 16.5 (10-20); Calcium 9.7 mg/dl (8.6-10.3); Creatinine Clr Calc Pharmacy 66.9 ml/min; Est GFR (African American) 65.1 ml/min; Est GFR (Non-African American) 56.2 ml/min; Potassium 3.8 mmol/L (3.5-5.1)
--- NOTE | 2023-06-10 11:11 | Cardiology Progress Note ---
Date of Service June 10, 2023 Assessment & Plan (1) Acute on chronic heart failure with preserved ejection fraction (HFpEF): (2) Right heart failure: (3) Hyponatremia: (4) Obesity hypoventilation syndrome: Plan IMPRESSION: 68-year-old female admitted with acute on chronic heart failure with preserved ejection, right heart failure, in the setting of obesity hypoventilation syndrome, obesity , hyponatremia, acute on chronic hypoxic and hypercapnic respiratory failure- Compensated with pH of 7.40 and pCO2 of 74 on admission. on chronic oxygen supplementation at 3liters will sleep eval as outpt PLAN: HFpEF: -Patient remains hypervolemic on exam has diuresed net negative of 3.4 liters yesterday only negative of 970 ml weight 116 to 114 kg previous admissions baseline weight at discharge 108 will give one extra dose of IV lasix 60 today continue with 60 IV bid on discharge will plan to switch to torsemide 40 mg daily daily weights continue to hold norvasc with borderline low BP to allow for more aggressive diuresis. I spent a total of 40 minutes on the date of service in preparation, delivery, and documentation of the care provided to this patient, excluding any time spent in the performance of separately billed services. Admission and Anticipated Discharge Date Admission Date: June 07, 2023 Subjective patient seen and examined sob is improved nauseous in the morning was able to sleep better yesterday night Review of Systems Constitutional: + fatigue Respiratory: + dyspnea and + dyspnea on exertion; no wheezing Cardiovascular: + dyspnea, + dyspnea on exertion, + orth opnea and + edema; no paroxysmal nocturnal dyspnea Gastrointestinal: + nausea; no vomiting Physical Exam Constitutional: + obese Neck: JVP difficult to assess due to body habitus Respiratory: normal respiratory effort; no respiratory distress Auscultation: + diminished lung sounds Cardiovascular: Rate/Rhythm: regular rate and regular rhythm Heart Sounds: normal S1 and normal S2; no murmur Extremities: + pedal edema (bilateral pit ting ) Results & Data Vital Signs (Past 12 Hours) Vital Signs Temp Pulse Pulse Resp BP BP Pulse Ox 06/10/23 08:30 06/10/23 07:52 36.8 C 75 17 134/79 94 06/10/23 07:00 78 06/10/23 02:59 36.9 C 93 H 18 141/71 H 95 06/09/23 23:15 36.8 C 75 18 101/68 93 O2 Del Method O2 Flow Rate 06/10/23 08:30 Nasal Cannula 3 06/10/23 07:52 Nasal Cannula 3 06/10/23 07:00 06/10/23 02:59 Nasal Cannula 06/09/23 23:15 Nasal Cannula 3 Laboratory Results Comprehensive Metabolic Panel 06/10/23 Range/Units 06:19 Sodium 131 L (136-145) mmol/L Potassium 3.8 (3.5-5.1) mmol/L Chloride 86 L (98-107) mmol/L Carbon Dioxide 39 H (21-32) mmol/L BUN 17 (6-23) mg/dl Creatinine 1.03 (0.6-1.2) mg/dl Glucose 111 H (70-99(Fasting)) mg/dl Calcium 9.7 (8.6-10.3) mg/dl Intake and Output 06/09/23 06/10/23 06/10/23 22:59 06:59 14:59 Intake Total 340 / 790 100 / 790 240 / 240 Balance 340 / -411 100 / -411 240 / 240 Intake: Oral 340 / 790 100 / 790 240 / 240 Other: # Unmeasured Voids 2 Weight 114.4 kg Weight Measurement Method Built in [facility]
[2023-06-10] MEDS: FUROSEMIDE 40 MG/4 ML VIAL IV ONE (12:36)
[2023-06-10] MEDS ORDERED: hydrOXYzine HCl 25 MG TAB PO PRN (14:01)
--- NOTE | 2023-06-10 17:38 | Hospitalist Progress Note ---
Date of Service June 10, 2023 Assessment & Plan (1) Acute on chronic respiratory failure with hypercapnia: (2) Acute on chronic heart failure with preserved ejection fraction (HFpEF): (3) Obesity hypoventilation syndrome: (4) Hyponatremia: (5) Hypertension: (6) Morbid obesity due to excess calories: Plan per previous hospitalist notes with addendum: This is a 68-year-old female who has a significant past medical history of chronic HFpEF, hypertensive heart disease, chronic hyponatremia, pulmonary hypertension/right heart failure secondary to obesity hypoventilation syndrome, morbid obesity, chronic hypoxic respiratory failure on 3 L via nasal cannula, bipolar and generalized anxiety disorder who presents to ED secondary to shortness of breath and weight gain. Acute on chronic respiratory failure with hypercapnia Acute on chronic heart failure with preserved EF admit to tele continue with diuresis, IV lasix 60mg BID strict I and O, daily weight FR 1800ml/day pt declined giron cath, willl use purwic for now, hx of previous UTI last echo 10/2022 EF 60 to 64%, grade 1 diastolic dysfunction, no significant valvular disease, no pulm hypertension consult cardiology for assistance with diuresis 06/07 Continue Lasix IV twice daily Dispute Resolution Specialist consulted 06/08 improving gradually Continue furosemide 60 mg IV twice daily Reports left calf discomfort Will order Doppler ultrasound to rule out DVT 06/09 -3.5 L balance so far Additional Lasix given today Continue IV Lasix twice daily Monitor close Chronic Hyponatremia in setting of hypervolemia obtain urine na, serum na, serum osm FR, IV lasix follow bmps 06/08 Sodium today 132 06/09 Sodium level 131 Nausea From hydrocodone? Changed to as needed HTN chronic, stable continue amlodipine, metoprolol, lasix HLD chronic, stable continue statin Anemia hgb 10.1; previous hgb 13 no s/sx of bleeding, possibly dilutional component will obtain anemia studies in a.m 06/09 Anemia panel showing anemia of chronic disease Bipolar, Anxiety chronic, stable continue buspar, duloxetine, risperdal, hydroxyzine Morbid Obesity, BMI 44.6 encourage diet/lifestyle modifications DVT ppx: SQ lovenox Dispo: Lives at home with her , Elvis PCP: Dr. Nazario FULL CODE Admission and Anticipated Discharge Date Admission Date: June 07, 2023 Subjective Follow-up for CHF exacerbation, etc. Seen sitting up in bed, comfortable, not in distress On 2 L via nasal cannula States she feels okay overall Had some nausea this morning Resolving since Positive BMs daily No abdominal pain No other new symptom Review of Systems Review of Systems: all noted and negative except for above Physical Exam Physical Exam: General- oriented x 3, not in distress, speaks in sentences with no effort or accessory muscle use Eyes- anicteric Neck- no JVD Lungs-mild rales at the bases Heart- normal rate, regular rhythm; no murmurs Abdomen- normal bowel sounds, nondistended, soft, nontender Extremities- no pretibial edema, no calf tenderness Neuro- alert, oriented x 3; no gross focal neurologic deficits Skin- warm & dry Results & Data Results & Data Vital Signs (Past 12 Hours) Vital Signs Temp Pulse Pulse Resp BP Pulse Ox O2 Del Method 06/10/23 16:00 84 06/10/23 15:31 37.3 C 50 L 18 115/69 92 Nasal Cannula 06/10/23 14:55 54 L 06/10/23 11:16 36.8 C 112 H 18 107/65 95 Nasal Cannula 06/10/23 08:30 Nasal Cannula 06/10/23 07:52 36.8 C 75 17 134/79 94 Nasal Cannula 06/10/23 07:00 78 O2 Flow Rate 06/10/23 16:00 06/10/23 15:31 2 06/10/23 14:55 06/10/23 11:16 2 06/10/23 08:30 3 06/10/23 07:52 3 06/10/23 07:00 all noted and reviewed including below
[2023-06-10] MEDS: HYDROCODONE/ACETAMINOPHEN 7.5/325MG TAB PO PRN (20:37)
[2023-06-10] MEDS: hydrOXYzine HCl 25 MG TAB PO STA (20:38)
[2023-06-11 07:08] LABS: BUN Creatinine Ratio 18.8 (10-20); Calcium 9.6 mg/dl (8.6-10.3); Creatinine Clr Calc Pharmacy 71.6 ml/min; Est GFR (African American) 70.9 ml/min; Est GFR (Non-African American) 61.2 ml/min; Potassium 3.6 mmol/L (3.5-5.1)
--- NOTE | 2023-06-11 12:42 | XRay Report ---
XR chest 1V portable CLINICAL HISTORY: CHF TECHNIQUE: Single frontal radiograph of the chest was obtained. Comparison: Comparison is made to chest radiograph 06/07/2023 FINDINGS: No lines and tubes are seen. The cardiomediastinal silhouette is normal. Lungs are underinflated but clear. No evidence of pleural effusion or pneumothorax. IMPRESSION: No acute chest disease. ACT 112: Negative or not required by law. Electronically signed by: Jensen Villalba M.D. 06/11/2023 12:41 PM
--- NOTE | 2023-06-11 13:02 | Hospitalist Progress Note ---
Date of Service June 11, 2023 Assessment & Plan (1) Acute on chronic respiratory failure with hypercapnia: (2) Acute on chronic heart failure with preserved ejection fraction (HFpEF): (3) Obesity hypoventilation syndrome: (4) Hyponatremia: (5) Hypertension: (6) Morbid obesity due to excess calories: Plan per previous hospitalist notes with addendum: This is a 68-year-old female who has a significant past medical history of chronic HFpEF, hypertensive heart disease, chronic hyponatremia, pulmonary hypertension/right heart failure secondary to obesity hypoventilation syndrome, morbid obesity, chronic hypoxic respiratory failure on 3 L via nasal cannula, bipolar and generalized anxiety disorder who presents to ED secondary to shortness of breath and weight gain. Acute on chronic respiratory failure with hypercapnia Acute on chronic heart failure with preserved EF admit to tele continue with diuresis, IV lasix 60mg BID strict I and O, daily weight FR 1800ml/day pt declined giron cath, willl use purwic for now, hx of previous UTI last echo 10/2022 EF 60 to 64%, grade 1 diastolic dysfunction, no significant valvular disease, no pulm hypertension consult cardiology for assistance with diuresis 06/07 Continue Lasix IV twice daily Clinical Project Assistant consulted 06/08 improving gradually Continue furosemide 60 mg IV twice daily Reports left calf discomfort Will order Doppler ultrasound to rule out DVT 06/09 -3.5 L balance so far Additional Lasix given today Continue IV Lasix twice daily Monitor close 06/09 continue IV Lasix Protonix ordered for R sided chest discomfort for possible GI etiology Chronic Hyponatremia in setting of hypervolemia obtain urine na, serum na, serum osm FR, IV lasix follow bmps 06/08 Sodium today 132 06/09 Sodium level 131 06/10 Sodium 132 Nausea From hydrocodone? Changed to as needed HTN chronic, stable continue amlodipine, metoprolol, lasix HLD chronic, stable continue statin Anemia hgb 10.1; previous hgb 13 no s/sx of bleeding, possibly dilutional component will obtain anemia studies in a.m 06/09 Anemia panel showing anemia of chronic disease Bipolar, Anxiety chronic, stable continue buspar, duloxetine, risperdal, hydroxyzine Morbid Obesity, BMI 44.6 encourage diet/lifestyle modifications DVT ppx: SQ lovenox Dispo: Lives at home with her , Elvis PCP: Dr. Nazario FULL CODE Admission and Anticipated Discharge Date Admission Date: June 07, 2023 Subjective Follow-up for CHF, etc. seen resting in chair, comfortable states she feels ok breathing is ok no recurrence of nausea/vomiting, chest pain no other symptoms RN messaged around noon that patient had dyspnea, CP after having BM BP elevated sys 150s, otherwise VS normal EKG no ischemia trop normal CXR CHF appears improved evaluated at bedside comfortable having lunch symptoms resolved Review of Systems Review of Systems: all noted and negative except for above Physical Exam Physical Exam: General- oriented x 3, not in distress, speaks in sentences with no effort or accessory muscle use Eyes- anicteric Neck- no JVD Lungs- mild rales at the bases no wheezing Heart- normal rate, regular rhythm; no murmurs Abdomen- normal bowel sounds, nondistended, soft, nontender Extremities- no pretibial edema, no calf tenderness lower legs: mild edema Neuro- alert, oriented x 3; no gross focal neurologic deficits Skin- warm & dry Results & Data Results & Data Vital Signs (Past 12 Hours) Vital Signs Temp Pulse Pulse Resp BP BP Pulse Ox 06/11/23 11:27 69 22 159/82 H 94 06/11/23 11:26 69 22 159/82 H 94 06/11/23 08:23 37.2 C 94 H 17 137/83 98 06/11/23 08:20 06/11/23 07:00 81 06/11/23 03:55 36.9 C 72 18 144/80 H 96 O2 Del Method O2 Flow Rate 06/11/23 11:27 Nasal Cannula 3 06/11/23 11:26 Nasal Cannula 3 06/11/23 08:23 Nasal Cannula 2 06/11/23 08:20 Room Air 06/11/23 07:00 06/11/23 03:55 Nasal Cannula 2 all noted and reviewed including below
[2023-06-11] MEDS: hydrOXYzine HCl 25 MG TAB PO PRN ×2 (13:58→20:30)
--- NOTE | 2023-06-11 14:56 | Electrocardiogram Report ---
Test Reason : Blood Pressure : / mmHG Vent. Rate : 069 BPM Atrial Rate : 069 BPM P-R Int : 176 ms QRS Dur : 080 ms QT Int : 412 ms P-R-T Axes : 026 000 039 degrees QTc Int : 441 ms Normal sinus rhythm Normal ECG When compared with ECG of 07-JUN-2023 14:00, Premature atrial complexes are no longer Present Confirmed by Rio Negrete ([id number]) on 06/11/2023 2:56:53 PM Referred By: REFERRED SELF Confirmed By:Rio Negrete
--- NOTE | 2023-06-11 14:58 | Electrocardiogram Report ---
Test Reason : Blood Pressure : / mmHG Vent. Rate : 066 BPM Atrial Rate : 066 BPM P-R Int : 130 ms QRS Dur : 074 ms QT Int : 392 ms P-R-T Axes : 054 -19 004 degrees QTc Int : 410 ms Normal sinus rhythm Minimal voltage criteria for LVH, may be normal variant Poor R wave progression, consider anterior CT vs. lead placement vs. LVH Abnormal ECG When compared with ECG of 11-JUN-2023 11:33, PRWP now present Confirmed by Rio Negrete ([id number]) on 06/11/2023 2:57:54 PM Referred By: REFERRED SELF Confirmed By:Rio Negrete
--- NOTE | 2023-06-11 15:17 | Cardiology Progress Note ---
Date of Service June 11, 2023 Assessment & Plan (1) Acute on chronic heart failure with preserved ejection fraction (HFpEF): (2) Right heart failure: (3) Hyponatremia: (4) Obesity hypoventilation syndrome: Plan 68-year-old female admitted with acute on chronic heart failure with preserved ejection, right heart failure in the setting of untreated obesity hypoventilation syndrome, with associated hyponatremia, acute on chronic hypoxic and hypercapnic respiratory failure - compensated with pH of 7.40 and pCO2 of 74 on admission. Patient prescribed chronic oxygen supplementation, 3 L/min Recommendations: Additional supplemental potassium Continue IV furosemide. Switch amlodipine to Losartan, RE: Fluid retention, HFpEF. Doubt patient will tolerate spironolactone (did not require potassium with furosemide prior to arrival) Patient urged to reconsider evaluation and treatment for obstructive sleep apnea Admission and Anticipated Discharge Date Admission Date: June 07, 2023 Supervising Physician Co-Signing Physician Notes I have reviewed the advance practitioner's documentation, and I agree with, and take responsibility for the plan of care. 68-year-old female with acute on chronic heart failure with preserved ejection fraction, morbid obesity with hypoventilation syndrome and chronic hyponatremia. PE: VSS. Gen: Morbid obesity. . Lungs: Crackles at the bases bilaterally. Extremities: 1+ bilateral edema to the knees. A/P: 68-year-old female admitted with acute on chronic heart failure with preserved ejection, right heart failure, in the setting of obesity hypoventilation syndrome, acute on chronic hypoxic and hypercapnic respiratory failure. Continue IV diuresis. I spent a total of 20 minutes on the date of service in preparation, delivery, and documentation of the care provided to this patient, excluding any time spent in the performance of separately billed services. Subjective Patient seen and examined. Chart, medications, and telemetry reviewed. at bedside. Feeling better today in regards to breathing. Had some right sided chest discomfort earlier today. CXR and EKG without acute change. Discomfort notably reproducible with palpation of the chest wall just right of the sternum. Cumulative I&O's -4,139 mL's overall Weights documented to be 121.7 kg on admission and 114 kg today Telemetry: Sinus with occasional atrial ectopy, heart rates 70's to 90's. Review of Systems Review of Systems: Complete Review of Systems is as stated above, negative, or noncontributory. Physical Exam Physical Exam: General: A&Ox3. NAD. HENT: Normocephalic. Atraumatic. Eyes: PER. Conjunctiva pink, sclera clear. Neck: Neck veins not appreciated. Heart: RRR. No murmur appreciated. Lungs: Clear to auscultation. Abdomen: +BS. Soft. Nontender. No masses or organomegaly. Extremities: Minimal edema. No clubbing. No cyanosis Limited neurological examination is without focal deficits. Results & Data Vital Signs (Past 12 Hours) Vital Signs Temp Pulse Pulse Resp BP BP Pulse Ox 06/11/23 11:27 69 22 159/82 H 94 06/11/23 11:26 69 22 159/82 H 94 06/11/23 08:23 37.2 C 94 H 17 137/83 98 06/11/23 08:20 06/11/23 07:00 81 06/11/23 03:55 36.9 C 72 18 144/80 H 96 O2 Del Method O2 Flow Rate 06/11/23 11:27 Nasal Cannula 3 06/11/23 11:26 Nasal Cannula 3 06/11/23 08:23 Nasal Cannula 2 06/11/23 08:20 Room Air 06/11/23 07:00 06/11/23 03:55 Nasal Cannula 2 Laboratory Results Cardiac Enzymes 06/11/23 Range/Units 12:06 Troponin I High Sens 3.2 (0-14) pg/ml Comprehensive Metabolic Panel 06/11/23 Range/Units 06:10 Sodium 132 L (136-145) mmol/L Potassium 3.6 (3.5-5.1) mmol/L Chloride 87 L (98-107) mmol/L Carbon Dioxide 40 H (21-32) mmol/L BUN 18 (6-23) mg/dl Creatinine 0.96 (0.6-1.2) mg/dl Glucose 115 H (70-99(Fasting)) mg/dl Calcium 9.6 (8.6-10.3) mg/dl Intake and Output 06/11/23 06/11/23 06/11/23 06:59 14:59 22:59 Intake Total 200 / 880 480 / 480 Output Total 801 / 801 Balance 200 / -122 -321 / -321 Intake: Oral 200 / 880 480 / 480 Output: Urine 800 / 800 # Bowel Movements Other: Weight 114 kg Weight Measurement Method Built in [facility]
[2023-06-11] MEDS: POTASSIUM CHLORIDE CRTAB 20 MEQ TABCR PO ONE (16:08)
[2023-06-11] MEDS: ALUMINUM/MAGNESIUM SUSP 30 ML UDC PO PRN (18:32)
[2023-06-12 08:27] LABS: BUN Creatinine Ratio 18.3 (10-20); Calcium 9.6 mg/dl (8.6-10.3); Creatinine Clr Calc Pharmacy 65.9 ml/min; Est GFR (African American) 64.4 ml/min; Est GFR (Non-African American) 55.6 ml/min
[2023-06-12] MEDS: LOSARTAN POTASSIUM 25 MG TAB PO SCH (09:03)
--- NOTE | 2023-06-12 10:51 | Cardiology Progress Note ---
Date of Service June 12, 2023 Assessment & Plan (1) Acute on chronic heart failure with preserved ejection fraction (HFpEF): (2) Right heart failure: (3) Hyponatremia: (4) Obesity hypoventilation syndrome: Plan 68-year-old female admitted with acute on chronic heart failure with preserved ejection, right heart failure in the setting of untreated obesity hypoventilation syndrome, with associated hyponatremia, acute on chronic hypoxic and hypercapnic respiratory failure - compensated with pH of 7.40 and pCO2 of 74 on admission. Patient prescribed chronic oxygen supplementation, 3 L/min Plan: 1. Acute on chronic HFpEF 2. Right heart failure 3. Hyponatremia -Patient with mild overload today on exam. -Continue IV lasix 60mg IV BID and consider possible transition to PO Lasix tomorrow. -Maintain Serum K > 4.0 and Serum Mag > 2.0 -CHF teaching -Close monitoring of serum Na, chronic hyponatremia -Continue Losartan and Toprol xl as part of HF regimen. 4. Obesity hypoventilation syndrome: Recommend that patient follow up with Sleep medicine at time of discharge and consider SILVER testing with management Case has been discussed with Dr. Salazar. Further recommendations regarding plan of care as per his assessment. I spent a total of 30 minutes on the date of service in preparation, delivery, documentation of the care provided to the patient excluding any time spent in the performance of separately billed services. LEWIS Colindres [facility] Admission and Anticipated Discharge Date Admission Date: June 07, 2023 Supervising Physician Co-Signing Physician Notes Patient was seen and personally examined. Chart medications telemetry reviewed. Agree with and personally reviewed assessment and plan by advanced provider as above. Additional 20 minutes of evaluation time in chart review, documentation performed Patient clinically appears improved but still with moderate volume overload. Will continue IV furosemide additional day reassess in a.m. Hold losartan given relatively low blood Will require treatment of underlying obstructive sleep apnea, pickwickian morphology Subjective 06/12/23: Patient was seen and examined at bedside. Labs, diagnostics, vital sig ns and documentation reviewed. Patient reports feeling some improvement in her breathing today, as well as significant improvement in her lower extremity swelling. Review of telemetry demonstrates SR rates 70's to 80's. No acute events overnight. Review of Systems Review of Systems: All systems reviewed & are unremarkable except as noted in HPI & below Physical Exam Constitutional: + obese; no acute distress Neck: normal visual inspection and trachea midline Respiratory: normal respiratory effort; no respiratory distress Auscultation: + diminished lung sounds (bilateral bases ); no crackles, no rales, no rhonchi and no wheezes Cardiovascular: Rate/Rhythm: regular rate and regular rhythm Heart Sounds: normal S1 and normal S2 Vessels: dorsalis pedis pulses present; no JVD Extremities: + edema (trace BLE edema ) Skin: no rashes, warm and dry Psychiatric: A+Ox3, euthymic affect Results & Data Vital Signs (Past 12 Hours) Vital Signs Temp Pulse Resp BP BP Pulse Ox O2 Del Method 06/12/23 08:00 Nasal Cannula 06/12/23 07:06 36.6 C 66 18 124/79 94 Nasal Cannula 06/12/23 03:06 36.5 C 76 18 144/79 H 93 Nasal Cannula 06/11/23 23:18 36.7 C 73 18 111/70 94 Nasal Cannula O2 Flow Rate 06/12/23 08:00 3 06/12/23 07:06 3 06/12/23 03:06 3 06/11/23 23:18 3 Laboratory Results Cardiac Enzymes 06/11/23 Range/Units 12:06 Troponin I High Sens 3.2 (0-14) pg/ml Comprehensive Metabolic Panel 06/12/23 Range/Units 07:52 Sodium 132 L (136-145) mmol/L Potassium 4.0 (3.5-5.1) mmol/L Chloride 90 L (98-107) mmol/L Carbon Dioxide 37 H (21-32) mmol/L BUN 19 (6-23) mg/dl Creatinine 1.04 (0.6-1.2) mg/dl Glucose 118 H (70-99(Fasting)) mg/dl Calcium 9.6 (8.6-10.3) mg/dl Intake and Output 06/11/23 06/12/23 06/12/23 22:59 06:59 14:59 Intake Total 150 / 630 490 / 490 Output Total 350 / 1151 Balance -200 / -521 490 / 490 Intake: Oral 150 / 630 490 / 490 Output: Urine 350 / 1150 Other: # Unmeasured Voids 2 Weight 113.3 kg Weight Measurement Method Built in [facility]
[2023-06-12] MEDS: PANTOprazole 40 MG TAB PO SCH (15:13)
--- NOTE | 2023-06-12 17:13 | Hospitalist Progress Note ---
Date of Service June 12, 2023 Assessment & Plan (1) Acute on chronic respiratory failure with hypercapnia: (2) Acute on chronic heart failure with preserved ejection fraction (HFpEF): (3) Obesity hypoventilation syndrome: (4) Hyponatremia: (5) Hypertension: (6) Morbid obesity due to excess calories: Plan per previous hospitalist notes with addendum: This is a 68-year-old female who has a significant past medical history of chronic HFpEF, hypertensive heart disease, chronic hyponatremia, pulmonary hypertension/right heart failure secondary to obesity hypoventilation syndrome, morbid obesity, chronic hypoxic respiratory failure on 3 L via nasal cannula, bipolar and generalized anxiety disorder who presents to ED secondary to shortness of breath and weight gain. Acute on chronic respiratory failure with hypercapnia Acute on chronic heart failure with preserved EF admit to tele continue with diuresis, IV lasix 60mg BID strict I and O, daily weight FR 1800ml/day pt declined giron cath, willl use purwic for now, hx of previous UTI last echo 10/2022 EF 60 to 64%, grade 1 diastolic dysfunction, no significant valvular disease, no pulm hypertension consult cardiology for assistance with diuresis 06/07 Continue Lasix IV twice daily Clinical Immunologist consulted 06/08 improving gradually Continue furosemide 60 mg IV twice daily Reports left calf discomfort Will order Doppler ultrasound to rule out DVT 06/09 -3.5 L balance so far Additional Lasix given today Continue IV Lasix twice daily Monitor close 06/09 continue IV Lasix Protonix ordered for R sided chest discomfort for possible GI etiology 06/11 Continue IV Lasix Possible transition to p.o. Lasix tomorrow Chronic Hyponatremia in setting of hypervolemia obtain urine na, serum na, serum osm FR, IV lasix follow bmps 06/08 Sodium today 132 06/09 Sodium level 131 06/11 Sodium 132 Nausea From hydrocodone? Changed to as needed HTN chronic, stable continue amlodipine, metoprolol, lasix HLD chronic, stable continue statin Anemia hgb 10.1; previous hgb 13 no s/sx of bleeding, possibly dilutional component will obtain anemia studies in a.m 06/09 Anemia panel showing anemia of chronic disease Bipolar, Anxiety chronic, stable continue buspar, duloxetine, risperdal, hydroxyzine Morbid Obesity, BMI 44.6 encourage diet/lifestyle modifications DVT ppx: SQ lovenox Dispo: Lives at home with her Elvis PCP: Dr. Nazario FULL CODE Admission and Anticipated Discharge Date Admission Date: June 07, 2023 Subjective Follow-up for CHF exacerbation, etc. Seen resting in bed, sitting up, not in distress Right-sided chest pain-resolved No nausea vomiting, abdominal pain no chest pain, dyspnea, palpitations, dizziness No other new symptom Review of Systems Review of Systems: all noted and negative except for above Physical Exam Physical Exam: General- oriented x 3, not in distress, speaks in sentences with no effort or accessory muscle use Eyes- anicteric Neck- no JVD Lungs-mild rales at the bases Heart- normal rate, regular rhythm; no murmurs Abdomen- normal bowel sounds, nondistended, soft, nontender Extremities-mild pretibial edema, no calf tenderness Neuro- alert, oriented x 3; no gross focal neurologic deficits Skin- warm & dry Results & Data Results & Data Vital Signs (Past 12 Hours) Vital Signs Temp Pulse Pulse Resp BP Pulse Ox O2 Del Method 06/12/23 15:00 36.7 C 85 18 95/63 L 95 Nasal Cannula 06/12/23 11:30 37.7 C H 95 H 20 123/78 93 Nasal Cannula 06/12/23 11:05 75 06/12/23 08:00 Nasal Cannula 06/12/23 07:06 36.6 C 66 18 124/79 94 Nasal Cannula O2 Flow Rate 06/12/23 15:00 3 06/12/23 11:30 4 06/12/23 11:05 06/12/23 08:00 3 06/12/23 07:06 3 all noted and reviewed including below
[2023-06-13 07:13] LABS: BUN Creatinine Ratio 23.4 (10-20); Calcium 9.6 mg/dl (8.6-10.3); Creatinine Clr Calc Pharmacy 63.8 ml/min; Est GFR (African American) 62.2 ml/min; Est GFR (Non-African American) 53.7 ml/min; Magnesium 2.1 mg/dl (1.7-2.4); Potassium 3.9 mmol/L (3.5-5.1)
--- NOTE | 2023-06-13 12:07 | Cardiology Progress Note ---
Date of Service June 13, 2023 Assessment & Plan (1) Acute on chronic heart failure with preserved ejection fraction (HFpEF): (2) Right heart failure: (3) Hyponatremia: (4) Obesity hypoventilation syndrome: Plan 68-year-old female admitted with acute on chronic heart failure with preserved ejection, right heart failure in the setting of untreated obesity hypoventilation syndrome, with associated hyponatremia, acute on chronic hypoxic and hypercapnic respiratory failure - compensated with pH of 7.40 and pCO2 of 74 on admission. Patient prescribed chronic oxygen supplementation, 3 L/min Plan: 1. Acute on chronic HFpEF 2. Right heart failure 3. Hyponatremia -Patient appears euvolemic on today's exam. O2 supplementation back to baseline -May discontinue IV Lasix in favor of transitioning to PO. She was previously taking lasix 60mg 3x per week and 40mg on remaining days. -Maintain Serum K > 4.0 and Serum Mag > 2.0 -CHF teaching -Close monitoring of serum Na, chronic hyponatremia -Continue Losartan and Toprol xl as part of HF regimen. 4. Obesity hypoventilation syndrome: Recommend that patient follow up with Sleep medicine at time of discharge and consider SILVER testing with management Case has been discussed with Dr. Salazar. Further recommendations regarding plan of care as per his assessment. I spent a total of 30 minutes on the date of service in preparation, delivery, documentation of the care provided to the patient excluding any time spent in the performance of separately billed services. LEWIS Colindres [facility] Admission and Anticipated Discharge Date Admission Date: June 07, 2023 Supervising Physician Co-Signing Physician Notes Patient was seen and personally examined. Chart medications telemetry reviewed. Agree with and personally reviewed assessment and plan by advanced provider as above. Additional 15 minutes of evaluation time in chart review, documentation performed Patient continues to demonstrate improvement. Will switch to oral diuretics. Given difficulties maintaining fluid status with current dosing of furosemide will switch to torsemide at 20 mg/day. Patient [id number] and outpatient CHF management team. Participates in daily weights. Sodium and fluid restricti ons discussed Subjective : patient seen and examined today in follow up at bedside. labs, vitals, diagnostics, and documentation reviewed. patient is out of bed to chair today visiting with family and continues to feel better. Denies any chest pain, pressure, palpitations, shortness of breath, PND, pre-syncope, syncope or edema. She is back to her baseline home supplemental O2 requirement of 4LPM. Weight down 1.2kg since admission/ negative fluid balance of 300ml today. Review of telemetry demonstrates SR with occ PAC rates 80's. Review of Systems Review of Systems: All systems reviewed & are unremarkable except as noted in HPI & below Physical Exam Constitutional: well developed, well nourished and + obese Neck: normal visual inspection and trachea midline Respiratory: normal respiratory effort, lungs clear to auscultation no cough Auscultation: no crackles, no rales, no rhonchi and no wheezes Cardiovascular: Rate/Rhythm: regular rate and regular rhythm Heart Sounds: normal S1 and normal S2; no murmur Vessels: no JVD Extremities: + edema (trace BLE) Skin: no rashes, warm and dry Psychiatric: A+Ox3, euthymic affect Results & Data Vital Signs (Past 12 Hours) Vital Signs Temp Pulse Pulse Resp BP BP Pulse Ox 06/13/23 11:11 37.4 C 85 18 101/60 94 06/13/23 10:26 06/13/23 07:35 74 06/13/23 07:22 36.8 C 81 18 109/74 94 06/13/23 07:20 36.9 C 74 16 111/74 94 06/13/23 04:18 36.5 C 79 20 112/75 93 O2 Del Method O2 Flow Rate 06/13/23 11:11 Nasal Cannula 06/13/23 10:26 Nasal Cannula 4 06/13/23 07:35 06/13/23 07:22 Nasal Cannula 4 06/13/23 07:20 Nasal Cannula 2 06/13/23 04:18 Nasal Cannula 4 Laboratory Results Comprehensive Metabolic Panel 06/13/23 Range/Units 05:54 Sodium 132 L (136-145) mmol/L Potassium 3.9 (3.5-5.1) mmol/L Chloride 90 L (98-107) mmol/L Carbon Dioxide 35 H (21-32) mmol/L BUN 25 H (6-23) mg/dl Creatinine 1.07 (0.6-1.2) mg/dl Glucose 112 H (70-99(Fasting)) mg/dl Calcium 9.6 (8.6-10.3) mg/dl Intake and Output 06/12/23 06/13/23 06/13/23 22:59 06:59 14:59 Intake Total 240 / 1210 Output Total 100 / 800 300 / 300 Balance 140 / 410 -300 / -300 Intake: Oral 240 / 1210 Output: Urine 100 / 100 Other 300 / 300 Other: Other Intake Source sips Weight 112.6 kg Weight Measurement Method Built in [facility]
--- NOTE | 2023-06-13 15:32 | Hospitalist Progress Note ---
Date of Service June 13, 2023 Assessment & Plan (1) Acute on chronic respiratory failure with hypercapnia: (2) Acute on chronic heart failure with preserved ejection fraction (HFpEF): (3) Obesity hypoventilation syndrome: (4) Hyponatremia: (5) Hypertension: (6) Morbid obesity due to excess calories: Plan per previous hospitalist notes with addendum: This is a 68-year-old female who has a significant past medical history of chronic HFpEF, hypertensive heart disease, chronic hyponatremia, pulmonary hypertension/right heart failure secondary to obesity hypoventilation syndrome, morbid obesity, chronic hypoxic respiratory failure on 3 L via nasal cannula, bipolar and generalized anxiety disorder who presents to ED secondary to shortness of breath and weight gain. Acute on chronic respiratory failure with hypercapnia Acute on chronic heart failure with preserved EF last echo 10/2022 EF 60 to 64%, grade 1 diastolic dysfunction, no significant valvular disease, no pulm hypertension Cardiology consulted Given IV Lasix -4 L fluid balance so far Back to baseline 4 L by nasal cannula Transition to torsemide 20 g p.o. today Chronic Hyponatremia in setting of hypervolemia Sodium stable 132 Nausea From hydrocodone? Changed to as needed Protonix 40 mg p.o. daily started Resolved HTN chronic, stable continue amlodipine, metoprolol, lasix HLD chronic, stable continue statin Anemia hgb 10.1; previous hgb 13 no s/sx of bleeding, possibly dilutional component 06/12 Anemia panel showing anemia of chronic disease Hemoglobin stable Bipolar, Anxiety chronic, stable continue buspar, duloxetine, risperdal, hydroxyzine Morbid Obesity, BMI 44.6 encourage diet/lifestyle modifications DVT ppx: SQ lovenox Dispo: PT and OT evaluation Lives with at home PCP: Dr. Nazario FULL CODE Admission and Anticipated Discharge Date Admission Date: June 07, 2023 Subjective Follow-up for acute CHF exacerbation, etc. Seen resting in bed, sitting up, not in distress On baseline 4 L of nasal cannula States breathing is improving Abdominal pain also improving as well as right-sided chest pain resolved Having some back pain which is chronic No other new symptoms Review of Systems Review of Systems: all noted and negative except for above Physical Exam Physical Exam: General- oriented x 3, not in distress, speaks in sentences with no effort or accessory muscle use Eyes- anicteric Neck- no JVD Lungs- clear breath sounds bilaterally, no rales/wheezes Heart- normal rate, regular rhythm; no murmurs Abdomen- normal bowel sounds, nondistended, soft, nontender Extremities- trace pretibial edema, no calf tenderness Neuro- alert, oriented x 3; no gross focal neurologic deficits Skin- warm & dry Results & Data Results & Data Vital Signs (Past 12 Hours) Vital Signs Temp Pulse Pulse Resp BP BP Pulse Ox 06/13/23 15:24 84 06/13/23 11:11 37.4 C 85 18 101/60 94 06/13/23 10:26 06/13/23 07:35 74 06/13/23 07:22 36.8 C 81 18 109/74 94 06/13/23 07:20 36.9 C 74 16 111/74 94 06/13/23 04:18 36.5 C 79 20 112/75 93 O2 Del Method O2 Flow Rate 06/13/23 15:24 06/13/23 11:11 Nasal Cannula 06/13/23 10:26 Nasal Cannula 4 06/13/23 07:35 06/13/23 07:22 Nasal Cannula 4 06/13/23 07:20 Nasal Cannula 2 06/13/23 04:18 Nasal Cannula 4 all noted and reviewed including below
[2023-06-13] MEDS: LIDOCAINE 5% 1 PATCH TD SCH (16:34)
[2023-06-14] MEDS: TORSEMIDE 20 MG TAB PO SCH (08:02)
[2023-06-14 08:19] LABS: BUN Creatinine Ratio 23.4 (10-20); Calcium 9.4 mg/dl (8.6-10.3); Creatinine Clr Calc Pharmacy 72.6 ml/min; Est GFR (African American) 72.8 ml/min; Est GFR (Non-African American) 62.8 ml/min; Potassium 4.1 mmol/L (3.5-5.1)
[2023-06-14] MEDS: SODIUM CHLORIDE 0.65% NA SOLN 45 ML (OCEAN) SCH (08:33)
[2023-06-14] MEDS ORDERED: FUROSEMIDE 20 MG TAB PO SCH (09:00)
--- NOTE | 2023-06-14 15:11 | Discharge Summary ---
Date of Service June 14, 2023 Admission HPI Per Admitting Provider This is a 68-year-old female who has a significant past medical history of chronic HFpEF, hypertensive heart disease, chronic hyponatremia, pulmonary hypertension/right heart failure secondary to obesity hypoventilation syndrome, morbid obesity, chronic hypoxic respiratory failure on 3 L via nasal cannula, bipolar and generalized anxiety disorder who presents to ED secondary to shortness of breath and weight gain. She follows with [facility] cardiology she recently establish care on May 04 secondary to edema and excessive fluid intake. She takes lasix every daily 40mg, except MWF she takes 60mg. She continu es to have increased lower extremity swelling and her PCP told her that her sodium is really low and she was referred to the ED. She states that is is on a fluid restriction, 60oz per day. She may drink 1 bottle over that. She used to drink 4 cans of soda a day and several bottles of water. She has really been trying to reduce her intake. She has been following her weights. When she was discharged during her last hospital stay she was 248lb. She has gone up to 255- 258lbs. is at bedside who helps elicit history. In the outpatient setting she has been referred for a sleep study, but has not gotten this done yet. She denies any recent illness, f/c/s, chest pain, cough, hemoptysis,n/v/d, abd pain, change in bowel or urinary habits. Admission Exam Per Admitting Provider GENERAL APPEARANCE: AxOx4 obese woman no acute distress. HEENT: NC, AT. MMM. EOMI, clear conjunctiva, oropharynx clear. NECK: JVD difficult to appreciate 2/2 habitus HEART: Normal rate and regular rhythm, normal S1/S1, no m/r/g LUNGS: difficult to appreciate 2/2 habitus ABDOMEN: Soft, nontender, nondistended with good bowel sounds heard. BACK: No CVAT, no obvious deformity. EXTREMITIES: firm edema of bilateral extremities, pitting around ankles 2+, NEUROLOGICAL: Grossly nonfocal. Alert and oriented, moving all 4 extremities. CN not formally tested but appear grossly intact Skin: Warm and dry without any rash. Principal Diagnosis Acute on chronic respiratory failure with hypercapnia Acute on chronic heart failure with preserved EF Discharge Exam Constitutional: Alert oriented x 3; not in distress. Respiratory: normal respiratory effort, lungs clear to auscultation, no wheeze, rales, rhonchi. Normal insp/exp effort, no accessory muscle use Cardiovascular: RRR, no murmur, no edema Vessels: no JVD or carotid bruit Chest: normal inspection of chest Abdomen: normal bowel sounds, soft, nontender, no hepatosplenomegaly Musculoskeletal: no cyanosis or clubbing, extremities motor strength 5/5 Skin: no rashes, warm and dry normal turgor Neurologic: PERRL, EOMI, accommodation nl, no face palsy, no dysarthria CN's II- XI intact bilaterally and moves all extremities Psychiatric: A+Ox3, euthymic affect Discharge Data Allergies Allergy/AdvReac Type Severity Reaction Status Date / Time amitriptyline [From Elavil] AdvReac Intermediate Gastrointestinal Verified 06/07/23 15:49 Upset amoxicillin [From Augmentin] AdvReac Intermediate Gastrointestinal Verified 06/07/23 15:49 Upset clavulanic acid AdvReac Intermediate Gastrointestinal Verified 06/07/23 15:49 [From Augmentin] Upset oxycodone AdvReac Intermediate Gastrointestinal Verified 06/07/23 15:49 Upset Consultations 06/07/23 15:32 ED Decision to Admit Stat 06/07/23 16:30 Consult Cardiology Routine Ordered Studies 06/09/23 15:55 US venous doppler LE Urgent Hospital Course (1) Acute on chronic respiratory failure with hypercapnia: (2) Acute on chronic heart failure with preserved ejection fraction (HFpEF): (3) Obesity hypoventilation syndrome: (4) Hyponatremia: (5) Hypertension: (6) Morbid obesity due to excess calories: Plan This is a 68-year-old female who has a significant past medical history of chronic HFpEF, hypertensive heart disease, chronic hyponatremia, pulmonary hypertension/right heart failure secondary to obesity hypoventilation syndrome, morbid obesity, chronic hypoxic respiratory failure on 3 L via nasal cannula, bipolar and generalized anxiety disorder who presents to ED secondary to shortness of breath and weight gain. Acute on chronic respiratory failure with hypercapnia Acute on chronic heart failure with preserved EF Patient presented with shortness of breath and weight gain Chest x-rayno acute chest findings Cardiology was consulted; patient was diuresed with IV Lasix during the hospitalization Her oxygen requirement down trended back to baseline at 4 L by nasal cannula Patient reported improvement in bilateral lower extremity edema Patient was placed on torsemide 20 mg once a day as per cardiology recommendation Patient to follow-up with PCP and cardiology as outpatient. Please note the above document was generated using voice recognition software. It may contain grammatical, syntax or spelling errors. Any formal questions or concerns about the content, text or information contained within the body of this dictation should be directly addressed to the provider for clarification Total Time Total Time Spent Total Time Spent (In Minutes): 45 Total Time Includes: Examination of the Patient, Discharge Planning, Medication Reconciliation, Communication With Other Providers and Other Discharge Plan Discharge Items Patient Disposition: Home - Self-Care Reason For Visit: ACUTE DECOMPENSATED CHF Discharge Diagnosis: Acute on chronic respiratory failure with hypercapnia Acute on chronic heart failure with preserved EF Activity: Resume your previous activity Non-emergency contact: Primary Care Provider Call non-emergency contact if: you have any medication questions and your symptoms worsen Follow-up/Referrals: Orlando Nazario MD [Primary Care Provider] - Diet: Regular Fluids: 1500ml (6 cups) Addtl Attending Provider Instructions: You were admitted to the hospital due to heart failure. You are evaluated by cardiology during hospitalization. They recommend a different type of diuretics. Please stop taking Lasix. You are prescribed torsemide 20 mg to be taken once daily. Stop taking amlodipine as it can contribute to lower extremity edema. Please stop taking ibuprofen. Please limit your fluid intake to 1500 cc (for 24-hour period). This includes water, tea, coffee, soda or juice. Please follow-up with your primary care doctor. An appointment will be set up for you. Please repeat BMP to check on your sodium level. Pending Studies at Discharge: No Stand-Alone Forms: [employer], Smoking Cessation Medications and DC Order Prescriptions: New torsemide 20 mg Tablet 20 mg PO QAM Qty: 90 0RF potassium chloride 20 mEq Tablet,Er Particles/Crystals 1 meq PO QAM Qty: 30 0RF Saline Mist 0.65 % Aerosol,[place] 2 spray NA BID PRN (Reason: dry nasal passages) Qty: 44 0RF Continued nystatin [Nyamyc] 100,000 unit/gram powder 1 applic TOPICAL BID albuterol sulfate 90 mcg/actuation HFA aerosol inhaler 2 puff INHALATION QID PRN (Reason: Wheezing) atorvastatin 10 mg tablet 10 mg PO QAM oxybutynin chloride 10 mg tablet extended release 24hr 10 mg PO QAM hydroxyzine HCl 25 mg tablet 50 mg PO QID PRN (Reason: Anxiety) risperidone 1 mg tablet See Rx Instructions .ROUTE .COMPLEX Rx Instructions: TAKES 0.5 MG QAM, THEN 1 MG QHS. duloxetine 60 mg capsule,delayed release(DR/EC) 60 mg PO QAM metoprolol succinate [Toprol XL] 100 mg tablet extended release 24 hr 100 mg PO BID Qty: 60 0RF lidocaine 4 % Adhesive Patch,Medicated 1 patch TOPICAL DAILY PRN (Reason: APPLY TO LOWER BACK) Rx Instructions: PER PT "USE 4% PATCH, NOT 5% PATCH". melatonin 3 mg Tablet 3 mg PO HS acetaminophen [Tylenol Extra Strength] 500 mg Tablet 1,000 mg PO TID PRN (Reason: Pain) hydrocodone-acetaminophen 7.5-325 mg tablet 1 tab PO QID polyethylene glycol 3350 [Miralax] 17 gram/dose Powder 17 g PO DAILY buspirone 15 mg tablet 7.5 mg PO BID Discontinued furosemide 40 mg tablet 40 mg PO SUTUTHSA amlodipine 2.5 mg Tablet 2.5 mg PO QAM ibuprofen 200 mg Tablet 600 mg PO BID furosemide 40 mg tablet 60 mg PO MOWEFR Discharge Orders: Discharge Order (Routine); Ordered 06/14/23 Ordered By: Ronn Aguilera Admission Data Admit Date/Time: 06/07/23 15:48 Attending Provider: Ronn Aguilera Admit Provider: Pia Pham Primary Care Provider: Orlando Nazario Other Providers: Pia Pham; [facility] Other Interventions: Discharge Summary Assessment (RN) Last Done: 06/14/23 09:08
== END 2023-06-14 12:34 | disposition home health service (06) | DRG 291 ==
LOC: ED 13:36 → SUATTDRO 15:48 → EDINP 15:48 → 2N 06-08 04:48
DX: J96.21 Acute and chronic respiratory failure with hypoxia; I27.29 Other secondary pulmonary hypertension; I50.33 Acute on chronic diastolic (congestive) heart failure; Z87.440 Personal history of urinary (tract) infections; Z99.81 Dependence on supplemental oxygen; Z91.119 Patient's noncompliance with dietary regimen due to unspecified reason; Z88.0 Allergy status to penicillin; Z79.51 Long term (current) use of inhaled steroids; I11.0 Hypertensive heart disease with heart failure; I50.810 Right heart failure, unspecified; E87.1 Hypo-osmolality and hyponatremia; F31.9 Bipolar disorder, unspecified; Z88.5 Allergy status to narcotic agent; F41.1 Generalized anxiety disorder; Z79.899 Other long term (current) drug therapy; Z88.8 Allergy status to other drugs, medicaments and biological substances; E66.2 Morbid (severe) obesity with alveolar hypoventilation; Z82.49 Family history of ischemic heart disease and other diseases of the circulatory system; Z68.41 Body mass index [BMI] 40.0-44.9, adult; J96.22 Acute and chronic respiratory failure with hypercapnia; Z88.1 Allergy status to other antibiotic agents